=== PATIENT | female | born 1945 | race Caucasian/White ===

== ENCOUNTER → 2016-09-03 | Outpatient (CLI) | payer MEDICARE, BC ==
--- NOTE | 2016-09-03 09:21 | CT ---
EXAMINATION TYPE: CT abdomen pelvis wo con DATE OF EXAM: 09/03/2016 COMPARISON: Prior CT abdomen pelvis 01/11/2014 HISTORY: Hematuria CT DLP: 1372.6 mGycm Automated exposure control for dose reduction was used. TECHNIQUE: Helical acquisition of images from the lung bases through the pelvis. FINDINGS: Lack of intravenous contrast could compromise sensitivity. LUNG BASES: The right middle lobe scarring is again noted and stable, some minimal scarring also note d in the lingula as on prior. There is no pleural or pericardial effusion. Mitral annular calcificati on suspected. There is a small hiatal hernia. AORTA: No significant abnormality is appreciated. LIVER/GB: Liver shows low attenuation likely due to fatty infiltration. Focal fatty sparing suspected adjacent to the gallbladder. Gallbladder shows a stable appearance and is not dilated. PANCREAS: No significant abnormality is seen. Duodenal diverticulum again noted at the head of the pa ncreas. SPLEEN: Spleen is borderline enlarged. ADRENALS: No significant abnormality is seen. KIDNEYS: Punctate nonobstructive calculus is present within the right kidney, measuring only 1 to 2 m m. No hydronephrosis bilaterally. No evident hydroureter or ureteral calcification. REPRODUCTIVE ORGANS: Left ovarian cyst is present measuring approximately 2.3 mm. Uterus is absent. Right ovary unremarkable. URINARY BLADDER: Contracted BOWEL: Postop changes are noted to the colon. There is extensive diverticular change present in the sigmoid colon. The appendix is normal. No evident bowel obstruction. FREE AIR: No Free Air is visible. ASCITES: None visible. PELVIC ADENOPATHY: None visualized. RETROPERITONEAL ADENOPATHY: No Retroperitoneal Adenopathy visible. OSSEOUS STRUCTURES: Degenerative disc changes are present in the visualized spine, there is facet ar thropathy in the lower lumbar spine. IMPRESSION: NONOBSTRUCTIVE RIGHT NEPHROLITHIASIS. DIVERTICULOSIS. LEFT OVARIAN CYST APPEARS STABLE. POSTOP CHANGE S. SPLENOMEGALY IS BORDERLINE. FATTY INFILTRATION OF THE LIVER. DUODENAL DIVERTICULUM. Noncontrast ex am.
== END | disposition home or self-care (01) ==
LOC: RADCTMAIN 08:12
PROVIDERS: ATTEND Internal Medicine
DX: N13.2 Hydronephrosis with renal and ureteral calculous obstruction (principal); K57.90 Diverticulosis of intestine, part unspecified, without perforation or abscess without bleeding; N83.202 Unspecified ovarian cyst, left side; R16.1 Splenomegaly, not elsewhere classified
CPT/HCPCS: 74176

== ENCOUNTER → 2017-06-02 | Outpatient (CLI) | payer MEDICARE, BC ==
[2017-06-02 10:28] LABS: Appearance,Urine Clear (Clear); Bilirubin,Urine Negative (Negative); Blood,Urine Negative (Negative); Color,Urine Yellow; Glucose,Urine (UA) Negative (Negative); Hyaline Casts,Urine 10 /lpf (0-2); Ketones,Urine Negative (Negative); Leukocyte Esterase,Urine Negative (Negative); Mucus,Urine Moderate /hpf; Nitrite,Urine Negative (Negative); PH, Urine 5.5 (5.0-8.0); Protein,Urine 1+ (Negative); RBC,Urine 2 /hpf (0-5); Specific Gravity,Urine 1.028 (1.001-1.035); Squamous Epithelial Cell,Urine 2 /hpf (0-4); WBC,Urine 1 /hpf (0-5)
[2017-06-02 10:33] LABS: HCT 43.8 % (34.0-46.0); HGB 14.7 gm/dL (11.4-16.0); MCH 31.5 pg (25.0-35.0); MCHC 33.6 g/dL (31.0-37.0); MCV 93.5 fL (80.0-100.0); Mean Platelet Volume 6.8; Platelet Count 187 k/uL (150-450); RBC 4.69 m/uL (3.80-5.40)
[2017-06-02 10:49] LABS: ALT 36 U/L (9-52); AST 33 U/L (14-36); Albumin 3.9 g/dL (3.5-5.0); Alkaline Phosphatase 76 U/L (38-126); Anion Gap 7 mmol/L; Blood Urea Nitrogen 20 mg/dL (7-17); Calcium 9.4 mg/dL (8.4-10.2); Carbon Dioxide 30 mmol/L (22-30); Chloride 104 mmol/L (98-107); Glucose 110 mg/dL (74-99); Potassium 4.2 mmol/L (3.5-5.1); Sodium 141 mmol/L (137-145); Total Bilirubin 0.6 mg/dL (0.2-1.3); Total Protein 6.5 g/dL (6.3-8.2)
== END | disposition home or self-care (01) ==
LOC: LABPAT 09:41
PROVIDERS: ATTEND Orthopaedic Surgery
DX: Z79.01 Long term (current) use of anticoagulants (principal); M17.11 Unilateral primary osteoarthritis, right knee; Z01.812 Encounter for preprocedural laboratory examination
CPT/HCPCS: 36415; 80053; 81001; 85027; 85610; 85730; 87070

== ENCOUNTER 2017-06-09 10:28 | Inpatient (IN) | payer MEDICARE, BC ==
[2017-06-02 15:14] VITALS: BMI 42.0
[~2017-06-09 10:28] MED LIST: ACETAMINOPHEN TAB 500 MG TAB PO ONE; LACTATED RINGERS 1,000 ML IV SCH; MELOXICAM 7.5 MG TAB PO ONE; MORPHINE SULFATE 4 MG/ML SYRINGE IV PRN; ONDANSETRON 4 MG/2 ML VIAL IVP ONE; TRANEXAMIC ACID 1,000 MG in SODIUM CHLORIDE 0.9% 50 ML IVPB ONE; ceFAZolin IN SWFI 2 GM/20 ML SYRINGE IVP ONE
[2017-06-09] MEDS ORDERED: LIDOCAINE 1% 20 ML VIAL (10MG/ML) FOR IV START INTRADERMA ONE (11:19)
[2017-06-09] MEDS ORDERED: ROPIVACAINE 246.25 MG, EPINEPHrine 0.5 MG, KETOROLAC 30 MG, cloNIDine HCL/PF 80 MCG, WA... MISCELLANE ONE ×5 (12:50)
[2017-06-09] MEDS ORDERED: SODIUM CHLORIDE 0.9% 100 ML BAG ONE (12:54)
[2017-06-09] MEDS ORDERED: LIDOCAINE 1% INJ 10MG/ML (20 ML MDV) ONE (12:54)
[2017-06-09] MEDS ORDERED: PHENYLEPHRINE-0.9% NACL SYG 1 MG/10 ML SYRINGE ONE (12:54)
[2017-06-09] MEDS ORDERED: fentaNYL (PF) 50 MCG/ML 2 ML AMP ONE (12:54)
[2017-06-09] MEDS ORDERED: hydrALAZINE HCL 20 MG/ML 1 ML VIAL ONE (12:54)
[2017-06-09] MEDS ORDERED: SUCCINYLCHOLINE CHLORIDE 100 MG/5 ML SYR IV ONE (12:54)
[2017-06-09] MEDS ORDERED: NEOSTIGMINE 1 MG/ML 10 ML VIAL ONE (12:54)
[2017-06-09] MEDS ORDERED: ROCURONIUM BROMIDE 10 MG/ML 10 ML VIAL IV ONE (12:54)
[2017-06-09] MEDS ORDERED: PROPOFOL 10 MG/ML 20 ML VIAL IV ONE (12:54)
[2017-06-09] MEDS ORDERED: ePHEDrine SULFATE/0.9% NACL/PF 50 MG/5 ML SYRINGE IV ONE (12:54)
[2017-06-09] MEDS ORDERED: TRANEXAMIC ACID 1,000 MG/10 ML VIAL ONE (12:54)
[2017-06-09] MEDS ORDERED: MIDAZOLAM 2 MG/2 ML VIAL ONE (12:54)
[2017-06-09] MEDS ORDERED: GLYCOPYRROLATE 0.2 MG/ML 2 ML VIAL ONE (12:54)
[2017-06-09] MEDS ORDERED: ceFAZolin 3,000 MG in SODIUM CHLORIDE 0.9% IRRIGATIO 3,000 ML IRRIGATION ONE (14:01)
[2017-06-09] MEDS ORDERED: LACTATED RINGERS 1,000 ML IV ONE (14:42)
[2017-06-09] MEDS ORDERED: BISACODYL 10 MG SUPP RECTAL PRN (15:24)
[2017-06-09] MEDS ORDERED: MORPHINE SULFATE/PF 10MG/10ML VL IVP PRN ×3 (15:24)
[2017-06-09] MEDS ORDERED: hydrOXYzine PAMOATE 25 MG CAP PO PRN (15:24)
[2017-06-09] MEDS ORDERED: NA PHOS,M-B/NA PHOS,DI-BA 133 ML ENEMA RECTAL PRN (15:24)
[2017-06-09] MEDS ORDERED: NALOXONE 0.4 MG/ML 1 ML VIAL IV PRN (15:24)
[2017-06-09] MEDS ORDERED: MAGNESIUM HYDROXIDE 2,400 MG/10 ML CUP PO PRN (15:24)
--- NOTE | 2017-06-09 15:51 | XR ---
EXAMINATION TYPE: XR knee limited RT DATE OF EXAM: 06/09/2017 CLINICAL HISTORY: Right knee pain and arthritis status post total knee replacement. TECHNIQUE: Portable AP and crosstable lateral views of the right knee are obtained immediately posto peratively. COMPARISON: None FINDINGS: Metallic hardware from total right knee arthroplasty is seen and appears satisfactory in a lignment and position. There is evidence of recent surgery with diffuse subcutaneous gas and soft ti ssue swelling noted. IMPRESSION: METALLIC HARDWARE FROM TOTAL RIGHT KNEE ARTHROPLASTY IS SATISFACTORY IN ALIGNMENT.
[2017-06-09] MEDS ORDERED: MORPHINE SULFATE 10 MG/ML SYRINGE IVP ONE (16:14)
[2017-06-09] MEDS ORDERED: SODIUM CHLORIDE 0.9% 1,000 ML IV ONE (16:18)
[2017-06-09] MEDS: LACTATED RINGERS 1,000 ML IV SCH (16:56)
[2017-06-09] MEDS ORDERED: WARFARIN 5 MG TAB PO ONE (18:00)
[2017-06-09] MEDS: HYDROcodone/APAP 7.5-325MG 1 EACH TAB PO PRN (20:37)
[2017-06-09] MEDS: MONTELUKAST 10 MG TAB PO SCH (20:38)
[2017-06-09] MEDS: METOPROLOL TARTRATE 50 MG TAB PO SCH (20:38)
[2017-06-09] MEDS: BRIMONIDINE TARTRATE 0.2% DROPS 5 ML BTL BOTH EYES SCH (20:39)
[2017-06-09] MEDS: SENNOSIDES-DOCUSATE SODIUM 1 EACH TAB PO SCH (20:40)
[2017-06-09] MEDS: ceFAZolin IN SWFI 2 GM/20 ML SYRINGE IVP SCH (23:23)
[2017-06-10] MEDS: ceFAZolin IN SWFI 2 GM/20 ML SYRINGE IVP SCH (05:36)
[2017-06-10] MEDS: HYDROcodone/APAP 7.5-325MG 1 EACH TAB PO PRN ×3 (05:36→18:15)
[2017-06-10] MEDS: LACTATED RINGERS 1,000 ML IV SCH ×3 (05:38→21:48)
[2017-06-10 07:35] LABS: INR 1.6 (<1.2); Prothrombin Time 14.9 sec (9.0-12.0)
[2017-06-10 07:55] LABS: Basophils % (A) 0 %; Eosinophils # (A) 0.1 k/uL (0-0.7); Eosinophils % (A) 1 %; Lymphocytes # (A) 0.5 k/uL (1.0-4.8); Lymphocytes % (A) 6 %; MCH 30.8 pg (25.0-35.0); MCHC 33.4 g/dL (31.0-37.0); MCV 92.1 fL (80.0-100.0); Mean Platelet Volume 7.3; Monocytes # (A) 0.4 k/uL (0-1.0); Monocytes % (A) 4 %; Neutrophils # (A) 7.7 k/uL (1.3-7.7); Neutrophils % (A) 88 %; Platelet Count 165 k/uL (150-450); RBC 4.24 m/uL (3.80-5.40); RDW 12.9 % (11.5-15.5); WBC 8.8 k/uL (3.8-10.6)
[2017-06-10] MEDS: MULTIVITAMINS, THERA 1 EACH TAB PO SCH (08:09)
[2017-06-10] MEDS: PANTOPRAZOLE 40 MG TABLET PO SCH (08:09)
[2017-06-10] MEDS: CALCIUM CARB-VIT D 500MG-200UN 1 EACH TAB PO SCH (08:09)
[2017-06-10] MEDS: METOPROLOL TARTRATE 50 MG TAB PO SCH ×2 (08:10→20:37)
[2017-06-10] MEDS: POTASSIUM CHLORIDE ER 20 MEQ TAB.ER PO SCH (08:10)
[2017-06-10] MEDS: LOSARTAN 25 MG TAB PO SCH (08:10)
[2017-06-10] MEDS: FUROSEMIDE 40 MG TAB PO SCH (08:10)
[2017-06-10] MEDS: MELOXICAM 7.5 MG TAB PO SCH (08:10)
[2017-06-10] MEDS: BRIMONIDINE TARTRATE 0.2% DROPS 5 ML BTL BOTH EYES SCH ×2 (08:16→20:37)
--- NOTE | 2017-06-10 08:16 | P.OP ---
Date of Procedure: 06/09/17 Procedure(s) Performed: PREOPERATIVE DIAGNOSIS: Right knee severe osteoarthritis with genu valgum POSTOPERATIVE DIAGNOSIS: 1. Right knee severe osteoarthritis with genu valgum 2. Moderate osteoporosis right knee OPERATION: Right knee cemented total replacement arthroplasty. ANESTHESIA: Spinal ESTIMATED BLOOD LOSS: 150 ml. RISK ADJUSTMENT SPECIALIST: Liliana Fu PA-C (assistance with: patient positioning, retraction, exposure, hemostasis, leg positioning, implantation, irrigation, closure, dressing) COMPLICATIONS: None apparent. COMPONENTS IMPLANTED: Persona system from [employer] INDICATIONS: Mrs. De La Cruz is a 71 year old female with a history of right knee osteoarthritis and moderate genu valgum. The operation of knee replacement has been discussed at length in the office, as well as potential risks and complications. These are inclusive of, but not limited to: bleeding, infection , scarring, discomfort, blood vessel and nerve damage, need for further surgery , failure to relieve symptoms, persistence, recurrence, or worsening of problems , loosening, dislocation, wear, blood clot, pulmonary embolism, , gait dysfunction, stiffness, and other risks as discussed in the office. The patient elects to proceed and the consent form has been signed. PROCEDURE: The patient was taken to the operating room and positioned on the operating room table in the supine position. Anesthesia was initiated. Care was taken to make sure that all pressure points were adequately padded. The operative lower extremity was prepped and draped in the usual aseptic fashion using ChloraPrep. Ioban drape was used for the case and the patient received intravenous antibiotics within one hour of the incision. A pneumotourniquet and leg low were used for the case. The limb was exsanguinated with an Esmarch bandage and the tourniquet was inflated to 350 mmHg. Time-out was called confirming the patients identity, side, procedure and administration of antibiotics. The incision was then created midline directly over the knee, carried down through skin and into the subcutaneous tissues and down to fascia. Full thickness subcutaneous medial flap was developed. Medial parapatellar arthrotomy was performed and the interior of the knee was inspected. There was end-stage osteoarthritis of the knee with a mild to moderate genu valgum type deformity. Also noted was moderate osteoporosis , as evidenced by diminished cortical bone density as well as moderate softening of the cancellus bone, discovered during the course of the operation. The fat pad was excised and limited proximal medial release on the tibia was completed using meticulous dissection. The anterior cruciate ligament was taken down. The exposure was excellent. The knee was flexed 90 degrees and the patella was everted. A spot was chosen on the femur approximately 1 cm anterior to the posterior cruciate ligament insertion and an intramedullary hole was created within the femur. The intramedullary guide was then set to 5 degrees of valgus. The distal cutting block was attached and pinned into position. An appropriate amount of distal femoral resection was set. The oscillating saw was then used to make the distal femoral cut. This cut was confirmed to be flat with the flat end of an osteotome. The retractors were placed around the tibia and the tibial surface was addressed. The angle and depth of resection was adjusted using an extramedullary cutting guide. The guide had a built-in 3 degree posterior slope cut. Once the cutting guide was adjusted appropriately and in line with the axis of the tibia and confirmed to be in good position in relation to the second metatarsal and transmalleolar axis, the tibial cut was then created with protection of the posterior neurovascular structures and the collateral ligaments. The tibial cut surface was removed and sized. Femoral sizing was then accomplished using anterior referencing. Care was taken to analyze the posterior condyles for signs of deficiency or severe wear, and adjustments to the guide were made, as appropriate. Moderate to severe posterior spurring was noted, as well as a moderately to severely tight posterior cruciate ligament which therefore was released, see below. 3 degree external rotation pins were placed. The cutting jig for the femur was applied to these pins. The planned cuts were further analyzed prior to performing them with the oscillating saw. No femoral notching was produced. Bone fragments were removed and the cut surfaces were finished, as necessary, with a reciprocating saw. Spacer block technique was then used to confirm that the flexion and extension gaps were equal. Soft tissue releases and adjustment of the tibial and/or femoral cuts were made, as necessary, until the gaps were equal. This included release of the posterior cruciate ligament, which was tight in this patient and , if left unreleased, would have resulted in poor kinematics and possibly early loosening. The femur was then further finished for a posterior cruciate ligament substituting component. Patellar resurfacing was performed using a reamer. The size of the required patellar component was estimated and the patellar surface was then reamed down to a residual thickness which would recreate the [place] thickness with the component. The placement of the patellar component was influenced by the degree of patellar subluxation, if any, noted on the preoperative x-rays. Prior to placing trial components, anesthetic solution consisting of ropivicaine with epinephrine, ketorolac, and clonidine was injected carefully and methodically in a grid pattern using aspiration technique into the soft tissue around the knee circumferentially, starting with the deeper tissues first and progressing to fascia, and then finally the skin/subcutaneous tissue. Particular care was taken when injecting the posterior capsule. The trial components were inserted. The tibial tray was allowed to self center and the patella was noted to track very well. The position of the tibial component was marked and the tibia was then finished for a stemmed tibial component. Cement was mixed on the back table and applied to the final components. Trial components were removed and the cut surfaces of the bone were pulse lavaged thoroughly and dried. Cement was then applied to the tibial surface and pressurized into the surface using finger pressurization technique. The tibial component was then applied and excess cement was removed after it was impacted securely and noted to be flush with the cut surface. In similar fashion, the cement was applied to the cut femoral surface, pressurized in using finger pressurization and the component was impacted into place. Excess cement was removed. The polyethylene spacer was then implanted and locked into position. The patellar component was then applied in similar technique and a patellar clamp was used to hold the patella in place as the cement hardened. Once the cement had fully hardened, the knee was reinspected. Any other cement extrusion was removed and final kinematic testing showed range of motion from 0 to 130 degrees with excellent stability, both medially and laterally and appropriate alignment of the leg. Patellar tracking was excellent. The knee was then thoroughly pulse lavaged with normal saline. The tourniquet was deflated and hemostasis was obtained with electrocautery and IV tranexamic acid, 1 g given at the start of the operation and 1 g at the start of closure. Closure was with #2 Ethibond in the fascia and supplemented with #2 Quill, 2-0 Vicryl suture was used for the subcutaneous tissues and 3-0 Quill for the skin. Dermabond/Steri-Strips were then applied. A lightly compressive dressing was applied using Webril and an Aaron wrap. The patient was then transferred to [facility] and taken to the recovery room in stable condition. Sponge and needle counts were correct.
--- NOTE | 2017-06-10 09:29 | P.PN ---
Subjective Progress Note Date: 06/10/17 Principal diagnosis: Status post right total knee arthroplasty This is a 71 year-old female post right total knee arthroplasty. This is post- op day 1. The patient was evaluated at the bedside today. She states she has had some nausea this morning. The patient denies vomiting, abdominal pain, shortness of breath, and chest pain. She states her pain is controlled at this time. The patient has not been up with physical therapy yet this morning. Objective - Vital Signs Vital signs: Vital Signs Temp 98 F 06/10/17 07:00 Pulse 76 06/10/17 07:00 Resp 14 06/10/17 07:00 BP 140/78 06/10/17 07:00 Pulse Ox 97 06/10/17 07:00 Intake & Output 06/09/17 06/10/17 06/10/17 18:59 06:59 18:59 Intake Total 1975 3180 Output Total 500 1430 Balance 1476 1750 Weight 104.326 kg Intake: IV 1975 Intake, IV Titration 2100 Amount Lactated Ringers 1,000 ml 100 @ 100 mls/hr IV .Q10H [facility] Rx#:[id number] Sodium Chloride 0.9% 1, 2000 000 ml As IV .STK-MED ONE Rx#:[id number] Oral 1080 Output: Urine 400 1430 Uretheral ([place]) 650 Estimated Blood Loss 100 Other: Voiding Method Indwelling Catheter Indwelling Catheter # Voids 2 - Exam The patient does not appear in acute distress. Alert and orientated x3. Dressing is clean dry and intact. Incision appears fine with no erythema or active drainage. Calf is soft and nontender. Good foot and ankle motion without difficulty. Sensation and circulatory status is intact. - Labs CBC & Chem 7: 06/10/17 07:03 Labs: Abnormal Lab Results - Last 24 Hours (Table) 06/10/17 06/10/17 Range/Units 07:03 07:03 Lymphocytes # 0.5 L (1.0-4.8) k/uL PT 14.9 H (9.0-12.0) sec INR 1.6 H (<1.2) Assessment and Plan (1) Primary localized osteoarthritis of right knee Current Visit: Yes Status: Acute Code(s): M17.11 - UNILATERAL PRIMARY OSTEOARTHRITIS, RIGHT KNEE SNOMED Code(s): 854653696 (2) Status post right knee replacement Current Visit: Yes Status: Acute Code(s): Z96.651 - PRESENCE OF RIGHT ARTIFICIAL KNEE JOINT SNOMED Code(s): 783699557 Plan: 1. Continue pain control 2. Anticoagulation with Coumadin per protocol 3. Start physical therapy, CPM, and ambulation 4. Anticipate discharge home with homecare tomorrow
[2017-06-10] MEDS: ONDANSETRON 4 MG/2 ML VIAL IVP PRN (12:06)
--- NOTE | 2017-06-10 16:37 | P.CONS ---
History of Present Illness - Reason for Consult medical management - Chief Complaint Right knee osteoarthritis - History of Present Illness This is a 71-year-old female who has a history of right knee osteoarthritis and genu valgum. She presentes for total knee arthroplasty with Dr. Nash. She does have a past medical history of asthma, colon cancer, glaucoma, GERD, hypertension, osteoarthritis, and sleep apnea. She is postop day 1. She is doing well, reports pain is well controlled at this time, she has not been up with physical therapy yet. She denies any shortness of breath, abdominal pain, or chest pain. She does report some mild lower back pain from an unsuccessful epidural. Dressing is clean dry and intact, she denies any calf pain. She is on 2 L of O2 via nasal cannula, will attempt to wean down today Review of Systems Constitutional: Denies chills, Denies fatigue, Denies fever Cardiovascular: Denies chest pain, Denies shortness of breath, Denies syncope Respiratory: Denies cough, Denies dyspnea, Denies wheezing Gastrointestinal: Denies constipation, Denies nausea, Denies vomiting Genitourinary: Denies dysuria, Denies urgency Musculoskeletal: Reports low back pain, Denies muscle cramps Integumentary: Denies lesions, Denies pruritus, Denies rash Neurological: Denies confusion, Denies headaches, Denies visual changes Psychiatric: Denies anxiety, Denies confusion, Denies memory loss Endocrine: Denies fatigue, Denies nocturia Past Medical History Past Medical History: Asthma, Cancer, Eye Disorder, GERD/Reflux, Hypertension, Osteoarthritis (OA), Sleep Apnea/CPAP/BIPAP Additional Past Medical History / Comment(s): COLON CANCER (2011), VARICOSE VEINS, HEART MURMUR, SLEEP APNEA- NO MACHINE, BACK PAIN- HERNIATED DISCS., 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 History of Any Multi-Drug Resistant Organisms: None Reported Past Surgical History: Bowel Resection, Hysterectomy, Joint Replacement, Orthopedic Surgery Additional Past Surgical History / Comment(s): BILATERAL SHOULDER ROTATOR CUFF, LEFT KNEE SCOPE, GIDEON BUNIONECTOMY, CATARACTS. TRK 06/09/17 Past Anesthesia/Blood Transfusion Reactions: Motion Sickness, Postoperative Nausea & Vomiting (PONV) Past Psychological History: Anxiety Smoking Status: Former smoker Past Alcohol Use History: Rare Additional Past Alcohol Use History / Comment(s): QUIT SMOKING 25 YRS AGO (1992) . SMOKED 1 PPD., SMOKED FOR APPROX 25 YEARS. Past Drug Use History: None Reported - Past Family History Sister(s) Family Medical History: Pulmonary Embolus Mother Family Medical History: Cancer Additional Family Medical History / Comment(s): LYMPHOMA Medications and Allergies Home Medications Medication Instructions Recorded Confirmed Type Pantoprazole Sodium [Protonix] 40 mg PO DAILY 07/23/13 06/09/17 History Brimonidine Tartrate [Alphagan P 1 drop BOTH EYES BID 05/05/14 06/09/17 History 0.2% Ophth Soln] Flaxseed [Flaxseed Oil] 1,000 mg PO TID 05/05/14 06/09/17 History Multivitamin/Iron/Folic Acid 1 tab PO DAILY 05/05/14 06/09/17 History [Centrum Complete Multivit Tab] Aspirin 81 mg PO DAILY #0 07/19/14 06/09/17 Rx Albuterol Inhaler [Ventolin Hfa 1 - 2 puff INHALATION RT-Q6H PRN 06/02/17 History Inhaler] Calcium/Vitamin D 1 tab PO DAILY 06/02/17 06/09/17 History Furosemide [Lasix] 40 mg PO DAILY 06/02/17 06/09/17 History Ibuprofen 600 mg PO DAILY PRN 06/02/17 06/09/17 History Losartan [Cozaar] 25 mg PO DAILY 06/02/17 06/09/17 History Metoprolol Tartrate [Lopressor] 50 mg PO BID 06/02/17 06/09/17 History Montelukast [Singulair] 10 mg PO HS 06/02/17 06/09/17 History Potassium Chloride [K-Tab ER] 20 meq PO DAILY 06/02/17 06/09/17 History HYDROcodone/APAP 5-325MG [[place] 1 - 2 each PO Q4-6H PRN #90 tab 06/09/17 Rx 5-325] Sennosides-Docusate Sodium 1 tab PO BID #60 tablet 06/09/17 Rx [Senokot-S] Warfarin Sodium [Warfarin Sodium] See Taper PO DIRECTED 06/09/17 06/09/17 History Warfarin [Coumadin] 2.5 mg PO DAILY #1 tab 06/09/17 Rx Allergies Allergy/AdvReac Type Severity Reaction Status Date / Time amoxicillin trihydrate Allergy Rash/Hives Verified 06/09/17 17:09 [From Augmentin] hydromorphone HCl Allergy Rash/Hives Verified 06/09/17 17:09 [From Dilaudid] Iodinated Contrast- Oral and Allergy Red face Verified 06/09/17 17:09 IV Dye and felt [Iodinated Contrast Media - like it IV Dye] was on fire. Penicillins Allergy Rash/Hives Verified 06/09/17 17:09 potassium clavulanate Allergy Rash/Hives Verified 06/09/17 17:09 [From Augmentin] Zwpkjbg-Iuv-Xvd Reductase AdvReac LEG Verified 06/09/17 17:09 Inhibitor SWELLING AND PAIN tramadol AdvReac Unknown Verified 06/09/17 17:09 Physical Exam Vitals: Vital Signs Temp Pulse Pulse Resp BP Pulse Ox 06/10/17 15:00 98.3 F 82 18 110/72 93 L 06/10/17 07:00 98 F 76 14 140/78 97 06/10/17 00:32 97.0 F L 64 17 131/88 98 06/09/17 20:24 17 06/09/17 17:30 85 162/93 95 06/09/17 17:15 85 148/90 95 06/09/17 17:00 89 139/89 94 L 06/09/17 16:45 81 139/89 90 L 06/09/17 16:34 82 16 117/61 95 06/09/17 16:30 75 131/74 92 L 06/09/17 16:18 86 16 121/61 94 L 06/09/17 16:15 83 137/81 95 Intake and Output 06/10/17 06/10/17 06/10/17 06:59 14:59 22:59 Intake Total 1640 1273 Output Total 380 300 Balance 1260 973 Intake: Intake, IV Titration 1100 800 Amount Lactated Ringers 1,000 ml 100 800 @ 100 mls/hr IV .Q10H [facility] Rx#:[id number] Sodium Chloride 0.9% 1, 1000 000 ml As IV .STK-MED ONE Rx#:[id number] Oral 540 473 Output: Urine 380 300 Uretheral ([place]) 300 Other: # Voids 2 Weight 104.326 kg - Constitutional General appearance: cooperative, obese - EENT Eyes: PERRLA ENT: hearing grossly normal - Neck Neck: no lymphadenopathy, normal ROM, no thyromegaly Carotids: bilateral: upstroke normal Thyroid: bilateral: normal size, negative: enlarged, nodule - Respiratory Respiratory: bilateral: CTA - Cardiovascular Rhythm: regular Heart sounds: normal: S1, S2 - Gastrointestinal General gastrointestinal: normal bowel sounds, no organomegaly, soft - Integumentary Integumentary: normal - Neurologic Neurologic: CNII-XII intact - Musculoskeletal Musculoskeletal: strength equal bilaterally - Psychiatric Psychiatric: A&O x's 3 Results CBC & Chem 7: 06/10/17 07:03 Labs: Abnormal Lab Results - Last 24 Hours (Table) 06/10/17 06/10/17 Range/Units 07:03 07:03 Lymphocytes # 0.5 L (1.0-4.8) k/uL PT 14.9 H (9.0-12.0) sec INR 1.6 H (<1.2) Assessment and Plan Plan: 1. Osteoarthritis of the right knee status post total right knee arthroplasty postop day #1. Will continue with [place] and morphine for pain control, continue Mobic. Coumadin for anticoagulation, incentive spirometer at bedside, encouraged to use 10 times every hour while awake, PT. 2. Hypertension. Continue with Lopressor 50 mg twice a day and Cozaar 25 mg daily 3. History of colon cancer diagnosed 2011. Stable, last colonoscopy clear 4. Glaucoma. Continue Alphagan 1 drop both eyes twice a day 5. History of sleep apnea. Stable, patient does not use CPAP 6. Asthma continue singular if needed, we'll do albuterol 7. GERD continue Protonix 40 mg daily 8. GI prophylaxis. Continue Protonix 9. DVT prophylaxis continue Coumadin The above impression and plan of care have been discussed and directed by signing physician. Leticia Hernandez nurse practitioner acting as scribe for signing physician.
[2017-06-10] MEDS ORDERED: WARFARIN 5 MG TAB PO ONE (18:00)
[2017-06-10] MEDS: SENNOSIDES-DOCUSATE SODIUM 1 EACH TAB PO SCH (20:37)
[2017-06-10] MEDS: MONTELUKAST 10 MG TAB PO SCH (20:37)
[2017-06-11] MEDS: HYDROcodone/APAP 7.5-325MG 1 EACH TAB PO PRN ×3 (01:12→16:16)
[2017-06-11 07:38] LABS: INR 2.2 (<1.2); Prothrombin Time 19.9 sec (9.0-12.0)
--- NOTE | 2017-06-11 08:12 | P.DS ---
Providers Date of admission: 06/09/17 10:28 Expected date of discharge: 06/11/17 Attending physician: Jonas Nash Consults: 06/09/17 15:24 Consult Physician Routine Consulting Provider: Sheila Grace Consult Reason/Comments: Medical manangement Do you want consulting provider notified?: Yes Primary care physician: Sheila Grace - Discharge Diagnosis(es) (1) Osteoarthritis of right knee Current Visit: Yes Status: Acute (2) Status post right knee replacement Current Visit: Yes Status: Acute Hospital Course: This is a 71-year-old female who was last seen with complaint of continued right knee pain. The patient has a known history of degenerative arthritis of the right knee and presents to discuss surgical options. After discussion and consideration the patient elects to proceed with total right knee arthroplasty. The patient is seen preoperatively by her family physician and cleared for surgery. The patient is admitted to [facility] for total right knee arthroplasty. The procedures performed without complication or sequelae. Patient is doing well postoperatively. Vital signs are stable at discharge. Labs are stable at discharge. the patient is ambulating well with walker with minimal assistance. The patient is discharged to home on postop day #2 pending medical clearance. Please see orders and refer to the med rec for accurate list of medications. Plan - Discharge Summary Discharge Rx Participant: Yes New Discharge Prescriptions: New HYDROcodone/APAP 5-325MG [[place] 5-325] 1 - 2 each PO Q4-6H PRN #90 tab PRN Reason: Pain Sennosides-Docusate Sodium [Senokot-S] 1 tab PO BID #60 tablet Warfarin [Coumadin] 2.5 mg PO DAILY #1 tab No Action Pantoprazole Sodium [Protonix] 40 mg PO DAILY Multivitamin/Iron/Folic Acid [Centrum Complete Multivit Tab] 1 tab PO DAILY Flaxseed [Flaxseed Oil] 1,000 mg PO TID Brimonidine Tartrate [Alphagan P 0.2% Ophth Soln] 1 drop BOTH EYES BID Aspirin 81 mg PO DAILY #0 Metoprolol Tartrate [Lopressor] 50 mg PO BID Montelukast [Singulair] 10 mg PO HS Albuterol Inhaler [Ventolin Hfa Inhaler] 1 - 2 puff INHALATION RT-Q6H PRN PRN Reason: Shortness Of Breath Calcium/Vitamin D 1 tab PO DAILY Losartan [Cozaar] 25 mg PO DAILY Furosemide [Lasix] 40 mg PO DAILY Potassium Chloride [K-Tab ER] 20 meq PO DAILY Ibuprofen 600 mg PO DAILY PRN PRN Reason: Pain Warfarin Sodium [Warfarin Sodium] See Taper PO DIRECTED Discharge Medication List Pantoprazole Sodium [Protonix] 40 mg PO DAILY 07/23/13 [History] Brimonidine Tartrate [Alphagan P 0.2% Ophth Soln] 1 drop BOTH EYES BID 05/05/14 [History] Flaxseed [Flaxseed Oil] 1,000 mg PO TID 05/05/14 [History] Multivitamin/Iron/Folic Acid [Centrum Complete Multivit Tab] 1 tab PO DAILY [History] Aspirin 81 mg PO DAILY #0 07/19/14 [Rx] Albuterol Inhaler [Ventolin Hfa Inhaler] 1 - 2 puff INHALATION RT-Q6H PRN [History] Calcium/Vitamin D 1 tab PO DAILY 06/02/17 [History] Furosemide [Lasix] 40 mg PO DAILY 06/02/17 [History] Ibuprofen 600 mg PO DAILY PRN 06/02/17 [History] Losartan [Cozaar] 25 mg PO DAILY 06/02/17 [History] Metoprolol Tartrate [Lopressor] 50 mg PO BID 06/02/17 [History] Montelukast [Singulair] 10 mg PO HS 06/02/17 [History] Potassium Chloride [K-Tab ER] 20 meq PO DAILY 06/02/17 [History] HYDROcodone/APAP 5-325MG [[place]ay[place] 5-325] 1 - 2 each PO Q4-6H PRN #90 tab 06/09/17 [Rx] Sennosides-Docusate Sodium [Senokot-S] 1 tab PO BID #60 tablet 06/09/17 [Rx] Warfarin Sodium [Warfarin Sodium] See Taper PO DIRECTED 06/09/17 [History] Warfarin [Coumadin] 2.5 mg PO DAILY #1 tab 06/09/17 [Rx] Follow up Appointment(s)/Referral(s): Liliana Fu, TJ [PHYSICIAN GEOMAGNETICIAN] - 2 Weeks [facility], [NON-STAFF] - Ambulatory/Diagnostic Orders: Continuous Passive Motion (CPM) Machine [DME.AMB1] Time Frame: 3 Weeks, Facility : [facility], Location: Case Management Prothrombin Time INR [LAB.AMB] Location: Determined By Patient Activity/Diet/Wound Care/Special Instructions: May bear wt as tolerated w walker. May shower if no drainage from incision. CPM 5-6h daily. Walker- [facility] - [phone] - will deliver to bedside prior to discharge CPM - [facility] [phone] - please call once home to arrange delivery Discharge Disposition: HOME WITH HOME HEALTH SERVICES
[2017-06-11] MEDS: LACTATED RINGERS 1,000 ML IV SCH ×2 (08:49→17:50)
[2017-06-11] MEDS: MULTIVITAMINS, THERA 1 EACH TAB PO SCH (08:51)
[2017-06-11] MEDS: LOSARTAN 25 MG TAB PO SCH (08:51)
[2017-06-11] MEDS: CALCIUM CARB-VIT D 500MG-200UN 1 EACH TAB PO SCH (08:51)
[2017-06-11] MEDS: PANTOPRAZOLE 40 MG TABLET PO SCH (08:51)
[2017-06-11] MEDS: METOPROLOL TARTRATE 50 MG TAB PO SCH ×2 (08:52→20:14)
[2017-06-11] MEDS: BRIMONIDINE TARTRATE 0.2% DROPS 5 ML BTL BOTH EYES SCH ×2 (08:52→20:13)
[2017-06-11] MEDS: MELOXICAM 7.5 MG TAB PO SCH (08:52)
[2017-06-11] MEDS: FUROSEMIDE 40 MG TAB PO SCH (08:52)
[2017-06-11] MEDS: POTASSIUM CHLORIDE ER 20 MEQ TAB.ER PO SCH (08:52)
[2017-06-11] MEDS: ONDANSETRON 4 MG/2 ML VIAL IVP PRN (08:58)
[2017-06-11] MEDS ORDERED: FUROSEMIDE 10 MG/ML 4 ML VIAL IV STA (13:17)
[2017-06-11] MEDS ORDERED: MORPHINE ORAL SOLN 10 MG/5 ML CUP PO PRN ×3 (14:46→14:54)
--- NOTE | 2017-06-11 15:25 | XR ---
EXAMINATION TYPE: XR chest 2V DATE OF EXAM: 06/11/2017 COMPARISON: Prior chest dated 07/16/2014 HISTORY: Hypoxemia, shortness of breath TECHNIQUE: Frontal and lateral views of the chest are obtained. FINDINGS: Patient is rotated. There is no pleural effusion or pneumothorax seen. Patchy basilar dens ity is again noted on the right. The aorta is dense. The cardiac silhouette size is likely stable, he art size may be accentuated by technique. Postop change noted to the left shoulder. The osseous stru ctures are intact. IMPRESSION: Possible basilar atelectasis, correlate to exclude pneumonia, patient is rotated.
--- NOTE | 2017-06-11 15:37 | US ---
EXAMINATION TYPE: US venous doppler duplex LE RT DATE OF EXAM: 06/11/2017 2:13 PM COMPARISON: 11/28/2015 CLINICAL HISTORY: 71-year-old female edema, s/p TKA. Right knee replacement on 06/09/2017. Attila n and swelling right leg SIDE PERFORMED: Right TECHNIQUE: The lower extremity deep venous system is examined utilizing real time linear array sonog valeriy with graded compression, doppler sonography and color-flow sonography. FINDINGS: VESSELS IMAGED: External Iliac Vein (EIV) Common Femoral Vein Deep Femoral Vein Greater Saphenous Vein * Femoral Vein Popliteal Vein Small Saphenous Vein * Proximal Calf Veins (* superficial vessels) Right Leg: Negative for DVT IMPRESSION: No evidence for DVT within the right lower extremity from the groin to the upper calf.
[2017-06-11] MEDS ORDERED: AZITHROMYCIN 500 MG TAB PO STA (16:25)
--- NOTE | 2017-06-11 16:25 | P.PN ---
Subjective Progress Note Date: 06/11/17 This is a 71-year-old female who has a history of right knee osteoarthritis and genu valgum. She presentes for total knee arthroplasty with Dr. Nash. She does have a past medical history of asthma, colon cancer, glaucoma, GERD, hypertension, osteoarthritis, and sleep apnea. She is postop day 1. She is doing well, reports pain is well controlled at this time, she has not been up with physical therapy yet. She denies any shortness of breath, abdominal pain, or chest pain. She does report some mild lower back pain from an unsuccessful epidural. Dressing is clean dry and intact, she denies any calf pain. She is on 2 L of O2 via nasal cannula, will attempt to wean down today 06/11: Case management contacted us regarding her pulse ox being in the 80s and need for oxygen. Patient is noted to not have oxygen prior to this admission. Nursing states the patient got up to the bed side commode last evening her pulse ox dropped to the 80s and she has been on oxygen through the night. This morning she was complaining of headache and nausea and oxygen was increased to 3 L nasal cannula. She has been using her incentive spirometry and reaching 2914-0897 ML's. She denies having any cough. We have ordered one dose of Lasix 40 mg IV. Chest x-ray shows possible basilar atelectasis correlate to exclude pneumonia. Patient will be treated for pneumonia and started on ceftriaxone and azithromycin. Ultrasound of the right lower extremity was negative for DVT. Discharge today will be held. Nursing is monitoring her oxygen closely and we will try to wean her down prior to discharge social not require oxygen. Patient be reevaluated in the morning. Objective - Vital Signs Vital signs: Vital Signs Temp 98 F 06/11/17 15:00 Pulse 73 06/11/17 15:00 Resp 16 06/11/17 15:00 BP 124/74 06/11/17 15:00 Pulse Ox 98 06/11/17 15:00 Intake & Output 06/10/17 06/11/17 06/11/17 18:59 06:59 18:59 Intake Total 1273 Output Total 300 Balance 973 Weight 104.326 kg Intake: Intake, IV Titration 800 Amount Lactated Ringers 1,000 ml 800 @ 100 mls/hr IV .Q10H KALYAN Rx#:[id number] Oral 473 Output: Urine 300 Uretheral ([place]) 300 Other: Voiding Method Bedside Commode # Voids 2 - Exam General appearance: cooperative, obese - EENT Eyes: PERRLA ENT: hearing grossly normal - Neck Neck: no lymphadenopathy, normal ROM, no thyromegaly Carotids: bilateral: upstroke normal Thyroid: bilateral: normal size, negative: enlarged, nodule - Respiratory Respiratory: bilateral: CTA - Cardiovascular Rhythm: regular Heart sounds: normal: S1, S2 - Gastrointestinal General gastrointestinal: normal bowel sounds, no organomegaly, soft - Integumentary Integumentary: normal - Neurologic Neurologic: CNII-XII intact - Musculoskeletal Musculoskeletal: strength equal bilaterally - Psychiatric Psychiatric: A&O x's 3 - Labs CBC & Chem 7: 06/10/17 07:03 Labs: Abnormal Lab Results - Last 24 Hours (Table) 06/11/17 Range/Units 06:56 PT 19.9 H (9.0-12.0) sec INR 2.2 H (<1.2) Assessment and Plan Plan: 1. Osteoarthritis of the right knee status post total right knee arthroplasty postop day #1. Will continue with Vadito and morphine for pain control, continue Mobic. Coumadin for anticoagulation, incentive spirometer at bedside, encouraged to use 10 times every hour while awake, PT. 2. Hypoxia and Pneumonia without acute respiratory failure, patient will be started on ceftriaxone and azithromycin. 3. Hypertension. Continue with Lopressor 50 mg twice a day and Cozaar 25 mg daily 3. History of colon cancer diagnosed 2011. Stable, last colonoscopy clear 4. Glaucoma. Continue Alphagan 1 drop both eyes twice a day 5. History of sleep apnea. Stable, patient does not use CPAP 6. Asthma continue singular if needed, we'll do albuterol 7. GERD continue Protonix 40 mg daily 8. GI prophylaxis. Continue Protonix 9. DVT prophylaxis continue Coumadin Discharge plan: Home with [facility] Impression and plan of care have been directed as dictated by the signing physician. Yolanda Munoz nurse practitioner acting as scribe for signing physician.
[2017-06-11] MEDS: cefTRIAXone IN SWFI 1,000 MG/10 ML SYRINGE IVP SCH (17:47)
[2017-06-11] MEDS ORDERED: WARFARIN 2.5 MG TAB PO ONE (18:00)
[2017-06-11] MEDS: SENNOSIDES-DOCUSATE SODIUM 1 EACH TAB PO SCH (20:14)
[2017-06-11] MEDS: MONTELUKAST 10 MG TAB PO SCH (20:14)
[2017-06-11] MEDS: ACETAMINOPHEN TAB 325 MG TAB PO PRN (22:36)
[2017-06-12] MEDS: LACTATED RINGERS 1,000 ML IV SCH ×2 (00:40→13:44)
[2017-06-12] MEDS: ACETAMINOPHEN TAB 325 MG TAB PO PRN (07:02)
[2017-06-12] MEDS ORDERED: BUTALB/APAP/CAFF 50-325-40MG TAB PO PRN (08:15)
[2017-06-12 08:16] LABS: Basophils % (A) 0 %; Eosinophils # (A) 0.1 k/uL (0-0.7); Eosinophils % (A) 2 %; HCT 36.3 % (34.0-46.0); HGB 12.6 gm/dL (11.4-16.0); Lymphocytes % (A) 15 %; MCH 31.7 pg (25.0-35.0); MCHC 34.6 g/dL (31.0-37.0); MCV 91.5 fL (80.0-100.0); Mean Platelet Volume 7.1; Monocytes # (A) 0.4 k/uL (0-1.0); Monocytes % (A) 6 %; Neutrophils # (A) 4.9 k/uL (1.3-7.7); Neutrophils % (A) 75 %; Platelet Count 174 k/uL (150-450); RBC 3.97 m/uL (3.80-5.40); WBC 6.5 k/uL (3.8-10.6)
--- NOTE | 2017-06-12 08:18 | P.PN ---
Subjective Progress Note Date: 06/12/17 Principal diagnosis: Primary osteoarthritis right knee. Status post total right knee arthroplasty. This is a 71-year-old female who is status post total right knee arthroplasty on 06/09/2017. The patient was to be discharged to home yesterday. However, when she was ambulating with physical therapy she became dizzy and slightly short of breath. Vitals were taken at that time which revealed her pulse ox to be in the low 80s. She was put on oxygen. Chest x-ray was obtained and venous Doppler was obtained. Doppler was negative for DVT. Chest x-ray revealed some atelectasis and could not exclude early pneumonia. The patient is complaining of a headache this morning. She does not feel short of breath today and states that she has not had a cough. She currently is on 4 L of O2 per nasal cannula with a pulse ox ranging from 92-95. She reports no fever or chills. Objective - Vital Signs Vital signs: Vital Signs Temp 98.4 F 06/12/17 00:59 Pulse 80 06/12/17 00:59 Resp 17 06/12/17 00:59 BP 120/64 06/12/17 00:59 Pulse Ox 95 06/12/17 00:59 Intake & Output 06/11/17 06/12/17 06/12/17 18:59 06:59 18:59 Intake Total 500 780 Balance 500 780 Intake: Oral 500 Other 780 Other: Voiding Method Bedside Commode # Voids 3 3 - Exam This is a pleasant 71-year-old female in no acute distress. She is alert and oriented. She is holding her head and her hands when I walked in the room. Exam of the lower extremities reveals that her incision looks good. There is no erythema. There is mild ecchymosis about the incision. There is no active drainage. The Dermabond tape is intact. She has full foot and ankle motion without difficulty or pain. There is no calf pain with palpation. Neurovascular status to the lower extremity is intact. - Labs CBC & Chem 7: 06/10/17 07:03 Assessment and Plan (1) Osteoarthritis of right knee Current Visit: Yes Status: Acute Code(s): M17.11 - UNILATERAL PRIMARY OSTEOARTHRITIS, RIGHT KNEE SNOMED Code(s): 983972962134088 (2) Status post right knee replacement Current Visit: Yes Status: Acute Code(s): Z96.651 - PRESENCE OF RIGHT ARTIFICIAL KNEE JOINT SNOMED Code(s): 140228398 Plan: The clinical and diagnostic findings are discussed with the patient. I have reviewed the case with nursing staff. We will talk to internal medicine regarding her hypoxemia and her headache. We'll continue to follow. Most likely we'll hold discharge today.
[2017-06-12 08:19] LABS: INR 1.7 (<1.2); Prothrombin Time 15.8 sec (9.0-12.0)
[2017-06-12] MEDS ORDERED: RX INFO: IV CONTRAST WAS GIVEN 1 EACH MISC MISCELLANE PRN (08:49)
[2017-06-12] MEDS ORDERED: FAMOTIDINE 20 MG/2 ML VIAL IV STA (08:50)
[2017-06-12] MEDS ORDERED: methylPREDNISolone SOD SUCCI 125 MG/2 ML VIAL IV STA (08:50)
[2017-06-12] MEDS ORDERED: diphenhydrAMINE 50 MG/ML 1 ML VIAL IVP STA (08:50)
[2017-06-12] MEDS: BRIMONIDINE TARTRATE 0.2% DROPS 5 ML BTL BOTH EYES SCH ×2 (09:12→19:54)
[2017-06-12] MEDS: MELOXICAM 7.5 MG TAB PO SCH (09:13)
[2017-06-12] MEDS: LOSARTAN 25 MG TAB PO SCH (09:13)
[2017-06-12] MEDS: FUROSEMIDE 40 MG TAB PO SCH (09:13)
[2017-06-12] MEDS: METOPROLOL TARTRATE 50 MG TAB PO SCH ×2 (09:13→19:54)
[2017-06-12] MEDS: POTASSIUM CHLORIDE ER 20 MEQ TAB.ER PO SCH (09:13)
[2017-06-12] MEDS: PANTOPRAZOLE 40 MG TABLET PO SCH (09:13)
[2017-06-12] MEDS: MULTIVITAMINS, THERA 1 EACH TAB PO SCH (09:13)
[2017-06-12] MEDS: cefTRIAXone IN SWFI 1,000 MG/10 ML SYRINGE IVP SCH (09:14)
[2017-06-12] MEDS: CALCIUM CARB-VIT D 500MG-200UN 1 EACH TAB PO SCH (09:14)
[2017-06-12] MEDS: AZITHROMYCIN 250 MG TAB PO SCH (09:14)
[2017-06-12 09:26] LABS: Anion Gap 7 mmol/L; Blood Urea Nitrogen 16 mg/dL (7-17); Calcium 8.8 mg/dL (8.4-10.2); Carbon Dioxide 36 mmol/L (22-30); Chloride 93 mmol/L (98-107); Glucose 133 mg/dL (74-99); Sodium 136 mmol/L (137-145)
--- NOTE | 2017-06-12 10:51 | CT ---
EXAMINATION TYPE: CT angio chest DATE OF EXAM: 06/12/2017 COMPARISON: Radiograph 06/11/2017 HISTORY: 71 year-old female hypoxemia after TKA TECHNIQUE: Contiguous axial scanning of the chest performed with IV Contrast, patient injected with 6 0 mL of Isovue 300. Coronal/sagittal MIP reconstructions performed. CT DLP: 533.30 mGycm Automated exposure control for dose reduction was used. FINDINGS: The heart is normal size without pericardial effusion.; Annular calcifications are present. Mild aort ic valvular calcifications. Mild aneurysm ascending aorta at 4.0 cm. Mild atherosclerotic arch calcifications. There is a direct takeoff of the left vertebral artery directly from the aortic arch. Ectasia of the upper descending t horacic aorta at 3.2 cm. Satisfactory opacification of the pulmonary system. Exam is positive for mild burden of pulmonary emb jett to the left upper lobe segmental and subsegmental branch, refer to axial images 50 and 51. No thoracic lymphadenopathy. Prominent but nonenlarged 9 mm precarinal lymph node. Mild biapical pleural-parenchymal scarring. Mild paraseptal and mild centrilobular emphysema is noted . 4 mm peripheral right upper lobe pulmonary nodule axial image 47. 4 mm subpleural pulmonary nodule superior segment right lower lobe axial image 52. Calcified granuloma peripheral left lower lobe axial image 70. Strandy and patchy areas of atelectasis at the lung bases. No consolidation or pleural effusion. Visualized upper abdomen shows no gross abnormality. Bones: Endplate spondylosis mid to lower thoracic spine. Moderate to advanced degenerative disc disea se. IMPRESSION: 1. EXAM POSITIVE FOR PULMONARY EMBOLUS. THERE IS ONLY MILD BURDEN ON THE LEFT WITH SEGMENTAL AND SUBS EGMENTAL BRANCH EMBOLUS TO THE LEFT UPPER LOBE. 2. COPD WITH MILD EMPHYSEMA. A COUPLE PULMONARY NODULES MEASURE UP TO 4 MM AND CAN BE REASSESSED AT A ONE-YEAR FOLLOW-UP. 3. PROMINENT PATCHY ATELECTASIS AT THE LUNG BASES. 4. MILDLY ANEURYSMAL THORACIC AORTA (ASCENDING 4.0 CM AND UPPER DESCENDING 3.2 CM). CRITICAL FINDINGS CALLED TO NURSE COBURN ON 3SUR AT 10:48 AM.
[2017-06-12] MEDS ORDERED: HEPARIN SODIUM,PORCINE 5,000 UNIT/ML 1 ML VIAL IV PRN (12:08)
[2017-06-12 12:24] LABS: Basophils % (A) 0 %; Eosinophils % (A) 0 %; HCT 37.6 % (34.0-46.0); HGB 12.8 gm/dL (11.4-16.0); Lymphocytes # (A) 0.5 k/uL (1.0-4.8); Lymphocytes % (A) 6 %; MCH 31.4 pg (25.0-35.0); MCHC 34.1 g/dL (31.0-37.0); MCV 92.3 fL (80.0-100.0); Mean Platelet Volume 6.9; Monocytes # (A) 0.2 k/uL (0-1.0); Monocytes % (A) 3 %; Neutrophils # (A) 8.2 k/uL (1.3-7.7); Neutrophils % (A) 90 %; Platelet Count 185 k/uL (150-450); RBC 4.08 m/uL (3.80-5.40); RDW 13.1 % (11.5-15.5)
[2017-06-12] MEDS ORDERED: HEPARIN SODIUM,PORCINE 5,000 UNIT/ML 1 ML VIAL IV ONE (12:30)
[2017-06-12 12:32] LABS: INR 1.7 (<1.2); Partial Thromboplastin Time 26.7 sec (22.0-30.0); Prothrombin Time 15.4 sec (9.0-12.0)
[2017-06-12] MEDS: HYDROcodone/APAP 7.5-325MG 1 EACH TAB PO PRN ×2 (12:52→20:58)
[2017-06-12] MEDS: HEPARIN SOD,PORK IN 0.45% NACL 25,000 UNIT in 0.45% NACL 1 500ML.BAG IV SCH ×2 (14:09→20:45)
--- NOTE | 2017-06-12 15:26 | US ---
EXAMINATION TYPE: US venous doppler duplex LE LT DATE OF EXAM: 06/12/2017 3:15 PM COMPARISON: US bilateral lower extremity 11/28/2015 CLINICAL HISTORY: Positive pulmonary embolism. SIDE PERFORMED: Left TECHNIQUE: The lower extremity deep venous system is examined utilizing real time linear array sonog valeriy with graded compression, doppler sonography and color-flow sonography. VESSELS IMAGED: External Iliac Vein (EIV) Common Femoral Vein Deep Femoral Vein Greater Saphenous Vein * Femoral Vein Popliteal Vein Small Saphenous Vein * Proximal Calf Veins (* superficial vessels) Left Leg: Negative for DVT Grayscale, color doppler, spectral doppler imaging performed of the deep veins of the bilateral lower extremities. There is normal flow, compressibility, vascular waveforms. IMPRESSION: No ultrasound evidence for acute DVT in either lower extremity on current study.
--- NOTE | 2017-06-12 15:51 | P.PN ---
Subjective Progress Note Date: 06/12/17 This is a 71-year-old female who has a history of right knee osteoarthritis and genu valgum. She presentes for total knee arthroplasty with Dr. Nash. She does have a past medical history of asthma, colon cancer, glaucoma, GERD, hypertension, osteoarthritis, and sleep apnea. She is postop day 1. She is doing well, reports pain is well controlled at this time, she has not been up with physical therapy yet. She denies any shortness of breath, abdominal pain, or chest pain. She does report some mild lower back pain from an unsuccessful epidural. Dressing is clean dry and intact, she denies any calf pain. She is on 2 L of O2 via nasal cannula, will attempt to wean down today 06/11: Case management contacted us regarding her pulse ox being in the 80s and need for oxygen. Patient is noted to not have oxygen prior to this admission. Nursing states the patient got up to the bed side commode last evening her pulse ox dropped to the 80s and she has been on oxygen through the night. This morning she was complaining of headache and nausea and oxygen was increased to 3 L nasal cannula. She has been using her incentive spirometry and reaching [id number] ML's. She denies having any cough. We have ordered one dose of Lasix 40 mg IV. Chest x-ray shows possible basilar atelectasis correlate to exclude pneumonia. Patient will be treated for pneumonia and started on ceftriaxone and azithromycin. Ultrasound of the right lower extremity was negative for DVT. Discharge today will be held. Nursing is monitoring her oxygen closely and we will try to wean her down prior to discharge social not require oxygen. Patient be reevaluated in the morning. 06/12: Pulseox remains low this morning at 92% on 4L n/c. CTA of the chest was positive for pulmonary embolus. Only mild burden on the left with segmental and subsegmental branch embous to left upper lobe. COPD with mild emphysema. Couple pulmonary nodules measuring up to 4 mm and can be reassessed in 1 year follow- up. Prominent patchy atelectasis at the lung bases. Mildly aneurysmal thoracic aorta. Ascending 4.0 cm and upper descending 3.2 cm. Patient has been started on heparin drip. Doppler of the left lower extreme is negative for DVT. Patient is also complaining of headache which is so bad that it causes her nausea. Fioricet has been added. Headache is located in the forehead area. Patient didn't receive significant improvement with Fioricet. Objective - Vital Signs Vital signs: Vital Signs Temp 97.5 F L 06/12/17 07:00 Pulse 98 06/12/17 07:00 Resp 18 06/12/17 07:00 BP 114/76 06/12/17 07:00 Pulse Ox 92 L 06/12/17 07:00 Intake & Output 06/11/17 06/12/17 06/12/17 18:59 06:59 18:59 Intake Total 500 780 Balance 500 780 Intake: Oral 500 Other 780 Other: Voiding Method Bedside Commode Toilet Bedside Commode # Voids 3 3 - Exam General appearance: cooperative, obese - EENT Eyes: PERRLA ENT: hearing grossly normal - Neck Neck: no lymphadenopathy, normal ROM, no thyromegaly Carotids: bilateral: upstroke normal Thyroid: bilateral: normal size, negative: enlarged, nodule - Respiratory Respiratory: bilateral: CTA - Cardiovascular Rhythm: regular Heart sounds: normal: S1, S2 - Gastrointestinal General gastrointestinal: normal bowel sounds, no organomegaly, soft - Integumentary Integumentary: normal - Neurologic Neurologic: CNII-XII intact - Musculoskeletal Musculoskeletal: strength equal bilaterally - Psychiatric Psychiatric: A&O x's 3 - Labs CBC & Chem 7: 06/12/17 12:16 06/12/17 07:39 Labs: Abnormal Lab Results - Last 24 Hours (Table) 06/12/17 06/12/17 Range/Units 07:39 07:39 PT 15.8 H (9.0-12.0) sec INR 1.7 H (<1.2) Sodium 136 L (137-145) mmol/L Chloride 93 L (98-107) mmol/L Carbon Dioxide 36 H (22-30) mmol/L Glucose 133 H (74-99) mg/dL Assessment and Plan Plan: 1. Osteoarthritis of the right knee status post total right knee arthroplasty postop day #1. Will continue with Clark and morphine for pain control, continue Mobic. Coumadin for anticoagulation, incentive spirometer at bedside, encouraged to use 10 times every hour while awake, PT. 2. Hypoxia secondary to left pulmonary embolus and Pneumonia without acute respiratory failure, patient will be started on ceftriaxone and azithromycin. Heparin drip started. 3. Hypertension. Continue with Lopressor 50 mg twice a day and Cozaar 25 mg daily 3. History of colon cancer diagnosed 2011. Stable, last colonoscopy clear 4. Glaucoma. Continue Alphagan 1 drop both eyes twice a day 5. History of sleep apnea. Stable, patient does not use CPAP 6. Asthma continue singular if needed, we'll do albuterol 7. GERD continue Protonix 40 mg daily 8. GI prophylaxis. Continue Protonix 9. DVT prophylaxis continue Coumadin Discharge plan: Home with [facility] Impression and plan of care have been directed as dictated by the signing physician. Yolanda Munoz nurse practitioner acting as scribe for signing physician.
[2017-06-12] MEDS ORDERED: WARFARIN 7.5 MG TAB PO ONE (18:00)
[2017-06-12] MEDS: SENNOSIDES-DOCUSATE SODIUM 1 EACH TAB PO SCH (19:54)
[2017-06-12] MEDS: MONTELUKAST 10 MG TAB PO SCH (19:54)
--- NOTE | 2017-06-12 21:33 | ECHOF ---
Referral Reason:LVF MEASUREMENTS -------- HEIGHT: 157.5 cm WEIGHT: 104.3 kg BP: 114/76 RVIDd: 3.2 cm (< 3.3) IVSd: 1.2 cm (0.6 - 1.1) LVIDd: 3.3 cm (3.9 - 5.3) LVPWd: 1.2 cm (0.6 - 1.1) IVSs: 1.6 cm LVIDs: 2.2 cm LVPWs: 1.6 cm LA Diam: 3.5 cm (2.7 - 3.8) LAESV Index (A-L): 34.80 ml/m Ao Diam: 3.6 cm (2.0 - 3.7) AV Cusp: 2.1 cm (1.5 - 2.6) MV EXCURSION: 19.089 mm (> 18.000) MV EF SLOPE: 43 mm/s (70 - 150) EPSS: 0.2 cm MV E Eddie: 0.89 m/s MV DecT: 289 ms MV A Eddie: 1.27 m/s MV E/A Ratio: 0.70 AV maxP.53 mmHg AV meanP.16 mmHg RAP: 5.00 mmHg RVSP: 47.10 mmHg FINDINGS -------- Sinus rhythm. This was a technically adequate study. The left ventricular size is normal. There is borderline concentric left ventricular hypertrophy. Overall left ventricular systolic function is normal with, an EF between 60 - 65 %. The right ventricle is normal in size. LA is moderately dilated 34-39 ml/m2 The right atrium is normal in size. There is mild aortic valve sclerosis. There is mild aortic stenosis present. Peak/mean gradient a cross the Aortic Valve is 21.53mmHg / 11.16mmHg. The mitral valve leaflets are mildly thickened. Mild mitral annular calcification present. Mild m itral regurgitation is present. Mild tricuspid regurgitation present. There is moderate pulmonary hypertension. The right ventric ular systolic pressure, as measured by Doppler, is 47.10mmHg. Trace/mild (physiologic) pulmonic regurgitation. The aortic root size is normal. Normal inferior vena cava with normal inspiratory collapse consistent with estimated right atrial pre ssure of 5 mmHg. There is no pericardial effusion. CONCLUSIONS -------- 1. Sinus rhythm. 2. This was a technically adequate study. 3. The left ventricular size is normal. 4. There is borderline concentric left ventricular hypertrophy. 5. Overall left ventricular systolic function is normal with, an EF between 60 - 65 %. 6. The right ventricle is normal in size. 7. LA is moderately dilated 34-39 ml/m2 8. The right atrium is normal in size. 9. There is mild aortic valve sclerosis. 10. There is mild aortic stenosis present. 11. Peak/mean gradient across the Aortic Valve is 21.53mmHg / 11.16mmHg. 12. The mitral valve leaflets are mildly thickened. 13. Mild mitral annular calcification present. 14. Mild mitral regurgitation is present. 15. Mild tricuspid regurgitation present. 16. There is moderate pulmonary hypertension. 17. The right ventricular systolic pressure, as measured by Doppler, is 47.10mmHg. 18. Trace/mild (physiologic) pulmonic regurgitation. 19. The aortic root size is normal. 20. Normal inferior vena cava with normal inspiratory collapse consistent with estimated right atrial pressure of 5 mmHg. 21. There is no pericardial effusion. FRONT OFFICE SUPERVISOR: Allyson Gonzalez RDCS
[2017-06-13] MEDS: LACTATED RINGERS 1,000 ML IV SCH ×3 (02:15→20:03)
[2017-06-13] MEDS: HEPARIN SOD,PORK IN 0.45% NACL 25,000 UNIT in 0.45% NACL 1 500ML.BAG IV SCH ×2 (03:19→11:12)
[2017-06-13 07:43] LABS: Basophils % (A) 0 %; Eosinophils % (A) 0 %; HGB 11.1 gm/dL (11.4-16.0); Lymphocytes % (A) 12 %; MCH 30.4 pg (25.0-35.0); MCHC 32.6 g/dL (31.0-37.0); MCV 93.3 fL (80.0-100.0); Mean Platelet Volume 7.5; Monocytes # (A) 0.7 k/uL (0-1.0); Monocytes % (A) 9 %; Neutrophils # (A) 6.1 k/uL (1.3-7.7); Neutrophils % (A) 76 %; Platelet Count 175 k/uL (150-450); RBC 3.64 m/uL (3.80-5.40); RDW 13.2 % (11.5-15.5)
[2017-06-13 07:59] LABS: INR 1.3 (<1.2); Partial Thromboplastin Time 46.1 sec (22.0-30.0); Prothrombin Time 12.6 sec (9.0-12.0)
[2017-06-13] MEDS: HYDROcodone/APAP 7.5-325MG 1 EACH TAB PO PRN ×2 (08:36→16:53)
[2017-06-13] MEDS: POTASSIUM CHLORIDE ER 20 MEQ TAB.ER PO SCH (09:44)
[2017-06-13] MEDS: BRIMONIDINE TARTRATE 0.2% DROPS 5 ML BTL BOTH EYES SCH ×2 (09:44→20:09)
[2017-06-13] MEDS: PANTOPRAZOLE 40 MG TABLET PO SCH (09:44)
[2017-06-13] MEDS: AZITHROMYCIN 250 MG TAB PO SCH (09:44)
[2017-06-13] MEDS: LOSARTAN 25 MG TAB PO SCH (09:45)
[2017-06-13] MEDS: METOPROLOL TARTRATE 50 MG TAB PO SCH ×2 (09:45→20:09)
[2017-06-13] MEDS: FUROSEMIDE 40 MG TAB PO SCH (09:45)
[2017-06-13] MEDS: MELOXICAM 7.5 MG TAB PO SCH (09:45)
[2017-06-13] MEDS: CALCIUM CARB-VIT D 500MG-200UN 1 EACH TAB PO SCH (09:45)
[2017-06-13] MEDS: cefTRIAXone IN SWFI 1,000 MG/10 ML SYRINGE IVP SCH (09:45)
--- NOTE | 2017-06-13 11:33 | P.PN ---
Subjective Progress Note Date: 06/13/17 Principal diagnosis: Primary osteoarthritis right knee. Status post total right knee arthroplasty. Pulmonary embolism This is a 71-year-old female who is status post total right knee arthroplasty on 06/09/2017. The patient developed some postoperative hypoxia. CTA revealed a pulmonary embolism. The patient is currently on a heparin drip. She has no new complaints or concerns today. She states that she just feels tired. Objective - Vital Signs Vital signs: Vital Signs Temp 98.0 F 06/13/17 08:35 Pulse 94 06/13/17 08:35 Resp 16 06/13/17 08:35 BP 151/87 06/13/17 08:35 Pulse Ox 94 L 06/13/17 08:35 Intake & Output 06/12/17 06/13/17 06/13/17 18:59 06:59 18:59 Intake Total 1000 939.798 204.967 Balance 1000 939.798 204.967 Intake: Intake, IV Titration 289.798 204.967 Amount Heparin Sod,Pork in 0.45% 289.798 204.967 NaCl 25,000 unit In 0.45 % NaCl 1 500ml.bag @ 9.6 UNITS/KG/HR 20.03 mls/hr IV .Q24H [facility] Rx#: [id number] Oral 1000 650 Other: Voiding Method Toilet Toilet Bedside Commode Bedside Commode # Voids 3 2 - Exam This is a pleasant 71-year-old female in no acute distress. She is alert and oriented. She is on oxygen per nasal cannula. Exam of the right lower extremity reveals increased ecchymosis to the anterior aspect of the right knee and lower leg. There is no erythema. There is no active drainage from the incision. Dermabond tape is intact. She has full foot and ankle motion without difficulty or pain. There is mild to moderate edema to the lower leg. Pedal pulses +1/4. Sensation is intact. - Labs CBC & Chem 7: 06/13/17 06:41 06/12/17 07:39 Labs: Abnormal Lab Results - Last 24 Hours (Table) 06/12/17 06/12/17 06/12/17 Range/Units 12:16 12:16 20:11 RBC (3.80-5.40) m/uL Hgb (11.4-16.0) gm/dL Neutrophils # 8.2 H (1.3-7.7) k/uL Lymphocytes # 0.5 L (1.0-4.8) k/uL PT 15.4 H (9.0-12.0) sec INR 1.7 H (<1.2) APTT 38.0 H (22.0-30.0) sec 06/13/17 06/13/17 06/13/17 Range/Units 02:45 06:41 06:41 RBC 3.64 L (3.80-5.40) m/uL Hgb 11.1 L (11.4-16.0) gm/dL Neutrophils # (1.3-7.7) k/uL Lymphocytes # (1.0-4.8) k/uL PT 12.6 H (9.0-12.0) sec INR 1.3 H (<1.2) APTT 44.2 H 46.1 H (22.0-30.0) sec 06/13/17 Range/Units 09:48 RBC (3.80-5.40) m/uL Hgb (11.4-16.0) gm/dL Neutrophils # (1.3-7.7) k/uL Lymphocytes # (1.0-4.8) k/uL PT (9.0-12.0) sec INR (<1.2) APTT 39.9 H (22.0-30.0) sec Assessment and Plan (1) Osteoarthritis of right knee Current Visit: Yes Status: Acute Code(s): M17.11 - UNILATERAL PRIMARY OSTEOARTHRITIS, RIGHT KNEE SNOMED Code(s): 195891037140805 (2) Status post right knee replacement Current Visit: Yes Status: Acute Code(s): Z96.651 - PRESENCE OF RIGHT ARTIFICIAL KNEE JOINT SNOMED Code(s): 833890945 Plan: The clinical and diagnostic findings are discussed with the patient. She may progress with physical therapy as allowed by internal medicine. She'll be discharged to home versus rehab when cleared medically. Anticoagulation will be managed by internal medicine.
[2017-06-13] MEDS: RIVAROXABAN 15 MG TAB PO SCH ×2 (13:30→17:46)
--- NOTE | 2017-06-13 14:47 | P.PN ---
Subjective Progress Note Date: 06/13/17 This is a 71-year-old female who has a history of right knee osteoarthritis and genu valgum. She presentes for total knee arthroplasty with Dr. Nash. She does have a past medical history of asthma, colon cancer, glaucoma, GERD, hypertension, osteoarthritis, and sleep apnea. She is postop day 1. She is doing well, reports pain is well controlled at this time, she has not been up with physical therapy yet. She denies any shortness of breath, abdominal pain, or chest pain. She does report some mild lower back pain from an unsuccessful epidural. Dressing is clean dry and intact, she denies any calf pain. She is on 2 L of O2 via nasal cannula, will attempt to wean down today 06/11: Case management contacted us regarding her pulse ox being in the 80s and need for oxygen. Patient is noted to not have oxygen prior to this admission. Nursing states the patient got up to the bed side commode last evening her pulse ox dropped to the 80s and she has been on oxygen through the night. This morning she was complaining of headache and nausea and oxygen was increased to 3 L nasal cannula. She has been using her incentive spirometry and reaching 7486-7634 ML's. She denies having any cough. We have ordered one dose of Lasix 40 mg IV. Chest x-ray shows possible basilar atelectasis correlate to exclude pneumonia. Patient will be treated for pneumonia and started on ceftriaxone and azithromycin. Ultrasound of the right lower extremity was negative for DVT. Discharge today will be held. Nursing is monitoring her oxygen closely and we will try to wean her down prior to discharge social not require oxygen. Patient be reevaluated in the morning. 06/12: Pulseox remains low this morning at 92% on 4L n/c. CTA of the chest was positive for pulmonary embolus. Only mild burden on the left with segmental and subsegmental branch embous to left upper lobe. COPD with mild emphysema. Couple pulmonary nodules measuring up to 4 mm and can be reassessed in 1 year follow- up. Prominent patchy atelectasis at the lung bases. Mildly aneurysmal thoracic aorta. Ascending 4.0 cm and upper descending 3.2 cm. Patient has been started on heparin drip. Doppler of the left lower extreme is negative for DVT. Patient is also complaining of headache which is so bad that it causes her nausea. Fioricet has been added. Headache is located in the forehead area. Patient didn't receive significant improvement with Fioricet. 06/13: Pulse ox is 94% on 2 L. Nursing to check a room air pulse ox to evaluate for home O2 need. Echocardiogram reveals EF of 60-65%, LA moderately dilated 34 -39, mild aortic valve sclerosis, mild aortic stenosis, mild mitral regurgitation, mild tricuspid regurgitation, moderate pulmonary hypertension. Doppler of the left lower extremity was negative for DVT. Patient will be started on Xarelto and heparin drip will be discontinued. Patient states she feels weak and does not feel like going home today. Anticipate discharge home tomorrow. Objective - Vital Signs Vital signs: Vital Signs Temp 98.0 F 06/13/17 08:35 Pulse 94 06/13/17 08:35 Resp 16 06/13/17 08:35 BP 151/87 06/13/17 08:35 Pulse Ox 94 L 06/13/17 08:35 Intake & Output 06/12/17 06/13/17 06/13/17 18:59 06:59 18:59 Intake Total 1000 939.798 204.967 Balance 1000 939.798 204.967 Intake: Intake, IV Titration 289.798 204.967 Amount Heparin Sod,Pork in 0.45% 289.798 204.967 NaCl 25,000 unit In 0.45 % NaCl 1 500ml.bag @ 9.6 UNITS/KG/HR 20.03 mls/hr IV .Q24H [facility] Rx#: [id number] Oral 1000 650 Other: Voiding Method Toilet Toilet Bedside Commode Bedside Commode # Voids 3 2 - Exam General appearance: cooperative, obese - EENT Eyes: PERRLA ENT: hearing grossly normal - Neck Neck: no lymphadenopathy, normal ROM, no thyromegaly Carotids: bilateral: upstroke normal Thyroid: bilateral: normal size, negative: enlarged, nodule - Respiratory Respiratory: bilateral: CTA - Cardiovascular Rhythm: regular Heart sounds: normal: S1, S2 - Gastrointestinal General gastrointestinal: normal bowel sounds, no organomegaly, soft - Integumentary Integumentary: normal - Neurologic Neurologic: CNII-XII intact - Musculoskeletal Musculoskeletal: strength equal bilaterally - Psychiatric Psychiatric: A&O x's 3 - Labs CBC & Chem 7: 06/13/17 06:41 06/12/17 07:39 Labs: Abnormal Lab Results - Last 24 Hours (Table) 06/12/17 06/12/17 06/12/17 Range/Units 12:16 12:16 20:11 RBC (3.80-5.40) m/uL Hgb (11.4-16.0) gm/dL Neutrophils # 8.2 H (1.3-7.7) k/uL Lymphocytes # 0.5 L (1.0-4.8) k/uL PT 15.4 H (9.0-12.0) sec INR 1.7 H (<1.2) APTT 38.0 H (22.0-30.0) sec 06/13/17 06/13/17 06/13/17 Range/Units 02:45 06:41 06:41 RBC 3.64 L (3.80-5.40) m/uL Hgb 11.1 L (11.4-16.0) gm/dL Neutrophils # (1.3-7.7) k/uL Lymphocytes # (1.0-4.8) k/uL PT 12.6 H (9.0-12.0) sec INR 1.3 H (<1.2) APTT 44.2 H 46.1 H (22.0-30.0) sec 06/13/17 Range/Units 09:48 RBC (3.80-5.40) m/uL Hgb (11.4-16.0) gm/dL Neutrophils # (1.3-7.7) k/uL Lymphocytes # (1.0-4.8) k/uL PT (9.0-12.0) sec INR (<1.2) APTT 39.9 H (22.0-30.0) sec Assessment and Plan Plan: 1. Osteoarthritis of the right knee status post total right knee arthroplasty. Will continue with [place] and morphine for pain control, continue Mobic. Incentive spirometer at bedside, encouraged to use 10 times every hour while awake, PT. 2. Hypoxia secondary to left pulmonary embolus and Pneumonia without acute respiratory failure, patient will be started on ceftriaxone and azithromycin. Heparin drip started. Heparin drip will be discontinued and patient started on Xarelto. 3. Hypertension. Continue with Lopressor 50 mg twice a day and Cozaar 25 mg daily 3. History of colon cancer diagnosed 2011. Stable, last colonoscopy clear 4. Glaucoma. Continue Alphagan 1 drop both eyes twice a day 5. History of sleep apnea. Stable, patient does not use CPAP 6. Asthma continue singular if needed, we'll do albuterol 7. GERD continue Protonix 40 mg daily 8. GI prophylaxis. Continue Protonix 9. DVT prophylaxis continue Coumadin Discharge plan: Home with [facility] Impression and plan of care have been directed as dictated by the signing physician. Yolanda Munoz nurse practitioner acting as scribe for signing physician.
[2017-06-13] MEDS: MULTIVITAMINS, THERA 1 EACH TAB PO SCH (15:12)
[2017-06-13] MEDS ORDERED: SODIUM CHLORIDE 0.9% 1,000 ML IV ONE (15:37)
--- NOTE | 2017-06-13 15:50 | CDI ---
Last Revision, February 2017 Documentation Clarification Form Date: 06/13/17 From: Lali Ramsey RN, CCDS Admit Date: 06/09/2017 10:28:00 AM Patient Name: Kimberly De La rCuz Visit Number: [id number] Discharge Date: ATTENTION: The Clinical Documentation Specialists (CDI) and [facility] Coding Staff appreciate your assistance in clarifying documentation. Please respond to the clarification below the line at the bottom and electronically sign. The CDI & [facility] Coding staff will review the response and follow-up if needed. Please note: Queries are made part of the Legal Health Record. If you have any questions, please contact the author of this message via ITS. Dr. Jonas Nash Pulmonary embolism is documented in the progress notes beginning 06/12/17 . Patients Admitting Diagnosis: Primary osteoarthritis right knee Post-Operative Diagnosis: Same Procedure performed: Total right knee arthroplasty 06/09/17 History/Risk Factors: Asthma, Hypertension, Colon Cancer Clinical Indicators: 06/12/17 patient was ambulation and became dizzy and slightly short of breath. Her pulse was in the low 80's on room air. Vital signs 120/64 80 17 94 % 2/L Chest x-ray revealed some atelectasis and could not exclude early pneumonia. CTA of chest: Positive for embolus to left upper lobe, COPD with mild emphysema , Pulmonary nodules measuring up to 4mm. ECHO: left and right ventricular normal size, Moderate Pulmonary hypertension. EF 60-65 % Treatment: Monitor O2 sat's (titrate) Ceftriaxone IV, Azithromycin PO Heparin drip Monitor Labs In order to accurately reflect this patients severity of illness, please clarify if diagnosis of pulmonary embolism is: An expected post-procedural or post-surgical condition; Integral to the procedure; Inherent to the procedure; An unexpected post-procedural or post-surgical condition related to surgical care; Other, please specify Unable to determine Please continue to document in your progress notes and discharge summary in order to capture severity of illness and risk of mortality. Include clinical findings that support your diagnosis. Unexpected post surgical condition. Patient had an unknown family history of DVT. EUGENIA
[2017-06-13] MEDS: SENNOSIDES-DOCUSATE SODIUM 1 EACH TAB PO SCH (20:09)
[2017-06-13] MEDS: MONTELUKAST 10 MG TAB PO SCH (20:09)
[2017-06-13 20:52] VITALS: RESP 18
[2017-06-14] MEDS: HYDROcodone/APAP 7.5-325MG 1 EACH TAB PO PRN ×3 (00:19→12:07)
[2017-06-14] MEDS: LACTATED RINGERS 1,000 ML IV SCH (03:10)
[2017-06-14 07:16] LABS: Basophils % (A) 0 %; Eosinophils # (A) 0.2 k/uL (0-0.7); Eosinophils % (A) 3 %; HCT 32.7 % (34.0-46.0); HGB 10.6 gm/dL (11.4-16.0); Lymphocytes # (A) 1.3 k/uL (1.0-4.8); Lymphocytes % (A) 20 %; MCH 30.6 pg (25.0-35.0); MCHC 32.4 g/dL (31.0-37.0); MCV 94.3 fL (80.0-100.0); Mean Platelet Volume 7.3; Monocytes # (A) 0.5 k/uL (0-1.0); Monocytes % (A) 8 %; Neutrophils # (A) 4.3 k/uL (1.3-7.7); Neutrophils % (A) 66 %; Platelet Count 191 k/uL (150-450); RBC 3.47 m/uL (3.80-5.40); RDW 13.2 % (11.5-15.5); WBC 6.5 k/uL (3.8-10.6)
[2017-06-14 07:22] LABS: INR 1.5 (<1.2); Prothrombin Time 14.2 sec (9.0-12.0)
[2017-06-14] MEDS: MELOXICAM 7.5 MG TAB PO SCH (09:35)
[2017-06-14] MEDS: CALCIUM CARB-VIT D 500MG-200UN 1 EACH TAB PO SCH (09:35)
[2017-06-14] MEDS: METOPROLOL TARTRATE 50 MG TAB PO SCH (09:35)
[2017-06-14] MEDS: POTASSIUM CHLORIDE ER 20 MEQ TAB.ER PO SCH (09:36)
[2017-06-14] MEDS: BRIMONIDINE TARTRATE 0.2% DROPS 5 ML BTL BOTH EYES SCH (09:36)
[2017-06-14] MEDS: RIVAROXABAN 15 MG TAB PO SCH (09:36)
[2017-06-14] MEDS: PANTOPRAZOLE 40 MG TABLET PO SCH (09:36)
[2017-06-14] MEDS: FUROSEMIDE 40 MG TAB PO SCH (09:36)
[2017-06-14] MEDS: LOSARTAN 25 MG TAB PO SCH (09:36)
[2017-06-14 13:06] VITALS: BP 120/74; PULSE 90; TEMP 98.4
--- NOTE | 2017-06-14 14:23 | P.PN ---
Subjective Progress Note Date: 06/14/17 This is a 71-year-old female who has a history of right knee osteoarthritis and genu valgum. She presentes for total knee arthroplasty with Dr. Nash. She does have a past medical history of asthma, colon cancer, glaucoma, GERD, hypertension, osteoarthritis, and sleep apnea. She is postop day 1. She is doing well, reports pain is well controlled at this time, she has not been up with physical therapy yet. She denies any shortness of breath, abdominal pain, or chest pain. She does report some mild lower back pain from an unsuccessful epidural. Dressing is clean dry and intact, she denies any calf pain. She is on 2 L of O2 via nasal cannula, will attempt to wean down today 06/11: Case management contacted us regarding her pulse ox being in the 80s and need for oxygen. Patient is noted to not have oxygen prior to this admission. Nursing states the patient got up to the bed side commode last evening her pulse ox dropped to the 80s and she has been on oxygen through the night. This morning she was complaining of headache and nausea and oxygen was increased to 3 L nasal cannula. She has been using her incentive spirometry and reaching 6224-8044 ML's. She denies having any cough. We have ordered one dose of Lasix 40 mg IV. Chest x-ray shows possible basilar atelectasis correlate to exclude pneumonia. Patient will be treated for pneumonia and started on ceftriaxone and azithromycin. Ultrasound of the right lower extremity was negative for DVT. Discharge today will be held. Nursing is monitoring her oxygen closely and we will try to wean her down prior to discharge social not require oxygen. Patient be reevaluated in the morning. 06/12: Pulseox remains low this morning at 92% on 4L n/c. CTA of the chest was positive for pulmonary embolus. Only mild burden on the left with segmental and subsegmental branch embous to left upper lobe. COPD with mild emphysema. Couple pulmonary nodules measuring up to 4 mm and can be reassessed in 1 year follow- up. Prominent patchy atelectasis at the lung bases. Mildly aneurysmal thoracic aorta. Ascending 4.0 cm and upper descending 3.2 cm. Patient has been started on heparin drip. Doppler of the left lower extreme is negative for DVT. Patient is also complaining of headache which is so bad that it causes her nausea. Fioricet has been added. Headache is located in the forehead area. Patient didn't receive significant improvement with Fioricet. 06/13: Pulse ox is 94% on 2 L. Nursing to check a room air pulse ox to evaluate for home O2 need. Echocardiogram reveals EF of 60-65%, LA moderately dilated 34 -39, mild aortic valve sclerosis, mild aortic stenosis, mild mitral regurgitation, mild tricuspid regurgitation, moderate pulmonary hypertension. Doppler of the left lower extremity was negative for DVT. Patient will be started on Xarelto and heparin drip will be discontinued. Patient states she feels weak and does not feel like going home today. Anticipate discharge home tomorrow. 06/14: Patient is feeling better, she can use to have significant bruising of the right knee, her knee incision appears to be intact, she denies any chest pain, she continued to have some shortness of breath, she currently has a prescription for oxygen at home, she will be given Xarelto 15 mg orally twice every day for 21 days followed by 20 mg daily for next six-month, she is medically stable for discharge home and follow-up with me as an outpatient in 2 weeks. Objective - Vital Signs Vital signs: Vital Signs Temp 98.8 F 06/14/17 00:47 Pulse 73 06/14/17 00:47 Resp 18 06/14/17 00:47 BP 107/69 06/14/17 00:47 Pulse Ox 96 06/14/17 00:47 Intake & Output 06/13/17 06/14/17 06/14/17 18:59 06:59 18:59 Intake Total 204.967 600 220 Balance 204.967 600 220 Intake: Intake, IV Titration 204.967 Amount Heparin Sod,Pork in 0.45% 204.967 NaCl 25,000 unit In 0.45 % NaCl 1 500ml.bag @ 9.6 UNITS/KG/HR 20.03 mls/hr IV .Q24H [facility] Rx#: [id number] Oral 300 220 Other 300 Other: Voiding Method Toilet # Voids 2 3 - Exam - Exam General appearance: cooperative, obese - EENT Eyes: PERRLA ENT: hearing grossly normal - Neck Neck: no lymphadenopathy, normal ROM, no thyromegaly Carotids: bilateral: upstroke normal Thyroid: bilateral: normal size, negative: enlarged, nodule - Respiratory Respiratory: bilateral: CTA - Cardiovascular Rhythm: regular Heart sounds: normal: S1, S2 - Gastrointestinal General gastrointestinal: normal bowel sounds, no organomegaly, soft - Integumentary Integumentary: normal - Neurologic Neurologic: CNII-XII intact - Musculoskeletal Musculoskeletal: strength equal bilaterally - Psychiatric Psychiatric: A&O x's 3 - Labs CBC & Chem 7: 06/14/17 06:35 06/12/17 07:39 Labs: Abnormal Lab Results - Last 24 Hours (Table) 06/13/17 06/14/17 06/14/17 Range/Units 09:48 06:35 06:35 RBC 3.47 L (3.80-5.40) m/uL Hgb 10.6 L (11.4-16.0) gm/dL Hct 32.7 L (34.0-46.0) % PT 14.2 H (9.0-12.0) sec INR 1.5 H (<1.2) APTT 39.9 H (22.0-30.0) sec Assessment and Plan Assessment: Assessment and Plan Plan: 1. Osteoarthritis of the right knee status post total right knee arthroplasty. Will continue with [place] and morphine for pain control, continue Mobic. Incentive spirometer at bedside, encouraged to use 10 times every hour while awake, PT. 2. Hypoxia secondary to left pulmonary embolus and Pneumonia without acute respiratory failure, patient will be started on ceftriaxone and azithromycin. Heparin drip started. Heparin drip will be discontinued and patient started on Xarelto. 3. Hypertension. Continue with Lopressor 50 mg twice a day and Cozaar 25 mg daily 3. History of colon cancer diagnosed 2011. Stable, last colonoscopy clear 4. Glaucoma. Continue Alphagan 1 drop both eyes twice a day 5. History of sleep apnea. Stable, patient does not use CPAP 6. Asthma continue singular if needed, we'll do albuterol 7. GERD continue Protonix 40 mg daily 8. GI prophylaxis. Continue Protonix 9. DVT prophylaxis continue Coumadin Discharge plan: Home with [facility] patient is medically stable for discharge.
== END 2017-06-14 13:10 | disposition home health service (06) | DRG 469 ==
LOC: 2ORMAIN 10:28 → 3SUR 15:32
PROVIDERS: ADMIT Orthopaedic Surgery; ATTEND Orthopaedic Surgery
PROC: 0SRC0J9 Replacement of Right Knee Joint with Synthetic Substitute, Cemented, Open Approach (ICD-10-PCS; principal; 2017-06-09 12:30)
DX: M17.11 Unilateral primary osteoarthritis, right knee (principal); J18.9 Pneumonia, unspecified organism; I08.3 Combined rheumatic disorders of mitral, aortic and tricuspid valves; I27.20 Pulmonary hypertension, unspecified; Z68.41 Body mass index [BMI] 40.0-44.9, adult; T81.718A Complication of other artery following a procedure, not elsewhere classified, initial encounter; I26.99 Other pulmonary embolism without acute cor pulmonale; J43.9 Emphysema, unspecified; G47.30 Sleep apnea, unspecified; H40.9 Unspecified glaucoma; M21.061 Valgus deformity, not elsewhere classified, right knee; M81.0 Age-related osteoporosis without current pathological fracture; J45.909 Unspecified asthma, uncomplicated; K21.9 Gastro-esophageal reflux disease without esophagitis; I10 Essential (primary) hypertension; R11.0 Nausea; I83.90 Asymptomatic varicose veins of unspecified lower extremity; R51 Headache; R09.02 Hypoxemia; H91.90 Unspecified hearing loss, unspecified ear; M54.5 Low back pain; E66.9 Obesity, unspecified; R91.8 Other nonspecific abnormal finding of lung field; Z87.442 Personal history of urinary calculi; Z85.038 Personal history of other malignant neoplasm of large intestine; Z90.710 Acquired absence of both cervix and uterus; Z90.49 Acquired absence of other specified parts of digestive tract; Z86.79 Personal history of other diseases of the circulatory system; Z87.891 Personal history of nicotine dependence; Z83.2 Family history of diseases of the blood and blood-forming organs and certain disorders involving the immune mechanism; Z80.7 Family history of other malignant neoplasms of lymphoid, hematopoietic and related tissues; Z79.899 Other long term (current) drug therapy; Z79.82 Long term (current) use of aspirin; Z79.1 Long term (current) use of non-steroidal anti-inflammatories (NSAID); Z79.891 Long term (current) use of opiate analgesic; Z79.01 Long term (current) use of anticoagulants; Z88.0 Allergy status to penicillin; Z88.8 Allergy status to other drugs, medicaments and biological substances; Z88.1 Allergy status to other antibiotic agents; Z91.041 Radiographic dye allergy status; Z88.5 Allergy status to narcotic agent; Z98.41 Cataract extraction status, right eye; Z98.42 Cataract extraction status, left eye
CPT/HCPCS: 71046; 71275; 80048; 83605; 85025; 85610; 85730; 88305; 88311; 93306; 94760

== ENCOUNTER → 2017-09-16 | Outpatient (CLI) | payer MEDICARE, BC ==
[2017-09-16 14:21] LABS: Blood Urea Nitrogen 20 mg/dL (7-17)
== END | disposition home or self-care (01) ==
LOC: LABWHC1 13:06
PROVIDERS: ATTEND Orthopaedic Surgery
DX: Z01.812 Encounter for preprocedural laboratory examination (principal); N28.9 Disorder of kidney and ureter, unspecified; M25.561 Pain in right knee; M25.571 Pain in right ankle and joints of right foot; G57.91 Unspecified mononeuropathy of right lower limb; Z96.652 Presence of left artificial knee joint; Z47.1 Aftercare following joint replacement surgery
CPT/HCPCS: 36415; 82565; 84520

== ENCOUNTER → 2017-12-30 | Outpatient (CLI) | payer MEDICARE, BC ==
[2017-12-30 16:03] LABS: Blood Urea Nitrogen 23 mg/dL (7-17)
--- NOTE | 2017-12-30 23:29 | CT ---
EXAMINATION TYPE: CT angio chest DATE OF EXAM: 12/30/2017 COMPARISON: 06/12/2018 HISTORY: 72-year-old female Follow up for PE without cor pulmonale TECHNIQUE: Contiguous axial scanning of the chest performed with IV Contrast, patient injected with 6 0 mL of Isovue 370. Coronal/sagittal MIP reconstructions performed. CT DLP: 478.1 mGycm Automated exposure control for dose reduction was used. FINDINGS: Heart is upper limits of normal in size without pericardial effusion. Dense mitral annular calcificat ions redemonstrated as well as mild aortic valvular calcifications. Mild aneurysm ascending aorta at 4.1 cm relatively similar. Mild atherosclerotic arch calcifications. Redemonstrated direct takeoff of the left vertebral artery directly from the aortic arch. The upper descending thoracic aorta remains mildly aneurysmal at 3.3 cm, also not significantly changed. [place] smal mid and lower descending thoracic aorta at 3.2 cm. Interval clearance of the previously seen left upper lobe pulmonary emboli. No new pulmonary emboli a re seen. Scattered nonenlarged mediastinal lymph nodes. No thoracic lymphadenopathy by CT size criteria. Redemonstrated mild centrilobular emphysema with bands of atelectasis scarring in the lung bases. Mil d diffuse bronchial wall thickening likely relating to chronic bronchitis. Previously seen 4 mm pulmonary nodules in the right lung are no longer identified. Tiny calcified gra nuloma left lower lobe axial image 62 redemonstrated. Small hiatal hernia. Otherwise, visualized upper abdomen shows no gross abnormality. Bones: Moderate disc/endplate degenerative change throughout no osseous destructive process. IMPRESSION: 1. INTERVAL CLEARANCE OF THE PREVIOUSLY SEEN LEFT UPPER LOBE PULMONARY EMBOLI. NO NEW PULMONARY EMBOL US. 2. COPD WITH MILD EMPHYSEMA. THE PREVIOUSLY SEEN 4 MM PULMONARY NODULES HAVE ALSO RESOLVED. 3. STABLE MILDLY ANEURYSMAL THORACIC AORTA (ASCENDING 4.1 CM AND DESCENDING 3.3 CM). 4. SMALL HIATAL HERNIA, LIKELY A SLIDING HIATAL HERNIA.
== END | disposition home or self-care (01) ==
LOC: RADCTMAIN 15:27
PROVIDERS: ATTEND Internal Medicine
DX: J43.9 Emphysema, unspecified (principal); I71.2 Thoracic aortic aneurysm, without rupture
CPT/HCPCS: 82565; 84520; 71275; 36415; Q9967

== ENCOUNTER → 2018-04-01 | Outpatient (CLI) | payer MEDICARE, BC ==
--- NOTE | 2018-04-03 07:09 | MM ---
Reason for exam: screening (asymptomatic). Last mammogram was performed 1 year and 2 months ago. History: Patient is postmenopausal and has history of colon cancer at age 66. Benign right mammotome panel of the right breast, November 27, 2009. Took estrogen for 3 years. Took progesterone for 3 years. MG 3D Screening Mammo W/Cad Bilateral CC and MLO view(s) were taken. Prior study comparison: January 16, 2017, bilateral MG 3d screening mammo w/cad. December 26, 2015, bilateral MG 3d screening mammo w/cad. There are scattered fibroglandular densities. There is increased size of the low density middle depth right upper outer quadrant mass. A right biopsy marker is noted. No suspicious left breast abnormality. ASSESSMENT: Incomplete: need additional imaging evaluation, BI-RAD 0 RECOMMENDATION: Ultrasound of the right breast.
== END | disposition home or self-care (01) ==
LOC: RADMAMWWP 11:03
PROVIDERS: ATTEND Internal Medicine
DX: Z12.31 Encounter for screening mammogram for malignant neoplasm of breast (principal)
CPT/HCPCS: 77063; 77067

== ENCOUNTER → 2018-04-17 | Outpatient (CLI) | payer MEDICARE, BC ==
--- NOTE | 2018-04-17 11:08 | USB ---
Reason for exam: additional evaluation requested from abnormal screening. History: Patient is postmenopausal and has history of colon cancer at age 66. Benign right mammotome panel of the right breast, November 27, 2009. Took estrogen for 3 years. Took progesterone for 3 years. Physical Findings: Nurse did not find any significant physical abnormalities on exam. US Breast Workup Limited RT Right limited breast ultrasound including focal area of concern, retroareolar and axilla demonstrates a 0.4 x 0.3 x 0.4cm cystic lesion at 9 o'clock. These results were verbally communicated with the patient and result sheet given to the patient on 04/17/18. ASSESSMENT: Benign, BI-RAD 2 RECOMMENDATION: Return to routine screening mammogram schedule for both breasts.
== END | disposition home or self-care (01) ==
LOC: RADUSWWP 09:47
PROVIDERS: ATTEND Internal Medicine
DX: R92.8 Other abnormal and inconclusive findings on diagnostic imaging of breast (principal)

== ENCOUNTER → 2019-04-27 | Outpatient (CLI) | payer MEDICARE, BC ==
--- NOTE | 2019-04-28 09:20 | BD ---
EXAMINATION TYPE: Axial Bone Density DATE OF EXAM: 04/27/2019 COMPARISON: 02/26/2017 CLINICAL HISTORY: M 82.0 Height: 61.5 IN Weight: 223 LBS FRAX RISK QUESTIONS: Secondary Osteoporosis: 3. Menopause before 45: 34 PARTIAL HYST RISK FACTORS HISTORY OF: Active: YES Diet low in dairy products/other sources of calcium: YES Postmenopausal woman: AGE 34 PARTIAL HYST Lost more than 2 inches in height since high school: 3 03/18" LOSS MEDICATIONS: Additional Medications: VIT C, MULTI VIT, BLOOD PRESSURE MEDS, PROTONIX, ALPHAGAN DROPS, Additional History: COLON CANCER EXAM MEASUREMENTS: Bone mineral densitometry was performed using the [employer] System. Bone mineral density as measured about the Lumbar spine is: ----- L1-L4(G/cm2): 1.291 T Score Values are as follows: ----- L2: -0.4 ----- L3: 1.1 ----- L4: 2.5 ----- L1-L4: 0.9 Bone mineral density has: Increased 1.7% since study of: 02/26/2017 Bone mineral density about the R hip (g/cm2): 0.810 Bone mineral density about the L hip (g/cm2): 0.868 T Score values are as follows: -----R Neck: -1.6 -----L Neck: -1.2 -----R Total: -0.8 -----L Total: -0.2 Bone mineral density has: Decreased -4.0% since study of: 02/26/2017 IMPRESSION: Osteopenia (T Score between -2.5 and -1). There is slightly increased risk of fracture and the patient may be considered for treatment. Re-Screen 2-5 years. NOTE: T-SCORE=SD OF THE YOUNG ADULT MEAN.
--- NOTE | 2019-04-28 11:30 | MM ---
Reason for exam: screening (asymptomatic). Last mammogram was performed 1 year and 1 month ago. History: Patient is postmenopausal and has history of colon cancer at age 66. Benign right mammotome panel of the right breast, November 27, 2009. Took estrogen for 3 years. Took progesterone for 3 years. Physical Findings: A clinical breast exam by your physician is recommended on an annual basis and results should be correlated with mammographic findings. MG 3D Screening Mammo W/Cad Bilateral CC and MLO view(s) were taken. Prior study comparison: April 01, 2018, bilateral MG 3d screening mammo w/cad. January 16, 2017, bilateral MG 3d screening mammo w/cad. There are scattered fibroglandular densities. No significant changes when compared with prior studies. ASSESSMENT: Benign, BI-RAD 2 RECOMMENDATION: Routine screening mammogram of both breasts in 1 year.
== END | disposition home or self-care (01) ==
LOC: RADMAMWWP 15:15
PROVIDERS: ATTEND Internal Medicine
DX: Z12.31 Encounter for screening mammogram for malignant neoplasm of breast (principal); M85.80 Other specified disorders of bone density and structure, unspecified site
CPT/HCPCS: 77063; 77067; 77080

== ENCOUNTER → 2019-08-10 | Outpatient (CLI) | payer MEDICARE, BC ==
[2019-08-10 10:12] LABS: Basophils % (A) 0 %; Eosinophils # (A) 0.2 k/uL (0-0.7); Eosinophils % (A) 4 %; HCT 44.3 % (34.0-46.0); HGB 14.4 gm/dL (11.4-16.0); Lymphocytes # (A) 0.9 k/uL (1.0-4.8); Lymphocytes % (A) 17 %; MCH 32.2 pg (25.0-35.0); MCHC 32.5 g/dL (31.0-37.0); MCV 98.9 fL (80.0-100.0); Mean Platelet Volume 7.3; Monocytes # (A) 0.4 k/uL (0-1.0); Monocytes % (A) 8 %; Neutrophils # (A) 3.4 k/uL (1.3-7.7); Neutrophils % (A) 68 %; Platelet Count 162 k/uL (150-450); RBC 4.48 m/uL (3.80-5.40); RDW 12.7 % (11.5-15.5)
[2019-08-10 15:25] LABS: African American GFR (CKD) 85.4 (60.0-200.0); Albumin/Globulin Ratio 2.11 (1.60-3.17); Anion Gap 5.3 mmol/L (4.00-12.00); BUN/Creat Ratio 31.25 Ratio (12.00-20.00); Carbon Dioxide 29.7 mmol/L (21.6-31.8); Chol/HDL Ratio 4.1; Globulin 1.9 g/dL (1.6-3.3); LDL Cholesterol,Calculated 118.2 mg/dL (0.0-131.0); Non-African American GFR(CKD) 73.7 (60.0-200.0); Potassium 4.1 mmol/L (3.5-5.5); Total Bilirubin 0.8 mg/dL (0.2-1.2); Total Protein 5.9 g/dL (6.2-8.2); VLDL Calculation 33.8 mg/dL (5.00-40.00)
== END | disposition home or self-care (01) ==
LOC: LABWHC1 09:34
PROVIDERS: ATTEND Internal Medicine
DX: Z00.00 Encounter for general adult medical examination without abnormal findings (principal); E78.2 Mixed hyperlipidemia
CPT/HCPCS: 36415; 80053; 80061; 84443; 85025

== ENCOUNTER → 2019-08-11 | Outpatient (CLI) | payer MEDICARE, BC ==
--- NOTE | 2019-08-11 11:45 | US ---
EXAMINATION TYPE: US pelvic complete DATE OF EXAM: 08/11/2019 COMPARISON: CT 2017 CLINICAL HISTORY: N83.201 Cyst of right ovary. Ovarian cyst seen on CT, 3, para 3, post menop ausal, history of partial hysterectomy and tubal ligation. TECHNIQUE: . Transabdominal sonographic images of the pelvis were acquired. Transvaginal sonographi c images were medically necessary to better assess the following anatomy: ovaries Date of LMP: 40 years ago EXAM MEASUREMENTS: Uterus: surgically absent Endometrial Stripe: surgically absent Right Ovary: not seen Left Ovary: not seen 1. Uterus: surgically absent 2. Endometrium: surgically absent 3. Right Ovary: not seen 4. Left Ovary: not seen 5. Bilateral Adnexa: wnl 6. Posterior cul-de-sac: wnl Uterus known surgically absent. No free fluid in pelvis. Neither ovary successfully visualized but no suspicious adnexal mass identified on today's study. IMPRESSION: Unsuccessful visualization of ovaries or suspicious pelvic mass on current study . Need to further investigate by MRI should be based on clinical correlation.
== END | disposition home or self-care (01) ==
LOC: RADUSWWP 10:44
PROVIDERS: ATTEND Internal Medicine
DX: N83.201 Unspecified ovarian cyst, right side (principal)
CPT/HCPCS: 76830; 76856

== ENCOUNTER 2019-08-27 07:43 | Emergency (ER) | payer MEDICARE, BC ==
[2019-08-27 07:51] VITALS: RESP 18
[2019-08-27] MEDS ORDERED: SODIUM CHLORIDE 0.9% 1,000 ML IV STA (08:11)
[2019-08-27] MEDS ORDERED: ONDANSETRON 4 MG/2 ML VIAL IVP STA (08:11)
[2019-08-27] MEDS ORDERED: KETOROLAC 30 MG/ML 1 ML VIAL IVP STA (08:11)
--- NOTE | 2019-08-27 08:34 | ED ---
Nausea/Vomiting/Diarrhea HPI - General Chief complaint: Nausea/Vomiting/Diarrhea Stated complaint: abd pain/nausea Time Seen by Provider: 08/27/19 07:53 Source: patient, RN notes reviewed Mode of arrival: ambulatory Limitations: no limitations - History of Present Illness Initial comments: This a 73-year-old female presents emergency Department with chief complaint of abdominal pain, nausea vomiting. Patient states symptoms started last night she's been vomiting throughout the night. Patient states she has some mild diffuse abdominal pain, feels achy. Patient does complain of some epigastric discomfort has started after her several episodes of emesis. She denies any hematemesis or coffee-ground emesis. Denies any diarrhea, melena, hematochezia, constipation. She has had no complaints of dysuria hematuria. Patient denies any medication changes. Patient denies fever, chills no sick contacts. Patient has no complaints chest pain or shortness breath. - Related Data Home Medications Medication Instructions Recorded Confirmed Pantoprazole Sodium [Protonix] 40 mg PO DAILY 07/23/13 08/27/19 Brimonidine Tartrate [Alphagan P 1 drop BOTH EYES BID 05/05/14 08/27/19 0.2% Ophth Soln] Multivitamin/Iron/Folic Acid 1 tab PO DAILY 05/05/14 08/27/19 [Centrum Complete Multivit Tab] Metoprolol Tartrate [Lopressor] 50 mg PO BID 06/02/17 08/27/19 Albuterol Inhaler [Ventolin Hfa 1 - 2 puff INHALATION RT-Q4H PRN 08/27/19 08/27/19 Inhaler] Ascorbic Acid [Vitamin C] 500 mg PO DAILY 08/27/19 08/27/19 Aspirin EC [Ecotrin Low Dose] 81 mg PO DAILY 08/27/19 08/27/19 Cholecalciferol [Vitamin D3 (25 1,000 unit PO DAILY 08/27/19 08/27/19 Mcg = 1000 Iu)] Previous Rx's Medication Instructions Recorded Ondansetron Odt [Zofran Odt] 4 mg PO Q8HR PRN #10 tab 08/27/19 Allergies Allergy/AdvReac Type Severity Reaction Status Date / Time amoxicillin trihydrate Allergy Rash/Hives Verified 08/27/19 08:22 [From Augmentin] hydromorphone HCl Allergy Rash/Hives Verified 08/27/19 08:22 [From Dilaudid] Iodinated Contrast Media Allergy Red face Verified 08/27/19 08:22 [Iodinated Contrast Media - and felt IV Dye] like it was on fire. Penicillins Allergy Rash/Hives Verified 08/27/19 08:22 potassium clavulanate Allergy Rash/Hives Verified 08/27/19 08:22 [From Augmentin] Lxltxnj-Dpz-Hue Reductase AdvReac LEG Verified 08/27/19 08:22 Inhibitor SWELLING AND PAIN tramadol AdvReac Unknown Verified 08/27/19 08:22 Review of Systems ROS Statement: Those systems with pertinent positive or pertinent negative responses have been documented in the HPI. ROS Other: All systems not noted in ROS Statement are negative. 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 TRK 06/09/17 Past Anesthesia/Blood Transfusion Reactions: No Reported Reaction Past Psychological History: No Psychological Hx Reported Smoking Status: Former smoker Past Alcohol Use History: Rare Past Drug Use History: None Reported - Past Family History Sister(s) Family Medical History: Pulmonary Embolus Mother Family Medical History: Cancer Additional Family Medical History / Comment(s): LYMPHOMA General Exam Limitations: no limitations General appearance: alert, in no apparent distress Head exam: Present: atraumatic, normocephalic, normal inspection Eye exam: Present: normal appearance, PERRL, EOMI. Absent: scleral icterus, conjunctival injection, periorbital swelling ENT exam: Present: normal exam, mucous membranes moist Neck exam: Present: normal inspection, full ROM. Absent: tenderness, meningismus, lymphadenopathy Respiratory exam: Present: normal lung sounds bilaterally. Absent: respiratory distress, wheezes, rales, rhonchi, stridor Cardiovascular Exam: Present: regular rate, normal rhythm, normal heart sounds. Absent: systolic murmur, diastolic murmur, rubs, gallop, clicks GI/Abdominal exam: Present: soft, tenderness (Mild diffuse with mild to moderate epigastric), normal bowel sounds. Absent: distended, guarding, rebound, rigid Back exam: Absent: CVA tenderness (R), CVA tenderness (L) Neurological exam: Present: alert, oriented X3, CN II-XII intact Skin exam: Present: warm, dry, intact, normal color. Absent: rash Course Vital Signs 08/27/19 07:47 Temperature 98.5 F Pulse Rate 90 Respiratory 18 Rate Blood Pressure 146/83 O2 Sat by Pulse 94 L Oximetry Medical Decision Making - Medical Decision Making 73-year-old female presented for nausea vomiting. Patient did have some epigastric discomfort. CT is obtained which showed nonspecific findings. She will follow for repeat imaging as directed. Patient is improved after IV fluids, antiemetics. This may be related to viral illness. Return parameters were discussed. Vitals are stable. Patient agrees to plan of follow-up and recheck. - Lab Data Result diagrams: 08/27/19 08:42 08/27/19 08:42 Lab Results 08/27/19 08/27/19 08/27/19 Range/Units 08:42 08:42 08:42 WBC 5.9 (3.8-10.6) k/uL RBC 4.94 (3.80-5.40) m/uL Hgb 16.1 H (11.4-16.0) gm/dL Hct 48.0 H (34.0-46.0) % MCV 97.1 (80.0-100.0) fL MCH 32.6 (25.0-35.0) pg MCHC 33.5 (31.0-37.0) g/dL RDW 12.6 (11.5-15.5) % Plt Count 141 L (150-450) k/uL Neutrophils % 90 % Lymphocytes % 4 % Monocytes % 4 % Eosinophils % 1 % Basophils % 0 % Neutrophils # 5.3 (1.3-7.7) k/uL Lymphocytes # 0.2 L (1.0-4.8) k/uL Monocytes # 0.3 (0-1.0) k/uL Eosinophils # 0.0 (0-0.7) k/uL Basophils # 0.0 (0-0.2) k/uL Sodium 137 (137-145) mmol/L Potassium 4.3 (3.5-5.1) mmol/L Chloride 102 (98-107) mmol/L Carbon Dioxide 29 (22-30) mmol/L Anion Gap 6 mmol/L BUN 16 (7-17) mg/dL Creatinine 0.60 (0.52-1.04) mg/dL Est GFR (CKD-EPI)AfAm >90 (>60 ml/min/1.73 sqM) Est GFR (CKD-EPI)NonAf >90 (>60 ml/min/1.73 sqM) Glucose 127 H (74-99) mg/dL Plasma Lactic Acid Aris 1.4 (0.7-2.0) mmol/L Calcium 8.8 (8.4-10.2) mg/dL Total Bilirubin 1.0 (0.2-1.3) mg/dL AST 37 H (14-36) U/L ALT 33 (4-34) U/L Alkaline Phosphatase 67 (38-126) U/L Troponin I (0.000-0.034) ng/mL Total Protein 6.8 (6.3-8.2) g/dL Albumin 4.1 (3.5-5.0) g/dL Amylase 41 (30-110) U/L Lipase 38 (23-300) U/L Urine Color Urine Appearance (Clear) Urine pH (5.0-8.0) Ur Specific [place] (1.001-1.035) Urine Protein (Negative) Urine Glucose (UA) (Negative) Urine Ketones (Negative) Urine Blood (Negative) Urine Nitrite (Negative) Urine Bilirubin (Negative) Urine Urobilinogen (<2.0) mg/dL Ur Leukocyte Esterase (Negative) Urine RBC (0-5) /hpf Urine WBC (0-5) /hpf Ur Squamous Epith Cells (0-4) /hpf Urine Bacteria (None) /hpf Urine Mucus (None) /hpf 08/27/19 08/27/19 Range/Units 08:42 09:48 WBC (3.8-10.6) k/uL RBC (3.80-5.40) m/uL Hgb (11.4-16.0) gm/dL Hct (34.0-46.0) % MCV (80.0-100.0) fL MCH (25.0-35.0) pg MCHC (31.0-37.0) g/dL RDW (11.5-15.5) % Plt Count (150-450) k/uL Neutrophils % % Lymphocytes % % Monocytes % % Eosinophils % % Basophils % % Neutrophils # (1.3-7.7) k/uL Lymphocytes # (1.0-4.8) k/uL Monocytes # (0-1.0) k/uL Eosinophils # (0-0.7) k/uL Basophils # (0-0.2) k/uL Sodium (137-145) mmol/L Potassium (3.5-5.1) mmol/L Chloride (98-107) mmol/L Carbon Dioxide (22-30) mmol/L Anion Gap mmol/L BUN (7-17) mg/dL Creatinine (0.52-1.04) mg/dL Est GFR (CKD-EPI)AfAm (>60 ml/min/1.73 sqM) Est GFR (CKD-EPI)NonAf (>60 ml/min/1.73 sqM) Glucose (74-99) mg/dL Plasma Lactic Acid Aris (0.7-2.0) mmol/L Calcium (8.4-10.2) mg/dL Total Bilirubin (0.2-1.3) mg/dL AST (14-36) U/L ALT (4-34) U/L Alkaline Phosphatase (38-126) U/L Troponin I <0.012 (0.000-0.034) ng/mL Total Protein (6.3-8.2) g/dL Albumin (3.5-5.0) g/dL Amylase (30-110) U/L Lipase (23-300) U/L Urine Color Yellow Urine Appearance Clear (Clear) Urine pH 6.5 (5.0-8.0) Ur Specific [place] 1.017 (1.001-1.035) Urine Protein Trace H (Negative) Urine Glucose (UA) Negative (Negative) Urine Ketones Trace H (Negative) Urine Blood Trace H (Negative) Urine Nitrite Negative (Negative) Urine Bilirubin Negative (Negative) Urine Urobilinogen <2.0 (<2.0) mg/dL Ur Leukocyte Esterase Negative (Negative) Urine RBC 4 (0-5) /hpf Urine WBC 1 (0-5) /hpf Ur Squamous Epith Cells 1 (0-4) /hpf Urine Bacteria Rare H (None) /hpf Urine Mucus Few H (None) /hpf - EKG Data -: EKG Interpreted by Me EKG Comments: EKG performed at 8:11 normal sinus rhythm with PACs deviation rate of 92 [place] 168 QRS 92 QT/QTC 376/[address] elevation or depression. Disposition Clinical Impression: Nausea & vomiting Disposition: HOME SELF-CARE Condition: Stable Instructions (If sedation given, give patient instructions): Acute Nausea and Vomiting (ED) Additional Instructions: Please return to the Emergency Department if symptoms worsen or any other concerns. Prescriptions: Ondansetron Odt [Zofran Odt] 4 mg PO Q8HR PRN #10 tab PRN Reason: Nausea Is patient prescribed a controlled substance at d/c from ED?: No Referrals: Sheila Grace MD [Primary Care Provider] - 1-2 days Time of Disposition: 10:36
[2019-08-27 09:08] LABS: Basophils % (A) 0 %; Eosinophils % (A) 1 %; HGB 16.1 gm/dL (11.4-16.0); Lymphocytes # (A) 0.2 k/uL (1.0-4.8); Lymphocytes % (A) 4 %; MCH 32.6 pg (25.0-35.0); MCHC 33.5 g/dL (31.0-37.0); MCV 97.1 fL (80.0-100.0); Mean Platelet Volume 7.7; Monocytes # (A) 0.3 k/uL (0-1.0); Monocytes % (A) 4 %; Neutrophils # (A) 5.3 k/uL (1.3-7.7); Neutrophils % (A) 90 %; Platelet Count 141 k/uL (150-450); RBC 4.94 m/uL (3.80-5.40); RDW 12.6 % (11.5-15.5); WBC 5.9 k/uL (3.8-10.6)
[2019-08-27 09:10] LABS: Sodium 137 mmol/L (137-145)
--- NOTE | 2019-08-27 09:10 | CT ---
EXAMINATION TYPE: CT abdomen pelvis wo con DATE OF EXAM: 08/27/2019 COMPARISON: 09/03/2016 HISTORY: epigastric pain and vomiting CT DLP: 1118.4 mGycm Automated exposure control for dose reduction was used. TECHNIQUE: Helical acquisition of images was performed from the lung bases through the pelvis. Exam severely limited due to lack of contrast. FINDINGS: LUNG BASES: No significant abnormality is appreciated. Heart size prominent. Coronary artery calcific ation noted. LIVER/GB: No significant abnormality is appreciated. PANCREAS: Ill-definition the pancreas noted which is nonspecific. There is some motion artifact. Jolie elate with serum pancreatic enzymes to exclude a mild pancreatitis. Also is fullness to the uncinate process of the pancreas measuring 1.8 cm. SPLEEN: No significant abnormality is seen. ADRENALS: No significant abnormality is seen. KIDNEYS: Punctate there are two 1 mm nonobstructing calculi in the right kidney. ADENOPATHY: None visualized. OSSEOUS STRUCTURES: Hypertrophic and degenerative changes of the spine. Slight anterolisthesis of L3 on L4 with multilevel facet arthropathy. BOWEL: There is a hiatal hernia. Changes of diverticulosis noted. Bowel gas pattern nonspecific. Pre vious surgery noted. There are couple dilated small bowel loops in the midabdomen OTHER: There is a 2 cm lesion in the left adnexa which could be ovarian or paraovarian. Uterus is not seen correlate for surgical history removable ovary. This is somewhat atypical in the patient's demo graphics could be correlated with CA-125 and ultrasound. There is some atrophy of the musculature. Ti ny fat-containing periumbilical hernia. IMPRESSION: 1. Ill definition of the pancreatic margins. There is artifact and motion the region correlate with s yohannes enzymes to exclude pancreatitis. Mild fullness to the uncinate process measuring 1.8 cm. Follow- up to resolution as underlying mass not excluded. 2. Nonobstructing right renal calculi. 3. Nonspecific gas pattern with evidence of previous bowel surgery. There are few prominent small bow el loops in the upper abdomen which could be associated with an ileus. A partial obstructive pattern not entirely excluded but felt less likely. 4. There is a adnexal mass measuring 2 cm.. The uterus has been surgically removed. Correlate with nelson rgical history to determine if the ovary has been removed. Differential diagnosis would include ovari an mass, cystic dilation of a fallopian tube remnant. Correlate with pelvic ultrasound. 5. Hiatal hernia.
[2019-08-27 09:13] LABS: ALT 33 U/L (4-34); AST 37 U/L (14-36); African American GFR (CKD) >90 (>60 ml/min/1.73 sqM); Albumin 4.1 g/dL (3.5-5.0); Alkaline Phosphatase 67 U/L (38-126); Amylase 41 U/L (30-110); Anion Gap 6 mmol/L; Blood Urea Nitrogen 16 mg/dL (7-17); Calcium 8.8 mg/dL (8.4-10.2); Carbon Dioxide 29 mmol/L (22-30); Chloride 102 mmol/L (98-107); Glucose 127 mg/dL (74-99); Non-African American GFR(CKD) >90 (>60 ml/min/1.73 sqM); Potassium 4.3 mmol/L (3.5-5.1); Total Protein 6.8 g/dL (6.3-8.2)
[2019-08-27 10:12] LABS: Appearance,Urine Clear (Clear); Bacteria,Urine Rare /hpf; Bilirubin,Urine Negative (Negative); Blood,Urine Trace (Negative); Color,Urine Yellow; Glucose,Urine (UA) Negative (Negative); Ketones,Urine Trace (Negative); Leukocyte Esterase,Urine Negative (Negative); Mucus,Urine Few /hpf; Nitrite,Urine Negative (Negative); PH, Urine 6.5 (5.0-8.0); Protein,Urine Trace (Negative); RBC,Urine 4 /hpf (0-5); Specific Gravity,Urine 1.017 (1.001-1.035); Squamous Epithelial Cell,Urine 1 /hpf (0-4); Urobilinogen,Urine <2.0 mg/dL (<2.0); WBC,Urine 1 /hpf (0-5)
[2019-08-27 10:49] VITALS: BP 148/93; PULSE 94; TEMP 99
== END 2019-08-27 10:49 | disposition home or self-care (01) ==
LOC: EC 07:43
DX: R11.2 Nausea with vomiting, unspecified (principal); R10.84 Generalized abdominal pain; K21.9 Gastro-esophageal reflux disease without esophagitis; I10 Essential (primary) hypertension; J45.909 Unspecified asthma, uncomplicated; Z79.899 Other long term (current) drug therapy; Z79.82 Long term (current) use of aspirin; Z88.0 Allergy status to penicillin; Z88.5 Allergy status to narcotic agent; Z91.041 Radiographic dye allergy status; Z88.1 Allergy status to other antibiotic agents; Z88.8 Allergy status to other drugs, medicaments and biological substances; Z87.891 Personal history of nicotine dependence; Z85.038 Personal history of other malignant neoplasm of large intestine
CPT/HCPCS: 99284; 96374; 96375; 96361; 36415; 93005; 80053; 82150; 83605; 83690; 84484; 85025; 81001; 74176; J2405; J1885

== ENCOUNTER 2020-01-11 07:10 | Inpatient (IN) | payer MEDICARE, BC ==
--- NOTE | 2020-01-11 07:21 | ED ---
Arrhythmia/Palpitations HPI - General Chief Complaint: Arrhythmia/Palpitations Stated Complaint: palpitations Time Seen by Provider: 01/11/20 07:10 Source: patient, EMS, RN notes reviewed, old records reviewed Mode of arrival: EMS Limitations: no limitations - History of Present Illness Initial Comments: this is a 74-year-old female history of palpitations colon cancer no history of heart disease except for a leaky heart valve who had the onset this morning of chest pain moderate in severity left-sided with some left arm numbness just states her heart was racing this last about an hour until EMS was summoned. She was found to be in SVT she was given 6 mg of adenosine which did convert patient to a sinus rhythm. She also has been suffering from rhinorrhea over last 2 days with a cough of clear phlegm she complains no fever was found to be febrile on arrival. No other complaints or modifying factors no chest pains this time MD Complaint: rapid heart beat, "heart racing" - Related Data Home Medications Medication Instructions Recorded Confirmed Pantoprazole Sodium [Protonix] 40 mg PO DAILY 07/23/13 01/11/20 Brimonidine Tartrate [Alphagan P 1 drop BOTH EYES BID 05/05/14 01/11/20 0.2% Ophth Soln] Multivitamin/Iron/Folic Acid 1 tab PO DAILY 05/05/14 01/11/20 [Centrum Complete Multivit Tab] Metoprolol Tartrate [Lopressor] 50 mg PO BID 06/02/17 01/11/20 Albuterol Inhaler [Ventolin Hfa 1 - 2 puff INHALATION RT-Q4H PRN 08/27/19 01/11/20 Inhaler] Aspirin EC [Ecotrin Low Dose] 81 mg PO DAILY 08/27/19 01/11/20 ALPRAZolam [Xanax] 0.25 mg PO HS PRN 01/11/20 01/11/20 Cetirizine HCl [Zyrtec] 10 mg PO DAILY PRN 01/11/20 01/11/20 Ipratropium-Albuterol Nebulize 3 ml INHALATION RT-QID PRN 01/11/20 01/11/20 [Duoneb 0.5 mg-3 mg/3 ml Soln] Allergies Allergy/AdvReac Type Severity Reaction Status Date / Time amoxicillin trihydrate Allergy Rash/Hives Verified 01/11/20 08:30 [From Augmentin] hydromorphone HCl Allergy Rash/Hives Verified 01/11/20 08:30 [From Dilaudid] Iodinated Contrast Media Allergy Red face Verified 01/11/20 08:30 [Iodinated Contrast Media - and felt IV Dye] like it was on fire. Penicillins Allergy Rash/Hives Verified 01/11/20 08:30 potassium clavulanate Allergy Rash/Hives Verified 01/11/20 08:30 [From Augmentin] Zthdspd-Dkg-Ldm Reductase AdvReac LEG Verified 01/11/20 08:30 Inhibitor SWELLING AND PAIN tramadol AdvReac Unknown Verified 01/11/20 08:30 Review of Systems ROS Statement: Those systems with pertinent positive or pertinent negative responses have been documented in the HPI. ROS Other: All systems not noted in ROS Statement are negative. 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 TRK 06/09/17 Past Anesthesia/Blood Transfusion Reactions: No Reported Reaction Past Psychological History: No Psychological Hx Reported Smoking Status: Former smoker Past Alcohol Use History: None Reported, Rare Past Drug Use History: None Reported - Past Family History Sister(s) Family Medical History: Pulmonary Embolus Mother Family Medical History: Cancer Additional Family Medical History / Comment(s): LYMPHOMA General Exam - General Exam Comments Initial Comments: his is a well-developed well-nourished awake alert oriented 3 female Limitations: no limitations General appearance: alert, in no apparent distress Head exam: Present: atraumatic, normocephalic, normal inspection Eye exam: Present: normal appearance, PERRL, EOMI. Absent: scleral icterus, conjunctival injection, periorbital swelling ENT exam: Present: mucous membranes moist, other (boggy nasal mucosa. mild posterior pharyngeal hyperemia no exudates) Neck exam: Present: normal inspection, full ROM. Absent: tenderness, meningismus, lymphadenopathy Respiratory exam: Present: normal lung sounds bilaterally. Absent: respiratory distress, wheezes, rales, rhonchi, stridor Cardiovascular Exam: Present: regular rate, normal rhythm, normal heart sounds. Absent: systolic murmur, diastolic murmur, rubs, gallop, clicks GI/Abdominal exam: Present: soft, normal bowel sounds. Absent: distended, tenderness, guarding, rebound, rigid Extremities exam: Present: normal inspection, full ROM, normal capillary refill. Absent: tenderness, pedal edema, joint swelling, calf tenderness Back exam: Present: normal inspection Neurological exam: Present: alert, oriented X3, CN II-XII intact Psychiatric exam: Present: normal affect, normal mood Skin exam: Present: warm, dry, intact, normal color. Absent: rash Course Vital Signs 01/11/20 01/11/20 01/11/20 07:11 07:33 08:00 Temperature 100.4 F H Pulse Rate 87 82 86 Respiratory 19 21 19 Rate Blood Pressure 138/92 138/92 138/92 O2 Sat by Pulse 98 97 90 L Oximetry 01/11/20 01/11/20 01/11/20 08:30 09:00 09:30 Temperature Pulse Rate 84 80 Respiratory 18 17 Rate Blood Pressure 138/92 128/81 O2 Sat by Pulse 92 L 93 L Oximetry - Reevaluation(s) Reevaluation #1: 01/11/20 07:53 patient did complain of a headache and some lumbar area pain moderate in severity she's had this for several days. Reevaluation #2: 01/11/20 08:31 Patient states that she has had problems with contrast in the past but only with respective upset stomach never any history of rash difficulty breathing etc. EKG Findings - EKG Results: EKG: interpreted by ERMD, sinus rhythm (sinus rhythm of 85. Interval 180 QRS duration 84 QT since QTC 360/428 left exodeviation no acute ST-T wave changes seen at this time) Medical Decision Making - Medical Decision Making I did discuss findings with the patient and her son was present also with Dr. Grace. Patient be admitted with consultation by cardiologyas well as pulmonary medicine - Lab Data Result diagrams: 01/11/20 07:22 01/11/20 07:22 Lab Results 01/11/20 01/11/20 01/11/20 Range/Units 07:22 07:22 07:22 WBC (3.8-10.6) k/uL RBC (3.80-5.40) m/uL Hgb (11.4-16.0) gm/dL Hct (34.0-46.0) % MCV (80.0-100.0) fL MCH (25.0-35.0) pg MCHC (31.0-37.0) g/dL RDW (11.5-15.5) % Plt Count (150-450) k/uL Neutrophils % % Lymphocytes % % Monocytes % % Eosinophils % % Basophils % % Neutrophils # (1.3-7.7) k/uL Lymphocytes # (1.0-4.8) k/uL Monocytes # (0-1.0) k/uL Eosinophils # (0-0.7) k/uL Basophils # (0-0.2) k/uL PT 9.7 (9.0-12.0) sec INR 0.9 (<1.2) APTT 23.8 (22.0-30.0) sec D-Dimer 1.73 H (<0.60) mg/L FEU Sodium 137 (137-145) mmol/L Potassium 3.9 (3.5-5.1) mmol/L Chloride 103 (98-107) mmol/L Carbon Dioxide 29 (22-30) mmol/L Anion Gap 5 mmol/L BUN 17 (7-17) mg/dL Creatinine 0.64 (0.52-1.04) mg/dL Est GFR (CKD-EPI)AfAm >90 (>60 ml/min/1.73 sqM) Est GFR (CKD-EPI)NonAf 89 (>60 ml/min/1.73 sqM) Glucose 141 H (74-99) mg/dL Plasma Lactic Acid Aris (0.7-2.0) mmol/L Calcium 8.3 L (8.4-10.2) mg/dL Magnesium 1.5 L (1.6-2.3) mg/dL Total Bilirubin 0.6 (0.2-1.3) mg/dL AST 37 H (14-36) U/L ALT 24 (4-34) U/L Alkaline Phosphatase 63 (38-126) U/L Lactate Dehydrogenase 585 (313-618) U/L Creatine Kinase 95 (30-135) U/L Troponin I <0.012 (0.000-0.034) ng/mL C-Reactive Protein 18.9 H (<10.0) mg/L Total Protein 6.1 L (6.3-8.2) g/dL Albumin 3.6 (3.5-5.0) g/dL TSH 1.850 (0.465-4.680) mIU/L Influenza Type A RNA (Not Detectd) Influenza Type B (PCR) (Not Detectd) 01/11/20 01/11/20 01/11/20 Range/Units 07:22 07:22 07:31 WBC 4.1 (3.8-10.6) k/uL RBC 4.71 (3.80-5.40) m/uL Hgb 14.8 (11.4-16.0) gm/dL Hct 46.5 H (34.0-46.0) % MCV 98.7 (80.0-100.0) fL MCH 31.5 (25.0-35.0) pg MCHC 31.9 (31.0-37.0) g/dL RDW 12.5 (11.5-15.5) % Plt Count 114 L (150-450) k/uL Neutrophils % 80 % Lymphocytes % 12 % Monocytes % 4 % Eosinophils % 1 % Basophils % 1 % Neutrophils # 3.3 (1.3-7.7) k/uL Lymphocytes # 0.5 L (1.0-4.8) k/uL Monocytes # 0.2 (0-1.0) k/uL Eosinophils # 0.1 (0-0.7) k/uL Basophils # 0.0 (0-0.2) k/uL PT (9.0-12.0) sec INR (<1.2) APTT (22.0-30.0) sec D-Dimer (<0.60) mg/L FEU Sodium (137-145) mmol/L Potassium (3.5-5.1) mmol/L Chloride (98-107) mmol/L Carbon Dioxide (22-30) mmol/L Anion Gap mmol/L BUN (7-17) mg/dL Creatinine (0.52-1.04) mg/dL Est GFR (CKD-EPI)AfAm (>60 ml/min/1.73 sqM) Est GFR (CKD-EPI)NonAf (>60 ml/min/1.73 sqM) Glucose (74-99) mg/dL Plasma Lactic Acid Aris 1.4 (0.7-2.0) mmol/L Calcium (8.4-10.2) mg/dL Magnesium (1.6-2.3) mg/dL Total Bilirubin (0.2-1.3) mg/dL AST (14-36) U/L ALT (4-34) U/L Alkaline Phosphatase (38-126) U/L Lactate Dehydrogenase (313-618) U/L Creatine Kinase (30-135) U/L Troponin I (0.000-0.034) ng/mL C-Reactive Protein (<10.0) mg/L Total Protein (6.3-8.2) g/dL Albumin (3.5-5.0) g/dL TSH (0.465-4.680) mIU/L Influenza Type A RNA Not Detected (Not Detectd) Influenza Type B (PCR) Not Detected (Not Detectd) - Radiology Data Radiology results: report reviewed (I did review the imaging and report there is evidence of a descending aortic aneurysm which is chronic. No evidence of PE no evidence of infiltrate.), image reviewed Disposition Clinical Impression: Supraventricular tachycardia, Chest pain, Febrile illness, acute Disposition: ADMITTED IP TO THIS [facility] Condition: Fair Referrals: Sheila Grace MD [Primary Care Provider] - 1-2 days
[2020-01-11 07:31] LABS: Basophils % (A) 1 %; Eosinophils # (A) 0.1 k/uL (0-0.7); Eosinophils % (A) 1 %; HCT 46.5 % (34.0-46.0); HGB 14.8 gm/dL (11.4-16.0); Lymphocytes # (A) 0.5 k/uL (1.0-4.8); Lymphocytes % (A) 12 %; MCH 31.5 pg (25.0-35.0); MCHC 31.9 g/dL (31.0-37.0); MCV 98.7 fL (80.0-100.0); Mean Platelet Volume 7.5; Monocytes # (A) 0.2 k/uL (0-1.0); Monocytes % (A) 4 %; Neutrophils # (A) 3.3 k/uL (1.3-7.7); Neutrophils % (A) 80 %; Platelet Count 114 k/uL (150-450); RBC 4.71 m/uL (3.80-5.40); RDW 12.5 % (11.5-15.5); WBC 4.1 k/uL (3.8-10.6)
[2020-01-11 07:40] LABS: ALT 24 U/L (4-34); AST 37 U/L (14-36); African American GFR (CKD) >90 (>60 ml/min/1.73 sqM); Albumin 3.6 g/dL (3.5-5.0); Alkaline Phosphatase 63 U/L (38-126); Anion Gap 5 mmol/L; Blood Urea Nitrogen 17 mg/dL (7-17); Calcium 8.3 mg/dL (8.4-10.2); Carbon Dioxide 29 mmol/L (22-30); Chloride 103 mmol/L (98-107); Creatine Kinase 95 U/L (30-135); Glucose 141 mg/dL (74-99); LDH 585 U/L (313-618); Magnesium 1.5 mg/dL (1.6-2.3); Non-African American GFR(CKD) 89 (>60 ml/min/1.73 sqM); Potassium 3.9 mmol/L (3.5-5.1); Sodium 137 mmol/L (137-145); Total Bilirubin 0.6 mg/dL (0.2-1.3); Total Protein 6.1 g/dL (6.3-8.2)
[2020-01-11 07:47] LABS: INR 0.9 (<1.2); Partial Thromboplastin Time 23.8 sec (22.0-30.0); Prothrombin Time 9.7 sec (9.0-12.0)
[2020-01-11] MEDS ORDERED: KETOROLAC 15 MG/ML 1 ML VIAL IVP STA (07:51)
[2020-01-11 08:02] LABS: D-Dimer 1.73 mg/L FEU (<0.60)
[2020-01-11] MEDS ORDERED: MAGNESIUM SULFATE-D5W PMX 1 GM in DEXTROSE/WATER 1 100ML.BAG IVPB ONE (08:07)
--- NOTE | 2020-01-11 08:17 | XR ---
EXAMINATION TYPE: XR chest 2V DATE OF EXAM: 01/11/2020 COMPARISON: Chest x-ray June 11, 2017. CTA chest December 30, 2017 HISTORY: Dysrhythmia. TECHNIQUE: Frontal and lateral views of the chest are obtained. FINDINGS: There is patchy left basilar linear scarring and/or atelectasis. Right lung is clear. No p leural effusion or pneumothorax seen bilaterally. The cardiac silhouette size is upper limits of norm al with atherosclerotic and ectatic aorta. Surgical changes left humeral head level. High riding shyam ral head suggests chronic rotator cuff tears bilaterally. IMPRESSION: Chronic changes without acute pulmonary process.
[2020-01-11] MEDS ORDERED: METOCLOPRAMIDE 5 MG/ML 2 ML VIAL IVP STA (08:30)
[2020-01-11] MEDS ORDERED: methylPREDNISolone SOD SUCCI 125 MG/2 ML VIAL IV STA (09:07)
[2020-01-11] MEDS ORDERED: FAMOTIDINE 20 MG/2 ML VIAL IV STA (09:07)
[2020-01-11] MEDS ORDERED: diphenhydrAMINE 50 MG/ML 1 ML VIAL IVP STA (09:07)
[2020-01-11 09:32] LABS: C Reactive Protein 18.9 mg/L (<10.0)
--- NOTE | 2020-01-11 10:07 | CT ---
EXAMINATION TYPE: CT angio chest DATE OF EXAM: 01/11/2020 COMPARISON: Prior CT 12/30/2017 HISTORY: Palpitations CT DLP: 481.7 mGycm Automated exposure control for dose reduction was used. CONTRAST: CTA scan of the thorax is performed with IV Contrast, patient injected with 83 mL of Isovue 370, pulm onary embolism protocol. MIP images are created and reviewed. 3D reconstructed images are created o n an independent workstation and reviewed. FINDINGS: LUNGS: The lungs are stable, there is no concerning parenchymal mass or nodule identified. Areas of s carring are present bilaterally. There is no pleural effusion or pneumothorax seen. The tracheobron chial tree is patent. AORTA: Ascending aorta measures approximately 4.3 cm. Four super aortic branch vessels are present. MEDIASTINUM: There is satisfactory enhancement of the pulmonary artery and its branches, there is no CT evidence for pulmonary embolism. There are no greater than 1 cm hilar or mediastinal lymph nodes. No pericardial effusion is seen. There are coronary artery calcifications. Prominent epicardial fa t pads are present. Reflux of contrast into the inferior vena cava is noted. Comments of the pulmonar y artery is present. Some emphysematous changes are present. OTHER: No additional significant abnormality is seen. IMPRESSION: NO EVIDENT PULMONARY EMBOLISM. ASCENDING AORTIC ANEURYSM. CORONARY ARTERY DISEASE. CORRELATE FOR POSS IBLE PULMONARY ARTERY HYPERTENSION. FINDINGS IN THE LUNGS DESCRIBED.
[2020-01-11] MEDS ORDERED: NITROGLYCERIN SL TABS 0.4 MG TAB SUBLINGUAL PRN (10:41)
[2020-01-11] MEDS ORDERED: LORATADINE 10 MG TAB PO PRN (10:44)
--- NOTE | 2020-01-11 10:48 | ED ---
Medical Decision Making - Medical Decision Making imaging negative for acute findings at this time Due to symptoms however Covid- 19 s to be ruled out - Lab Data Result diagrams: 01/11/20 07:22 01/11/20 07:22 Lab Results 01/11/20 01/11/20 01/11/20 Range/Units 07:22 07:22 07:22 WBC (3.8-10.6) k/uL RBC (3.80-5.40) m/uL Hgb (11.4-16.0) gm/dL Hct (34.0-46.0) % MCV (80.0-100.0) fL MCH (25.0-35.0) pg MCHC (31.0-37.0) g/dL RDW (11.5-15.5) % Plt Count (150-450) k/uL Neutrophils % % Lymphocytes % % Monocytes % % Eosinophils % % Basophils % % Neutrophils # (1.3-7.7) k/uL Lymphocytes # (1.0-4.8) k/uL Monocytes # (0-1.0) k/uL Eosinophils # (0-0.7) k/uL Basophils # (0-0.2) k/uL PT 9.7 (9.0-12.0) sec INR 0.9 (<1.2) APTT 23.8 (22.0-30.0) sec D-Dimer 1.73 H (<0.60) mg/L FEU Sodium 137 (137-145) mmol/L Potassium 3.9 (3.5-5.1) mmol/L Chloride 103 (98-107) mmol/L Carbon Dioxide 29 (22-30) mmol/L Anion Gap 5 mmol/L BUN 17 (7-17) mg/dL Creatinine 0.64 (0.52-1.04) mg/dL Est GFR (CKD-EPI)AfAm >90 (>60 ml/min/1.73 sqM) Est GFR (CKD-EPI)NonAf 89 (>60 ml/min/1.73 sqM) Glucose 141 H (74-99) mg/dL Plasma Lactic Acid Aris (0.7-2.0) mmol/L Calcium 8.3 L (8.4-10.2) mg/dL Magnesium 1.5 L (1.6-2.3) mg/dL Total Bilirubin 0.6 (0.2-1.3) mg/dL AST 37 H (14-36) U/L ALT 24 (4-34) U/L Alkaline Phosphatase 63 (38-126) U/L Lactate Dehydrogenase 585 (313-618) U/L Creatine Kinase 95 (30-135) U/L Troponin I <0.012 (0.000-0.034) ng/mL C-Reactive Protein 18.9 H (<10.0) mg/L Total Protein 6.1 L (6.3-8.2) g/dL Albumin 3.6 (3.5-5.0) g/dL TSH 1.850 (0.465-4.680) mIU/L Influenza Type A RNA (Not Detectd) Influenza Type B (PCR) (Not Detectd) 01/11/20 01/11/20 01/11/20 Range/Units 07:22 07:22 07:31 WBC 4.1 (3.8-10.6) k/uL RBC 4.71 (3.80-5.40) m/uL Hgb 14.8 (11.4-16.0) gm/dL Hct 46.5 H (34.0-46.0) % MCV 98.7 (80.0-100.0) fL MCH 31.5 (25.0-35.0) pg MCHC 31.9 (31.0-37.0) g/dL RDW 12.5 (11.5-15.5) % Plt Count 114 L (150-450) k/uL Neutrophils % 80 % Lymphocytes % 12 % Monocytes % 4 % Eosinophils % 1 % Basophils % 1 % Neutrophils # 3.3 (1.3-7.7) k/uL Lymphocytes # 0.5 L (1.0-4.8) k/uL Monocytes # 0.2 (0-1.0) k/uL Eosinophils # 0.1 (0-0.7) k/uL Basophils # 0.0 (0-0.2) k/uL PT (9.0-12.0) sec INR (<1.2) APTT (22.0-30.0) sec D-Dimer (<0.60) mg/L FEU Sodium (137-145) mmol/L Potassium (3.5-5.1) mmol/L Chloride (98-107) mmol/L Carbon Dioxide (22-30) mmol/L Anion Gap mmol/L BUN (7-17) mg/dL Creatinine (0.52-1.04) mg/dL Est GFR (CKD-EPI)AfAm (>60 ml/min/1.73 sqM) Est GFR (CKD-EPI)NonAf (>60 ml/min/1.73 sqM) Glucose (74-99) mg/dL Plasma Lactic Acid Aris 1.4 (0.7-2.0) mmol/L Calcium (8.4-10.2) mg/dL Magnesium (1.6-2.3) mg/dL Total Bilirubin (0.2-1.3) mg/dL AST (14-36) U/L ALT (4-34) U/L Alkaline Phosphatase (38-126) U/L Lactate Dehydrogenase (313-618) U/L Creatine Kinase (30-135) U/L Troponin I (0.000-0.034) ng/mL C-Reactive Protein (<10.0) mg/L Total Protein (6.3-8.2) g/dL Albumin (3.5-5.0) g/dL TSH (0.465-4.680) mIU/L Influenza Type A RNA Not Detected (Not Detectd) Influenza Type B (PCR) Not Detected (Not Detectd) Disposition Clinical Impression: Supraventricular tachycardia, Chest pain, Febrile illness, acute, Hypomagnesemia Disposition: ADMITTED IP TO THIS HOSP Condition: Fair Referrals: Sheila Grace MD [Primary Care Provider] - 1-2 days
--- NOTE | 2020-01-11 12:38 | US ---
EXAMINATION TYPE: US venous doppler duplex LE DATE OF EXAM: 01/11/2020 11:53 AM COMPARISON: NONE CLINICAL HISTORY: elevated d-dimer. Patient fell and bruised her legs and they are sore SIDE PERFORMED: Bilateral TECHNIQUE: The lower extremity deep venous system is examined utilizing real time linear array sonog valeriy with graded compression, doppler sonography and color-flow sonography. VESSELS IMAGED: External Iliac Vein (EIV) Common Femoral Vein Deep Femoral Vein Greater Saphenous Vein * Femoral Vein Popliteal Vein Small Saphenous Vein * Proximal Calf Veins (* superficial vessels) Right Leg: Negative for DVT Left Leg: Negative for DVT Grayscale, color doppler, spectral doppler imaging performed of the deep veins of the bilateral lower extremities. There is normal flow, compressibility, vascular waveforms. IMPRESSION: No ultrasound evidence for acute DVT in either lower extremity.
[2020-01-11] MEDS: guaiFENesin-DM 600/30MG 1 EACH TAB.ER.12H PO SCH ×2 (12:53→20:11)
[2020-01-11] MEDS ORDERED: METOPROLOL TARTRATE 5 MG/5 ML VIAL IVP ONE (13:36)
--- NOTE | 2020-01-11 15:07 | P.HPIM ---
History of Present Illness H&P Date: 01/11/20 This is a 74-year-old female patient of Dr. Merino and Dr. Saul Bernardo with past medical history of hypertension, glaucoma, DVT, colon cancer status post partial colectomy, gastroesophageal reflux disease, mild intermittent asthma. The patient gives history of having a runny nose low-grade fever cough with clear sputum production for a couple of days. This morning developed palpitations and chest pain as well as left arm numbness with pain radiating to her neck and jaw and EMS was called. She was found to be in SVT at a more than 160 bpm. She was given adenosine 6 mg and EMS and converted to a sinus rhythm. She was found to have a temperature 100.4, heart rate 87, blood pressure 130/92, pulse ox 90% on room air. CBC revealed WBC 4.1, hemoglobin 14.8, platelet count 114. Electrolytes and renal function normal. Liver function tests were normal. Troponin negative. TSH 1.850. Lactic acid 1.4. Influenza testing negative. D-dimer 1.73. C-reactive protein 18.9. LDH 585 EKG sinus rhythm with no acute ST changes. Chest x-ray reveals no acute pulmonary process. CT angios showed no evidence of pulmonary embolism. Ascending aortic aneurysm measuring 4.3 cm, coronary artery disease. Correlate for possible pulmonary artery hypertension. Ultrasound of the bilateral lower extremities negative for DVT. Repeat troponin negative. COVID-19 testing in progress. Patient admitted to the cardiac stepdown unit and consult requested with cardiology regarding SVT and chest pain and pulmonary medicine regarding elevated d-dimer, rule out COVID-19. Patient subsequently had episode of SVT on the cardiac stepdown unit and converted with Lopressor 5 mg IV push. Review of Systems Constitutional: Reports chills, Reports fatigue, Reports fever, Reports lethargy, Reports malaise, Reports poor appetite, Reports weakness Eyes: denies blurred vision, denies pain Ears, nose, mouth and throat: Reports nasal congestion, Reports nasal discharge, Reports sore throat, Denies headache, Denies vertigo Cardiovascular: Reports palpitations, Denies chest pain, Denies leg edema, Denies lightheadedness, Denies shortness of breath, Denies syncope Respiratory: Reports cough, Reports cough with sputum, Reports respiratory infections, Denies excessive sputum, Denies hemoptysis, Denies home oxygen Gastrointestinal: Reports loss of appetite, Denies abdominal pain, Denies diarrhea, Denies nausea, Denies vomiting Genitourinary: Denies dysuria, Denies hematuria, Denies urgency, Denies urinary frequency Menstruation: Reports postmenopausal Musculoskeletal: Denies frequent falls, Denies gait dysfunction, Denies myalgias Integumentary: Denies pruritus, Denies rash Neurological: Denies change in mentation, Denies change in speech, Denies numbness, Denies seizures, Denies weakness Psychiatric: Denies anxiety, Denies depression Endocrine: Denies fatigue, Denies weight change Past Medical History Past Medical History: Asthma, Cancer, Deep Vein Thrombosis (DVT), Eye Disorder, GERD/Reflux, Hypertension, Osteoarthritis (OA), Sleep Apnea/CPAP/BIPAP, Vascular Disorder Additional Past Medical History / Comment(s): Current rhinorrhea/cough past 2 days, 2011 colon cancer with surgery, diverticular disease, colon polyps, PUD, MVP, murmur, chronic low back pain, herniated discs, scoliosis, STEVE-told no longer needed device, 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 History of Any Multi-Drug Resistant Organisms: None Reported Past Surgical History: Adenoidectomy, Bladder Surgery, Bowel Resection, Hysterectomy, Joint Replacement, Orthopedic Surgery, Tonsillectomy Additional Past Surgical History / Comment(s): Colonoscopies/polypectomies, bladder prolapse repair, bilateral shoulder rotator cuff repairs twice each side, total L knee arthroplasty, L knee arthroscopy, bilateral feet bunionectomies, bilateral cataract removals. Past Anesthesia/Blood Transfusion Reactions: Malignant Hyperthermia, Postoperative Nausea & Vomiting (PONV) Additional Past Anesthesia/Blood Transfusion Reaction / Comment(s): Pt has clausterphobia. Smoking Status: Former smoker Additional Past Alcohol Use History / Comment(s): Patient was a smoker of one pack per day for 25 years and quit in 1992. She denies any marijuana use, alcohol use or illicit drug use. She resides in a senior apartment. - Past Family History Sister(s) Family Medical History: Pulmonary Embolus Father Family Medical History: Myocardial Infarction ([place]) Additional Family Medical History / Comment(s): Father had his first TX at the age of 61 yrs. Mother Family Medical History: Cancer Additional Family Medical History / Comment(s): LYMPHOMA Medications and Allergies Home Medications Medication Instructions Recorded Confirmed Type Pantoprazole Sodium [Protonix] 40 mg PO DAILY 07/23/13 01/11/20 History Brimonidine Tartrate [Alphagan P 1 drop BOTH EYES BID 05/05/14 01/11/20 History 0.2% Ophth Soln] Multivitamin/Iron/Folic Acid 1 tab PO DAILY 05/05/14 01/11/20 History [Centrum Complete Multivit Tab] Metoprolol Tartrate [Lopressor] 50 mg PO BID 06/02/17 01/11/20 History Albuterol Inhaler [Ventolin Hfa 1 - 2 puff INHALATION RT-Q4H PRN 08/27/19 01/11/20 History Inhaler] Aspirin EC [Ecotrin Low Dose] 81 mg PO DAILY 08/27/19 01/11/20 History ALPRAZolam [Xanax] 0.25 mg PO HS PRN 01/11/20 01/11/20 History Cetirizine HCl [Zyrtec] 10 mg PO DAILY PRN 01/11/20 01/11/20 History Ipratropium-Albuterol Nebulize 3 ml INHALATION RT-QID PRN 01/11/20 01/11/20 History [Duoneb 0.5 mg-3 mg/3 ml Soln] Allergies Allergy/AdvReac Type Severity Reaction Status Date / Time amoxicillin trihydrate Allergy Rash/Hives Verified 01/11/20 08:30 [From Augmentin] hydromorphone HCl Allergy Rash/Hives Verified 01/11/20 08:30 [From Dilaudid] Iodinated Contrast Media Allergy Red face Verified 01/11/20 08:30 [Iodinated Contrast Media - and felt IV Dye] like it was on fire. Penicillins Allergy Rash/Hives Verified 01/11/20 08:30 potassium clavulanate Allergy Rash/Hives Verified 01/11/20 08:30 [From Augmentin] Bwwsemk-Gyi-Sfd Reductase AdvReac LEG Verified 01/11/20 08:30 Inhibitor SWELLING AND PAIN tramadol AdvReac Unknown Verified 01/11/20 08:30 Physical Exam Vitals: Vital Signs Temp Pulse Resp BP Pulse Ox 01/11/20 10:30 99.9 F H 70 18 140/79 96 01/11/20 10:00 70 16 96 01/11/20 09:30 128/81 01/11/20 09:00 80 17 93 L 01/11/20 08:30 84 18 138/92 92 L 01/11/20 08:00 86 19 138/92 90 L 01/11/20 07:33 82 21 138/92 97 01/11/20 07:11 100.4 F H 87 19 138/92 98 Intake and Output 01/10/20 01/11/20 01/11/20 22:59 06:59 14:59 Other: # Voids 1 Weight 98.883 kg Physical Examination Gen: This is a 74-year-old female. No acute distress is noted. HEENT: Head is atraumatic, normocephalic. Pupils equal, round. Sclerae is anicteric. NECK: Supple. No JVD. No lymphadenopathy. No thyromegaly. LUNGS: Clear to auscultation. No wheezes or rhonchi. No intercostal retractions. HEART: Regular rate and rhythm. No murmur. ABDOMEN: Soft. Bowel sounds are present. No masses. No tenderness. EXTREMITIES: No pedal edema. No calf tenderness. Dorsalis pedis +2 bilaterally. NEUROLOGICAL: Patient is awake, alert and oriented x3. Cranial nerves 2 through 12 are grossly intact. Results CBC & Chem 7: 01/11/20 07:22 01/11/20 07:22 Labs: Abnormal Lab Results - Last 24 Hours (Table) 01/11/20 01/11/20 01/11/20 Range/Units 07:22 07:22 07:22 Hct 46.5 H (34.0-46.0) % Plt Count 114 L (150-450) k/uL Lymphocytes # 0.5 L (1.0-4.8) k/uL D-Dimer 1.73 H (<0.60) mg/L FEU Glucose 141 H (74-99) mg/dL Calcium 8.3 L (8.4-10.2) mg/dL Magnesium 1.5 L (1.6-2.3) mg/dL AST 37 H (14-36) U/L C-Reactive Protein 18.9 H (<10.0) mg/L Total Protein 6.1 L (6.3-8.2) g/dL Thrombosis Risk Factor Assmnt - DVT/VTE Prophylaxis DVT/VTE Prophylaxis: Pharmacologic Prophylaxis ordered - Choose All That Apply Any of the Below Risk Factors Present?: Yes Each Factor Represents 1 point: Obesity (BMI >25), Varicose veins Other Risk Factors: Yes Each Risk Factor Represents 2 Points: Age 61-74 years, Malignancy Each Risk Factor Represents 3 Points: Family history of DVT/PE Other congenital or acquired thrombophilia - If yes, enter type in comment: No Thrombosis Risk Factor Assessment Total Risk Factor Score: 9 Thrombosis Risk Factor Assessment Level: High Risk Assessment and Plan Plan: 1. Febrile illness, rule out Covid 19. Consult pulmonary medicine. Patient has fever with elevated markers but no findings on chest x-ray, CAT scan. Covid 19 testing in progress. Continue isolation. 2. SVT, converted to normal sinus rhythm. Cardiology consult. Continue Lopres sor 50 mg twice daily. 3. Hypertension. Continue Lopressor. 4. Chest pain with 2 sets of negative troponins. Repeat troponin and cardiology consult. Echocardiogram. 5. Gastroesophageal reflux disease. Continue Protonix. 6. History of colon cancer status post partial colectomy. 7. Glaucoma. Continue eyedrops. 8. Mild intermittent asthma. Continue DuoNeb treatments as needed. 9. Obstructive sleep apnea, no longer requiring CPAP. 10. DVT prophylaxis. Heparin subcu Patient will be admitted to the hospital for a minimum of 2 night stay. Discharge plan: Most likely return home. Impression and plan of care have been directed as dictated by the signing physician. Yolanda Munoz nurse practitioner acting as scribe for signing physician.
--- NOTE | 2020-01-11 16:17 | P.CNPUL ---
History of Present Illness Reason for consult: chest pain History of present illness: This is a 74-year-old female patient with a previous history of colon cancer, previous history of right lower extremity DVT and pulmonary embolism back in 2018 that occurred following a orthopedic surgery, right knee arthroplasty. The patient has mild intermittent bronchial asthma, sleep apnea not utilizing any form of CPAP therapy. No previous history of coronary artery disease. The patient is been followed up [facility] on outpatient basis. The patient came into the hospital today after she felt an acute pain and palpitation at home. The pain was across her chest radiating to her left arm. Note that she was having symptoms of URI including Raynaud's a low-grade fever and a cough and congestion a week prior to this presentation. She also had a fall sustaining some bruising to the right lower extremity prior to this admission. In the ED, the patient was found to be in SVT. The patient was given 6 mg of adenosine and subsequently she converted to normal sinus rhythm. She had a low-grade fever 100.4. Her pulse ox on room air was around 91-92%. White cell count was at 4.1 with a hemoglobin of 14.8. The CT angiogram showed no evidence of any pulmonary embolism. Chest x-ray showed no acute process. The CAT scan of the chest showed an ascending aortic aneurysm measuring 4.3 cm size without evidence of any dissection. I noted that lower extremities are quite swollen and there was a subcutaneous bruise because of a fall and I ordered an ultrasound Doppler of the lower extremity which do not to be negative. The lorenzo virus: 19 testing is still in progress for now. Meanwhile, the patient is admitted to cardiac stepdown for further monitoring. Note that subsequent to her first episode of SVT, the patient another episode and she converted to normal sinus rhythm. Review of Systems Constitutional: Reports fatigue, Reports fever, Reports weakness Eyes: denies as per HPI, denies blurred vision, denies bulging eye, denies decreased vision, denies diplopia, denies discharge, denies dry eye, denies irritation, denies itching, denies pain, denies photophobia, denies loss of peripheral vision, denies loss of vision, denies tunnel vision/blind spots Ears: deny: decreased hearing, ear discharge, earache, tinnitus Ears, nose, mouth and throat: Reports as per HPI Breasts: absent: as per HPI, change in shape, gynecomastia, masses, nipple discharge, pain, skin changes, swelling Cardiovascular: Reports as per HPI Respiratory: Reports cough Gastrointestinal: Reports as per HPI Genitourinary: Reports as per HPI Menstruation: Reports as per HPI Musculoskeletal: Reports as per HPI (fall and trauma to the RLE) Musculoskeletal: bilateral: ankle swelling, absent: ankle pain, ankle stiffness Integumentary: Reports as per HPI Neurological: Reports as per HPI Psychiatric: Reports as per HPI Endocrine: Reports as per HPI Hematologic/Lymphatic: Reports as per HPI Allergic/Immunologic: Reports as per HPI Past Medical History Past Medical History: Asthma, Cancer, Deep Vein Thrombosis (DVT), Eye Disorder, GERD/Reflux, Hypertension, Pulmonary Embolus (PE), Sleep Apnea/CPAP/BIPAP Additional Past Medical History / Comment(s): Hx of colon cancer, hypertension, glaucoma, Asthma, DVT in the right lower extremity and PE in 2018 following a right knee arthoplasty treated with Xarelto fora total of 6 months followed by ASA, Obesity, STEVE and she is not using a CPAP machine History of Any Multi-Drug Resistant Organisms: None Reported Past Surgical History: Bowel Resection, Hysterectomy, Joint Replacement, Ort hopedic Surgery Additional Past Surgical History / Comment(s): BILATERAL SHOULDER ROTATOR CUFF, LEFT KNEE SCOPE, GIDEON BUNIONECTOMY, CATARACTS. TRK 06/09/17 Past Anesthesia/Blood Transfusion Reactions: No Reported Reaction Past Psychological History: No Psychological Hx Reported Smoking Status: Former smoker Past Alcohol Use History: None Reported, Rare Past Drug Use History: None Reported - Past Family History Sister(s) Family Medical History: Pulmonary Embolus Mother Family Medical History: Cancer Additional Family Medical History / Comment(s): LYMPHOMA Father Family Medical History: Myocardial Infarction ([place]) Additional Family Medical History / Comment(s): Father had his first AK at the age of 61 yrs. Medications and Allergies Home Medications Medication Instructions Recorded Confirmed Type Pantoprazole Sodium [Protonix] 40 mg PO DAILY 07/23/13 01/11/20 History Brimonidine Tartrate [Alphagan P 1 drop BOTH EYES BID 05/05/14 01/11/20 History 0.2% Ophth Soln] Multivitamin/Iron/Folic Acid 1 tab PO DAILY 05/05/14 01/11/20 History [Centrum Complete Multivit Tab] Metoprolol Tartrate [Lopressor] 50 mg PO BID 06/02/17 01/11/20 History Albuterol Inhaler [Ventolin Hfa 1 - 2 puff INHALATION RT-Q4H PRN 08/27/19 01/11/20 History Inhaler] Aspirin EC [Ecotrin Low Dose] 81 mg PO DAILY 08/27/19 01/11/20 History ALPRAZolam [Xanax] 0.25 mg PO HS PRN 01/11/20 01/11/20 History Cetirizine HCl [Zyrtec] 10 mg PO DAILY PRN 01/11/20 01/11/20 History Ipratropium-Albuterol Nebulize 3 ml INHALATION RT-QID PRN 01/11/20 01/11/20 History [Duoneb 0.5 mg-3 mg/3 ml Soln] Allergies Allergy/AdvReac Type Severity Reaction Status Date / Time amoxicillin trihydrate Allergy Rash/Hives Verified 01/11/20 08:30 [From Augmentin] hydromorphone HCl Allergy Rash/Hives Verified 01/11/20 08:30 [From Dilaudid] Iodinated Contrast Media Allergy Red face Verified 01/11/20 08:30 [Iodinated Contrast Media - and felt IV Dye] like it was on fire. Penicillins Allergy Rash/Hives Verified 01/11/20 08:30 potassium clavulanate Allergy Rash/Hives Verified 01/11/20 08:30 [From Augmentin] [id number]-[id number]-[id number] Reductase AdvReac LEG Verified 01/11/20 08:30 Inhibitor SWELLING AND PAIN tramadol AdvReac Unknown Verified 01/11/20 08:30 Physical Exam Vitals: Vital Signs Temp Pulse Resp BP Pulse Ox 01/11/20 10:30 99.9 F H 70 18 140/79 96 01/11/20 10:00 70 16 96 01/11/20 09:30 128/81 01/11/20 09:00 80 17 93 L 01/11/20 08:30 84 18 138/92 92 L 01/11/20 08:00 86 19 138/92 90 L 01/11/20 07:33 82 21 138/92 97 01/11/20 07:11 100.4 F H 87 19 138/92 98 Intake and Output 01/10/20 01/11/20 01/11/20 22:59 06:59 14:59 Other: # Voids 1 Weight 98.883 kg Gen. appearance the patient is calm and comfortable and she is not having any significant respiratory distress at this point in time. Head exam was generally normal. There was no scleral icterus or corneal arcus. Mucous membranes were moist. Neck was supple and without jugular venous distension, thyromegaly, or carotid bruits. Carotids were easily palpable bilaterally. There was no adenopathy. Lungs were clear to auscultation and percussion, and with normal diaphragmatic excursion. No wheezes or rales were noted. Cardiac exam revealed the PMI to be normally situated and sized. The rhythm was regular and no extrasystoles were noted during several minutes of auscultation. The first and second heart sounds were normal and physiologic splitting of the second heart sound was noted. There were no murmurs, rubs, clicks, or gallops. Abdominal exam revealed normal bowel sounds. The abdomen was soft, non-tender, and without masses, organomegaly, or appreciable enlargement of the abdominal aorta. Examination of the extremities revealed easily palpable radial, femoral and pedal pulses. There was no cyanosis, clubbing and there is trace pitting edema lower extremities bilaterally Neurologically, the patient is awake and alert and the patient does not have any focal neurological deficit. Cranial nerves are essentially intact. Results - Laboratory Findings CBC and BMP: 01/11/20 07:22 01/11/20 07:22 PT/INR, D-dimer PT 9.7 sec (9.0-12.0) 01/11/20 07:22 INR 0.9 (<1.2) 01/11/20 07:22 D-Dimer 1.73 mg/L FEU (<0.60) H 01/11/20 07:22 Abnormal lab findings: Abnormal Labs 01/11/20 01/11/20 01/11/20 07:22 07:22 07:22 Hct 46.5 H Plt Count 114 L Lymphocytes # 0.5 L D-Dimer 1.73 H Glucose 141 H Calcium 8.3 L Magnesium 1.5 L AST 37 H C-Reactive Protein 18.9 H Total Protein 6.1 L - Diagnostic Findings Chest x-ray: image reviewed Assessment and Plan Plan: 1 acute febrile illness on that investigation, the patient is being ruled out for coronavirus Covid 19 infection and [place] opinion is quite doubtful based on the clinical presentation 2 acute bronchitis without indication for pneumonia 3 SVT, converted into normal sinus rhythm 4 previous history of DVT of the right lower extremity and pulmonary embolism c urrently on anticoagulation and the CTA did not show any recurrent PA and the repeat Doppler of the lower extremities still pending 5 obstructive sleep apnea, not receiving any treatment 6 obesity with a BMI of 39.9 7 previous history of colon cancer with a partial colectomy 8 mild intermittent bronchial asthma 9 glucoma 10 hypertension Plan Awaiting coronavirus Covid 19 nasal swab by PCR results Monitor fever pattern Doppler of the lower extremities Echocardiogram Continue with beta blockers and monitor the patient's cardiac rhythm Thyroid function tests are within normal, troponins are negative Cardiology consultation Mucinex DM for cough and congestion addition to DuoNeb nebulized treatments treatments around the clock
[2020-01-11] MEDS: IPRATROPIUM-ALBUTEROL 3 ML NEB INHALATION PRN ×2 (16:50→20:35)
[2020-01-11 17:03] LABS: Ferritin 221.7 ng/mL (10.0-291.0)
[2020-01-11] MEDS: BRIMONIDINE TARTRATE 0.2% DROPS 5 ML BTL BOTH EYES SCH (20:12)
[2020-01-11] MEDS: METOPROLOL TARTRATE 50 MG TAB PO SCH (20:12)
[2020-01-11] MEDS ORDERED: HEPARIN SODIUM,PORCINE 5,000 UNIT/ML 1 ML VIAL SQ SCH (21:00)
[2020-01-11] MEDS: ALPRAZolam 0.25 MG TAB PO PRN (22:38)
[2020-01-12] MEDS: PANTOPRAZOLE 40 MG TABLET PO SCH (06:12)
[2020-01-12 07:20] LABS: Basophils % (A) 0 %; Eosinophils % (A) 0 %; HCT 42.5 % (34.0-46.0); HGB 13.2 gm/dL (11.4-16.0); Lymphocytes # (A) 0.6 k/uL (1.0-4.8); Lymphocytes % (A) 16 %; MCH 30.7 pg (25.0-35.0); MCV 98.9 fL (80.0-100.0); Mean Platelet Volume 7.3; Monocytes # (A) 0.3 k/uL (0-1.0); Monocytes % (A) 8 %; Neutrophils # (A) 2.6 k/uL (1.3-7.7); Neutrophils % (A) 74 %; Platelet Count 123 k/uL (150-450); RDW 12.7 % (11.5-15.5); WBC 3.5 k/uL (3.8-10.6)
[2020-01-12 07:32] LABS: African American GFR (CKD) >90 (>60 ml/min/1.73 sqM); Anion Gap 2 mmol/L; Blood Urea Nitrogen 18 mg/dL (7-17); Calcium 8.2 mg/dL (8.4-10.2); Carbon Dioxide 31 mmol/L (22-30); Chloride 103 mmol/L (98-107); Cholesterol 164 mg/dL (<200); Glucose 115 mg/dL (74-99); HDL Cholesterol 34 mg/dL (40-60); LDL Cholesterol,Calculated 81 mg/dL (0-99); Magnesium 1.9 mg/dL (1.6-2.3); Non-African American GFR(CKD) >90 (>60 ml/min/1.73 sqM); Sodium 136 mmol/L (137-145); Triglycerides 243 mg/dL (<150)
[2020-01-12] MEDS ORDERED: ASPIRIN 325 MG TAB PO SCH (09:00)
[2020-01-12] MEDS: guaiFENesin-DM 600/30MG 1 EACH TAB.ER.12H PO SCH ×2 (09:05→20:24)
[2020-01-12] MEDS: CHOLECALCIFEROL 1,000 UNIT TAB PO SCH (09:05)
[2020-01-12] MEDS: ENOXAPARIN 40 MG/0.4 ML SYRINGE SQ SCH ×2 (09:05→20:25)
[2020-01-12] MEDS: ZINC SULFATE 220 MG CAP PO SCH (09:06)
[2020-01-12] MEDS: METOPROLOL TARTRATE 50 MG TAB PO SCH ×2 (09:06→20:25)
[2020-01-12] MEDS: ASPIRIN 81 MG PO SCH (09:06)
[2020-01-12] MEDS: ASCORBIC ACID 500 MG TAB PO SCH (09:06)
[2020-01-12] MEDS: MULTIVITAMINS, THERA 1 EACH TAB PO SCH (09:06)
[2020-01-12] MEDS: dexAMETHasone 2 MG TAB PO SCH (09:06)
[2020-01-12] MEDS: BRIMONIDINE TARTRATE 0.2% DROPS 5 ML BTL BOTH EYES SCH ×2 (09:07→20:25)
--- NOTE | 2020-01-12 10:53 | ECHOF ---
Referral Reason:SVT MEASUREMENTS -------- HEIGHT: 175.3 cm WEIGHT: 113.4 kg BP: RVIDd: 3.0 cm (< 3.3) IVSd: 1.1 cm (0.6 - 1.1) LVIDd: 4.3 cm (3.9 - 5.3) LVPWd: 1.4 cm (0.6 - 1.1) IVSs: 1.2 cm LVIDs: 3.2 cm LVPWs: 1.5 cm MV EXCURSION: 15.271 mm (> 18.000) MV EF SLOPE: 104 mm/s (70 - 150) EPSS: 0.7 cm MV E Eddie: 0.37 m/s MV DecT: 253 ms MV A Eddie: 0.67 m/s MV E/A Ratio: 0.56 AV maxP.42 mmHg AV meanP.33 mmHg FINDINGS -------- Undetermined rhythm. This was a techncally difficult study with suboptimal views, , Lumason utilized for enhancement of im ages. LV size, wall thickness and systolic function are normal, with an EF greater than 55%. The left srini tricular size is normal. The right ventricle is normal in size. The left atrial size is normal. The right atrial size is normal. 5.0mg OF Lumason UTLIZED: 2 OR MORE WALL SEGMENTS NOT VISUALIZED. There is mild aortic stenosis present. Peak/mean gradient across the Aortic Valve is 17.42mmHg / 9. 33mmHg. Mild mitral regurgitation is present. Mild tricuspid regurgitation present. Right ventricular systolic pressure is normal at < 35 mmHg. The pulmonic valve was not well visualized. The aortic root size is normal. There is no pericardial effusion. CONCLUSIONS -------- 1. This was a techncally difficult study with suboptimal views, , Lumason utilized for enhancement of images. 2. LV size, wall thickness and systolic function are normal, with an EF greater than 55%. 3. The left ventricular size is normal. 4. The right ventricle is normal in size. 5. The left atrial size is normal. 6. The right atrial size is normal. 7. 5.0mg OF Lumason UTLIZED: 2 OR MORE WALL SEGMENTS NOT VISUALIZED. 8. There is mild aortic stenosis present. 9. Peak/mean gradient across the Aortic Valve is 17.42mmHg / 9.33mmHg. 10. Mild mitral regurgitation is present. 11. Mild tricuspid regurgitation present. 12. The pulmonic valve was not well visualized. 13. The aortic root size is normal. 14. There is no pericardial effusion. DATA CONVERSION OPERATOR: Shilpa Patel RDCS
--- NOTE | 2020-01-12 11:01 | P.EPCON ---
Electrophysiology Consult - EP Consult Electrophysiology Consult: Chart reviewed. Patient evaluated. 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 Gonzáles and in the future EP study and ablation should be considered For now medical treatment should be continued with beta blockers
--- NOTE | 2020-01-12 11:45 | P.CRDCN ---
History of Present Illness History of present illness: HISTORY OF PRESENTING ILLNESS This is a pleasant 74-year-old female past medical history significant for supraventricular tachycardia, hypertension and history of PE and obstructive sleep apnea. She follows in the office with Dr. Bernardo. We have been asked to see in consultation for SVT. She called EMS yesterday secondary to palpitations and dizziness. On arrival she was noted to be in SVT with a heart rate of 165 she was given 6 mg of adenosine and converted to sinus mechanism. EMS EKGs as well as EKGs obtained here in the hospital were reviewed. She has AV chris reentry tachycardia. She is currently Covid positive and maintained on isolation precautions. We did an evaluation from 6 feet away. Diagnosis was explained to the patient in great detail. She has no further symptoms of palpitations. She denies chest pain or dizziness. She does feel mildly short of breath at times. Laboratory data reviewed, WBC 3.5, hemoglobin 13.2, platelets 123, d-dimer 1.73, sodium 136, potassium 4.0, creatinine 0.53, magnesium 1.9, troponins negative 3, C-reactive protein 18.9, TSH 1.85, LDL 81 and HDL 34. Current daily cardiac medications include aspirin 81 mg daily and Lopressor 50 mg twice a day. Echocardiogram obtained on admission reveals preserved LV systolic function with ejection fraction greater than 55%, mean gradient 9 mmHg. REVIEW OF SYSTEMS At the time of my exam: CONSTITUTIONAL: Denies fever or chills. CARDIOVASCULAR: Denies chest pain, shortness of breath, orthopnea, PND or palpitations. RESPIRATORY: Denies cough. GASTROINTESTINAL: Denies abdominal pain, diarrhea, constipation, nausea or vomiting. MUSCULOSKELETAL: Denies myalgias. NEUROLOGIC: Denies numbness, tingling or weakness. ENDOCRINE: Denies fatigue, weight change, polydipsia or polyurina. GENITOURINARY: Denies burning, hematuria or urgency with micturation. HEMATOLOGIC: Denies history of anemia or bleeding. PHYSICAL EXAMINATION Blood pressure 177/92 heart rate 72 afebrile and maintaining oxygen saturation on nasal cannula. CONSTITUTIONAL: No apparent distress. No physical exam performed due to COVID-19 positive. ASSESSMENT COVID positive Supraventricluar tachycardia adenosine sensitive AV chris re-entry tachycardia Hypomagnesemia Valuvular heart disease Hypertension PLAN Continue beta blockers. Once her Covid resolves and she is discharged home we will see her in the office and consider ablation for AVNRT. No further cardiac work-up at this time. Thank you kimi for this consultation. Nurse Practitioner note has been reviewed, I agree with a documented findings and plan of care. Patient was seen and examined. Past Medical History Past Medical History: Asthma, Cancer, Deep Vein Thrombosis (DVT), Eye Disorder, GERD/Reflux, Hypertension, Pulmonary Embolus (PE), Sleep Apnea/CPAP/BIPAP Additional Past Medical History / Comment(s): Hx of colon cancer, hypertension, glaucoma, Asthma, DVT in the right lower extremity and PE in 2018 following a right knee arthoplasty treated with Xarelto fora total of 6 months followed by ASA, Obesity, STEVE and she is not using a CPAP machine History of Any Multi-Drug Resistant Organisms: None Reported Past Surgical History: Bowel Resection, Hysterectomy, Joint Replacement, Orthopedic Surgery Additional Past Surgical History / Comment(s): BILATERAL SHOULDER ROTATOR CUFF, LEFT KNEE SCOPE, GIDEON BUNIONECTOMY, CATARACTS. TRK 06/09/17 Past Anesthesia/Blood Transfusion Reactions: No Reported Reaction Additional Past Anesthesia/Blood Transfusion Reaction / Comment(s): Pt has clausterphobia. Past Psychological History: No Psychological Hx Reported Smoking Status: Former smoker Past Alcohol Use History: None Reported, Rare Past Drug Use History: None Reported - Past Family History Sister(s) Family Medical History: Pulmonary Embolus Father Family Medical History: Myocardial Infarction ([place]) Additional Family Medical History / Comment(s): Father had his first IN at the age of 61 yrs. Mother Family Medical History: Cancer Additional Family Medical History / Comment(s): LYMPHOMA Medications and Allergies Home Medications Medication Instructions Recorded Confirmed Type Pantoprazole Sodium [Protonix] 40 mg PO DAILY 07/23/13 01/11/20 History Brimonidine Tartrate [Alphagan P 1 drop BOTH EYES BID 05/05/14 01/11/20 History 0.2% Ophth Soln] Multivitamin/Iron/Folic Acid 1 tab PO DAILY 05/05/14 01/11/20 History [Centrum Complete Multivit Tab] Metoprolol Tartrate [Lopressor] 50 mg PO BID 06/02/17 01/11/20 History Albuterol Inhaler [Ventolin Hfa 1 - 2 puff INHALATION RT-Q4H PRN 08/27/19 1 History Inhaler] Aspirin EC [Ecotrin Low Dose] 81 mg PO DAILY 08/27/19 01/11/20 History ALPRAZolam [Xanax] 0.25 mg PO HS PRN 01/11/20 01/11/20 History Cetirizine HCl [Zyrtec] 10 mg PO DAILY PRN 01/11/20 01/11/20 History Ipratropium-Albuterol Nebulize 3 ml INHALATION RT-QID PRN 01/11/20 01/11/20 History [Duoneb 0.5 mg-3 mg/3 ml Soln] Allergies Allergy/AdvReac Type Severity Reaction Status Date / Time amoxicillin trihydrate Allergy Rash/Hives Verified 01/11/20 08:30 [From Augmentin] hydromorphone HCl Allergy Rash/Hives Verified 01/11/20 08:30 [From Dilaudid] Iodinated Contrast Media Allergy Red face Verified 01/11/20 08:30 [Iodinated Contrast Media - and felt IV Dye] like it was on fire. Penicillins Allergy Rash/Hives Verified 01/11/20 08:30 potassium clavulanate Allergy Rash/Hives Verified 01/11/20 08:30 [From Augmentin] [id number] Reductase AdvReac LEG Verified 01/11/20 08:30 Inhibitor SWELLING AND PAIN tramadol AdvReac Unknown Verified 01/11/20 08:30 Physical Exam Vitals: Vital Signs Temp Pulse Pulse Resp BP Pulse Ox 01/12/20 08:00 96.4 F L 72 18 177/92 92 L 01/12/20 03:39 97.8 F 69 18 136/80 100 01/11/20 23:39 98.6 F 75 16 129/68 95 01/11/20 20:48 72 01/11/20 20:35 72 01/11/20 20:00 98.2 F 75 18 126/63 93 L 01/11/20 18:01 86 01/11/20 17:51 138 H 125/81 01/11/20 17:01 88 01/11/20 16:50 88 01/11/20 16:00 98.4 F 78 20 114/69 97 01/11/20 13:45 85 123/77 95 01/11/20 13:40 135 H 108/73 95 01/11/20 13:35 138 H 118/75 95 01/11/20 13:20 147 H 20 125/83 95 Intake and Output 01/11/20 01/12/20 01/12/20 22:59 06:59 14:59 Intake Total 480 236 Output Total 220 Balance 480 -220 236 Intake: Oral 480 236 Output: Urine 220 Other: # Voids 1 1 Weight 72.5 kg Results 01/12/20 06:58 01/12/20 06:58 Cardiac Enzymes 01/11/20 01/11/20 Range/Units 11:58 14:46 Troponin I 0.016 <0.012 (0.000-0.034) ng/mL Lipids 01/12/20 Range/Units 06:58 Triglycerides 243 H (<150) mg/dL Cholesterol 164 (<200) mg/dL HDL Cholesterol 34 L (40-60) mg/dL CBC 01/12/20 Range/Units 06:58 WBC 3.5 L (3.8-10.6) k/uL RBC 4.30 (3.80-5.40) m/uL Hgb 13.2 (11.4-16.0) gm/dL Hct 42.5 (34.0-46.0) % Plt Count 123 L (150-450) k/uL Comprehensive Metabolic Panel 01/12/20 Range/Units 06:58 Sodium 136 L (137-145) mmol/L Potassium 4.0 (3.5-5.1) mmol/L Chloride 103 (98-107) mmol/L Carbon Dioxide 31 H (22-30) mmol/L BUN 18 H (7-17) mg/dL Creatinine 0.53 (0.52-1.04) mg/dL Glucose 115 H (74-99) mg/dL Calcium 8.2 L (8.4-10.2) mg/dL Current Medications Generic Name Dose Route Start Last Admin Trade Name Freq PRN Reason Stop Dose Admin Albuterol Sulfate 2 puff 01/12/20 09:02 Albuterol Hfa Inhaler INHALATION RT-QID PRN Shortness Of Breath Alprazolam 0.25 mg 01/11/20 10:44 01/11/20 22:38 Alprazolam 0.25 Mg Tab PO 0.25 mg HS PRN Administration Insomnia Ascorbic Acid 1,000 mg 01/12/20 09:00 01/12/20 09:06 Ascorbic Acid 500 Mg Tab PO 1,000 mg DAILY KALYAN Administration Aspirin 81 mg 01/12/20 09:00 01/12/20 09:06 Aspirin 81 Mg PO 81 mg DAILY KALYAN Administration Brimonidine Tartrate 1 drops 01/11/20 21:00 01/12/20 09:07 Brimonidine Tartrate 0.2% Drops 5 Ml Btl BOTH EYES 1 drops BID KALYAN Administration Cholecalciferol 5,000 unit 01/12/20 09:00 01/12/20 09:05 Cholecalciferol 1,000 Unit Tab PO 5,000 unit DAILY KALYAN Administration Dexamethasone 6 mg 01/12/20 09:00 01/12/20 09:06 Dexamethasone 2 Mg Tab PO 6 mg DAILY KALYAN Administration Enoxaparin Sodium 40 mg 01/12/20 08:00 01/12/20 09:05 Enoxaparin 40 Mg/0.4 Ml Syringe SQ 40 mg Q12H KALYAN Administration Guaifenesin/Dextromethorphan 2 each 01/11/20 12:00 01/12/20 09:05 Guaifenesin-Dm 600/30mg 1 Each Tab.Er.12h PO 2 each Q12HR KALYAN Administration Remdesivir 200 mg/ Sodium 250 mls @ 250 mls/hr 01/12/20 12:00 Chloride IVPB 01/12/20 12:59 ONCE ONE Remdesivir 100 mg/ Sodium 250 mls @ 250 mls/hr 01/13/20 12:00 Chloride IVPB 01/16/20 12:59 Q24H KALYAN Loratadine 10 mg 01/11/20 10:44 Loratadine 10 Mg Tab PO DAILY PRN Allergy Symptoms Metoprolol Tartrate 50 mg 01/11/20 21:00 01/12/20 09:06 Metoprolol Tartrate 50 Mg Tab PO 50 mg BID KALYAN Administration Multivitamins 1 each 01/12/20 09:00 01/12/20 09:06 Multivitamins, Thera 1 Each Tab PO 1 each DAILY KALYAN Administration Nitroglycerin 0.4 mg 01/11/20 10:41 Nitroglycerin Sl Tabs 0.4 Mg Tab SUBLINGUAL Q5M PRN Chest Pain Pantoprazole Sodium 40 mg 01/12/20 07:30 01/12/20 06:12 Pantoprazole 40 Mg Tablet PO 40 mg [id number] KALYAN Administration Zinc Sulfate 220 mg 01/12/20 09:00 01/12/20 09:06 Zinc Sulfate 220 Mg Cap PO 220 mg DAILY KALYAN Administration Intake and Output 01/11/20 01/12/20 01/12/20 22:59 06:59 14:59 Intake Total 480 236 Output Total 220 Balance 480 -220 236 Intake: Oral 480 236 Output: Urine 220 Other: # Voids 1 1 Weight 72.5 kg 01/12/20 06:58 01/12/20 06:58
[2020-01-12] MEDS ORDERED: REMDESIVIR 200 MG in SODIUM CHLORIDE 0.9% 250 ML IVPB ONE (12:00)
--- NOTE | 2020-01-12 13:03 | P.PN ---
Subjective Progress Note Date: 01/12/20 This is a 74-year-old female patient of Dr. Merino and Dr. Saul Bernardo with past medical history of hypertension, glaucoma, DVT, colon cancer status post partial colectomy, gastroesophageal reflux disease, mild intermittent asthma. The patient gives history of having a runny nose low-grade fever cough with clear sputum production for a couple of days. This morning developed palpitations and chest pain as well as left arm numbness with pain radiating to her neck and jaw and EMS was called. She was found to be in SVT at a more than 160 bpm. She was given adenosine 6 mg and EMS and converted to a sinus rhythm. She was found to have a temperature 100.4, heart rate 87, blood pressure 130/92, pulse ox 90% on room air. CBC revealed WBC 4.1, hemoglobin 14.8, platelet count 114. Electrolytes and renal function normal. Liver function tests were normal. Troponin negative. TSH 1.850. Lactic acid 1.4. Influenza testing negative. D-dimer 1.73. C-reactive protein 18.9. LDH 585 EKG sinus rhythm with no acute ST changes. Chest x-ray reveals no acute pulmonary process. CT angios showed no evidence of pulmonary embolism. Ascending aortic aneurysm measuring 4.3 cm, coronary artery disease. Correlate for possible pulmonary artery hypertension. Ultrasound of the bilateral lower extremities negative for DVT. Repeat troponin negative. COVID-19 testing in progress. Patient admitted to the cardiac stepdown unit and consult requested with cardiology regarding SVT and chest pain and pulmonary medicine regarding elevated d-dimer, rule out COVID-19. Patient subsequently had episode of SVT on the cardiac stepdown unit and converted with Lopressor 5 mg IV push. 01/11: Echocardiogram reveals EF of greater than 55%, mild mitral regurgitation, mild tricuspid regurgitation. 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 Patient has also been seen by pulmonary medicine. Covid 19 testing came back positive and patient started on Remdesivir. We have discontinued heparin and started Lovenox to 40 mg every 12 hours, dexamethasone 6 mg oral daily, zinc, vitamin D, vitamin C added. Repeat blood work reveals WBC 3.5, hemoglobin 13.2, platelet count 123. Sodium 136, potassium 4.0, chloride 103, CO2 31, BUN 18 and creatinine 0.53. Blood sugar 115. Troponins were negative on 3 draws. Triglycerides 243, cholesterol 164, LDL 81, HDL 34. Objective - Vital Signs Vital signs: Vital Signs Temp 97.8 F 01/12/20 03:39 Pulse 69 01/12/20 03:39 Resp 18 01/12/20 03:39 BP 136/80 01/12/20 03:39 Pulse Ox 100 01/12/20 03:39 Intake & Output 01/11/20 01/12/20 01/12/20 18:59 06:59 18:59 Intake Total 480 240 Output Total 220 Balance 480 20 Weight 98.883 kg 72.5 kg Intake: Oral 480 240 Output: Urine 220 Other: # Voids 3 1 - Exam Review of Systems Constitutional: Reports chills, Reports fatigue, Reports fever, Reports lethargy, Reports malaise, Reports poor appetite, Reports weakness Eyes: denies blurred vision, denies pain Ears, nose, mouth and throat: Reports nasal congestion, Reports nasal discharge, Reports sore throat, Denies headache, Denies vertigo Cardiovascular: Denies palpitations, Denies chest pain, Denies leg edema, Denies lightheadedness, Denies shortness of breath, Denies syncope Respiratory: Reports cough, Reports cough with sputum, Reports respiratory infections, Denies excessive sputum, Denies hemoptysis, Denies home oxygen Gastrointestinal: Reports loss of appetite, Denies abdominal pain, Denies diarrhea, Denies nausea, Denies vomiting Genitourinary: Denies dysuria, Denies hematuria, Denies urgency, Denies urinary frequency Menstruation: Reports postmenopausal Musculoskeletal: Denies frequent falls, Denies gait dysfunction, Denies myalgias Integumentary: Denies pruritus, Denies rash Neurological: Denies change in mentation, Denies change in speech, Denies numbness, Denies seizures, Denies weakness Psychiatric: Denies anxiety, Denies depression Endocrine: Denies fatigue, Denies weight change Physical Examination Gen: This is a 74-year-old female. No acute distress is noted. HEENT: Head is atraumatic, normocephalic. Pupils equal, round. Sclerae is anicteric. NECK: Supple. No JVD. No lymphadenopathy. No thyromegaly. LUNGS: Clear to auscultation. No wheezes or rhonchi. No intercostal retractions. No accessory muscle usage. HEART: Regular rate and rhythm. No murmur. ABDOMEN: Soft. Bowel sounds are present. No masses. No tenderness. EXTREMITIES: No pedal edema. No calf tenderness. Dorsalis pedis +2 bilaterally. NEUROLOGICAL: Patient is awake, alert and oriented x3. Cranial nerves 2 through 12 are grossly intact. - Labs CBC & Chem 7: 01/12/20 06:58 01/12/20 06:58 Labs: Abnormal Lab Results - Last 24 Hours (Table) 01/11/20 01/11/20 01/11/20 Range/Units 07:22 07:22 07:31 WBC (3.8-10.6) k/uL Plt Count (150-450) k/uL Lymphocytes # (1.0-4.8) k/uL D-Dimer 1.73 H (<0.60) mg/L FEU Sodium (137-145) mmol/L Carbon Dioxide (22-30) mmol/L BUN (7-17) mg/dL Glucose (74-99) mg/dL Calcium (8.4-10.2) mg/dL C-Reactive Protein 18.9 H (<10.0) mg/L Triglycerides (<150) mg/dL HDL Cholesterol (40-60) mg/dL Coronavirus (PCR) Detected H (Not Detected) 01/12/20 01/12/20 Range/Units 06:58 06:58 WBC 3.5 L (3.8-10.6) k/uL Plt Count 123 L (150-450) k/uL Lymphocytes # 0.6 L (1.0-4.8) k/uL D-Dimer (<0.60) mg/L FEU Sodium 136 L (137-145) mmol/L Carbon Dioxide 31 H (22-30) mmol/L BUN 18 H (7-17) mg/dL Glucose 115 H (74-99) mg/dL Calcium 8.2 L (8.4-10.2) mg/dL C-Reactive Protein (<10.0) mg/L Triglycerides 243 H (<150) mg/dL HDL Cholesterol 34 L (40-60) mg/dL Coronavirus (PCR) (Not Detected) Assessment and Plan Plan: 1. Febrile illness, secondary to COVID-19 infection. Consult pulmonary medicine appreciated. Patient started on Remdesivir, Decadron 6 mg oral daily, Lovenox 40 mg subcu every 12 hours, zinc, vitamin C, vitamin D. Continue isolation. 2. SVT, converted to normal sinus rhythm. Cardiology consult. Continue Lopressor 50 mg twice daily. 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 3. Hypertension. Continue Lopressor. 4. Chest pain with 2 sets of negative troponins. Acute coronary syndrome ruled out. Echocardiogram as above. 5. Gastroesophageal reflux disease. Continue Protonix. 6. History of colon cancer status post partial colectomy. 7. Glaucoma. Continue eyedrops. 8. Mild intermittent asthma. Continue DuoNeb treatments as needed. 9. Obstructive sleep apnea, no longer requiring CPAP. 10. DVT prophylaxis. Heparin subcu Discharge plan: home. Impression and plan of care have been directed as dictated by the signing physician. Yolanda Munoz nurse practitioner acting as scribe for signing physician.
--- NOTE | 2020-01-12 14:09 | P.PN ---
Subjective Progress Note Date: 01/12/20 Principal diagnosis: Fever, COVID 19 infection This is a 74-year-old female patient with a previous history of colon cancer, previous history of right lower extremity DVT and pulmonary embolism back in 2018 that occurred following a orthopedic surgery, right knee arthroplasty. The patient has mild intermittent bronchial asthma, sleep apnea not utilizing any form of CPAP therapy. No previous history of coronary artery disease. The patient is been followed up by [facility] on outpatient basis. The patient came into the hospital today after she felt an acute pain and palpitation at home. The pain was across her chest radiating to her left arm. Note that she was having symptoms of URI including Raynaud's a low-grade fever and a cough and congestion a week prior to this presentation. She also had a fall sustaining some bruising to the right lower extremity prior to this admission. In the ED, the patient was found to be in SVT. The patient was given 6 mg of adenosine and subsequently she converted to normal sinus rhythm. She had a low-grade fever 100.4. Her pulse ox on room air was around 91-92%. White cell count was at 4.1 with a hemoglobin of 14.8. The CT angiogram showed no evidence of any pulmonary embolism. Chest x-ray showed no acute process. The CAT scan of the chest showed an ascending aortic aneurysm measuring 4.3 cm size without evidence of any dissection. I noted that lower extremities are quite swollen and there was a subcutaneous bruise because of a fall and I ordered an ultrasound Doppler of the lower extremity which do not to be negative. The lorenzo virus: 19 testing is still in progress for now. Meanwhile, the patient is admitted to cardiac stepdown for further monitoring. Note that subsequent to her first episode of SVT, the patient another episode and she converted to normal sinus rhythm. On 01/12/2020 patient seen in follow-up, patient was found to be COVID 19 positive. Heart rate is better controlled, she is on 2 L of oxygen her pulse ox between 92-100%, she's been afebrile. Today's labs shows leukopenia with a white blood cell, 3.5, lymphopenia with a lymphocytic on 0.6, sodium is 136, CO2 is 31, BUN is 18, creatinine 0.53, Procalcitonin came back negative at 0.08. She is mildly short of breath at times, creation be comfortable at rest. Denies any chest pain. Echocardiogram was reviewed showing preserved LV function with EF of 55%. She is requiring supplemental oxygen at 2 L, this morning at 8:00 pulse ox is 92%. Objective - Vital Signs Vital signs: Vital Signs Temp 96.4 F L 01/12/20 08:00 Pulse 72 01/12/20 08:00 Resp 18 01/12/20 11:49 BP 177/92 01/12/20 08:00 Pulse Ox 92 L 01/12/20 08:00 Intake & Output 01/11/20 01/12/20 01/12/20 18:59 06:59 18:59 Intake Total 480 240 236 Output Total 220 Balance 480 20 236 Weight 98.883 kg 72.5 kg Intake: Oral 480 240 236 Output: Urine 220 Other: # Voids 3 1 - Exam GENERAL EXAM: Alert, very pleasant, 74-year-old white female on 2 L of oxygen and a pulse ox of 92% in isolation precautions for COVID19 infection comfortable in no apparent distress. HEAD: Normocephalic/atraumatic. EYES: Normal reaction of pupils, equal size. Conjunctiva pink, sclera white. NOSE: Clear with pink turbinates. THROAT: No erythema or exudates. NECK: No masses, no JVD, no thyroid enlargement, no adenopathy. CHEST: No chest wall deformity. Symmetrical expansion. LUNGS: Equal air entry with no crackles, wheeze, rhonchi or dullness. CVS: Regular rate and rhythm, normal S1 and S2, no gallops, no murmurs, no rubs ABDOMEN: Soft, nontender. No hepatosplenomegaly, normal bowel sounds, no guarding or rigidity. EXTREMITIES: No clubbing, no edema, no cyanosis, 2+ pulses and upper and lower extremities. MUSCULOSKELETAL: Muscle strength and tone normal. SPINE: No scoliosis or deformity SKIN: No rashes CENTRAL NERVOUS SYSTEM: Alert and oriented -3. No focal deficits, tone is normal in all 4 extremities. PSYCHIATRIC: Alert and oriented -3. Appropriate affect. Intact judgment and insight. - Labs CBC & Chem 7: 01/12/20 06:58 01/12/20 06:58 Labs: Abnormal Lab Results - Last 24 Hours (Table) 01/11/20 01/12/20 01/12/20 Range/Units 07:31 06:58 06:58 WBC 3.5 L (3.8-10.6) k/uL Plt Count 123 L (150-450) k/uL Lymphocytes # 0.6 L (1.0-4.8) k/uL Sodium 136 L (137-145) mmol/L Carbon Dioxide 31 H (22-30) mmol/L BUN 18 H (7-17) mg/dL Glucose 115 H (74-99) mg/dL Calcium 8.2 L (8.4-10.2) mg/dL Triglycerides 243 H (<150) mg/dL HDL Cholesterol 34 L (40-60) mg/dL Coronavirus (PCR) Detected H (Not Detected) Microbiology - Last 24 Hours (Table) 01/11/20 07:31 Blood Culture - Preliminary Blood No Growth after 24 hours Assessment and Plan Plan: Assessment: 1 acute febrile illness related to COVID 19 infection 2 acute bronchitis without indication for pneumonia 3 SVT, converted into normal sinus rhythm 4 previous history of DVT of the right lower extremity and pulmonary embolism currently on anticoagulation and the CTA did not show any recurrent PA and the repeat Doppler of the lower extremities still pending 5 obstructive sleep apnea, not receiving any treatment 6 obesity with a BMI of 39.9 7 previous history of colon cancer with a partial colectomy 8 mild intermittent bronchial asthma 9 glaucoma 10 hypertension Plan: Continue current medical treatment, continue Decadron, continue Lovenox, will add Remdesivir. Continue zinc, melatonin. We'll obtain inflammatory markers in the morning, febrile creatinine is improved, patient is requiring supplemental oxygen, mildly short of breath, no acute distress, we'll continue to follow I performed a history & physical examination of the patient and discussed their management with my nurse practitioner, Lisette Dallas. I reviewed the nurse practitioner's note and agree with the documented findings and plan of care. Lung sounds are positive for diminished breath sounds. The findings and the impression was discussed with the patient. I attest to the documentation by the nurse practitioner. Time with Patient: Less than 30
[2020-01-12] MEDS: ALBUTEROL HFA INHALER INHALATION PRN ×2 (16:31→20:08)
[2020-01-13] MEDS: PANTOPRAZOLE 40 MG TABLET PO SCH (06:42)
[2020-01-13] MEDS: ALBUTEROL HFA INHALER INHALATION PRN (08:42)
[2020-01-13] MEDS: CHOLECALCIFEROL 1,000 UNIT TAB PO SCH (09:17)
[2020-01-13] MEDS: ASCORBIC ACID 500 MG TAB PO SCH (09:17)
[2020-01-13] MEDS: guaiFENesin-DM 600/30MG 1 EACH TAB.ER.12H PO SCH ×2 (09:18→21:00)
[2020-01-13] MEDS: METOPROLOL TARTRATE 50 MG TAB PO SCH ×2 (09:18→20:58)
[2020-01-13] MEDS: ASPIRIN 81 MG PO SCH (09:18)
[2020-01-13] MEDS: ENOXAPARIN 40 MG/0.4 ML SYRINGE SQ SCH ×2 (09:18→20:59)
[2020-01-13] MEDS: MULTIVITAMINS, THERA 1 EACH TAB PO SCH (09:18)
[2020-01-13] MEDS: ZINC SULFATE 220 MG CAP PO SCH (09:19)
[2020-01-13] MEDS: dexAMETHasone 2 MG TAB PO SCH (09:19)
[2020-01-13] MEDS: BRIMONIDINE TARTRATE 0.2% DROPS 5 ML BTL BOTH EYES SCH ×2 (09:19→20:59)
[2020-01-13] MEDS ORDERED: ALBUTEROL HFA INHALER INHALATION PRN (10:29)
[2020-01-13] MEDS: ALBUTEROL HFA INHALER INHALATION SCH ×3 (12:11→20:14)
[2020-01-13] MEDS: methylPREDNISolone SOD SUCCI 40 MG/ML 1 ML VIAL IV SCH ×2 (12:56→17:38)
--- NOTE | 2020-01-13 13:39 | P.PN ---
Subjective Progress Note Date: 01/13/20 This is a 74-year-old female patient of Dr. Merino and Dr. Saul Bernardo with past medical history of hypertension, glaucoma, DVT, colon cancer status post partial colectomy, gastroesophageal reflux disease, mild intermittent asthma. The patient gives history of having a runny nose low-grade fever cough with clear sputum production for a couple of days. This morning developed palpitations and chest pain as well as left arm numbness with pain radiating to her neck and jaw and EMS was called. She was found to be in SVT at a more than 160 bpm. She was given adenosine 6 mg and EMS and converted to a sinus rhythm. She was found to have a temperature 100.4, heart rate 87, blood pressure 130/92, pulse ox 90% on room air. CBC revealed WBC 4.1, hemoglobin 14.8, platelet count 114. Electrolytes and renal function normal. Liver function tests were normal. Troponin negative. TSH 1.850. Lactic acid 1.4. Influenza testing negative. D-dimer 1.73. C-reactive protein 18.9. LDH 585 EKG sinus rhythm with no acute ST changes. Chest x-ray reveals no acute pulmonary process. CT angios showed no evidence of pulmonary embolism. Ascending aortic aneurysm measuring 4.3 cm, coronary artery disease. Correlate for possible pulmonary artery hypertension. Ultrasound of the bilateral lower extremities negative for DVT. Repeat troponin negative. COVID-19 testing in progress. Patient admitted to the cardiac stepdown unit and consult requested with cardiology regarding SVT and chest pain and pulmonary medicine regarding elevated d-dimer, rule out COVID-19. Patient subsequently had episode of SVT on the cardiac stepdown unit and converted with Lopressor 5 mg IV push. 01/11: Echocardiogram reveals EF of greater than 55%, mild mitral regurgitation, mild tricuspid regurgitation. 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 Patient has also been seen by pulmonary medicine. Covid 19 testing came back positive and patient started on Remdesivir. We have discontinued heparin and started Lovenox to 40 mg every 12 hours, dexamethasone 6 mg oral daily, zinc, vitamin D, vitamin C added. Repeat blood work reveals WBC 3.5, hemoglobin 13.2, platelet count 123. Sodium 136, potassium 4.0, chloride 103, CO2 31, BUN 18 and creatinine 0.53. Blood sugar 115. Troponins were negative on 3 draws. Triglycerides 243, cholesterol 164, LDL 81, HDL 34. 01/12: Patient is currently on day 2 of 5 of Remdesivir. She continues to have wheezing. She has been afebrile, heart rate 68, blood pressure 135/69, pulse ox 97% on 2 L nasal cannula. ekg monitor has been a sinus rhythm. Objective - Vital Signs Vital signs: Vital Signs Temp 96.3 F L 01/13/20 08:00 Pulse 68 01/13/20 08:00 Resp 16 01/13/20 11:50 BP 135/69 01/13/20 08:00 Pulse Ox 97 01/13/20 08:00 Intake & Output 01/12/20 01/13/20 01/13/20 18:59 06:59 18:59 Intake Total 694 240 Output Total 220 Balance 694 20 Weight 97.1 kg Intake: Oral 694 240 Output: Urine 220 Other: Voiding Method Toilet Toilet # Voids 2 2 1 - Exam Review of Systems Constitutional: Reports chills, Reports fatigue, Reports fever, Reports lethargy, Reports malaise, Reports poor appetite, Reports generalized weakness Eyes: denies blurred vision, denies pain Ears, nose, mouth and throat: Reports nasal congestion, Reports nasal discharge, Reports sore throat, Denies headache, Denies vertigo Cardiovascular: Denies palpitations, Denies chest pain, Denies leg edema, Denies lightheadedness, Denies shortness of breath, Denies syncope Respiratory: Reports cough, Reports cough with sputum, Reports respiratory infections, Denies excessive sputum, Denies hemoptysis, Denies home oxygen Gastrointestinal: Reports loss of appetite, Denies abdominal pain, Denies diarrhea, Denies nausea, Denies vomiting Genitourinary: Denies dysuria, Denies hematuria, Denies urgency, Denies urinary frequency Menstruation: Reports postmenopausal Musculoskeletal: Denies frequent falls, Denies gait dysfunction, Denies myalgias Integumentary: Denies pruritus, Denies rash Neurological: Denies change in mentation, Denies change in speech, Denies numbness, Denies seizures, Denies weakness Psychiatric: Denies anxiety, Denies depression Endocrine: Denies fatigue, Denies weight change Physical Examination Gen: This is a 74-year-old female. No acute distress is noted. HEENT: Head is atraumatic, normocephalic. Pupils equal, round. Sclerae is anicteric. NECK: Supple. No JVD. No lymphadenopathy. No thyromegaly. LUNGS: Expiratory wheeze. No intercostal retractions. No accessory muscle usage. HEART: Regular rate and rhythm. No murmur. ABDOMEN: Soft. Bowel sounds are present. No masses. No tenderness. EXTREMITIES: No pedal edema. No calf tenderness. Dorsalis pedis +2 bilaterally. NEUROLOGICAL: Patient is awake, alert and oriented x3. Cranial nerves 2 through 12 are grossly intact. Generalized weakness - Labs CBC & Chem 7: 01/12/20 06:58 01/12/20 06:58 Labs: Microbiology - Last 24 Hours (Table) 01/11/20 07:31 Blood Culture - Preliminary Blood No Growth after 48 hours Assessment and Plan Plan: 1. Febrile illness, secondary to COVID-19 infection. Consult pulmonary medicine appreciated. Patient started on Remdesivir 2/5, Decadron 6 mg oral daily, Lovenox 40 mg subcu every 12 hours, zinc, vitamin C, vitamin D. Continue isolation. 2. SVT, converted to normal sinus rhythm. Cardiology consult. Continue Lopressor 50 mg twice daily. 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 3. Hypertension. Continue Lopressor. 4. Chest pain with 2 sets of negative troponins. Acute coronary syndrome ruled out. Echocardiogram as above. 5. Gastroesophageal reflux disease. Continue Protonix. 6. History of colon cancer status post partial colectomy. 7. Glaucoma. Continue eyedrops. 8. Mild intermittent asthma. Continue DuoNeb treatments as needed. 9. Obstructive sleep apnea, no longer requiring CPAP. 10. DVT prophylaxis. Heparin subcu Discharge plan: home. Anticipate discharge on Friday. Impression and plan of care have been directed as dictated by the signing physician. Yolanda Munoz nurse practitioner acting as scribe for signing physician.
--- NOTE | 2020-01-13 13:43 | P.PN ---
Subjective Progress Note Date: 01/13/20 Principal diagnosis: Fever, COVID 19 infection This is a 74-year-old female patient with a previous history of colon cancer, previous history of right lower extremity DVT and pulmonary embolism back in 2018 that occurred following a orthopedic surgery, right knee arthroplasty. The patient has mild intermittent bronchial asthma, sleep apnea not utilizing any form of CPAP therapy. No previous history of coronary artery disease. The patient is been followed [facility] on outpatient basis. The patient came into the hospital today after she felt an acute pain and palpitation at home. The pain was across her chest radiating to her left arm. Note that she was having symptoms of URI including Raynaud's a low-grade fever and a cough and congestion a week prior to this presentation. She also had a fall sustaining some bruising to the right lower extremity prior to this admission. In the ED, the patient was found to be in SVT. The patient was given 6 mg of adenosine and subsequently she converted to normal sinus rhythm. She had a low-grade fever 100.4. Her pulse ox on room air was around 91-92%. White cell count was at 4.1 with a hemoglobin of 14.8. The CT angiogram showed no evidence of any pulmonary embolism. Chest x-ray showed no acute process. The CAT scan of the chest showed an ascending aortic aneurysm measuring 4.3 cm size without evidence of any dissection. I noted that lower extremities are quite swollen and there was a subcutaneous bruise because of a fall and I ordered an ultrasound Doppler of the lower extremity which do not to be negative. The lorenzo virus: 19 testing is still in progress for now. Meanwhile, the patient is admitted to cardiac stepdown for further monitoring. Note that subsequent to her first episode of SVT, the patient another episode and she converted to normal sinus rhythm. On 01/12/2020 patient seen in follow-up, patient was found to be COVID 19 positive. Heart rate is better controlled, she is on 2 L of oxygen her pulse ox between 92-100%, she's been afebrile. Today's labs shows leukopenia with a white blood cell, 3.5, lymphopenia with a lymphocytic on 0.6, sodium is 136, CO2 is 31, BUN is 18, creatinine 0.53, Procalcitonin came back negative at 0.08. She is mildly short of breath at times, creation be comfortable at rest. Denies any chest pain. Echocardiogram was reviewed showing preserved LV function with EF of 55%. She is requiring supplemental oxygen at 2 L, this morning at 8:00 pulse ox is 92%. On 01/13/2020 patient seen in follow-up on selective care unit. Today is day two of Remdesivir. She's been afebrile, she is on 2 L of oxygen pulse ox of 97%, hemodynamically stable. Patient complains of persistent coughing, lipid the patient on Mucinex [id number], and patient continues on oral Decadron. His labs have been reviewed, showing white blood cell, 3.5, platelet count is 123, lymphocyte count is 0.6, sodium is 136, potassium 4.0, chloride is 103, CO2 31, BUN is 18 creatinine 0.53. Troponins were less than 0.012, 0.016, 0.012. Cardiology is following in regards to the tachycardia and SVT. Vital signs have been stable, patient denies any chest pain. Echocardiogram reviewed showing EF greater than 55%, mild mitral regurgitation, mild tricuspid regurgitation and PA pressures less than 35mm Objective - Vital Signs Vital signs: Vital Signs Temp 96.3 F L 01/13/20 08:00 Pulse 60 01/13/20 12:00 Resp 16 01/13/20 12:00 BP 131/63 01/13/20 12:00 Pulse Ox 97 01/13/20 08:00 Intake & Output 01/12/20 01/13/20 01/13/20 18:59 06:59 18:59 Intake Total 694 240 Output Total 220 Balance 694 20 Weight 97.1 kg Intake: Oral 694 240 Output: Urine 220 Other: Voiding Method Toilet Toilet # Voids 2 2 1 - Exam GENERAL EXAM: Alert, very pleasant, 74-year-old white female on 2 L of oxygen and a pulse ox of 97% in isolation precautions for COVID19 infection comfortable in no apparent distress. HEAD: Normocephalic/atraumatic. EYES: Normal reaction of pupils, equal size. Conjunctiva pink, sclera white. NOSE: Clear with pink turbinates. THROAT: No erythema or exudates. NECK: No masses, no JVD, no thyroid enlargement, no adenopathy. CHEST: No chest wall deformity. Symmetrical expansion. LUNGS: Equal air entry with no crackles, wheeze, rhonchi or dullness. CVS: Regular rate and rhythm, normal S1 and S2, no gallops, no murmurs, no rubs ABDOMEN: Soft, nontender. No hepatosplenomegaly, normal bowel sounds, no guarding or rigidity. EXTREMITIES: No clubbing, no edema, no cyanosis, 2+ pulses and upper and lower extremities. MUSCULOSKELETAL: Muscle strength and tone normal. SPINE: No scoliosis or deformity SKIN: No rashes CENTRAL NERVOUS SYSTEM: Alert and oriented -3. No focal deficits, tone is normal in all 4 extremities. PSYCHIATRIC: Alert and oriented -3. Appropriate affect. Intact judgment and insight. - Labs CBC & Chem 7: 01/12/20 06:58 01/12/20 06:58 Labs: Microbiology - Last 24 Hours (Table) 01/11/20 07:31 Blood Culture - Preliminary Blood No Growth after 48 hours Assessment and Plan Plan: Assessment: 1 acute febrile illness related to COVID 19 infection 2 acute bronchitis without indication for pneumonia 3 SVT, converted into normal sinus rhythm 4 previous history of DVT of the right lower extremity and pulmonary embolism currently on anticoagulation and the CTA did not show any recurrent PA and the repeat Doppler of the lower extremities still pending 5 obstructive sleep apnea, not receiving any treatment 6 obesity with a BMI of 39.9 7 previous history of colon cancer with a partial colectomy 8 mild intermittent bronchial asthma 9 glaucoma 10 hypertension Plan: Patient continues on Remdesivir, we'll switch to oral Decadron to IV Solu- Medrol, continue with Mucinex, continue Lovenox, continue follow inflammatory markers, we'll follow I performed a history & physical examination of the patient and discussed their management with my nurse practitioner, Lisette Dallas. I reviewed the nurse pra ctitioner's note and agree with the documented findings and plan of care. Lung sounds are positive for diminished breath sounds. The findings and the impression was discussed with the patient. I attest to the documentation by the nurse practitioner. Time with Patient: Less than 30
[2020-01-13] MEDS: REMDESIVIR 100 MG in SODIUM CHLORIDE 0.9% 250 ML IVPB SCH (14:49)
[2020-01-13] MEDS: SYMBICORT 160-4.5 MCG INHALER INHALATION SCH (20:14)
[2020-01-13 20:58] LABS: Glucose,Whole Blood 199 mg/dL (75-99)
[2020-01-13] MEDS: INSULIN ASPART (NovoLOG) 100 UNIT/ML VIAL SQ SCH (20:59)
[2020-01-14] MEDS: ALPRAZolam 0.25 MG TAB PO PRN ×2 (00:32→20:39)
[2020-01-14] MEDS: methylPREDNISolone SOD SUCCI 40 MG/ML 1 ML VIAL IV SCH ×3 (00:32→16:10)
[2020-01-14] MEDS ORDERED: HEPARIN SODIUM,PORCINE 5,000 UNIT/ML 1 ML VIAL IV PRN (03:34)
[2020-01-14] MEDS ORDERED: HEPARIN SODIUM,PORCINE 5,000 UNIT/ML 1 ML VIAL IV ONE (03:34)
[2020-01-14] MEDS ORDERED: HEPARIN SOD,PORK IN 0.45% NACL 25,000 UNIT in 0.45% NACL 1 250ML.BAG IV SCH (03:45)
[2020-01-14 06:36] LABS: Glucose,Whole Blood 144 mg/dL (75-99)
[2020-01-14] MEDS: INSULIN ASPART (NovoLOG) 100 UNIT/ML VIAL SQ SCH ×4 (06:53→20:39)
[2020-01-14] MEDS: SYMBICORT 160-4.5 MCG INHALER INHALATION SCH ×2 (08:46→21:40)
[2020-01-14] MEDS: ALBUTEROL HFA INHALER INHALATION SCH ×4 (08:46→21:40)
[2020-01-14] MEDS ORDERED: METOPROLOL TARTRATE 25 MG TAB PO SCH (09:00)
[2020-01-14] MEDS: ASCORBIC ACID 500 MG TAB PO SCH (09:47)
[2020-01-14] MEDS: MULTIVITAMINS, THERA 1 EACH TAB PO SCH (09:48)
[2020-01-14] MEDS: CHOLECALCIFEROL 1,000 UNIT TAB PO SCH (09:48)
[2020-01-14] MEDS: ASPIRIN 81 MG PO SCH (09:48)
[2020-01-14] MEDS: guaiFENesin-DM 600/30MG 1 EACH TAB.ER.12H PO SCH ×2 (09:49→21:16)
[2020-01-14] MEDS: ZINC SULFATE 220 MG CAP PO SCH (09:49)
[2020-01-14] MEDS: METOPROLOL TARTRATE 50 MG TAB PO SCH ×2 (11:18→20:39)
[2020-01-14] MEDS: PANTOPRAZOLE 40 MG TABLET PO SCH (11:18)
[2020-01-14] MEDS: BRIMONIDINE TARTRATE 0.2% DROPS 5 ML BTL BOTH EYES SCH ×2 (11:19→21:16)
[2020-01-14 12:15] LABS: Glucose,Whole Blood 120 mg/dL (75-99)
--- NOTE | 2020-01-14 14:31 | P.PN ---
Subjective Progress Note Date: 01/14/20 This is a 74-year-old female patient with a previous history of colon cancer, previous history of right lower extremity DVT and pulmonary embolism back in 2018 that occurred following a orthopedic surgery, right knee arthroplasty. The patient has mild intermittent bronchial asthma, sleep apnea not utilizing any form of CPAP therapy. No previous history of coronary artery disease. The patient is been [facility] on outpatient basis. The patient came into the hospital today after she felt an acute pain and palpitation at home. The pain was across her chest radiating to her left arm. Note that she was having symptoms of URI including Raynaud's a low-grade fever and a cough and congestion a week prior to this presentation. She also had a fall sustaining some bruising to the right lower extremity prior to this admission. In the ED, the patient was found to be in SVT. The patient was given 6 mg of adenosine and subsequently she converted to normal sinus rhythm. She had a low-grade fever 100.4. Her pulse ox on room air was around 91-92%. White cell count was at 4.1 with a hemoglobin of 14.8. The CT angiogram showed no evidence of any pulmonary embolism. Chest x-ray showed no acute process. The CAT scan of the chest showed an ascending aortic aneurysm measuring 4.3 cm size without evidence of any dissection. I noted that lower extremities are quite swollen and there was a subcutaneous bruise because of a fall and I ordered an ultrasound Doppler of the lower extremity which do not to be negative. The lorenzo virus: 19 testing is still in progress for now. Meanwhile, the patient is admitted to cardiac stepdown for further monitoring. Note that subsequent to her first episode of SVT, the patient another episode and she converted to normal sinus rhythm. On 01/12/2020 patient seen in follow-up, patient was found to be COVID 19 positive. Heart rate is better controlled, she is on 2 L of oxygen her pulse ox between 92-100%, she's been afebrile. Today's labs shows leukopenia with a white blood cell, 3.5, lymphopenia with a lymphocytic on 0.6, sodium is 136, CO2 is 31, BUN is 18, creatinine 0.53, Procalcitonin came back negative at 0.08. She is mildly short of breath at times, creation be comfortable at rest. Denies any chest pain. Echocardiogram was reviewed showing preserved LV function with EF of 55%. She is requiring supplemental oxygen at 2 L, this morning at 8:00 pulse ox is 92%. On 01/13/2020 patient seen in follow-up on selective care unit. Today is day two of Remdesivir. She's been afebrile, she is on 2 L of oxygen pulse ox of 97%, hemodynamically stable. Patient complains of persistent coughing, lipid the patient on Mucinex [id number], and patient continues on oral Decadron. His labs have been reviewed, showing white blood cell, 3.5, platelet count is 123, lymphocyte count is 0.6, sodium is 136, potassium 4.0, chloride is 103, CO2 31, BUN is 18 creatinine 0.53. Troponins were less than 0.012, 0.016, 0.012. Cardiology is following in regards to the tachycardia and SVT. Vital signs have been stable, patient denies any chest pain. Echocardiogram reviewed showing EF greater than 55%, mild mitral regurgitation, mild tricuspid regurgitation and PA pressures less than 35mm 01/14/2020, the patient is being seen on the floor for a follow-up. The patient is being treated for Covid 19 pneumonia. Clinically, the patient is feeling better. She is not having any significant respiratory distress. The patient is on 2 L about 2 by nasal cannula with a pulse oximetry 97%. Her coughing has subsided and the patient is feeling much better. She is completing a course of Decadron and Remdesivir . Note that the patient was having significant cough and congestion and based on that I stopped a oral Decadron as well as this patient to IV Solu Medrol 4 mg every 8 hours. With this which, the patient's overall pulmonary status is improved considerably and her cough has subsided. The patient is afebrile and the patient has a CRP of 18.9 with a ferritin level of 221. She has developed atrial fibrillation and she was started on IV heparin. She'll be transitioned ultimately to Xarelto for long-term articulation as the patient will require long-term medical condition regards to her atrial fibrillation. No chest pain. Echocardiogram showed a preserved LV function. The blood cultures negative. Objective - Vital Signs Vital signs: Vital Signs Temp 96.8 F L 01/14/20 08:00 Pulse 97 01/14/20 12:00 Resp 16 01/14/20 12:00 BP 109/60 01/14/20 12:00 Pulse Ox 97 01/14/20 12:00 Intake & Output 01/13/20 01/14/20 01/14/20 18:59 06:59 18:59 Intake Total 712 Output Total 220 220 Balance 492 -220 Intake: Oral 712 Output: Urine 220 220 Other: Voiding Method Toilet Toilet # Voids 3 1 # Bowel Movements 1 1 - Exam GENERAL EXAM: Alert, very pleasant, 74-year-old white female on 2 L of oxygen and a pulse ox of 97% in isolation precautions for COVID19 infection comfortable in no apparent distress. HEAD: Normocephalic/atraumatic. EYES: Normal reaction of pupils, equal size. Conjunctiva pink, sclera white. NOSE: Clear with pink turbinates. THROAT: No erythema or exudates. NECK: No masses, no JVD, no thyroid enlargement, no adenopathy. CHEST: No chest wall deformity. Symmetrical expansion. LUNGS: Equal air entry with no crackles, wheeze, rhonchi or dullness. CVS: Regular rate and rhythm, normal S1 and S2, no gallops, no murmurs, no rubs ABDOMEN: Soft, nontender. No hepatosplenomegaly, normal bowel sounds, no guarding or rigidity. EXTREMITIES: No clubbing, no edema, no cyanosis, 2+ pulses and upper and lower extremities. MUSCULOSKELETAL: Muscle strength and tone normal. SPINE: No scoliosis or deformity SKIN: No rashes CENTRAL NERVOUS SYSTEM: Alert and oriented -3. No focal deficits, tone is normal in all 4 extremities. PSYCHIATRIC: Alert and oriented -3. Appropriate affect. Intact judgment and insight. - Labs CBC & Chem 7: 01/12/20 06:58 01/12/20 06:58 Labs: Abnormal Lab Results - Last 24 Hours (Table) 01/13/20 01/14/20 01/14/20 Range/Units 20:47 06:34 09:36 APTT 40.7 H (22.0-30.0) sec POC Glucose (mg/dL) 199 H 144 H (75-99) mg/dL 01/14/20 Range/Units 12:12 APTT (22.0-30.0) sec POC Glucose (mg/dL) 120 H (75-99) mg/dL Microbiology - Last 24 Hours (Table) 01/11/20 07:31 Blood Culture - Preliminary Blood No Growth after 72 hours Assessment and Plan Plan: 1 acute coronavirus Covid 19 infection with possible pneumonia with secondary cough and shortness of breath and hypoxemia currently on 2 L of oxygen by nasal cannula and the patient is completing a course of steroids and Remdesivir 2 acute bronchitis with possible pneumonia 3 SVT, converted into normal sinus rhythm, and subsequently the patient goes into atrial fibrillation. Rate is controlled for now. The patient on IV heparin. 4 previous history of DVT of the right lower extremity and pulmonary embolism currently on anticoagulation and the CTA did not show any recurrent PA and the repeat Doppler of the lower extremities was negative for DVT. 5 obstructive sleep apnea, not receiving any treatment 6 obesity with a BMI of 39.9 7 previous history of colon cancer with a partial colectomy 8 mild intermittent bronchial asthma 9 glucoma 10 hypertension Plan Complete a total of 5 day course of Remdesivir Monitor fever pattern Doppler of the lower extremities was negative for any DVT Echocardiogram showed a preserved LV function Continue with beta blockers and monitor the patient's cardiac rhythm Stopped IV heparin put the patient is Xarelto 20 mg by mouth daily and the patient will require long-term anticoagulation Continue Mucinex DM for cough and congestion addition to DuoNeb nebulized treatments treatments around the clock The pulmonary status is improved Wean down the FiO2 estimated to maintain saturation above 90%
--- NOTE | 2020-01-14 15:36 | P.PN ---
Subjective Progress Note Date: 01/14/20 This is a 74-year-old female patient of Dr. Merino and Dr. Saul Bernardo with past medical history of hypertension, glaucoma, DVT, colon cancer status post partial colectomy, gastroesophageal reflux disease, mild intermittent asthma. The patient gives history of having a runny nose low-grade fever cough with clear sputum production for a couple of days. This morning developed palpitations and chest pain as well as left arm numbness with pain radiating to her neck and jaw and EMS was called. She was found to be in SVT at a more than 160 bpm. She was given adenosine 6 mg and EMS and converted to a sinus rhythm. She was found to have a temperature 100.4, heart rate 87, blood pressure 130/92, pulse ox 90% on room air. CBC revealed WBC 4.1, hemoglobin 14.8, platelet count 114. Electrolytes and renal function normal. Liver function tests were normal. Troponin negative. TSH 1.850. Lactic acid 1.4. Influenza testing negative. D-dimer 1.73. C-reactive protein 18.9. LDH 585 EKG sinus rhythm with no acute ST changes. Chest x-ray reveals no acute pulmonary process. CT angios showed no evidence of pulmonary embolism. Ascending aortic aneurysm measuring 4.3 cm, coronary artery disease. Correlate for possible pulmonary artery hypertension. Ultrasound of the bilateral lower extremities negative for DVT. Repeat troponin negative. COVID-19 testing in progress. Patient admitted to the cardiac stepdown unit and consult requested with cardiology regarding SVT and chest pain and pulmonary medicine regarding elevated d-dimer, rule out COVID-19. Patient subsequently had episode of SVT on the cardiac stepdown unit and converted with Lopressor 5 mg IV push. 01/11: Echocardiogram reveals EF of greater than 55%, mild mitral regurgitation, mild tricuspid regurgitation. 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 Patient has also been seen by pulmonary medicine. Covid 19 testing came back positive and patient started on Remdesivir. We have discontinued heparin and started Lovenox to 40 mg every 12 hours, dexamethasone 6 mg oral daily, zinc, vitamin D, vitamin C added. Repeat blood work reveals WBC 3.5, hemoglobin 13.2, platelet count 123. Sodium 136, potassium 4.0, chloride 103, CO2 31, BUN 18 and creatinine 0.53. Blood sugar 115. Troponins were negative on 3 draws. Triglycerides 243, cholesterol 164, LDL 81, HDL 34. 01/12: Patient is currently on day 2 of of Remdesivir. She continues to have wheezing. She has been afebrile, heart rate 68, blood pressure 135/69, pulse ox 97% on 2 L nasal cannula. automatic nailing machine feeder has been a sinus rhythm. 01/13: Patient went into A. fib with RVR last evening. Lopressor increased to 100 mg twice daily, cardiology consult and patient started on heparin drip. automatic nailing machine feeder is currently atrial fibrillation with controlled rate. She has been afebrile, heart rate 97, blood pressure 109/60, pulse ox 97% on 2 L nasal cannula. Patient is now day 05/19 of Remdesivir. She has had cough and congestion and Decadron was switched to Solu-Medrol. Anticipate discharge home over the weekend. Objective - Vital Signs Vital signs: Vital Signs Temp 97.7 F 01/14/20 04:00 Pulse 91 01/14/20 04:00 Resp 19 01/14/20 04:00 BP 127/84 01/14/20 04:00 Pulse Ox 97 01/13/20 08:00 Intake & Output 01/13/20 01/14/20 01/14/20 18:59 06:59 18:59 Intake Total 712 Output Total 220 220 Balance 492 -220 Intake: Oral 712 Output: Urine 220 220 Other: Voiding Method Toilet # Voids 3 1 # Bowel Movements 1 1 - Exam Review of Systems Constitutional: Reports chills, Reports fatigue, Reports fever, Reports lethargy, Reports malaise, Reports poor appetite, Reports generalized weakness Ears, nose, mouth and throat: Reports nasal congestion, Reports nasal discharge, Reports sore throat, Denies headache, Denies vertigo Cardiovascular: Reports palpitations, Denies chest pain, Denies leg edema, Denies lightheadedness, Denies shortness of breath, Denies syncope Respiratory: Reports cough, Reports cough with sputum, Reports respiratory infections, Denies excessive sputum, Denies hemoptysis, Denies home oxygen Gastrointestinal: Reports loss of appetite, Denies abdominal pain, Denies diarrhea, Denies nausea, Denies vomiting Genitourinary: Denies dysuria, Denies hematuria, Denies urgency, Denies urinary frequency Menstruation: Reports postmenopausal Musculoskeletal: Denies frequent falls, Denies gait dysfunction, Denies myalgias Integumentary: Denies pruritus, Denies rash Neurological: Denies change in mentation, Denies change in speech, Denies numbness, Denies seizures, Denies weakness Psychiatric: Denies anxiety, Denies depression Endocrine: Denies fatigue, Denies weight change Physical Examination Gen: This is a 74-year-old female. No acute distress is noted. HEENT: Head is atraumatic, normocephalic. Pupils equal, round. Sclerae is anicteric. NECK: Supple. No JVD. No lymphadenopathy. No thyromegaly. LUNGS: Expiratory wheeze. No intercostal retractions. No accessory muscle usage. HEART: Irregularly irregular rate and rhythm. No murmur. automatic nailing machine feeder atrial fibrillation, rate controlled. ABDOMEN: Soft. Bowel sounds are present. No masses. No tenderness. EXTREMITIES: No pedal edema. No calf tenderness. Dorsalis pedis +2 bilaterally. NEUROLOGICAL: Patient is awake, alert and oriented x3. Cranial nerves 2 through 12 are grossly intact. Generalized weakness - Labs CBC & Chem 7: 01/12/20 06:58 01/12/20 06:58 Labs: Abnormal Lab Results - Last 24 Hours (Table) 01/13/20 01/14/20 Range/Units 20:47 06:34 POC Glucose (mg/dL) 199 H 144 H (75-99) mg/dL Microbiology - Last 24 Hours (Table) 01/11/20 07:31 Blood Culture - Preliminary Blood No Growth after 48 hours Assessment and Plan Plan: 1. Febrile illness, secondary to COVID-19 infection. Consult pulmonary medicine appreciated. Patient started on Remdesivir 05/19, Decadron was changed to Solu-Medrol, Lovenox 40 mg subcu every 12 hours, zinc, vitamin C, vitamin D. Continue isolation. 2. SVT, converted to normal sinus rhythm. Cardiology consult. Continue Lopre ssor 100 mg twice daily. 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 3. Hypertension. Continue Lopressor. 4. Chest pain with 2 sets of negative troponins. Acute coronary syndrome ruled out. Echocardiogram as above. 5. Gastroesophageal reflux disease. Continue Protonix. 6. History of colon cancer status post partial colectomy. 7. Glaucoma. Continue eyedrops. 8. Mild intermittent asthma. Continue DuoNeb treatments as needed. 9. Obstructive sleep apnea, no longer requiring CPAP. 10. A. fib with RVR, paroxysmal atrial fibrillation. Patient started on heparin drip, metoprolol increased to 100 mg twice daily. Patient is currently in A. fib with rate control. 11. DVT prophylaxis. Heparin drip. Discharge plan: home. Anticipate discharge on Friday. Impression and plan of care have been directed as dictated by the signing physician. Yolanda Munoz nurse practitioner acting as scribe for signing physician.
[2020-01-14] MEDS: REMDESIVIR 100 MG in SODIUM CHLORIDE 0.9% 250 ML IVPB SCH (16:11)
[2020-01-14] MEDS: RIVAROXABAN 20 MG TAB PO SCH (16:11)
[2020-01-14 17:16] LABS: Glucose,Whole Blood 117 mg/dL (75-99)
[2020-01-14 20:33] LABS: Glucose,Whole Blood 128 mg/dL (75-99)
[2020-01-14] MEDS: ACETAMINOPHEN TAB 325 MG TAB PO PRN (21:17)
[2020-01-15] MEDS: methylPREDNISolone SOD SUCCI 40 MG/ML 1 ML VIAL IV SCH ×2 (00:36→08:43)
[2020-01-15 06:09] LABS: Glucose,Whole Blood 149 mg/dL (75-99)
[2020-01-15] MEDS: ACETAMINOPHEN TAB 325 MG TAB PO PRN (06:58)
[2020-01-15] MEDS: PANTOPRAZOLE 40 MG TABLET PO SCH (06:58)
[2020-01-15] MEDS: INSULIN ASPART (NovoLOG) 100 UNIT/ML VIAL SQ SCH ×4 (06:59→20:43)
[2020-01-15 08:18] LABS: Basophils % (A) 0 %; Eosinophils % (A) 0 %; HGB 15.6 gm/dL (11.4-16.0); Lymphocytes # (A) 0.5 k/uL (1.0-4.8); Lymphocytes % (A) 10 %; MCH 31.1 pg (25.0-35.0); MCHC 31.7 g/dL (31.0-37.0); MCV 97.9 fL (80.0-100.0); Mean Platelet Volume 7.6; Monocytes # (A) 0.2 k/uL (0-1.0); Monocytes % (A) 5 %; Neutrophils # (A) 4.4 k/uL (1.3-7.7); Neutrophils % (A) 84 %; Platelet Count 170 k/uL (150-450); RBC 5.01 m/uL (3.80-5.40); RDW 12.5 % (11.5-15.5); WBC 5.2 k/uL (3.8-10.6)
[2020-01-15 08:36] LABS: ALT 41 U/L (4-34); AST 45 U/L (14-36); African American GFR (CKD) >90 (>60 ml/min/1.73 sqM); Albumin 3.4 g/dL (3.5-5.0); Alkaline Phosphatase 58 U/L (38-126); Anion Gap 4 mmol/L; Blood Urea Nitrogen 22 mg/dL (7-17); Calcium 8.6 mg/dL (8.4-10.2); Carbon Dioxide 33 mmol/L (22-30); Chloride 98 mmol/L (98-107); Glucose 151 mg/dL (74-99); Non-African American GFR(CKD) 89 (>60 ml/min/1.73 sqM); Potassium 4.5 mmol/L (3.5-5.1); Sodium 135 mmol/L (137-145); Total Bilirubin 0.6 mg/dL (0.2-1.3)
[2020-01-15] MEDS: MULTIVITAMINS, THERA 1 EACH TAB PO SCH (08:44)
[2020-01-15] MEDS: ZINC SULFATE 220 MG CAP PO SCH (08:44)
[2020-01-15] MEDS: guaiFENesin-DM 600/30MG 1 EACH TAB.ER.12H PO SCH ×2 (08:44→20:43)
[2020-01-15] MEDS: ASCORBIC ACID 500 MG TAB PO SCH (08:44)
[2020-01-15] MEDS: ASPIRIN 81 MG PO SCH (08:44)
[2020-01-15] MEDS: METOPROLOL TARTRATE 50 MG TAB PO SCH ×2 (08:44→20:43)
[2020-01-15] MEDS: BRIMONIDINE TARTRATE 0.2% DROPS 5 ML BTL BOTH EYES SCH ×2 (08:44→20:44)
[2020-01-15] MEDS: SYMBICORT 160-4.5 MCG INHALER INHALATION SCH ×2 (09:09→19:59)
[2020-01-15] MEDS: ALBUTEROL HFA INHALER INHALATION SCH ×4 (09:09→19:59)
--- NOTE | 2020-01-15 10:11 | P.PN ---
Subjective Progress Note Date: 01/15/20 This is a 74-year-old female patient of Dr. Merino and Dr. Saul Bernardo with past medical history of hypertension, glaucoma, DVT, colon cancer status post partial colectomy, gastroesophageal reflux disease, mild intermittent asthma. The patient gives history of having a runny nose low-grade fever cough with clear sputum production for a couple of days. This morning developed palpitations and chest pain as well as left arm numbness with pain radiating to her neck and jaw and EMS was called. She was found to be in SVT at a more than 160 bpm. She was given adenosine 6 mg and EMS and converted to a sinus rhythm. She was found to have a temperature 100.4, heart rate 87, blood pressure 130/92, pulse ox 90% on room air. CBC revealed WBC 4.1, hemoglobin 14.8, platelet count 114. Electrolytes and renal function normal. Liver function tests were normal. Troponin negative. TSH 1.850. Lactic acid 1.4. Influenza testing negative. D-dimer 1.73. C-reactive protein 18.9. LDH 585 EKG sinus rhythm with no acute ST changes. Chest x-ray reveals no acute pulmonary process. CT angios showed n o evidence of pulmonary embolism. Ascending aortic aneurysm measuring 4.3 cm, coronary artery disease. Correlate for possible pulmonary artery hypertension. Ultrasound of the bilateral lower extremities negative for DVT. Repeat troponin negative. COVID-19 testing in progress. Patient admitted to the cardiac stepdown unit and consult requested with cardiology regarding SVT and chest pain and pulmonary medicine regarding elevated d-dimer, rule out COVID-19. Patient subsequently had episode of SVT on the cardiac stepdown unit and converted with Lopressor 5 mg IV push. 01/11: Echocardiogram reveals EF of greater than 55%, mild mitral regurgitation, mild tricuspid regurgitation. 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 Patient has also been seen by pulmonary medicine. Covid 19 testing came back positive and patient started on Remdesivir. We have discontinued heparin and started Lovenox to 40 mg every 12 hours, dexamethasone 6 mg oral daily, zinc, vitamin D, vitamin C added. Repeat blood work reveals WBC 3.5, hemoglobin 13.2, platelet count 123. Sodium 136, potassium 4.0, chloride 103, CO2 31, BUN 18 and creatinine 0.53. Blood sugar 115. Troponins were negative on 3 draws. Triglycerides 243, cholesterol 164, LDL 81, HDL 34. 01/12: Patient is currently on day 2 of 5 of Remdesivir. She continues to have wheezing. She has been afebrile, heart rate 68, blood pressure 135/69, pulse ox 97% on 2 L nasal cannula. hvac mechanic has been a sinus rhythm. 01/13: Patient went into A. fib with RVR last evening. Lopressor increased to 100 mg twice daily, cardiology consult and patient started on heparin drip. hvac mechanic is currently atrial fibrillation with controlled rate. She has been afebrile, heart rate 97, blood pressure 109/60, pulse ox 97% on 2 L nasal cannula. Patient is now day 05/19 of Remdesivir. She has had cough and congestion and Decadron was switched to Solu-Medrol. Anticipate discharge home over the weekend. 01/14: Patient is sitting up in bed she is doing a lot better, she is less short of breath, she continues to require 3 L nasal cannula, she has no chest pain at this time she is less short of breath she has no coughing or hemoptysis, she has no expiratory wheezes, she tolerated her treatment very well, her appetite is very good, she will receive her last dose of from the severe tomorrow morning, and the patient can be discharged home after that. Objective - Vital Signs Vital signs: Vital Signs Temp 96.5 F L 01/15/20 08:42 Pulse 82 01/15/20 08:42 Resp 18 01/15/20 08:42 BP 135/89 01/15/20 08:42 Pulse Ox 97 01/15/20 08:42 Intake & Output 01/14/20 01/15/20 01/15/20 18:59 06:59 18:59 Intake Total 160 Balance 160 Weight 75 kg Intake: Intake, IV Titration 160 Amount Heparin Sod,Pork in 0.45% 60 NaCl 25,000 unit In 0.45 % NaCl 1 250ml.bag @ 10.3 UNITS/KG/HR 10.001 mls/ hr IV .Q24H [facility] Rx#: [id number] Remdesivir (Eua) 100 mg 100 In Sodium Chloride 0.9% 250 ml @ 250 mls/hr IVPB Q24H [facility] Rx#:[id number] Other: Voiding Method Toilet # Voids 2 1 - Exam - Exam Review of Systems Constitutional: Reports chills, Reports fatigue, Reports fever, Reports lethargy, Reports malaise, Reports poor appetite, Reports generalized weakness Ears, nose, mouth and throat: Reports nasal congestion, Reports nasal discharge, Reports sore throat, Denies headache, Denies vertigo Cardiovascular: Reports palpitations, Denies chest pain, Denies leg edema, Denies lightheadedness, Denies shortness of breath, Denies syncope Respiratory: Reports cough, Reports cough with sputum, Reports respiratory infections, Denies excessive sputum, Denies hemoptysis, Denies home oxygen Gastrointestinal: Reports loss of appetite, Denies abdominal pain, Denies diarrhea, Denies nausea, Denies vomiting Genitourinary: Denies dysuria, Denies hematuria, Denies urgency, Denies urinary frequency Menstruation: Reports postmenopausal Musculoskeletal: Denies frequent falls, Denies gait dysfunction, Denies myalgias Integumentary: Denies pruritus, Denies rash Neurological: Denies change in mentation, Denies change in speech, Denies numbness, Denies seizures, Denies weakness Psychiatric: Denies anxiety, Denies depression Endocrine: Denies fatigue, Denies weight change Physical Examination Gen: This is a 74-year-old female. No acute distress is noted. HEENT: Head is atraumatic, normocephalic. Pupils equal, round. Sclerae is anicteric. NECK: Supple. No JVD. No lymphadenopathy. No thyromegaly. LUNGS: Expiratory wheeze. No intercostal retractions. No accessory muscle usage. HEART: Irregularly irregular rate and rhythm. No murmur. hvac mechanic atrial fibrillation, rate controlled. ABDOMEN: Soft. Bowel sounds are present. No masses. No tenderness. EXTREMITIES: No pedal edema. No calf tenderness. Dorsalis pedis +2 bilater ally. NEUROLOGICAL: Patient is awake, alert and oriented x3. Cranial nerves 2 through 12 are grossly intact. Generalized weakness - Labs CBC & Chem 7: 01/15/20 07:15 01/15/20 07:15 Labs: Abnormal Lab Results - Last 24 Hours (Table) 01/14/20 01/14/20 01/14/20 Range/Units 09:36 12:12 17:13 Hct (34.0-46.0) % Lymphocytes # (1.0-4.8) k/uL APTT 40.7 H (22.0-30.0) sec Sodium (137-145) mmol/L Carbon Dioxide (22-30) mmol/L BUN (7-17) mg/dL Glucose (74-99) mg/dL POC Glucose (mg/dL) 120 H 117 H (75-99) mg/dL AST (14-36) U/L ALT (4-34) U/L Total Protein (6.3-8.2) g/dL Albumin (3.5-5.0) g/dL 01/14/20 01/15/20 01/15/20 Range/Units 20:31 06:08 07:15 Hct 49.0 H (34.0-46.0) % Lymphocytes # 0.5 L (1.0-4.8) k/uL APTT (22.0-30.0) sec Sodium (137-145) mmol/L Carbon Dioxide (22-30) mmol/L BUN (7-17) mg/dL Glucose (74-99) mg/dL POC Glucose (mg/dL) 128 H 149 H (75-99) mg/dL AST (14-36) U/L ALT (4-34) U/L Total Protein (6.3-8.2) g/dL Albumin (3.5-5.0) g/dL 01/15/20 Range/Units 07:15 Hct (34.0-46.0) % Lymphocytes # (1.0-4.8) k/uL APTT (22.0-30.0) sec Sodium 135 L (137-145) mmol/L Carbon Dioxide 33 H (22-30) mmol/L BUN 22 H (7-17) mg/dL Glucose 151 H (74-99) mg/dL POC Glucose (mg/dL) (75-99) mg/dL AST 45 H (14-36) U/L ALT 41 H (4-34) U/L Total Protein 6.0 L (6.3-8.2) g/dL Albumin 3.4 L (3.5-5.0) g/dL Microbiology - Last 24 Hours (Table) 01/11/20 07:31 Blood Culture - Preliminary Blood No Growth after 72 hours Assessment and Plan Assessment: Assessment and Plan Plan: 1. Covid-19 pneumonia. Continue patient on Remdesivir #4 out of 5, continue patient on Symbicort 140/4.5 g 2 puffs inhalation twice every day as well as albuterol HFA 2 puffs inhalation every 4 hours as needed, continue oxygen support, discontinue Solu-Medrol start the patient on prednisone 40 mg orally once every day. 2. AV chris reentrant tachycardia was seen in consultation by cardiology she was converted to normal sinus rhythm and subsequently underwent to atrial fibrillation with rapid ventricular response she was placed on metoprolol 100 mg orally twice every day initially on heparin and nausea switched to Xarelto 20 mg orally once every day. Follow-up with cardiology as an outpatient for AV chris reentrant tachycardia ablation 3. Hypertension and hypertensive cardio vascular disease. Continue patient on metoprolol 100 mg orally twice every day. 4. Left-sided chest pain. Patient was ruled out for acute coronary syndrome. Continue patient on metoprolol 100 mg orally twice every day, continue aspirin 81 mg once every day, echocardiogram was done that showed normal ejection fraction, with mild aortic stenosis. 5. Gastroesophageal reflux disease. We'll continue patient on PPI. 6. History of colon cancer status post partial colectomy. In remission. 7. Glaucoma. Continue eyedrops. 8. Mild intermittent asthma. Continue Symbicort 140/4.5 g 2 puffs inhalation twice every day as well as albuterol HFA 2 puffs inhalation every 4 hours as ne eded, try to wean oxygen down, switch the patient from Solu-Medrol to prednisone 40 mg orally once every day hopefully she will be able to be discharged home tomorrow after her last dose of from the severe. 9. Obstructive sleep apnea, no longer requiring CPAP. 11. DVT prophylaxis. Continue Xarelto 20 mg orally once every day per 12. GI prophylaxis. Continue patient on PPI. 13. Home tomorrow after her last dose of REMDESIVIR.
[2020-01-15] MEDS: CHOLECALCIFEROL 1,000 UNIT TAB PO SCH (10:15)
[2020-01-15 12:14] LABS: Glucose,Whole Blood 199 mg/dL (75-99)
--- NOTE | 2020-01-15 12:41 | P.PN ---
Subjective Progress Note Date: 01/15/20 Chart review performed: Patient initially presented with AVNRT, for which she converted with the administration of adenosine. She subsequently developed atrial fibrillation, for which she has been rate controlled. She has been tolerating Xarelto without issue. She is currently being treated for Covid pneumonia, for which she is recovering well. She is completing a course of steroids and Remdesivir. Laboratory data: WBC 5.2, hemoglobin 15.6, hematocrit 49.0, platelet 170, sodium 135, potassium 4.5, BUN 22, creatinine 0.65, AST 45, ALT 41. Vital signs: Blood pressure 129/68, respiratory rate 18, pulse 76, pO2 99% on 3 L nasal cannula, temperature 97.2F Assessment: #1 AVNRT, converted with adenosine #2 paroxysmal atrial fibrillation, rate controlled #3 pneumonia, Covid positive #4 valvular heart disease #5 hypertension Plan: Continue current medication regimen. No additional recommendations at this time. We'll continue to monitor closely Objective - Vital Signs Vital signs: Vital Signs Temp 97.2 F L 01/15/20 12:16 Pulse 76 01/15/20 12:16 Resp 18 01/15/20 12:16 BP 129/68 01/15/20 12:16 Pulse Ox 99 01/15/20 12:16 Intake & Output 01/14/20 01/15/20 01/15/20 18:59 06:59 18:59 Intake Total 160 118 Balance 160 118 Weight 75 kg Intake: Intake, IV Titration 160 Amount Heparin Sod,Pork in 0.45% 60 NaCl 25,000 unit In 0.45 % NaCl 1 250ml.bag @ 10.3 UNITS/KG/HR 10.001 mls/ hr IV .Q24H [facility] Rx#: [id number] Remdesivir (Eua) 100 mg 100 In Sodium Chloride 0.9% 250 ml @ 250 mls/hr IVPB Q24H [facility] Rx#:[id number] Oral 118 Other: Voiding Method Toilet Toilet # Voids 2 1 - Labs CBC & Chem 7: 01/15/20 07:15 01/15/20 07:15 Labs: Abnormal Lab Results - Last 24 Hours (Table) 01/14/20 01/14/20 01/15/20 Range/Units 17:13 20:31 06:08 Hct (34.0-46.0) % Lymphocytes # (1.0-4.8) k/uL Sodium (137-145) mmol/L Carbon Dioxide (22-30) mmol/L BUN (7-17) mg/dL Glucose (74-99) mg/dL POC Glucose (mg/dL) 117 H 128 H 149 H (75-99) mg/dL AST (14-36) U/L ALT (4-34) U/L Total Protein (6.3-8.2) g/dL Albumin (3.5-5.0) g/dL 01/15/20 01/15/20 01/15/20 Range/Units 07:15 07:15 11:56 Hct 49.0 H (34.0-46.0) % Lymphocytes # 0.5 L (1.0-4.8) k/uL Sodium 135 L (137-145) mmol/L Carbon Dioxide 33 H (22-30) mmol/L BUN 22 H (7-17) mg/dL Glucose 151 H (74-99) mg/dL POC Glucose (mg/dL) 199 H (75-99) mg/dL AST 45 H (14-36) U/L ALT 41 H (4-34) U/L Total Protein 6.0 L (6.3-8.2) g/dL Albumin 3.4 L (3.5-5.0) g/dL Microbiology - Last 24 Hours (Table) 01/11/20 07:31 Blood Culture - Preliminary Blood No Growth after 96 hours
--- NOTE | 2020-01-15 13:17 | P.PN ---
Subjective Progress Note Date: 01/15/20 Principal diagnosis: Covid 19 pneumonia This is a 74-year-old female patient with a previous history of colon cancer, previous history of right lower extremity DVT and pulmonary embolism back in 2018 that occurred following a orthopedic surgery, right knee arthroplasty. The patient has mild intermittent bronchial asthma, sleep apnea not utilizing any form of CPAP therapy. No previous history of coronary artery disease. The patient is been followed up by [facility] on outpatient basis. The patient came into the hospital today after she felt an acute pain and palpitation at home. The pain was across her chest radiating to her left arm. Note that she was having symptoms of URI including Raynaud's a low-grade fever and a cough and congestion a week prior to this presentation. She also had a fall sustaining some bruising to the right lower extremity prior to this admission. In the ED, the patient was found to be in SVT. The patient was given 6 mg of adenosine and subsequently she converted to normal sinus rhythm. She had a low-grade fever 100.4. Her pulse ox on room air was around 91-92%. White cell count was at 4.1 with a hemoglobin of 14.8. The CT angiogram showed no evidence of any pulmonary embolism. Chest x-ray showed no acute process. The CAT scan of the chest showed an ascending aortic aneurysm measuring 4.3 cm size without evidence of any dissection. I noted that lower extremities are quite swollen and there was a subcutaneous bruise because of a fall and I ordered an ultrasound Doppler of the lower extremity which do not to be negative. The lorenzo virus: 19 testing is still in progress for now. Meanwhile, the patient is admitted to cardiac stepdown for further monitoring. Note that subsequent to her first episode of SVT, the patient another episode and she converted to normal sinus rhythm. On 01/12/2020 patient seen in follow-up, patient was found to be COVID 19 positive. Heart rate is better controlled, she is on 2 L of oxygen her pulse ox between 92-100%, she's been afebrile. Today's labs shows leukopenia with a white blood cell, 3.5, lymphopenia with a lymphocytic on 0.6, sodium is 136, CO2 is 31, BUN is 18, creatinine 0.53, Procalcitonin came back negative at 0.08. She is mildly short of breath at times, creation be comfortable at rest. Denies any chest pain. Echocardiogram was reviewed showing preserved LV function with EF of 55%. She is requiring supplemental oxygen at 2 L, this morning at 8:00 pulse ox is 92%. On 01/13/2020 patient seen in follow-up on selective care unit. Today is day two of Remdesivir. She's been afebrile, she is on 2 L of oxygen pulse ox of 97%, hemodynamically stable. Patient complains of persistent coughing, lipid the patient on Mucinex [id number], and patient continues on oral Decadron. His labs have been reviewed, showing white blood cell, 3.5, platelet count is 123, lymphocyte count is 0.6, sodium is 136, potassium 4.0, chloride is 103, CO2 31, BUN is 18 creatinine 0.53. Troponins were less than 0.012, 0.016, 0.012. Cardiology is following in regards to the tachycardia and SVT. Vital signs have been stable, patient denies any chest pain. Echocardiogram reviewed showing EF greater than 55%, mild mitral regurgitation, mild tricuspid regurgitation and PA pressures less than 35mm 01/14/2020, the patient is being seen on the floor for a follow-up. The patient is being treated for Covid 19 pneumonia. Clinically, the patient is feeling better. She is not having any significant respiratory distress. The patient is on 2 L about 2 by nasal cannula with a pulse oximetry 97%. Her coughing has subsided and the patient is feeling much better. She is completing a course of Decadron and Remdesivir . Note that the patient was having significant cough and congestion and based on that I stopped a oral Decadron as well as this patient to IV Solu Medrol 4 mg every 8 hours. With this which, the patient's overall pulmonary status is improved considerably and her cough has subsided. The patient is afebrile and the patient has a CRP of 18.9 with a ferritin level of 221. She has developed atrial fibrillation and she was started on IV heparin. She'll be transitioned ultimately to Xarelto for long-term articulation as the patient will require long-term medical condition regards to her atrial fibrillation. No chest pain. Echocardiogram showed a preserved LV function. The blood cultures negative. The patient is seen today 01/15/2020 in follow-up on the selective care unit. She is awake and alert in no acute distress. Breathing a bit easier today compared to yesterday. Currently maintaining O2 saturations up to 99% on 3 L/m per nasal cannula. She's been afebrile. Hemodynamically stable. Blood cultures reveal no growth. White count 5.2. Hemoglobin 15.6. Lymphocyte 0.5. Sodium 135. Potassium 4.5. Creatinine 0.65. AST 45. ALT 41. She is on day 4 of Remdesivir. Anticoagulated with Xarelto. Remains on bronchodilators. IV Solu-Medrol. Objective - Vital Signs Vital signs: Vital Signs Temp 97.2 F L 01/15/20 12:16 Pulse 76 01/15/20 12:16 Resp 18 01/15/20 12:16 BP 129/68 01/15/20 12:16 Pulse Ox 99 01/15/20 12:16 Intake & Output 01/14/20 01/15/20 01/15/20 18:59 06:59 18:59 Intake Total 160 118 Balance 160 118 Weight 75 kg Intake: Intake, IV Titration 160 Amount Heparin Sod,Pork in 0.45% 60 NaCl 25,000 unit In 0.45 % NaCl 1 250ml.bag @ 10.3 UNITS/KG/HR 10.001 mls/ hr IV .Q24H [facility] Rx#: [id number] Remdesivir (Eua) 100 mg 100 In Sodium Chloride 0.9% 250 ml @ 250 mls/hr IVPB Q24H [facility] Rx#:[id number] Oral 118 Other: Voiding Method Toilet Toilet # Voids 2 1 - Exam 9GENERAL EXAM: Alert, very pleasant, 74-year-old male on 3 L of oxygen and a pul se ox of 97% in isolation precautions for COVID19 infection comfortable in no apparent distress. HEAD: Normocephalic/atraumatic. EYES: Normal reaction of pupils, equal size. Conjunctiva pink, sclera white. NOSE: Clear with pink turbinates. THROAT: No erythema or exudates. NECK: No masses, no JVD, no thyroid enlargement, no adenopathy. CHEST: No chest wall deformity. Symmetrical expansion. LUNGS: Equal air entry with no crackles, wheeze, rhonchi or dullness. CVS: Regular rate and rhythm, normal S1 and S2, no gallops, no murmurs, no rubs ABDOMEN: Soft, nontender. No hepatosplenomegaly, normal bowel sounds, no guarding or rigidity. EXTREMITIES: No clubbing, no edema, no cyanosis, 2+ pulses and upper and lower extremities. MUSCULOSKELETAL: Muscle strength and tone normal. SPINE: No scoliosis or deformity SKIN: No rashes CENTRAL NERVOUS SYSTEM: No focal deficits, tone is normal in all 4 extremities. PSYCHIATRIC: Alert and oriented -3. Appropriate affect. Intact judgment and insight. - Labs CBC & Chem 7: 01/15/20 07:15 01/15/20 07:15 Labs: Abnormal Lab Results - Last 24 Hours (Table) 01/14/20 01/14/20 01/15/20 Range/Units 17:13 20:31 06:08 Hct (34.0-46.0) % Lymphocytes # (1.0-4.8) k/uL Sodium (137-145) mmol/L Carbon Dioxide (22-30) mmol/L BUN (7-17) mg/dL Glucose (74-99) mg/dL POC Glucose (mg/dL) 117 H 128 H 149 H (75-99) mg/dL AST (14-36) U/L ALT (4-34) U/L Total Protein (6.3-8.2) g/dL Albumin (3.5-5.0) g/dL 01/15/20 01/15/20 01/15/20 Range/Units 07:15 07:15 11:56 Hct 49.0 H (34.0-46.0) % Lymphocytes # 0.5 L (1.0-4.8) k/uL Sodium 135 L (137-145) mmol/L Carbon Dioxide 33 H (22-30) mmol/L BUN 22 H (7-17) mg/dL Glucose 151 H (74-99) mg/dL POC Glucose (mg/dL) 199 H (75-99) mg/dL AST 45 H (14-36) U/L ALT 41 H (4-34) U/L Total Protein 6.0 L (6.3-8.2) g/dL Albumin 3.4 L (3.5-5.0) g/dL Microbiology - Last 24 Hours (Table) 01/11/20 07:31 Blood Culture - Preliminary Blood No Growth after 96 hours Assessment and Plan Assessment: 1 acute coronavirus Covid 19 infection with possible pneumonia with secondary cough and shortness of breath and hypoxemia currently on 3 L of oxygen by nasal cannula and the patient is completing a course of steroids and Remdesivir 2 acute bronchitis with possible pneumonia 3 SVT, converted into normal sinus rhythm, and subsequently the patient goes into atrial fibrillation. Rate is controlled for now. The patient on Xarelto 4 previous history of DVT of the right lower extremity and pulmonary embolism currently on anticoagulation and the CTA did not show any recurrent PA and the repeat Doppler of the lower extremities was negative for DVT. 5 obstructive sleep apnea, not receiving any treatment 6 obesity with a BMI of 39.9 7 previous history of colon cancer with a partial colectomy 8 mild intermittent bronchial asthma 9 glucoma 10 hypertension Plan The patient was seen and evaluated by Dr. Miguel Continued on Remdesivir Continue bronchodilators, Mucinex and steroids Anticoagulated with Xarelto Titrate down the FiO2 as tolerated Increase her activity as tolerated We'll continue to follow I, the cosigning physician, performed a history & physical examination of the patient. Lungs sounds are clear. Maintaining good O2 saturations in the 90s on 3 L/m per nasal cannula. I discussed the assessment and plan of care with my nurse practitioner, Vicky Castro. I attest to the above note as dictated by her.
[2020-01-15] MEDS: REMDESIVIR 100 MG in SODIUM CHLORIDE 0.9% 250 ML IVPB SCH (13:50)
[2020-01-15 17:16] LABS: Glucose,Whole Blood 140 mg/dL (75-99)
[2020-01-15] MEDS: RIVAROXABAN 20 MG TAB PO SCH (18:02)
[2020-01-15 20:31] LABS: Glucose,Whole Blood 161 mg/dL (75-99)
[2020-01-15] MEDS: ALPRAZolam 0.25 MG TAB PO PRN (22:21)
[2020-01-16 06:12] LABS: Glucose,Whole Blood 108 mg/dL (75-99)
[2020-01-16] MEDS: PANTOPRAZOLE 40 MG TABLET PO SCH (06:21)
[2020-01-16] MEDS: INSULIN ASPART (NovoLOG) 100 UNIT/ML VIAL SQ SCH ×3 (06:23→17:57)
[2020-01-16] MEDS: SYMBICORT 160-4.5 MCG INHALER INHALATION SCH ×2 (09:00→16:53)
[2020-01-16] MEDS ORDERED: predniSONE 20 MG TAB PO SCH (09:00)
[2020-01-16] MEDS: ALBUTEROL HFA INHALER INHALATION SCH ×3 (09:00→16:53)
--- NOTE | 2020-01-16 09:44 | P.DS ---
Providers Date of admission: 01/11/20 10:41 Expected date of discharge: 01/16/20 Attending physician: Sheila Grace Consults: 01/11/20 10:41 Consult Physician Routine Consulting Provider: Bill Miguel Consult Reason/Comments: elevated d-dimer, negative CT or PE Do you want consulting provider notified?: Yes Consult Physician Urgent Consulting Provider: Cheryl Desai Consult Reason/Comments: SVT, chest pain Do you want consulting provider notified?: Yes 01/14/20 03:35 Consult Physician Routine Consulting Provider: Gavin Young Consult Reason/Comments: New A-fib Do you want consulting provider notified?: Yes, Notify in am Primary care physician: Sheila Grace [place] Hospital Course: This is a 74-year-old female patient of Dr. Merino and Dr. Saul Bernardo with past medical history of hypertension, glaucoma, DVT, colon cancer status post partial colectomy, gastroesophageal reflux disease, mild intermittent asthma. The patient gives history of having a runny nose low-grade fever cough with clear sputum production for a couple of days. This morning developed palpitations and chest pain as well as left arm numbness with pain radiating to her neck and jaw and EMS was called. She was found to be in SVT at a more than 160 bpm. She was given adenosine 6 mg and EMS and converted to a sinus rhythm. She was found to have a temperature 100.4, heart rate 87, blood pressure 130/92, pulse ox 90% on room air. CBC revealed WBC 4.1, hemoglobin 14.8, platelet count 114. Electrolytes and renal function normal. Liver function tests were normal. Troponin negative. TSH 1.850. Lactic acid 1.4. Influenza testing negative. D-dimer 1.73. C-reactive protein 18.9. LDH 585 EKG sinus rhythm with no acute ST changes. Chest x-ray reveals no acute pulmonary process. CT angios showed no evidence of pulmonary embolism. Ascending aortic aneurysm measuring 4.3 cm, coronary artery disease. Correlate for possible pulmonary artery hypertension. Ultrasound of the bilateral lower extremities negative for DVT. Repeat troponin negative. COVID-19 testing in progress. Patient admitted to the cardiac stepdown unit and consult requested with cardiology regarding SVT and chest pain and pulmonary medicine regarding elevated d-dimer, rule out COVID-19. Patient subsequently had episode of SVT on the cardiac stepdown unit and converted with Lopressor 5 mg IV push. 01/11: Echocardiogram reveals EF of greater than 55%, mild mitral regurgitation, mild tricuspid regurgitation. 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 Patient has also been seen by pulmonary medicine. Covid 19 testing came back positive and patient started on Remdesivir. We have discontinued heparin and started Lovenox to 40 mg every 12 hours, dexamethasone 6 mg oral daily, zinc, vitamin D, vitamin C added. Repeat blood work reveals WBC 3.5, hemoglobin 13.2, platelet count 123. Sodium 136, potassium 4.0, chloride 103, CO2 31, BUN 18 and creatinine 0.53. Blood sugar 115. Troponins were negative on 3 draws. Triglycerides 243, cholesterol 164, LDL 81, HDL 34. 01/12: Patient is currently on day 2 of 5 of Remdesivir. She continues to have wheezing. She has been afebrile, heart rate 68, blood pressure 135/69, pulse ox 97% on 2 L nasal cannula. pvc monitor has been a sinus rhythm. 01/13: Patient went into A. fib with RVR last evening. Lopressor increased to 100 mg twice daily, cardiology consult and patient started on heparin drip. pvc monitor is currently atrial fibrillation with controlled rate. She has been afebrile, heart rate 97, blood pressure 109/60, pulse ox 97% on 2 L nasal cannula. Patient is now day 3/5 of Remdesivir. She has had cough and congestion and Decadron was switched to Solu-Medrol. Anticipate discharge home over the weekend. 01/14: Patient is sitting up in bed she is doing a lot better, she is less short of breath, she continues to require 3 L nasal cannula, she has no chest pain at this time she is less short of breath she has no coughing or hemoptysis, she has no expiratory wheezes, she tolerated her treatment very well, her appetite is very good, she will receive her last dose of from the severe tomorrow morning, and the patient can be discharged home after that. Discharge diagnoses: 1. Covid-19 pneumonia. 2. AV chris reentrant tachycardia was seen in consultation by cardiology she was converted to normal sinus rhythm and subsequently underwent to atrial fibrillation with rapid ventricular response . 3. Hypertension and hypertensive cardiovascular disease. 4. Left-sided chest pain. 5. Gastroesophageal reflux disease. 6. History of colon cancer status post partial colectomy. 7. Glaucoma. 8. Mild intermittent asthma. 9. Obstructive sleep apnea. Patient Condition at Discharge: Fair Plan - Discharge Summary Discharge Rx Participant: No New Discharge Prescriptions: New predniSONE [Deltasone] 40 mg PO DAILY #12 tab Metoprolol Tartrate [Lopressor] 100 mg PO BID #60 tab guaiFENesin-DM 600/30MG [Mucinex Dm] 2 each PO Q12HR #20 tab.er.12h Zinc Sulfate [Orazinc] 220 mg PO DAILY #30 cap Budesonide-Formot 160-4.5 Mcg [Symbicort 160-4.5 Mcg Inhaler] 2 puff INHALATION RT-BID #1 puff Ascorbic Acid [Vitamin C] 1,000 mg PO DAILY tab Cholecalciferol [Vitamin D3 (25 Mcg = 1000 Iu)] 5,000 unit PO DAILY tab Rivaroxaban [Xarelto] 20 mg PO W/SUPPER #30 tab Continue Pantoprazole Sodium [Protonix] 40 mg PO DAILY Multivitamin/Iron/Folic Acid [Centrum Complete Multivit Tab] 1 tab PO DAILY Brimonidine Tartrate [Alphagan P 0.2% Ophth Soln] 1 drop BOTH EYES BID Aspirin EC [Ecotrin Low Dose] 81 mg PO DAILY Albuterol Inhaler [Ventolin Hfa Inhaler] 1 - 2 puff INHALATION RT-Q4H PRN PRN Reason: Shortness Of Breath ALPRAZolam [Xanax] 0.25 mg PO HS PRN PRN Reason: Insomnia Ipratropium-Albuterol Nebulize [Duoneb 0.5 mg-3 mg/3 ml Soln] 3 ml INHALATION RT-QID PRN PRN Reason: Shortness Of Breath Cetirizine HCl [Zyrtec] 10 mg PO DAILY PRN PRN Reason: Allergy Symptoms Discontinued Metoprolol Tartrate [Lopressor] 50 mg PO BID Discharge Medication List Pantoprazole Sodium [Protonix] 40 mg PO DAILY 07/23/13 [History] Brimonidine Tartrate [Alphagan P 0.2% Ophth Soln] 1 drop BOTH EYES BID 05/05/14 [History] Multivitamin/Iron/Folic Acid [Centrum Complete Multivit Tab] 1 tab PO DAILY 05/05/14 [History] Albuterol Inhaler [Ventolin Hfa Inhaler] 1 - 2 puff INHALATION RT-Q4H PRN 08/27/19 [History] Aspirin EC [Ecotrin Low Dose] 81 mg PO DAILY 08/27/19 [History] ALPRAZolam [Xanax] 0.25 mg PO HS PRN 01/11/20 [History] Cetirizine HCl [Zyrtec] 10 mg PO DAILY PRN 01/11/20 [History] Ipratropium-Albuterol Nebulize [Duoneb 0.5 mg-3 mg/3 ml Soln] 3 ml INHALATION RT-QID PRN 01/11/20 [History] Ascorbic Acid [Vitamin C] 1,000 mg PO DAILY tab 01/16/20 [Rx] Budesonide-Formot 160-4.5 Mcg [Symbicort 160-4.5 Mcg Inhaler] 2 puff INHALATION RT-BID #1 puff 01/16/20 [Rx] Cholecalciferol [Vitamin D3 (25 Mcg = 1000 Iu)] 5,000 unit PO DAILY tab 01/16/20 [Rx] Metoprolol Tartrate [Lopressor] 100 mg PO BID #60 tab 01/16/20 [Rx] Rivaroxaban [Xarelto] 20 mg PO W/SUPPER #30 tab 01/16/20 [Rx] Zinc Sulfate [Orazinc] 220 mg PO DAILY #30 cap 01/16/20 [Rx] guaiFENesin-DM 600/30MG [Mucinex Dm] 2 each PO Q12HR #20 tab.er.12h 01/16/20 [Rx] predniSONE [Deltasone] 40 mg PO DAILY #12 tab 01/16/20 [Rx] Follow up Appointment(s)/Referral(s): Sheila Grace MD [Primary Care Provider] - 1 Week Paulino Bernardo MD [Family Provider] - 2 Weeks Discharge Disposition: HOME WITH HOME HEALTH SERVICES
[2020-01-16] MEDS: ASPIRIN 81 MG PO SCH (09:58)
[2020-01-16] MEDS: CHOLECALCIFEROL 1,000 UNIT TAB PO SCH (09:58)
[2020-01-16] MEDS: METOPROLOL TARTRATE 50 MG TAB PO SCH ×2 (09:58→18:12)
[2020-01-16] MEDS: MULTIVITAMINS, THERA 1 EACH TAB PO SCH (09:58)
[2020-01-16] MEDS: ZINC SULFATE 220 MG CAP PO SCH (09:58)
[2020-01-16] MEDS: guaiFENesin-DM 600/30MG 1 EACH TAB.ER.12H PO SCH ×2 (09:58→18:12)
[2020-01-16] MEDS: ASCORBIC ACID 500 MG TAB PO SCH (09:58)
[2020-01-16] MEDS: BRIMONIDINE TARTRATE 0.2% DROPS 5 ML BTL BOTH EYES SCH (09:59)
[2020-01-16] MEDS: ACETAMINOPHEN TAB 325 MG TAB PO PRN (10:04)
[2020-01-16 11:07] VITALS: TEMP 98.5
[2020-01-16 11:51] LABS: Glucose,Whole Blood 145 mg/dL (75-99)
--- NOTE | 2020-01-16 12:54 | P.PN ---
Subjective Progress Note Date: 01/16/20 Patient interviewed and examined from the doorway. She states she's doing relatively well. She does not have any chest pain. She does have some shortness of breath and occasionally it will feel "tight." She denies any palpitations, dizziness, or lightheadedness. She does have a cough and sore throat. VITALS: Blood pressure 104/70, respiratory rate 18, pulse rate 86, temperature 98.5F TELEMETRY: Rate controlled atrial fibrillation LABS: WBC 5.2, Hemoglobin 15.6, hematocrit 49.0, sodium 135, potassium 4.5, BUN 22, creatinine 0.65, AST 45, ALT 41 IMPRESSION: #1 AVNRT, converted with adenosine #2 paroxysmal atrial fibrillation, currently rate controlled #3 pneumonia,: Positive #4 valvular heart disease #5 hypertension PLAN: Continue current medication regimen. Patient is cleared for discharge from the cardiac standpoint. She'll follow-up in office with Dr. Gonzáles once her acute illness has resolved. Objective - Vital Signs Vital signs: Vital Signs Temp 98.5 F 01/16/20 08:00 Pulse 86 01/16/20 08:00 Resp 19 01/16/20 08:00 BP 104/70 01/16/20 08:00 Pulse Ox 91 L 01/16/20 09:06 Intake & Output 01/15/20 01/16/20 01/16/20 19:59 06:59 18:59 Intake Total 240 Balance 240 Weight Intake: Intake, IV Titration Amount Remdesivir (Eua) 100 mg In Sodium Chloride 0.9% 250 ml @ 250 mls/hr IVPB Q24H [facility] Rx#:[id number] Oral 240 Other: Voiding Method Toilet # Voids - Labs CBC & Chem 7: 01/15/20 07:15 01/15/20 07:15 Labs: Abnormal Lab Results - Last 24 Hours (Table) 01/15/20 01/15/20 01/16/20 Range/Units 16:48 20:29 06:11 POC Glucose (mg/dL) 140 H 161 H 108 H (75-99) mg/dL 01/16/20 Range/Units 11:47 POC Glucose (mg/dL) 145 H (75-99) mg/dL Microbiology - Last 24 Hours (Table) 01/11/20 07:31 Blood Culture - Preliminary Blood No Growth after 120 hours
--- NOTE | 2020-01-16 13:05 | P.PN ---
Subjective Progress Note Date: 01/16/20 Principal diagnosis: Covid 19 pneumonia This is a 74-year-old female patient with a previous history of colon cancer, previous history of right lower extremity DVT and pulmonary embolism back in 2018 that occurred following a orthopedic surgery, right knee arthroplasty. The patient has mild intermittent bronchial asthma, sleep apnea not utilizing any form of CPAP therapy. No previous history of coronary artery disease. The patient is been followed up by [facility] on outpatient basis. The patient came into the hospital today after she felt an acute pain and palpitation at home. The pain was across her chest radiating to her left arm. Note that she was having symptoms of URI including Raynaud's a low-grade fever and a cough and congestion a week prior to this presentation. She also had a fall sustaining some bruising to the right lower extremity prior to this admission. In the ED, the patient was found to be in SVT. The patient was given 6 mg of adenosine and subsequently she converted to normal sinus rhythm. She had a low-grade fever 100.4. Her pulse ox on room air was around 91-92%. White cell count was at 4.1 with a hemoglobin of 14.8. The CT angiogram showed no evidence of any pulmonary embolism. Chest x-ray showed no acute process. The CAT scan of the chest showed an ascending aortic aneurysm measuring 4.3 cm size without evidence of any dissection. I noted that lower extremities are quite swollen and there was a subcutaneous bruise because of a fall and I ordered an ultrasound Doppler of the lower extremity which do not to be negative. The lorenzo virus: 19 testing is still in progress for now. Meanwhile, the patient is admitted to cardiac stepdown for further monitoring. Note that subsequent to her first episode of SVT, the patient another episode and she converted to normal sinus rhythm. On 01/12/2020 patient seen in follow-up, patient was found to be COVID 19 positive. Heart rate is better controlled, she is on 2 L of oxygen her pulse ox between 92-100%, she's been afebrile. Today's labs shows leukopenia with a white blood cell, 3.5, lymphopenia with a lymphocytic on 0.6, sodium is 136, CO2 is 31, BUN is 18, creatinine 0.53, Procalcitonin came back negative at 0.08. She is mildly short of breath at times, creation be comfortable at rest. Denies any chest pain. Echocardiogram was reviewed showing preserved LV function with EF of 55%. She is requiring supplemental oxygen at 2 L, this morning at 8:00 pulse ox is 92%. On 01/13/2020 patient seen in follow-up on selective care unit. Today is day two of Remdesivir. She's been afebrile, she is on 2 L of oxygen pulse ox of 97%, hemodynamically stable. Patient complains of persistent coughing, lipid the patient on Mucinex [id number], and patient continues on oral Decadron. His labs have been reviewed, showing white blood cell, 3.5, platelet count is 123, lymphocyte count is 0.6, sodium is 136, potassium 4.0, chloride is 103, CO2 31, BUN is 18 creatinine 0.53. Troponins were less than 0.012, 0.016, 0.012. Cardiology is following in regards to the tachycardia and SVT. Vital signs have been stable, patient denies any chest pain. Echocardiogram reviewed showing EF greater than 55%, mild mitral regurgitation, mild tricuspid regurgitation and PA pressures less than 35mm 01/14/2020, the patient is being seen on the floor for a follow-up. The patient is being treated for Covid 19 pneumonia. Clinically, the patient is feeling better. She is not having any significant respiratory distress. The patient is on 2 L about 2 by nasal cannula with a pulse oximetry 97%. Her coughing has subsided and the patient is feeling much better. She is completing a course of Decadron and Remdesivir . Note that the patient was having significant cough and congestion and based on that I stopped a oral Decadron as well as this patient to IV Solu Medrol 4 mg every 8 hours. With this which, the patient's overall pulmonary status is improved considerably and her cough has subsided. The patient is afebrile and the patient has a CRP of 18.9 with a ferritin level of 221. She has developed atrial fibrillation and she was started on IV heparin. She'll be transitioned ultimately to Xarelto for long-term articulation as the patient will require long-term medical condition regards to her atrial fibrillation. No chest pain. Echocardiogram showed a preserved LV function. The blood cultures negative. The patient is seen today 01/15/2020 in follow-up on the selective care unit. She is awake and alert in no acute distress. Breathing a bit easier today compared to yesterday. Currently maintaining O2 saturations up to 99% on 3 L/m per nasal cannula. She's been afebrile. Hemodynamically stable. Blood cultures reveal no growth. White count 5.2. Hemoglobin 15.6. Lymphocyte 0.5. Sodium 135. Potassium 4.5. Creatinine 0.65. AST 45. ALT 41. She is on day 4 of Remdesivir. Anticoagulated with Xarelto. Remains on bronchodilators. IV Solu-Medrol. The patient is seen today 01/16/2020 in follow-up on the selective care unit. She remains awake and alert in no acute distress. Currently up in a chair at the bedside. She denies any worsening shortness of breath, cough or congestion. She is maintaining O2 saturations in the 90s on room air. Her only complaint is that of a mild headache. She completed her course of REM does appear. Anticoagulated with Xarelto. Objective - Vital Signs Vital signs: Vital Signs Temp 98.5 F 01/16/20 08:00 Pulse 86 01/16/20 08:00 Resp 19 01/16/20 08:00 BP 104/70 01/16/20 08:00 Pulse Ox 91 L 01/16/20 09:06 Intake & Output 01/15/20 01/16/20 01/16/20 19:59 06:59 18:59 Intake Total 240 Balance 240 Weight Intake: Intake, IV Titration Amount Remdesivir (Eua) 100 mg In Sodium Chloride 0.9% 250 ml @ 250 mls/hr IVPB Q24H [facility] Rx#:[id number] Oral 240 Other: Voiding Method Toilet # Voids - Exam GENERAL EXAM: Alert, very pleasant, 74-year-old female patient on room air and a pulse ox of 94% in isolation precautions for COVID19 infection, comfortable in no apparent distress. HEAD: Normocephalic/atraumatic. EYES: Normal reaction of pupils, equal size. Conjunctiva pink, sclera white. NOSE: Clear with pink turbinates. THROAT: No erythema or exudates. NECK: No masses, no JVD, no thyroid enlargement, no adenopathy. CHEST: No chest wall deformity. Symmetrical expansion. LUNGS: Equal air entry with no crackles, wheeze, rhonchi or dullness. CVS: Regular rate and rhythm, normal S1 and S2, no gallops, no murmurs, no rubs ABDOMEN: Soft, nontender. No hepatosplenomegaly, normal bowel sounds, no guarding or rigidity. EXTREMITIES: No clubbing, no edema, no cyanosis, 2+ pulses and upper and lower extremities. MUSCULOSKELETAL: Muscle strength and tone normal. SPINE: No scoliosis or deformity SKIN: No rashes CENTRAL NERVOUS SYSTEM: No focal deficits, tone is normal in all 4 extremities. PSYCHIATRIC: Alert and oriented -3. Appropriate affect. Intact judgment and insight. - Labs CBC & Chem 7: 01/15/20 07:15 01/15/20 07:15 Labs: Abnormal Lab Results - Last 24 Hours (Table) 01/15/20 01/15/20 01/16/20 Range/Units 16:48 20:29 06:11 POC Glucose (mg/dL) 140 H 161 H 108 H (75-99) mg/dL 01/16/20 Range/Units 11:47 POC Glucose (mg/dL) 145 H (75-99) mg/dL Microbiology - Last 24 Hours (Table) 01/11/20 07:31 Blood Culture - Preliminary Blood No Growth after 120 hours Assessment and Plan Assessment: 1 acute coronavirus Covid 19 infection with possible pneumonia with secondary cough and shortness of breath and hypoxemia, recovered, currently on room air completing a course of steroids and Remdesivir 2 acute bronchitis with possible pneumonia 3 SVT, converted into normal sinus rhythm, and subsequently the patient goes into atrial fibrillation. Rate is controlled for now. The patient on Xarelto 4 previous history of DVT of the right lower extremity and pulmonary embolism currently on anticoagulation and the CTA did not show any recurrent PA and the repeat Doppler of the lower extremities was negative for DVT. 5 obstructive sleep apnea, not receiving any treatment 6 obesity with a BMI of 39.9 7 previous history of colon cancer with a partial colectomy 8 mild intermittent bronchial asthma 9 glucoma 10 hypertension Plan The patient was seen and evaluated by Dr. Miguel She has completed her course of Remdesivir Improved and on room air Could be discharged home from the pulmonary standpoint I, the cosigning physician, performed a history & physical examination of the patient. Lungs sounds are clear. Maintaining good O2 saturations in the 90s on room air. I discussed the assessment and plan of care with my nurse practitione r, Vicky Matthew. I attest to the above note as dictated by her.
[2020-01-16] MEDS: REMDESIVIR 100 MG in SODIUM CHLORIDE 0.9% 250 ML IVPB SCH (13:39)
[2020-01-16 14:52] VITALS: PULSE 88; RESP 18
[2020-01-16 14:53] VITALS: BP 118/76
[2020-01-16 17:19] LABS: Glucose,Whole Blood 166 mg/dL (75-99)
[2020-01-16] MEDS: RIVAROXABAN 20 MG TAB PO SCH (18:12)
== END 2020-01-16 19:04 | disposition home or self-care (01) | DRG 177 ==
LOC: EC 07:10 → 3SCARD 10:41
PROVIDERS: ADMIT Internal Medicine; ATTEND Internal Medicine
PROC: XW033E5 Introduction of Remdesivir Anti-infective into Peripheral Vein, Percutaneous Approach, New Technology Group 5 (ICD-10-PCS; principal; 2020-01-12)
DX: U07.1 COVID-19 (principal); J12.89 Other viral pneumonia; I47.1 Supraventricular tachycardia; I71.2 Thoracic aortic aneurysm, without rupture; I11.9 Hypertensive heart disease without heart failure; I48.0 Paroxysmal atrial fibrillation; R09.02 Hypoxemia; J45.20 Mild intermittent asthma, uncomplicated; E83.42 Hypomagnesemia; G47.33 Obstructive sleep apnea (adult) (pediatric); I08.3 Combined rheumatic disorders of mitral, aortic and tricuspid valves; S80.11XA Contusion of right lower leg, initial encounter; I25.10 Atherosclerotic heart disease of native coronary artery without angina pectoris; H40.9 Unspecified glaucoma; K57.90 Diverticulosis of intestine, part unspecified, without perforation or abscess without bleeding; K21.9 Gastro-esophageal reflux disease without esophagitis; G89.29 Other chronic pain; M54.40 Lumbago with sciatica, unspecified side; M19.90 Unspecified osteoarthritis, unspecified site; I83.90 Asymptomatic varicose veins of unspecified lower extremity; E66.9 Obesity, unspecified; Z68.37 Body mass index [BMI] 37.0-37.9, adult; Z79.82 Long term (current) use of aspirin; Z79.899 Other long term (current) drug therapy; Z87.891 Personal history of nicotine dependence; Z85.038 Personal history of other malignant neoplasm of large intestine; Z86.69 Personal history of other diseases of the nervous system and sense organs; Z90.49 Acquired absence of other specified parts of digestive tract; Z90.710 Acquired absence of both cervix and uterus; Z87.42 Personal history of other diseases of the female genital tract; Z96.652 Presence of left artificial knee joint; Z98.42 Cataract extraction status, left eye; Z98.41 Cataract extraction status, right eye; Z87.39 Personal history of other diseases of the musculoskeletal system and connective tissue; Z86.711 Personal history of pulmonary embolism; Z86.718 Personal history of other venous thrombosis and embolism; Z87.19 Personal history of other diseases of the digestive system; Z87.11 Personal history of peptic ulcer disease; Z86.010 Personal history of colon polyps; Z87.448 Personal history of other diseases of urinary system; Z98.890 Other specified postprocedural states; Z88.5 Allergy status to narcotic agent; Z88.4 Allergy status to anesthetic agent; Z88.0 Allergy status to penicillin; Z88.8 Allergy status to other drugs, medicaments and biological substances; Z91.041 Radiographic dye allergy status; W19.XXXA Unspecified fall, initial encounter; Z83.2 Family history of diseases of the blood and blood-forming organs and certain disorders involving the immune mechanism; Z80.7 Family history of other malignant neoplasms of lymphoid, hematopoietic and related tissues; Z82.49 Family history of ischemic heart disease and other diseases of the circulatory system
CPT/HCPCS: 36415; 71046; 71275; 80048; 80053; 80061; 82550; 82728; 83605; 83615; 83735; 84145; 84443; 84484; 85025; 85379; 85610; 85730; 86140; 87040; 87502; 93005; 93306; 93970; 94640; 94760; 96365; 96375; 99285

== ENCOUNTER → 2020-01-25 | Outpatient (CLI) | payer MEDICARE, BC | END | disposition home or self-care (01) | LOC: LABWHC1 15:02 | PROVIDERS: ATTEND Internal Medicine | DX: Z20.828 Contact with and (suspected) exposure to other viral communicable diseases (principal) | CPT/HCPCS: U0003; C9803 ==

== ENCOUNTER → 2020-02-22 | Outpatient (CLI) | payer MEDICARE, BC ==
--- NOTE | 2020-02-22 12:33 | XR ---
EXAMINATION TYPE: XR chest 2V DATE OF EXAM: 02/22/2020 COMPARISON: 01/11/2020 INDICATION: Irregular heart TECHNIQUE: Frontal and lateral views of the chest are obtained. FINDINGS: The heart size is normal. The pulmonary vasculature is normal. All right lower lobe infiltrate is present. Lungs are otherwise clear. IMPRESSION: 1. Clinical correlation recommended for right lower lobe atelectasis or pneumonia. Atypical pneumonia is not excluded.
== END | disposition home or self-care (01) ==
LOC: LABWHC1 09:57
PROVIDERS: ATTEND Internal Medicine Cardiovascular Disease
DX: R06.02 Shortness of breath (principal)
CPT/HCPCS: 36415; 71046; 83880

== ENCOUNTER → 2020-03-08 | Day surgery (SDC) | payer MEDICARE, BC ==
[2020-03-07 09:12] VITALS: BMI 36.6
[~2020-03-08] MED LIST changes: -ACETAMINOPHEN TAB 500 MG TAB PO ONE; -MELOXICAM 7.5 MG TAB PO ONE; -MORPHINE SULFATE 4 MG/ML SYRINGE IV PRN; -ONDANSETRON 4 MG/2 ML VIAL IVP ONE; +SODIUM CHLORIDE 0.9% 1,000 ML IV SCH; -TRANEXAMIC ACID 1,000 MG in SODIUM CHLORIDE 0.9% 50 ML IVPB ONE; -ceFAZolin IN SWFI 2 GM/20 ML SYRINGE IVP ONE
[2020-03-08 08:23] VITALS: BP 134/82; PULSE 93; RESP 16; TEMP 98.6
== END ==
LOC: CATHCVL 07:48
PROVIDERS: ATTEND Internal Medicine Cardiovascular Disease
DX: U07.1 COVID-19 (principal); Z53.8 Procedure and treatment not carried out for other reasons
CPT/HCPCS: 87635

== ENCOUNTER → 2020-05-15 | Outpatient (CLI) | payer MEDICARE, BC ==
--- NOTE | 2020-05-16 11:12 | MM ---
Reason for exam: screening (asymptomatic). Last mammogram was performed 1 year and 1 month ago. History: Patient is postmenopausal, has history of colon cancer at age 66, and history of other cancer. Benign right mammotome panel of the right breast, November 27, 2009. Took estrogen for 3 years. Took progesterone for 3 years. Physical Findings: A clinical breast exam by your physician is recommended on an annual basis and results should be correlated with mammographic findings. MG 3D Screening Mammo W/Cad Bilateral CC and MLO view(s) were taken. Prior study comparison: April 27, 2019, bilateral MG 3d screening mammo w/cad. January 16, 2017, bilateral MG 3d screening mammo w/cad. There are scattered fibroglandular densities. Previous mammotome biopsy in the right breast. There is chronic nodularity in the right breast. A solitary right upper outer quadrant calcification is new. Otherwise, no significant new findings when compared with previous films. ASSESSMENT: Benign, BI-RAD 2 RECOMMENDATION: Routine screening mammogram of both breasts in 1 year.
== END ==
LOC: RADMAMWWP 10:38
PROVIDERS: ATTEND Internal Medicine
DX: Z12.31 Encounter for screening mammogram for malignant neoplasm of breast (principal); Z78.0 Asymptomatic menopausal state; Z85.038 Personal history of other malignant neoplasm of large intestine
CPT/HCPCS: 77063; 77067

== ENCOUNTER 2020-06-05 12:49 | Observation (INO) | payer MEDICARE, BC ==
--- NOTE | 2020-06-05 13:18 | ED ---
General Adult HPI - General Chief complaint: Chest Pain Stated complaint: chest pain, SOB Time Seen by Provider: 06/05/20 12:50 Source: patient, RN notes reviewed, old records reviewed Mode of arrival: ambulatory Limitations: no limitations - History of Present Illness Initial comments: This is a 74-year-old female with past medical history significant for COPD and atrial fibrillation. Patient comes in today because she is short of breath and having some chest pain anteriorly especially deep breathing. Patient denies any palpitation. Patient denies any recent fever chills or cough. Patient denies any increased swelling to her legs. Patient states she can take Lasix today because she didn't want to be going to the bathroom when she went to the doctor's office. Patient denies any calf pain. Patient denies abdominal pain patient denies nausea vomiting diarrhea per patient denies lightheadedness or dizziness. - Related Data Home Medications Medication Instructions Recorded Confirmed Pantoprazole Sodium [Protonix] 40 mg PO DAILY 07/23/13 06/05/20 Brimonidine Tartrate [Alphagan P 1 drop BOTH EYES BID 05/05/14 06/05/20 0.2% Ophth Soln] Multivitamin/Iron/Folic Acid 1 tab PO DAILY 05/05/14 06/05/20 [Centrum Complete Multivit Tab] Albuterol Inhaler [Ventolin Hfa 2 puff INHALATION RT-Q4H PRN 08/27/19 06/05/20 Inhaler] Furosemide [Lasix] 40 mg PO DAILY 03/07/20 06/05/20 Potassium Chloride [Klor-Con 20] 20 meq PO DAILY 03/07/20 06/05/20 Ascorbic Acid [Vitamin C] 500 mg PO DAILY 06/05/20 06/05/20 Atorvastatin Calcium [Lipitor] 40 mg PO DAILY 06/05/20 06/05/20 Cholecalciferol [Vitamin D3 (25 25 mcg PO DAILY 06/05/20 06/05/20 Mcg = 1000 Iu)] Metoprolol Tartrate [Lopressor] 100 mg PO BID 06/05/20 06/05/20 Sertraline [Zoloft] 100 mg PO DAILY 06/05/20 06/05/20 Previous Rx's Medication Instructions Recorded Budesonide-Formot 160-4.5 Mcg 2 puff INHALATION RT-BID #1 puff 01/16/20 [Symbicort 160-4.5 Mcg Inhaler] Rivaroxaban [Xarelto] 20 mg PO W/SUPPER #30 tab 01/16/20 Allergies Allergy/AdvReac Type Severity Reaction Status Date / Time amoxicillin trihydrate Allergy Rash/Hives Verified 06/05/20 13:50 [From Augmentin] hydromorphone HCl Allergy Rash/Hives Verified 06/05/20 13:50 [From Dilaudid] Penicillins Allergy Rash/Hives Verified 06/05/20 13:50 potassium clavulanate Allergy Rash/Hives Verified 06/05/20 13:50 [From Augmentin] tramadol Allergy Unknown Verified 06/05/20 13:50 Iodinated Contrast Media AdvReac Red face Verified 06/05/20 13:50 [Iodinated Contrast Media - and felt IV Dye] like it was on fire. [id number]-[id number]-Vhk Reductase AdvReac LEG Verified 06/05/20 13:50 Inhibitor SWELLING AND PAIN Review of Systems ROS Statement: Those systems with pertinent positive or pertinent negative responses have been documented in the HPI. ROS Other: All systems not noted in ROS Statement are negative. 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 Past Anesthesia/Blood Transfusion Reactions: Motion Sickness, Postoperative Nausea & Vomiting (PONV) Additional Past Anesthesia/Blood Transfusion Reaction / Comment(s): Pt has claustrophobia, pt has never heard term malignant hyperthermia & no family hx. of that she knows of Past Psychological History: No Psychological Hx Reported Smoking Status: Former smoker Past Alcohol Use History: None Reported Past Drug Use History: None Reported - Past Family History Sister(s) Family Medical History: Pulmonary Embolus Father Family Medical History: Myocardial Infarction (NV) Additional Family Medical History / Comment(s): Father had his first NV at the age of 61 yrs. Mother Family Medical History: Cancer Additional Family Medical History / Comment(s): LYMPHOMA General Exam - General Exam Comments Initial Comments: GENERAL: Patient is well-developed and well-nourished. Patient is nontoxic and well- hydrated and is in mild distress. ENT: Neck is soft and supple. No significant lymphadenopathy is noted. Oropharynx is clear. Moist mucous membranes. Neck has full range of motion without eliciting any pain. EYES: The sclera were anicteric and conjunctiva were pink and moist. Extraocular movements were intact and pupils were equal round and reactive to light. Eyelids were unremarkable. PULMONARY: Unlabored respirations. Good breath sounds bilaterally. No audible rales rhonchi or wheezing was noted. CARDIOVASCULAR: There is a regular rate and rhythm without any murmurs gallops or rubs. ABDOMEN: Soft and nontender with normal bowel sounds. SKIN: Skin is clear with no lesions or rashes and otherwise unremarkable. NEUROLOGIC: Patient is alert and oriented x3. Cranial nerves II through XII are grossly intact. Motor and sensory are also intact. Normal speech, volume and content. Symmetrical smile. MUSCULOSKELETAL: Normal extremities with adequate strength and full range of motion. LYMPHATICS: No significant lymphadenopathy is noted PSYCHIATRIC: Normal psychiatric evaluation. Limitations: no limitations Course Vital Signs 06/05/20 06/05/20 06/05/20 12:52 13:08 14:49 Temperature 98.2 F Pulse Rate 93 80 63 Respiratory 20 18 18 Rate Blood Pressure 138/87 129/95 126/82 O2 Sat by Pulse 94 L 93 L 97 Oximetry Medical Decision Making - Medical Decision Making EKG shows atrial fibrillation at 86 bpm QRS is 90 QT interval 396 QTC is 473. Patient's EKG shows no ST segment elevation or depression Chest x-ray showed questionable atelectasis versus infiltrate however the patient had no cough no fever no white count I believe it was atelectasis. I spoke with Dr. Grace and he agreed to admit the patient admitted the patient wrote admitting orders I consult cardiology. - Lab Data Result diagrams: 06/05/20 13:17 06/05/20 13:17 Lab Results 06/05/20 06/05/20 06/05/20 Range/Units 13:17 13:17 13:17 WBC 6.3 (3.8-10.6) k/uL RBC 4.35 (3.80-5.40) m/uL Hgb 13.3 (11.4-16.0) gm/dL Hct 40.2 (34.0-46.0) % MCV 92.4 (80.0-100.0) fL MCH 30.6 (25.0-35.0) pg MCHC 33.1 (31.0-37.0) g/dL RDW 13.8 (11.5-15.5) % Plt Count 145 L (150-450) k/uL MPV 7.6 Neutrophils % 76 % Lymphocytes % 14 % Monocytes % 7 % Eosinophils % 1 % Basophils % 0 % Neutrophils # 4.8 (1.3-7.7) k/uL Lymphocytes # 0.9 L (1.0-4.8) k/uL Monocytes # 0.5 (0-1.0) k/uL Eosinophils # 0.1 (0-0.7) k/uL Basophils # 0.0 (0-0.2) k/uL PT 11.7 (9.0-12.0) sec INR 1.1 (<1.2) APTT 27.0 (22.0-30.0) sec D-Dimer 0.40 (<0.60) mg/L FEU Sodium 139 (137-145) mmol/L Potassium 3.5 (3.5-5.1) mmol/L Chloride 103 (98-107) mmol/L Carbon Dioxide 31 H (22-30) mmol/L Anion Gap 5 mmol/L BUN 16 (7-17) mg/dL Creatinine 0.60 (0.52-1.04) mg/dL Est GFR (CKD-EPI)AfAm >90 (>60 ml/min/1.73 sqM) Est GFR (CKD-EPI)NonAf >90 (>60 ml/min/1.73 sqM) Glucose 109 H (74-99) mg/dL Calcium 9.3 (8.4-10.2) mg/dL Magnesium 1.7 (1.6-2.3) mg/dL Total Bilirubin 0.9 (0.2-1.3) mg/dL AST 34 (14-36) U/L ALT 27 (4-34) U/L Alkaline Phosphatase 63 (38-126) U/L Troponin I (0.000-0.034) ng/mL NT-Pro-B Natriuret Pep pg/mL Total Protein 6.4 (6.3-8.2) g/dL Albumin 3.8 (3.5-5.0) g/dL 06/05/20 06/05/20 Range/Units 13:17 13:17 WBC (3.8-10.6) k/uL RBC (3.80-5.40) m/uL Hgb (11.4-16.0) gm/dL Hct (34.0-46.0) % MCV (80.0-100.0) fL MCH (25.0-35.0) pg MCHC (31.0-37.0) g/dL RDW (11.5-15.5) % Plt Count (150-450) k/uL MPV Neutrophils % % Lymphocytes % % Monocytes % % Eosinophils % % Basophils % % Neutrophils # (1.3-7.7) k/uL Lymphocytes # (1.0-4.8) k/uL Monocytes # (0-1.0) k/uL Eosinophils # (0-0.7) k/uL Basophils # (0-0.2) k/uL PT (9.0-12.0) sec INR (<1.2) APTT (22.0-30.0) sec D-Dimer (<0.60) mg/L FEU Sodium (137-145) mmol/L Potassium (3.5-5.1) mmol/L Chloride (98-107) mmol/L Carbon Dioxide (22-30) mmol/L Anion Gap mmol/L BUN (7-17) mg/dL Creatinine (0.52-1.04) mg/dL Est GFR (CKD-EPI)AfAm (>60 ml/min/1.73 sqM) Est GFR (CKD-EPI)NonAf (>60 ml/min/1.73 sqM) Glucose (74-99) mg/dL Calcium (8.4-10.2) mg/dL Magnesium (1.6-2.3) mg/dL Total Bilirubin (0.2-1.3) mg/dL AST (14-36) U/L ALT (4-34) U/L Alkaline Phosphatase (38-126) U/L Troponin I <0.012 (0.000-0.034) ng/mL NT-Pro-B Natriuret Pep 2830 pg/mL Total Protein (6.3-8.2) g/dL Albumin (3.5-5.0) g/dL Disposition Clinical Impression: Unstable angina pectoris Disposition: ADMITTED IP TO THIS HOSP Referrals: Sheila Grace MD [Primary Care Provider] - 1-2 days Time of Disposition: 14:59
--- NOTE | 2020-06-05 13:38 | XR ---
EXAMINATION TYPE: XR chest 2V DATE OF EXAM: 06/05/2020 COMPARISON: 02/22/2020 HISTORY: Shortness of breath TECHNIQUE: Frontal and lateral views of the chest are obtained. FINDINGS: Scattered senescent parenchymal changes noted. Hyperinflation compatible with COPD. Patchy basilar density noted right lower lobe. Strandy density left lower lobe. Developing pneumonia difficult to exclude. Correlate clinically and consider progress studies. Heart size is stable. Mediastinal structures are stable and grossly unremarkable. No evidence for hilar prominence. Degenerative changes dorsal spine. IMPRESSION: 1. Patchy basilar density noted right lower lobe. Strandy density left lower lobe. Developing pneumon ia difficult to exclude. Correlate clinically and consider progress studies.
[2020-06-05 14:10] LABS: ALT 27 U/L (4-34); AST 34 U/L (14-36); African American GFR (CKD) >90 (>60 ml/min/1.73 sqM); Albumin 3.8 g/dL (3.5-5.0); Alkaline Phosphatase 63 U/L (38-126); Anion Gap 5 mmol/L; Blood Urea Nitrogen 16 mg/dL (7-17); Calcium 9.3 mg/dL (8.4-10.2); Carbon Dioxide 31 mmol/L (22-30); Chloride 103 mmol/L (98-107); Glucose 109 mg/dL (74-99); Magnesium 1.7 mg/dL (1.6-2.3); Non-African American GFR(CKD) >90 (>60 ml/min/1.73 sqM); Potassium 3.5 mmol/L (3.5-5.1); Sodium 139 mmol/L (137-145); Total Bilirubin 0.9 mg/dL (0.2-1.3); Total Protein 6.4 g/dL (6.3-8.2)
[2020-06-05 14:11] LABS: Basophils % (A) 0 %; Eosinophils # (A) 0.1 k/uL (0-0.7); Eosinophils % (A) 1 %; HCT 40.2 % (34.0-46.0); HGB 13.3 gm/dL (11.4-16.0); Lymphocytes # (A) 0.9 k/uL (1.0-4.8); Lymphocytes % (A) 14 %; MCH 30.6 pg (25.0-35.0); MCHC 33.1 g/dL (31.0-37.0); MCV 92.4 fL (80.0-100.0); Mean Platelet Volume 7.6; Monocytes # (A) 0.5 k/uL (0-1.0); Monocytes % (A) 7 %; Neutrophils # (A) 4.8 k/uL (1.3-7.7); Neutrophils % (A) 76 %; Platelet Count 145 k/uL (150-450); RBC 4.35 m/uL (3.80-5.40); RDW 13.8 % (11.5-15.5); WBC 6.3 k/uL (3.8-10.6)
[2020-06-05 14:32] LABS: D-Dimer 0.4 mg/L FEU (<0.60); INR 1.1 (<1.2); Prothrombin Time 11.7 sec (9.0-12.0)
[2020-06-05] MEDS ORDERED: HEPARIN SODIUM,PORCINE 5,000 UNIT/ML 1 ML VIAL IV ONE (14:51)
[2020-06-05] MEDS ORDERED: HEPARIN SOD,PORK IN 0.45% NACL 25,000 UNIT in 0.45% NACL 1 250ML.BAG IV SCH (15:00)
[2020-06-05] MEDS ORDERED: NITROGLYCERIN SL TABS 0.4 MG TAB SUBLINGUAL PRN (15:07)
[2020-06-05] MEDS ORDERED: ALBUTEROL NEBULIZED 2.5 MG/3 ML INHALATION PRN (18:56)
[2020-06-05] MEDS: NITROGLYCERIN OINT 1 INCH/GM PACKET TOPICAL SCH (19:57)
[2020-06-05] MEDS: SYMBICORT 160-4.5 MCG INHALER INHALATION SCH (20:16)
[2020-06-05] MEDS: METOPROLOL TARTRATE 50 MG TAB PO SCH (20:27)
[2020-06-05] MEDS: RIVAROXABAN 20 MG TAB PO SCH (20:27)
[2020-06-05] MEDS: BRIMONIDINE TARTRATE 0.2% DROPS 5 ML BTL BOTH EYES SCH (20:28)
[2020-06-06] MEDS: NITROGLYCERIN OINT 1 INCH/GM PACKET TOPICAL SCH ×4 (00:20→18:02)
[2020-06-06] MEDS: SYMBICORT 160-4.5 MCG INHALER INHALATION SCH ×2 (08:03→19:50)
--- NOTE | 2020-06-06 08:04 | P.HPIM ---
History of Present Illness H&P Date: 06/05/20 Chief Complaint: chest pain HISTORY OF PRESENT ILLNESS This is a 74-year-old female patient of [facility] and Dr. Saul Bernardo with past medical history of hypertension, glaucoma, DVT, colon cancer status post partial colectomy, gastroesophageal reflux disease, mild intermittent asthma. This was last hospitalized in January 2024: 19 pneumonia and at that time was seen by cardiology for AV chris reentry tachycardia converted to sinus rhythm subsequently went into atrial fibrillation with RVR and was started on Xarelto time for anticoagulation. Patient presented to [facility] center due to shortness of breath and chest pain especially with deep breathing. No palpitations. No fever or chills. No cough. No lower extremity edema. No abdominal pain, nausea, vomiting, diarrhea. Patient was found to be afebrile, heart rate in the 80s and 90s, blood pressure 138/87 and pulse ox 94% on room air. EKG was atrial fibrillation at rate of 86 beats per minutes. Chest x-ray reveals patchy basilar density right lower lobe. Standing density left lower lobe. Developing pneumonia difficult to exclude. WBC 6.3, hemoglobin 13.3, platelet count 145. Sodium 139, potassium 3.5, chloride 103, CO2 31, BUN 16, creatinine 0.6, blood sugar 109. Liver function tests were normal. Troponin negative. ProBNP 2830. REVIEW OF SYSTEMS Constitutional: No documented fever, no chills, no night sweats. No weight change. No weakness, fatigue or lethargy. No daytime sleepiness. EENT: No headache. No blurred vision or double vision, no loss of vision. No loss of Hearing, no ringing in the ears, no dizziness. No nasal drainage or congestion. No epistaxis. No sore throat. Lungs: Reports shortness of breath, no cough, no sputum production. No wheezing. Reports dyspnea with activity. Cardiovascular: Reports chest pain, no lower extremity edema. No palpitations. No paroxysmal nocturnal dyspnea. No orthopnea. No lightheadedness or dizzin ess. No syncopal episodes. Abdominal: Reports abdominal pain. No nausea, vomiting. No diarrhea. No constipation. No bloody or tarry stools reports loss of appetite. Genitourinary: No dysuria, increased frequency, urgency. No urinary retention. Musculoskeletal: No myalgias. No muscle weakness, no gait dysfunction, no frequent falls. No back pain. No neck pain. Integumentary: No wounds, no lesions. No rash or pruritus. No unusual bruising. No change in hair or nails. Neurologic: No aphasia. No facial droop. No change in mentation. No head injury. No headache. No paralysis. No paresthesia. Psychiatric: No depression. No anxiety. No mood swings. Endocrine: No abnormal blood sugars. No weight change. SOCIAL HISTORY Patient was a smoker of one pack per day for 25 years and quit in 1992. She denies any marijuana use, alcohol use or illicit drug use. She resides in a senior apartment. FAMILY HISTORY Family history his first myocardial infarction at age 61. Mother from lymphoma. PHYSICAL EXAMINATION General: This is a 74-year-old female. She is was seen on the ER stretcher and appears to be comfortable. HEENT: Head is atraumatic, normocephalic, pupils were equal round reactive to light and recommendation, extraocular muscle movement were intact, sclera nonicteric, conjunctivae were pale, mucous membranes of the mouth are somewhat dry. Neck: Supple, no JVP, normal carotid upstroke bilaterally, no lymphadenopathy. Chest: Decreased breath sounds at the bases, few rhonchi, no extremity wheezes, no chest wall tenderness, no intercostal retractions. Heart: First heart sound is normal, second heart sounds normal, irregularly irregular, systolic murmur Abdomen: Soft, nontender, nondistended, positive bowel sounds. Extremities: There is no edema no calf tenderness DP +2 bilaterally. Neurologic examination: Patient is awake alert and oriented 3, cranial nerves II-12 appear grossly intact, muscle power were 5 out of 5 in upper extremities and 5 out of 5 in bilateral lower extremities, deep tendon reflexes normal bilaterally. ASSESSMENT AND PLAN 1. Chest pain, atypical. Troponins are negative and 3 draws. Cardiology consult. Continue aspirin, Lipitor 40 mg daily, Lopressor 100 mg twice daily. 2. Paroxysmal atrial fibrillation. Continue Lopressor 100 mg twice daily and Xarelto 20 mg with supper. 3. Hypertension. Continue Lasix 40 mg daily, Lopressor. 4. Mild intermittent asthma. Continue albuterol nebulizer every 4 hours as needed, Symbicort 1604 0.5 g 2 puffs twice daily. 5. Glaucoma. Continue eyedrops. 6. Recurrent depression. Continue Zoloft 100 mg daily. CODE STATUS: Full code Patient has an observation status. 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 Past Anesthesia/Blood Transfusion Reactions: Motion Sickness, Postoperative Nausea & Vomiting (PONV) Additional Past Anesthesia/Blood Transfusion Reaction / Comment(s): Pt has claustrophobia, pt has never heard term malignant hyperthermia & no family hx. of that she knows of Past Psychological History: No Psychological Hx Reported Smoking Status: Former smoker Past Alcohol Use History: None Reported Past Drug Use History: None Reported - Past Family History Sister(s) Family Medical History: Pulmonary Embolus Father Family Medical History: Myocardial Infarction (DC) Additional Family Medical History / Comment(s): Father had his first DC at the age of 61 yrs. Mother Family Medical History: Cancer Additional Family Medical History / Comment(s): LYMPHOMA Medications and Allergies Home Medications Medication Instructions Recorded Confirmed Type Pantoprazole Sodium [Protonix] 40 mg PO DAILY 07/23/13 06/05/20 History Brimonidine Tartrate [Alphagan P 1 drop BOTH EYES BID 05/05/14 06/05/20 History 0.2% Ophth Soln] Multivitamin/Iron/Folic Acid 1 tab PO DAILY 05/05/14 06/05/20 History [Centrum Complete Multivit Tab] Albuterol Inhaler [Ventolin Hfa 2 puff INHALATION RT-Q4H PRN 08/27/19 06/05/20 History Inhaler] Budesonide-Formot 160-4.5 Mcg 2 puff INHALATION RT-BID #1 puff 01/16/20 06/05/20 Rx [Symbicort 160-4.5 Mcg Inhaler] Rivaroxaban [Xarelto] 20 mg PO W/SUPPER #30 tab 01/16/20 06/05/20 Rx Furosemide [Lasix] 40 mg PO DAILY 03/07/20 06/05/20 History Potassium Chloride [Klor-Con 20] 20 meq PO DAILY 03/07/20 06/05/20 History Ascorbic Acid [Vitamin C] 500 mg PO DAILY 06/05/20 06/05/20 History Atorvastatin Calcium [Lipitor] 40 mg PO DAILY 06/05/20 06/05/20 History Cholecalciferol [Vitamin D3 (25 25 mcg PO DAILY 06/05/20 06/05/20 History Mcg = 1000 Iu)] Metoprolol Tartrate [Lopressor] 100 mg PO BID 06/05/20 06/05/20 History Sertraline [Zoloft] 100 mg PO DAILY 06/05/20 06/05/20 History Allergies Allergy/AdvReac Type Severity Reaction Status Date / Time amoxicillin trihydrate Allergy Rash/Hives Verified 06/05/20 13:50 [From Augmentin] hydromorphone HCl Allergy Rash/Hives Verified 06/05/20 13:50 [From Dilaudid] Penicillins Allergy Rash/Hives Verified 06/05/20 13:50 potassium clavulanate Allergy Rash/Hives Verified 06/05/20 13:50 [From Augmentin] tramadol Allergy Unknown Verified 06/05/20 13:50 Iodinated Contrast Media AdvReac Red face Verified 06/05/20 13:50 [Iodinated Contrast Media - and felt IV Dye] like it was on fire. [id number]-Hzi Reductase AdvReac LEG Verified 06/05/20 13:50 Inhibitor SWELLING AND PAIN Physical Exam Vitals: Vital Signs Temp Pulse Resp BP Pulse Ox 06/05/20 18:30 65 18 144/97 98 06/05/20 17:00 62 18 136/93 06/05/20 16:20 65 18 147/91 06/05/20 15:49 18 06/05/20 14:49 63 18 126/82 97 06/05/20 13:08 80 18 129/95 93 L 06/05/20 12:52 98.2 F 93 20 138/87 94 L Intake and Output 06/05/20 06/05/20 06/05/20 06:59 14:59 22:59 Other: Weight 94.801 kg Results CBC & Chem 7: 06/05/20 13:17 06/05/20 13:17 Labs: Abnormal Lab Results - Last 24 Hours (Table) 06/05/20 06/05/20 Range/Units 13:17 13:17 Plt Count 145 L (150-450) k/uL Lymphocytes # 0.9 L (1.0-4.8) k/uL Carbon Dioxide 31 H (22-30) mmol/L Glucose 109 H (74-99) mg/dL
[2020-06-06 08:35] LABS: Basophils # (A) 0.01 X 10*3/uL (0.00-0.10); Basophils % (A) 0.2 %; Eosinophils % (A) 1.9 %; HCT 39.5 % (37.2-46.3); Lymphocytes # (A) 0.91 X 10*3/uL (0.90-5.00); Lymphocytes % (A) 17.6 %; MCH 29.2 pg (27.0-32.0); MCHC 30.4 g/dL (32.0-37.0); MCV 96.1 fL (80.0-97.0); Mean Platelet Volume 10.4 fL (9.5-12.2); Monocytes # (A) 0.56 X 10*3/uL (0.20-1.00); Monocytes % (A) 10.9 %; Neutrophils # (A) 3.57 X 10*3/uL (1.80-7.70); Neutrophils % (A) 69.2 %; Platelet Count 142 X 10*3/uL (140-440); RBC 4.11 X 10*6/uL (4.10-5.20); RDW 13.8 % (11.5-14.5); WBC 5.16 X 10*3/uL (4.50-10.00)
[2020-06-06 09:21] LABS: African American GFR (CKD) 99.6 (60.0-200.0); Albumin/Globulin Ratio 2.5 (1.60-3.17); BUN/Creat Ratio 22.86 Ratio (12.00-20.00); Calcium 8.8 mg/dL (8.7-10.3); Chol/HDL Ratio 3.38; Globulin 1.6 g/dL (1.6-3.3); Potassium 4.1 mmol/L (3.5-5.5); Total Protein 5.6 g/dL (6.2-8.2)
[2020-06-06] MEDS: ASPIRIN 325 MG TAB PO SCH (09:40)
[2020-06-06] MEDS: ASCORBIC ACID 500 MG TAB PO SCH (09:40)
[2020-06-06] MEDS: POTASSIUM CHLORIDE ER 20 MEQ TAB.ER PO SCH (09:40)
[2020-06-06] MEDS: ATORVASTATIN 40 MG TAB PO SCH (09:40)
[2020-06-06] MEDS: MULTIVITAMINS, THERA 1 EACH TAB PO SCH (09:41)
[2020-06-06] MEDS: CHOLECALCIFEROL 25 MCG (1000 IU) TABLET PO SCH (09:41)
[2020-06-06] MEDS: PANTOPRAZOLE 40 MG TABLET PO SCH (09:41)
[2020-06-06] MEDS: METOPROLOL TARTRATE 50 MG TAB PO SCH ×2 (09:41→19:46)
[2020-06-06] MEDS: FUROSEMIDE 40 MG TAB PO SCH (09:41)
[2020-06-06] MEDS: SERTRALINE 100 MG TAB PO SCH (09:41)
[2020-06-06] MEDS: BRIMONIDINE TARTRATE 0.2% DROPS 5 ML BTL BOTH EYES SCH ×2 (09:41→19:48)
--- NOTE | 2020-06-06 11:13 | P.CRDCN ---
History of Present Illness History of present illness: HISTORY OF PRESENTING ILLNESS This is a pleasant 74-year-old female past medical history significant for persistent atrial fibrillation (on xarelto), supraventricular tachycardia, h ypertension, history of PE, COPD, and obstructive sleep apnea. She follows in the office with Dr. Bernardo. We have been asked to see in consultation for chest pain. Patient states that Friday morning she started to have worsening chest pain in the center of her chest that radiated up to her neck and her abdomen. She said it lasts about 13 hours and she took 4, 81 mg aspirins at home which helped with her pain. She also notices a cough for some blood-tinged sputum. She was slightly nauseous. On Friday morning she had similar chest pain as on Friday morning and decided to present to the emergency department. She also has some shortness of breath, but this is unchanged. She was covid-19 positive 3 months ago. . She denies palpitations, lightheadedness, dizziness syncope, LE edema, symptoms of orthopnea or PND. EKGs reveal atrial fibrillation, rate is controlled, HR 70-80s. Chest xray re vealed patchy basilar density in the right lower lobe and strandy density in the left lower lobe- developing pneumonia difficult to exclude. Most recent stress test (Lexiscan) was in 02/2020 normal myocardial perfusion and function with a fixed inferior wall defect secondary to soft tissue attenuat ion. Most recent echocardiogram 02/2020 showed an EF greater than 55%, mild aortic stenosis with mean gradient 9.33mmHg , mild MR, mild TR. Patient is seen and examined at bedside, in no acute distress. Patient is currently asymptomatic. Denies any chest pain or shortness of breath. Laboratory data reviewed, troponins negative 3, BNP 2830, potassium 4.1, magnesium 1.7, sodium 141, Covid 19 negative Current daily cardiac medications include Xarelto 20 mg nightly, potassium chloride 20meq daily, metoprolol titrate 100 mg twice a day, Lasix 40 mg daily, atorvastatin 40 mg daily, aspirin 81 mg daily. REVIEW OF SYSTEMS At the time of my exam: CONSTITUTIONAL: Denies fever or chills. CARDIOVASCULAR: + chest pain and +shortness of breath, Denies orthopnea, PND or palpitations. RESPIRATORY: +cough. +blood tinged sputum GASTROINTESTINAL: Denies abdominal pain, diarrhea, constipation, nausea or vomiting. MUSCULOSKELETAL: Denies myalgias. NEUROLOGIC: Denies numbness, tingling or weakness. ENDOCRINE: Denies fatigue, weight change, polydipsia or polyurina. GENITOURINARY: Denies burning, hematuria or urgency with micturation. HEMATOLOGIC: Denies history of anemia or bleeding. PHYSICAL EXAMINATION Blood pressure 168/92 heart rate 95 afebrile and maintaining oxygen saturation on 2 L nasal cannula. CONSTITUTIONAL: Calm, No apparent distress. HEENT: Head is normocephalic. Pupils are equal, round. Sclerae anicteric. Mucous membranes of the mouth are moist. No JVD. No carotid bruit. CHEST EXAMINATION: Lungs wheezing to Left and Right lower bases. Chest wall tenderness with palpation and deep breathing HEART EXAMINATION: Irregular rate and rhythm. S1, S2 heard. No murmurs, gallops or rub. ABDOMEN: Soft, nontender. Positive bowel sounds. EXTREMITIES: 2+ peripheral pulses, no lower extremity edema and no calf tenderness. SKIN: intact NEUROLOGIC EXAMINATION: Patient is awake, alert and oriented x3. ASSESSMENT Chest pain- atypical, acute coronary event ruled out. Chest pain is reproducible on exam. troponin negative x 3. COPD Persistent atrial fibrillation- on xarelto History of Supraventricluar tachycardia, AV chris re-entry tachycardia Valuvular heart disease Hypertension PLAN -Will obtain 2D echo -If no acute findings, ok to be discharged from a cardiology perspective. -With patient's shortness of breath, chest tenderness with palpation, chest xray findings, cough and blood tinged sputum would recommend pulmonary consult for evaluation Nurse Practitioner note has been reviewed, I agree with a documented findings and plan of care. Patient was seen and examined. 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 Past Anesthesia/Blood Transfusion Reactions: Motion Sickness, Postoperative Nausea & Vomiting (PONV) Additional Past Anesthesia/Blood Transfusion Reaction / Comment(s): Pt has claustrophobia, pt has never heard term malignant hyperthermia & no family hx. of that she knows of Past Psychological History: No Psychological Hx Reported Additional Psychological History / Comment(s): Pt resides alone. She drives. Smoking Status: Former smoker Past Alcohol Use History: None Reported Additional Past Alcohol Use History / Comment(s): Patient was a smoker of one pack per day for 25 years and quit in 1992. She denies any marijuana use, alcohol use or illicit drug use. She resides in a senior apartment. Past Drug Use History: None Reported - Past Family History Sister(s) Family Medical History: Pulmonary Embolus Father Family Medical History: Myocardial Infarction (MT) Additional Family Medical History / Comment(s): Father had his first MT at the age of 61 yrs. Mother Family Medical History: Cancer Additional Family Medical History / Comment(s): LYMPHOMA Medications and Allergies Home Medications Medication Instructions Recorded Confirmed Type Pantoprazole Sodium [Protonix] 40 mg PO DAILY 07/23/13 06/05/20 History Brimonidine Tartrate [Alphagan P 1 drop BOTH EYES BID 05/05/14 06/05/20 History 0.2% Ophth Soln] Multivitamin/Iron/Folic Acid 1 tab PO DAILY 05/05/14 06/05/20 History [Centrum Complete Multivit Tab] Albuterol Inhaler [Ventolin Hfa 2 puff INHALATION RT-Q4H PRN 08/27/19 06/05/20 History Inhaler] Budesonide-Formot 160-4.5 Mcg 2 puff INHALATION RT-BID #1 puff 01/16/20 06/05/20 Rx [Symbicort 160-4.5 Mcg Inhaler] Rivaroxaban [Xarelto] 20 mg PO W/SUPPER #30 tab 01/16/20 06/05/20 Rx Furosemide [Lasix] 40 mg PO DAILY 03/07/20 06/05/20 History Potassium Chloride [Klor-Con 20] 20 meq PO DAILY 03/07/20 06/05/20 History Ascorbic Acid [Vitamin C] 500 mg PO DAILY 06/05/20 06/05/20 History Atorvastatin Calcium [Lipitor] 40 mg PO DAILY 06/05/20 06/05/20 History Cholecalciferol [Vitamin D3 (25 25 mcg PO DAILY 06/05/20 06/05/20 History Mcg = 1000 Iu)] Metoprolol Tartrate [Lopressor] 100 mg PO BID 06/05/20 06/05/20 History Sertraline [Zoloft] 100 mg PO DAILY 06/05/20 06/05/20 History Allergies Allergy/AdvReac Type Severity Reaction Status Date / Time amoxicillin trihydrate Allergy Rash/Hives Verified 06/05/20 13:50 [From Augmentin] hydromorphone HCl Allergy Rash/Hives Verified 06/05/20 13:50 [From Dilaudid] Penicillins Allergy Rash/Hives Verified 06/05/20 13:50 potassium clavulanate Allergy Rash/Hives Verified 06/05/20 13:50 [From Augmentin] tramadol Allergy Unknown Verified 06/05/20 13:50 Iodinated Contrast Media AdvReac Red face Verified 06/05/20 13:50 [Iodinated Contrast Media - and felt IV Dye] like it was on fire. [id number] Reductase AdvReac LEG Verified 06/05/20 13:50 Inhibitor SWELLING AND PAIN Physical Exam Vitals: Vital Signs Temp Pulse Pulse Pulse Resp BP BP 06/06/20 02:03 98.0 F 68 18 134/88 06/05/20 20:16 06/05/20 20:00 20 06/05/20 19:44 98.4 F 72 20 155/84 06/05/20 19:31 98.2 F 65 18 144/97 06/05/20 19:25 98.4 F 72 20 155/84 06/05/20 18:30 65 18 144/97 06/05/20 17:00 62 18 136/93 06/05/20 16:20 65 18 147/91 06/05/20 15:49 18 06/05/20 14:49 63 18 126/82 06/05/20 13:08 80 18 129/95 06/05/20 12:52 98.2 F 93 20 138/87 Pulse Ox 06/06/20 02:03 95 06/05/20 20:16 95 06/05/20 20:00 06/05/20 19:44 98 06/05/20 19:31 98 06/05/20 19:25 98 06/05/20 18:30 98 06/05/20 17:00 06/05/20 16:20 06/05/20 15:49 06/05/20 14:49 97 06/05/20 13:08 93 L 06/05/20 12:52 94 L Intake and Output 06/05/20 06/06/20 06/06/20 22:59 06:59 14:59 Other: Voiding Method Toilet Toilet # Voids 1 1 Weight 94.801 kg Results 06/06/20 04:42 06/06/20 04:42 Cardiac Enzymes 06/05/20 06/05/20 06/05/20 Range/Units 13:17 13:17 17:59 AST 34 (14-36) U/L Troponin I <0.012 <0.012 (0.000-0.034) ng/mL 06/05/20 Range/Units 20:43 AST (14-36) U/L Troponin I <0.012 (0.000-0.034) ng/mL Coagulation 06/05/20 Range/Units 13:17 PT 11.7 (9.0-12.0) sec APTT 27.0 (22.0-30.0) sec CBC 06/05/20 Range/Units 13:17 WBC 6.3 (3.8-10.6) k/uL RBC 4.35 (3.80-5.40) m/uL Hgb 13.3 (11.4-16.0) gm/dL Hct 40.2 (34.0-46.0) % Plt Count 145 L (150-450) k/uL Comprehensive Metabolic Panel 06/05/20 Range/Units 13:17 Sodium 139 (137-145) mmol/L Potassium 3.5 (3.5-5.1) mmol/L Chloride 103 (98-107) mmol/L Carbon Dioxide 31 H (22-30) mmol/L BUN 16 (7-17) mg/dL Creatinine 0.60 (0.52-1.04) mg/dL Glucose 109 H (74-99) mg/dL Calcium 9.3 (8.4-10.2) mg/dL AST 34 (14-36) U/L ALT 27 (4-34) U/L Alkaline Phosphatase 63 (38-126) U/L Total Protein 6.4 (6.3-8.2) g/dL Albumin 3.8 (3.5-5.0) g/dL Current Medications Generic Name Dose Route Start Last Admin Trade Name Freq PRN Reason Stop Dose Admin Albuterol Sulfate 2.5 mg 06/05/20 18:56 Albuterol Nebulized 2.5 Mg/3 Ml INHALATION RT-Q4H PRN Shortness Of Breath Ascorbic Acid 500 mg 06/06/20 09:00 Ascorbic Acid 500 Mg Tab PO DAILY [facility] Aspirin 325 mg 06/06/20 09:00 Aspirin 325 Mg Tab PO DAILY [facility] Atorvastatin Calcium 40 mg 06/06/20 09:00 Atorvastatin 40 Mg Tab PO DAILY [facility] Brimonidine Tartrate 1 drops 06/05/20 21:00 06/05/20 20:28 Brimonidine Tartrate 0.2% Drops 5 Ml Btl BOTH EYES 1 drops BID [facility] Administration Budesonide/Formoterol Fumarate 2 puff 06/05/20 20:00 06/05/20 20:16 Symbicort 160-4.5 Mcg Inhaler INHALATION 2 puff RT-BID [facility]YAN Administration Cholecalciferol 25 mcg 06/06/20 09:00 Cholecalciferol 25 Mcg (1000 Iu) Tablet PO DAILY [facility] Furosemide 40 mg 06/06/20 09:00 Furosemide 40 Mg Tab PO DAILY [facility] Metoprolol Tartrate 100 mg 06/05/20 21:00 06/05/20 20:27 Metoprolol Tartrate 50 Mg Tab PO 100 mg BID [facility] Administration Multivitamins 1 each 06/06/20 09:00 Multivitamins, Thera 1 Each Tab PO DAILY [facility] Nitroglycerin 0.4 mg 06/05/20 15:07 Nitroglycerin Sl Tabs 0.4 Mg Tab SUBLINGUAL Q5M PRN Chest Pain Nitroglycerin 1 inch 06/05/20 18:00 06/06/20 05:46 Nitroglycerin Oint 1 Inch/Gm Packet TOPICAL Not Given Q6HR [facility] Pantoprazole Sodium 40 mg 06/06/20 09:00 Pantoprazole 40 Mg Tablet PO DAILY [facility] Potassium Chloride 20 meq 06/06/20 09:00 Potassium Chloride Er 20 Meq Tab.Er PO DAILY [facility] Rivaroxaban 20 mg 06/05/20 19:15 06/05/20 20:27 Rivaroxaban 20 Mg Tab PO 20 mg W/SUPPER [facility] Administration Sertraline HCl 100 mg 06/06/20 09:00 Sertraline 100 Mg Tab PO DAILY [facility] Intake and Output 06/05/20 06/06/20 06/06/20 22:59 06:59 14:59 Other: Voiding Method Toilet Toilet # Voids 1 1 Weight 94.801 kg 06/05/20 13:17 06/05/20 13:17
--- NOTE | 2020-06-06 12:27 | ECHOF ---
Referral Reason:chest pain, shortness of breath MEASUREMENTS -------- HEIGHT: 157.5 cm WEIGHT: 94.8 kg BP: IVSd: 1.0 cm (0.6 - 1.1) LVIDd: 4.9 cm (3.9 - 5.3) LVPWd: 1.2 cm (0.6 - 1.1) IVSs: 1.5 cm LVIDs: 2.3 cm LVPWs: 1.9 cm LA Diam: 4.4 cm (2.7 - 3.8) LAESV Index (A-L): 40.51 ml/m Ao Diam: 3.0 cm (2.0 - 3.7) AV Cusp: 1.6 cm (1.5 - 2.6) LA Diam: 4.5 cm (2.7 - 3.8) MV EXCURSION: 20.477 mm (> 18.000) MV EF SLOPE: 148 mm/s (70 - 150) EPSS: 0.2 cm AV maxP.66 mmHg AV meanP.49 mmHg RAP: 5.00 mmHg RVSP: 43.27 mmHg FINDINGS -------- Atrial fibrillation. This was a technically good study. LV size, wall thickness and systolic function are normal, with an EF greater than 55%. The left srini tricular size is normal. The right ventricle is normal in size. LA is severely dilated >40 ml/m2 The right atrial size is normal. There is mild aortic regurgitation. There is mild aortic stenosis present. Peak/mean gradient acr oss the Aortic Valve is 19.66mmHg / 8.49mmHg. Mild mitral regurgitation is present. Mild tricuspid regurgitation present. There is mild pulmonary hypertension. There is no pulmonic regurgitation present. The aortic root size is normal. There is no pericardial effusion. CONCLUSIONS -------- 1. LV size, wall thickness and systolic function are normal, with an EF greater than 55%. 2. The left ventricular size is normal. 3. The right ventricle is normal in size. 4. LA is severely dilated >40 ml/m2 5. The right atrial size is normal. 6. There is mild aortic regurgitation. 7. There is mild aortic stenosis present. 8. Peak/mean gradient across the Aortic Valve is 19.66mmHg / 8.49mmHg. 9. Mild mitral regurgitation is present. 10. Mild tricuspid regurgitation present. 11. There is mild pulmonary hypertension. 12. There is no pulmonic regurgitation present. 13. The aortic root size is normal. 14. There is no pericardial effusion. APPLICATION INTEGRATION ARCHITECT: Shilpa Patel RDCS
--- NOTE | 2020-06-06 13:59 | P.PN ---
Subjective Progress Note Date: 06/06/20 HISTORY OF PRESENT ILLNESS This is a 74-year-old female patient of [facility] and Dr. Saul Bernardo with past medical history of hypertension, glaucoma, DVT, colon cancer status post partial colectomy, gastroesophageal reflux disease, mild intermittent asthma. This was last hospitalized in January 2024: 19 pneumonia and at that time was seen by cardiology for AV chris reentry tachycardia converted to sinus rhythm subsequently went into atrial fibrillation with RVR and was started on Xarelto time for anticoagulation. Patient presented to [facility] emergency center due to shortness of breath and chest pain especially with deep breathing. No palpitations. No fever or chills. No cough. No lower extremity edema. No abdominal pain, nausea, vomiting, diarrhea. Patient was found to be afebrile, heart rate in the 80s and 90s, blood pressure 138/87 and pulse ox 94% on room air. EKG was atrial fibrillation at rate of 86 beats per minutes. Chest x-ray reveals patchy basilar density right lower lobe. Standing density left lower lobe. Developing pneumonia difficult to exclude. WBC 6.3, hemoglobin 13.3, platelet count 145. Sodium 139, potassium 3.5, chloride 103, CO2 31, BUN 16, creatinine 0.6, blood sugar 109. Liver function tests were normal. Troponin negative. ProBNP 2830. 06/06: Patient has been seen by cardiology. Echocardiogram reveals EF greater than 55%, mild aortic stenosis, mild mitral regurgitation, mild pulmonary hypertension. Troponins are negative on 3 draws. Cardiology is recommended consult with pulmonary medicine. Patient has been seen by Dr. Miguel in the past. Her CTA on December 2019 revealed no pulmonary embolism. Ascending aortic aneurysm. Coronary artery disease. Correlate for possible pulmonary artery hy pertension. The patient states that she is still sore in her chest. She denies any hemoptysis. Chest pain with deep breath is not as severe. She states she has been urinating frequently. No bowel movement. Patient has been afebrile, heart rate 95, blood pressure 168/92, pulse ox 96% on 2 L nasal cannula. CBC is unremarkable. Electrolytes and renal function normal. Triglycerides 130, leah sterol 152, LDL 81, HDL 45.plan will be to monitor patient overnight and plan for discharge home tomorrow. REVIEW OF SYSTEMS Constitutional: No documented fever, no chills, no night sweats. No weight change. No weakness, fatigue or lethargy. No daytime sleepiness. EENT: No headache. No blurred vision or double vision, no loss of vision. No loss of Hearing, no ringing in the ears, no dizziness. No nasal drainage or congestion. No epistaxis. No sore throat. Lungs: Reports shortness of breath, no cough, no sputum production. No wheezing. Reports dyspnea with activity.denies hemoptysis. Cardiovascular: Reports chest pain, no lower extremity edema. No palpitations. No paroxysmal nocturnal dyspnea. No orthopnea. No lightheadedness or dizziness. No syncopal episodes. Abdominal: Reports abdominal pain. No nausea, vomiting. No diarrhea. No constipation. No bloody or tarry stools reports loss of appetite. Genitourinary: No dysuria, increased frequency, urgency. No urinary retention. Musculoskeletal: No myalgias. No muscle weakness, no gait dysfunction, no frequent falls. No back pain. No neck pain. Integumentary: No wounds, no lesions. No rash or pruritus. No unusual bruising. No change in hair or nails. Neurologic: No aphasia. No facial droop. No change in mentation. No head injury. No headache. No paralysis. No paresthesia. Psychiatric: No depression. No anxiety. No mood swings. Endocrine: No abnormal blood sugars. No weight change. PHYSICAL EXAMINATION General: This is a 74-year-old female. She is was seen on the ER stretcher and appears to be comfortable. HEENT: Head is atraumatic, normocephalic, pupils were equal round reactive to light and recommendation, extraocular muscle movement were intact, sclera nonicteric, conjunctivae were pale, mucous membranes of the mouth are somewhat dry. Neck: Supple, no JVP, normal carotid upstroke bilaterally, no lymphadenopathy. Chest: Decreased breath sounds at the bases, few rhonchi, no extremity wheezes, no chest wall tenderness, no intercostal retractions. Heart: First heart sound is normal, second heart sounds normal, irregularly irre gular, systolic murmur Abdomen: Soft, nontender, nondistended, positive bowel sounds. Extremities: There is no edema no calf tenderness DP +2 bilaterally. Neurologic examination: Patient is awake alert and oriented 3, cranial nerves II-12 appear grossly intact, muscle power were 5 out of 5 in upper extremities and 5 out of 5 in bilateral lower extremities, deep tendon reflexes normal bilaterally. ASSESSMENT AND PLAN 1. Chest pain, atypical. Troponins are negative and 3 draws. Cardiology consult. Continue aspirin, Lipitor 40 mg daily, Lopressor 100 mg twice daily. 2. Paroxysmal atrial fibrillation. Continue Lopressor 100 mg twice daily and Xarelto 20 mg with supper. 3. Hypertension. Continue Lasix 40 mg daily, Lopressor. 4. Mild intermittent asthma. Continue albuterol nebulizer every 4 hours as needed, Symbicort 1604 0.5 g 2 puffs twice daily. 5. Glaucoma. Continue eyedrops. 6. Recurrent depression. Continue Zoloft 100 mg daily. 7. Hemoptysis. Consult with pulmonary medicine. CODE STATUS: Full code DISCHARGE PLAN Home on Friday. Impression and plan of care have been directed as dictated by the signing physician. Yolanda Munoz nurse practitioner acting as scribe for signing physician. Objective - Vital Signs Vital signs: Vital Signs Temp 97.9 F 06/06/20 07:25 Pulse 95 06/06/20 07:25 Resp 14 06/06/20 07:25 BP 168/92 06/06/20 07:25 Pulse Ox 96 06/06/20 07:25 Intake & Output 06/05/20 06/06/20 06/06/20 18:59 06:59 18:59 Weight 94.801 kg 94.801 kg Other: Voiding Method Toilet # Voids 1 - Labs CBC & Chem 7: 06/06/20 04:42 06/06/20 04:42 Labs: Abnormal Lab Results - Last 24 Hours (Table) 06/05/20 06/05/20 06/06/20 Range/Units 13:17 13:17 04:42 MCHC (32.0-37.0) g/dL Plt Count 145 L (150-450) k/uL Lymphocytes # 0.9 L (1.0-4.8) k/uL Carbon Dioxide 31 H (22-30) mmol/L BUN/Creatinine Ratio 22.86 H (12.00-20.00) Ratio Glucose 109 H 113 H (74-99) mg/dL Total Protein 5.6 L (6.2-8.2) g/dL 06/06/20 Range/Units 04:42 MCHC 30.4 L (32.0-37.0) g/dL Plt Count (150-450) k/uL Lymphocytes # (1.0-4.8) k/uL Carbon Dioxide (22-30) mmol/L BUN/Creatinine Ratio (12.00-20.00) Ratio Glucose (74-99) mg/dL Total Protein (6.2-8.2) g/dL
[2020-06-06 15:03] VITALS: BMI 38.2
--- NOTE | 2020-06-06 15:44 | P.CNPUL ---
History of Present Illness Consult date: 06/06/20 Reason for consult: chest pain History of present illness: Is a 74-year-old female patient who is known to have previous history of colon cancer, previous history of a right lower extremity DVT and pulmonary embolism back in 2017, previous history of chronic atrial fibrillation was been maintained on Xarelto for long period of time and was also intermittent bronchial asthma and sleep apnea was not is utilizing his CPAP machine. The patient has no history of any coronary artery disease. I had the chance to evaluate this patient in the past back in December 2019. At that time she was seen for symptoms of chest pain and some bronchitis. Note that the CAT scan of the chest that was done at that time showed a 4.3 cm ascending aortic aneurysm without evidence of any dissection. The patient comes in again complaining of pain across the right side of the chest and in the central part of her chest. It woke her up from sleep. She was unable to take a deep breath. It was getting worse with movement and breathing. In the emergency department,: 19 testing was done and was negative. The patient had normal blood work including normal electrolytes, normal renal function, and normal CBC. The troponins were negative 3. ProBNP level was 2830. Echo of the heart was done showed an ejection fraction of 55%, mild aortic stenosis, no other valvular abnormalities have been noted. The chest x-ray was showing a patchy basilar density in the right lower lobe, could be related to an underlying pneumonia and the patient did cough out some bloody mucus today. No fever. No chills. Review of Systems Constitutional: Reports fatigue, Reports fever, Reports weakness Eyes: denies as per HPI, denies blurred vision, denies bulging eye, denies de creased vision, denies diplopia, denies discharge, denies dry eye, denies irritation, denies itching, denies pain, denies photophobia, denies loss of peripheral vision, denies loss of vision, denies tunnel vision/blind spots Ears: deny: decreased hearing, ear discharge, earache, tinnitus Ears, nose, mouth and throat: Reports as per HPI Breasts: absent: as per HPI, change in shape, gynecomastia, masses, nipple discharge, pain, skin changes, swelling Cardiovascular: Reports as per HPI, positive for chest pain Respiratory: Reports cough, limited shortness of breath and questionable hemoptysis and the patient is having chest pain. Gastrointestinal: Reports as per HPI Genitourinary: Reports as per HPI Menstruation: Reports as per HPI Musculoskeletal: Reports as per HPI (fall and trauma to the RLE) Musculoskeletal: bilateral: ankle swelling, absent: ankle pain, ankle stiffness Integumentary: Reports as per HPI Neurological: Reports as per HPI Psychiatric: Reports as per HPI Endocrine: Reports as per HPI Hematologic/Lymphatic: Reports as per HPI Allergic/Immunologic: Reports as per HPI Past Medical History Past Medical History: Atrial Fibrillation, Asthma, Cancer, Deep Vein Thrombosis (DVT), Eye Disorder, GERD/Reflux, Hypertension, Osteoarthritis (OA), Pulmonary Embolus (PE), Sleep Apnea/CPAP/BIPAP, Vascular Disorder Additional Past Medical History / Comment(s): 2011 colon cancer with surgery, diverticular disease, colon polyps, PUD, MVP, murmur, chronic low back pain, herniated discs, scoliosis, STEVE-told no longer needed device, 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 Past Anesthesia/Blood Transfusion Reactions: Motion Sickness, Postoperative Francesco sea & Vomiting (PONV) Additional Past Anesthesia/Blood Transfusion Reaction / Comment(s): Pt has claustrophobia, pt has never heard term malignant hyperthermia & no family hx. of that she knows of Past Psychological History: No Psychological Hx Reported Additional Psychological History / Comment(s): Pt resides alone. She drives. Smoking Status: Former smoker Past Alcohol Use History: None Reported Additional Past Alcohol Use History / Comment(s): Patient was a smoker of one pack per day for 25 years and quit in 1992. She denies any marijuana use, alcohol use or illicit drug use. She resides in a senior apartment. Past Drug Use History: None Reported - Past Family History Sister(s) Family Medical History: Pulmonary Embolus Father Family Medical History: Myocardial Infarction (OK) Additional Family Medical History / Comment(s): Father had his first OK at the age of 61 yrs. Mother Family Medical History: Cancer Additional Family Medical History / Comment(s): LYMPHOMA Medications and Allergies Home Medications Medication Instructions Recorded Confirmed Type Pantoprazole Sodium [Protonix] 40 mg PO DAILY 07/23/13 06/05/20 History Brimonidine Tartrate [Alphagan P 1 drop BOTH EYES BID 05/05/14 06/05/20 History 0.2% Ophth Soln] Multivitamin/Iron/Folic Acid 1 tab PO DAILY 05/05/14 06/05/20 History [Centrum Complete Multivit Tab] Albuterol Inhaler [Ventolin Hfa 2 puff INHALATION RT-Q4H PRN 08/27/19 06/05/20 History Inhaler] Budesonide-Formot 160-4.5 Mcg 2 puff INHALATION RT-BID #1 puff 01/16/20 06/05/20 Rx [Symbicort 160-4.5 Mcg Inhaler] Rivaroxaban [Xarelto] 20 mg PO W/SUPPER #30 tab 01/16/20 06/05/20 Rx Furosemide [Lasix] 40 mg PO DAILY 03/07/20 06/05/20 History Potassium Chloride [Klor-Con 20] 20 meq PO DAILY 03/07/20 06/05/20 History Ascorbic Acid [Vitamin C] 500 mg PO DAILY 06/05/20 06/05/20 History Atorvastatin Calcium [Lipitor] 40 mg PO DAILY 06/05/20 06/05/20 History Cholecalciferol [Vitamin D3 (25 25 mcg PO DAILY 06/05/20 06/05/20 History Mcg = 1000 Iu)] Metoprolol Tartrate [Lopressor] 100 mg PO BID 06/05/20 06/05/20 History Sertraline [Zoloft] 100 mg PO DAILY 06/05/20 06/05/20 History Allergies Allergy/AdvReac Type Severity Reaction Status Date / Time amoxicillin trihydrate Allergy Rash/Hives Verified 06/05/20 13:50 [From Augmentin] hydromorphone HCl Allergy Rash/Hives Verified 06/05/20 13:50 [From Dilaudid] Penicillins Allergy Rash/Hives Verified 06/05/20 13:50 potassium clavulanate Allergy Rash/Hives Verified 06/05/20 13:50 [From Augmentin] tramadol Allergy Unknown Verified 06/05/20 13:50 Iodinated Contrast Media AdvReac Red face Verified 06/05/20 13:50 [Iodinated Contrast Media - and felt IV Dye] like it was on fire. [id number] Reductase AdvReac LEG Verified 06/05/20 13:50 Inhibitor SWELLING AND PAIN Physical Exam Vitals: Vital Signs Temp Pulse Pulse Pulse Resp BP BP 06/06/20 14:05 98.2 F 46 L 16 92/54 06/06/20 07:25 97.9 F 95 14 168/92 06/06/20 02:03 98.0 F 68 18 134/88 06/05/20 20:16 06/05/20 20:00 20 06/05/20 19:44 98.4 F 72 20 155/84 06/05/20 19:31 98.2 F 65 18 144/97 06/05/20 19:25 98.4 F 72 20 155/84 06/05/20 18:30 65 18 144/97 06/05/20 17:00 62 18 136/93 06/05/20 16:20 65 18 147/91 06/05/20 15:49 18 Pulse Ox 06/06/20 14:05 95 06/06/20 07:25 96 06/06/20 02:03 95 06/05/20 20:16 95 06/05/20 20:00 06/05/20 19:44 98 06/05/20 19:31 98 06/05/20 19:25 98 06/05/20 18:30 98 06/05/20 17:00 06/05/20 16:20 06/05/20 15:49 Intake and Output 06/06/20 06/06/20 06/06/20 06:59 14:59 22:59 Other: Voiding Method Toilet # Voids 1 3 # Bowel Movements 0 Weight 94.801 kg Gen. appearance the patient is calm and comfortable and she is not having any significant respiratory distress at this point in time. Head exam was generally normal. There was no scleral icterus or corneal arcus. Mucous membranes were moist. Neck was supple and without jugular venous distension, thyromegaly, or carotid bruits. Carotids were easily palpable bilaterally. There was no adenopathy. Lungs were clear to auscultation and percussion, and with normal diaphragmatic excursion. No wheezes or rales were noted. Limited crackles in the right lung base Cardiac exam revealed the PMI to be normally situated and sized. The rhythm was regular and no extrasystoles were noted during several minutes of auscultation. The first and second heart sounds were normal and physiologic splitting of the second heart sound was noted. There were no murmurs, rubs, clicks, or gallops. Abdominal exam revealed normal bowel sounds. The abdomen was soft, non-tender, and without masses, organomegaly, or appreciable enlargement of the abdominal aorta. Examination of the extremities revealed easily palpable radial, femoral and pedal pulses. There was no cyanosis, clubbing and there is trace pitting edema lower extremities bilaterally Neurologically, the patient is awake and alert and the patient does not have any focal neurological deficit. Cranial nerves are essentially intact. Results - Laboratory Findings CBC and BMP: 06/06/20 04:42 06/06/20 04:42 ABG WBC 5.16 X 10*3/uL (4.50-10.00) 06/06/20 04:42 RBC 4.11 X 10*6/uL (4.10-5.20) 06/06/20 04:42 Hgb 12.0 g/dL (12.0-15.0) 06/06/20 04:42 Hct 39.5 % (37.2-46.3) 06/06/20 04:42 MCV 96.1 fL (80.0-97.0) 06/06/20 04:42 MCH 29.2 pg (27.0-32.0) 06/06/20 04:42 MCHC 30.4 g/dL (32.0-37.0) L 06/06/20 04:42 RDW 13.8 % (11.5-14.5) 06/06/20 04:42 Plt Count 142 X 10*3/uL (140-440) 06/06/20 04:42 MPV 10.4 fL (9.5-12.2) 06/06/20 04:42 Immature Gran % (Auto) 0.2 % 06/06/20 04:42 Absolute Nucleated RBC 0 X 10*3/uL (0.00-0.00) 06/06/20 04:42 Neutrophils % 69.2 % 06/06/20 04:42 Lymphocytes % 17.6 % 06/06/20 04:42 Monocytes % 10.9 % 06/06/20 04:42 Eosinophils % 1.9 % 06/06/20 04:42 Basophils % 0.2 % 06/06/20 04:42 Immature Gran # 0.01 X 10*3/uL (0.00-0.04) 06/06/20 04:42 Neutrophils # 3.57 X 10*3/uL (1.80-7.70) 06/06/20 04:42 Lymphocytes # 0.91 X 10*3/uL (0.90-5.00) 06/06/20 04:42 Monocytes # 0.56 X 10*3/uL (0.20-1.00) 06/06/20 04:42 Eosinophils # 0.10 X 10*3/uL (0.04-0.35) 06/06/20 04:42 Basophils # 0.01 X 10*3/uL (0.00-0.10) 06/06/20 04:42 NRBC/100 WBC Diff 0 /100 WBCS (0.0-0.0) 06/06/20 04:42 PT 11.7 sec (9.0-12.0) 06/05/20 13:17 INR 1.1 (<1.2) 06/05/20 13:17 APTT 27.0 sec (22.0-30.0) 06/05/20 13:17 D-Dimer 0.40 mg/L FEU (<0.60) 06/05/20 13:17 Sodium 141 mmol/L (135-145) 06/06/20 04:42 Potassium 4.1 mmol/L (3.5-5.5) 06/06/20 04:42 Chloride 104 mmol/L (96-109) 06/06/20 04:42 Carbon Dioxide 31.0 mmol/L (21.6-31.8) 06/06/20 04:42 Anion Gap 6.00 mmol/L (4.00-12.00) 06/06/20 04:42 BUN 16.0 mg/dL (9.0-27.0) 06/06/20 04:42 Creatinine 0.7 mg/dL (0.6-1.5) 06/06/20 04:42 Est GFR (CKD-EPI)AfAm 99.6 (60.0-200.0) 06/06/20 04:42 Est GFR (CKD-EPI)NonAf 86.0 (60.0-200.0) 06/06/20 04:42 BUN/Creatinine Ratio 22.86 Ratio (12.00-20.00) H 06/06/20 04:42 Glucose 113 mg/dL (70-110) H 06/06/20 04:42 Calcium 8.8 mg/dL (8.7-10.3) 06/06/20 04:42 Magnesium 1.7 mg/dL (1.6-2.3) 06/05/20 13:17 Total Bilirubin 1.0 mg/dL (0.3-1.2) 06/06/20 04:42 AST 28 U/L (13-35) 06/06/20 04:42 ALT 30 U/L (8-44) 06/06/20 04:42 Alkaline Phosphatase 58 U/L (41-126) 06/06/20 04:42 Troponin I <0.012 ng/mL (0.000-0.034) 06/05/20 20:43 NT-Pro-B Natriuret Pep 2830 pg/mL 06/05/20 13:17 Total Protein 5.6 g/dL (6.2-8.2) L 06/06/20 04:42 Albumin 4.00 g/dL (3.80-4.90) 06/06/20 04:42 Globulin 1.6 g/dL (1.6-3.3) 06/06/20 04:42 Albumin/Globulin Ratio 2.50 g/dL (1.60-3.17) 06/06/20 04:42 Triglycerides 130.0 mg/dL (0.0-149.0) 06/06/20 04:42 Cholesterol 152 mg/dL (0-200) 06/06/20 04:42 LDL Cholesterol, Calc 81.0 mg/dL (0.0-131.0) 06/06/20 04:42 VLDL Cholesterol, Calc 26.00 mg/dL (5.00-40.00) 06/06/20 04:42 HDL Cholesterol 45.0 mg/dL (40.0-60.0) 06/06/20 04:42 Cholesterol/HDL Ratio 3.38 06/06/20 04:42 Coronavirus (PCR) Not Detected (Not Detectd) 06/05/20 14:49 PT/INR, D-dimer PT 11.7 sec (9.0-12.0) 06/05/20 13:17 INR 1.1 (<1.2) 06/05/20 13:17 D-Dimer 0.40 mg/L FEU (<0.60) 06/05/20 13:17 Abnormal lab findings: Abnormal Labs 06/05/20 06/05/20 06/06/20 13:17 13:17 04:42 MCHC Plt Count 145 L Lymphocytes # 0.9 L Carbon Dioxide 31 H BUN/Creatinine Ratio 22.86 H Glucose 109 H 113 H Total Protein 5.6 L 06/06/20 04:42 MCHC 30.4 L Plt Count Lymphocytes # Carbon Dioxide BUN/Creatinine Ratio Glucose Total Protein Assessment and Plan Plan: 1 acute chest pain, without any EKG changes or elevation in troponin. Echocardiogram is within normal limits. The pain is somewhat atypical for cardiac pain. In terms of her pulmonary causes, there is a infiltration of the right lung base on the chest x-ray. We are aware that the patient had a 4.3 cm ascending thoracic aneurysm on a previous CAT scan of the chest. No history of any lung masses or tumors. Pulmonary embolism is doubtful specially the patient is adequately regulated with Xarelto on a chronic basis. 2 mild hemoptysis 3 chronic atrial fibrillation the patient has been maintained on long-term articulation with Xarelto 4 previous history of DVT of the right lower extremity and pulmonary embolism currently on anticoagulation 5 obstructive sleep apnea, not receiving any treatment 6 obesity 7 previous history of colon cancer with a partial colectomy 8 mild intermittent bronchial asthma 9 glucoma 10 hypertension 11 thoracic aortic aneurysm ascending measuring around 4.3 cm in size based on the previous CT of the chest Plan Proceed with CT of the chest to investigate her chest pain further. I'll consider would be a pneumonia versus any complications related to ascending aortic aneurysm. Pulmonary embolism is doubtful. Check a pro-calcitonin level Continue anticoagulation with Xarelto We'll continue to follow.
[2020-06-06] MEDS ORDERED: methylPREDNISolone SOD SUCCI 125 MG/2 ML VIAL IV STA (16:42)
[2020-06-06] MEDS ORDERED: diphenhydrAMINE 50 MG/ML 1 ML VIAL IVP STA (16:42)
[2020-06-06] MEDS ORDERED: FAMOTIDINE 20 MG/2 ML VIAL IV STA (16:42)
[2020-06-06] MEDS: RIVAROXABAN 20 MG TAB PO SCH (18:03)
--- NOTE | 2020-06-06 19:30 | CT ---
EXAMINATION TYPE: CT angio chest DATE OF EXAM: 06/06/2020 6:06 PM COMPARISON: 01/11/2020. HISTORY: chest pain CT DLP: 467.5 mGycm Automated exposure control for dose reduction was used. CONTRAST: CTA scan of the thorax is performed with IV Contrast, patient injected with 100 mL of Isovue 370, pul monary embolism protocol. MIP images are created and reviewed. FINDINGS: LUNGS: There are chronic mild opacities in the bilateral lower lobes and right middle lobe. No signif icant new airspace opacity. There is no concerning parenchymal mass or nodule identified. There is no pleural effusion or pneumothorax seen. The tracheobronchial tree is patent. MEDIASTINUM: There is satisfactory enhancement of the pulmonary artery and its branches, there is no CT evidence for pulmonary embolism. There are no greater than 1 cm hilar or mediastinal lymph nodes. Mild cardiomegaly without pericardial effusion is seen. OTHER: No additional significant abnormality is seen. IMPRESSION: NO ACUTE PE OR OTHER CARDIOPULMONARY ABNORMALITY. MILD BIBASILAR ATELECTASIS AND/OR SCARRING.
[2020-06-07] MEDS: NITROGLYCERIN OINT 1 INCH/GM PACKET TOPICAL SCH ×3 (00:32→11:26)
[2020-06-07] MEDS: METOPROLOL TARTRATE 50 MG TAB PO SCH (07:52)
[2020-06-07] MEDS: ATORVASTATIN 40 MG TAB PO SCH (07:52)
[2020-06-07] MEDS: ASPIRIN 325 MG TAB PO SCH (07:52)
[2020-06-07] MEDS: ASCORBIC ACID 500 MG TAB PO SCH (07:52)
[2020-06-07] MEDS: FUROSEMIDE 40 MG TAB PO SCH (07:53)
[2020-06-07] MEDS: CHOLECALCIFEROL 25 MCG (1000 IU) TABLET PO SCH (07:53)
[2020-06-07] MEDS: PANTOPRAZOLE 40 MG TABLET PO SCH (07:53)
[2020-06-07] MEDS: SERTRALINE 100 MG TAB PO SCH (07:53)
[2020-06-07] MEDS: POTASSIUM CHLORIDE ER 20 MEQ TAB.ER PO SCH (07:53)
[2020-06-07] MEDS: BRIMONIDINE TARTRATE 0.2% DROPS 5 ML BTL BOTH EYES SCH (07:53)
[2020-06-07] MEDS: MULTIVITAMINS, THERA 1 EACH TAB PO SCH (07:53)
[2020-06-07 07:55] VITALS: BP 144/81; PULSE 81; RESP 16; TEMP 97.8
[2020-06-07] MEDS: SYMBICORT 160-4.5 MCG INHALER INHALATION SCH (08:27)
[2020-06-07] MEDS ORDERED: LOSARTAN 50 MG TAB PO SCH (09:00)
--- NOTE | 2020-06-07 10:55 | P.PN ---
Subjective This is a pleasant 74-year-old female past medical history significant for persistent atrial fibrillation (on xarelto), supraventricular tachycardia, hypertension, history of PE, COPD, and obstructive sleep apnea. She follows in the office with Dr. Bernardo. We have been asked to see in consultation for chest pain. Patient states that Friday morning she started to have worsening chest pain in the center of her chest that radiated up to her neck and her abdomen. She said it lasts about 13 hours and she took 4, 81 mg aspirins at home which helped with her pain. She also notices a cough for some blood-tinged sputum. She was slightly nauseous. On Friday morning she had similar chest pain as on Friday morning and decided to present to the emergency department. She also has some shortness of breath, but this is unchanged. She was covid-19 positive 3 months ago. . She denies palpitations, lightheadedness, dizziness syncope, LE edema, symptoms of orthopnea or PND. EKGs reveal atrial fibrillation, rate is controlled, HR 70-80s. Chest xray revealed patchy basilar density in the right lower lobe and strandy density in the left lower lobe- developing pneumonia difficult to exclude. troponins negative 3, BNP 2830, potassium 4.1, magnesium 1.7, sodium 141, Covid 19 negative. Most recent stress test (Lexiscan) was in 02/2020 normal myocardial perfusion and function with a fixed inferior wall defect secondary to soft tissue attenuation. Most recent echocardiogram 02/2020 showed an EF greater than 55%, mild aortic stenosis with mean gradient 9.33mmHg , mild MR, mild TR. 06/07/20: Patient is seen and examined at bedside, in no acute distress. Patient is currently asymptomatic. Denies any chest pain or shortness of breath. She states she is feeling a lot better this morning. Echocardiogram systolic function normal with an EF greater than 55%, LA severely dilated, mild AR, mild aortic stenosis with a mean gradient of 8.4 mmHg, mild MR, mild TR there is mild pulmonary hypertension. CT of the chest show no acute PE or other cardiopulmonary abnormality. Current daily cardiac medications include Xarelto 20 mg nightly, potassium chloride 20meq daily, metoprolol titrate 100 mg twice a day, Lasix 40 mg daily, atorvastatin 40 mg daily, aspirin 81 mg daily. PHYSICAL EXAMINATION Blood pressure 144/81 heart rate 81 afebrile and maintaining oxygen saturation on 2 L nasal cannula. CONSTITUTIONAL: Calm, No apparent distress. HEENT: Head is normocephalic. Pupils are equal, round. Sclerae anicteric. Mucous membranes of the mouth are moist. No JVD. No carotid bruit. CHEST EXAMINATION: Lungs wheezing to Left and Right lower bases. Chest wall tenderness with palpation and deep breathing HEART EXAMINATION: Irregular rate and rhythm. S1, S2 heard. No murmurs, gallops or rub. ABDOMEN: Soft, nontender. Positive bowel sounds. EXTREMITIES: 2+ peripheral pulses, no lower extremity edema and no calf tenderness. SKIN: intact NEUROLOGIC EXAMINATION: Patient is awake, alert and oriented x3. ASSESSMENT Chest pain- atypical, acute coronary event ruled out. Chest pain is reproducible on exam. troponin negative x 3. COPD Persistent atrial fibrillation- on xarelto History of Supraventricluar tachycardia, AV chris re-entry tachycardia Valuvular heart disease Hypertension PLAN -From cardiology perspective, no further cardiac workup. We will sign off and this time. Please reach out and questions or concerns. -Patient will follow up in the office with Dr. Bernardo at her next schedule [facility] on 06/27/20. Thank you kindly for this consultation. Nurse Practitioner note has been reviewed, I agree with a documented findings and plan of care. Patient was seen and examined. Objective - Vital Signs Vital signs: Vital Signs Temp 97.8 F 06/07/20 07:00 Pulse 81 06/07/20 07:00 Resp 16 06/07/20 07:00 BP 144/81 06/07/20 07:00 Pulse Ox 96 06/07/20 07:00 Intake & Output 06/06/20 06/07/20 06/07/20 18:59 06:59 18:59 Weight 94.801 kg Other: Voiding Method Toilet Toilet # Voids 3 1 # Bowel Movements 0 - Labs CBC & Chem 7: 06/06/20 04:42 06/06/20 04:42
--- NOTE | 2020-06-07 11:37 | P.PN ---
Subjective Progress Note Date: 06/07/20 Principal diagnosis: Acute chest pain, atypical Is a 74-year-old female patient who is known to have previous history of colon cancer, previous history of a right lower extremity DVT and pulmonary embolism back in 2017, previous history of chronic atrial fibrillation was been ma intained on Xarelto for long period of time and was also intermittent bronchial asthma and sleep apnea was not is utilizing his CPAP machine. The patient has no history of any coronary artery disease. I had the chance to evaluate this patient in the past back in December 2019. At that time she was seen for symptoms of chest pain and some bronchitis. Note that the CAT scan of the chest that was done at that time showed a 4.3 cm ascending aortic aneurysm without evidence of any dissection. The patient comes in again complaining of pain across the right side of the chest and in the central part of her chest. It woke her up from sleep. She was unable to take a deep breath. It was getting worse with movement and breathing. In the emergency department,: 19 testing was done and was negative. The patient had normal blood work including normal electrolytes, normal renal function, and normal CBC. The troponins were negative 3. ProBNP level was 2830. Echo of the heart was done showed an ejection fraction of 55%, mild aortic stenosis, no other valvular abnormalities have been noted. The chest x-ray was showing a patchy basilar density in the right lower lobe, could be related to an underlying pneumonia and the patient did cough out some bloody mucus today. No fever. No chills. The patient is seen today 06/07/2020 in follow-up on the regular medical floor. She is currently sitting up at the bedside. Awake and alert in no acute distress. She denies any recurrent chest pain. No shortness of breath, cough or congestion. CT angiogram of the chest revealed no acute PE or other cardiopulmonary abnormalities. Some mild bibasilar atelectasis/scarring. She is maintaining O2 saturations in the 90s on room air. She's afebrile. Hemodynamically stable. Troponins were negative 3. Echocardiogram revealed preserved left ventricular systolic function. Duran virus not detected. Objective - Vital Signs Vital signs: Vital Signs Temp 97.8 F 06/07/20 07:00 Pulse 81 06/07/20 07:00 Resp 16 06/07/20 07:00 BP 144/81 06/07/20 07:00 Pulse Ox 96 06/07/20 07:00 Intake & Output 06/06/20 06/07/20 06/07/20 18:59 06:59 18:59 Weight 94.801 kg Other: Voiding Method Toilet Toilet # Voids 3 1 # Bowel Movements 0 - Exam GENERAL EXAM: Alert, active, comfortable in no apparent distress. HEAD: Normocephalic. EYES: Normal reaction of pupils, equal size. NOSE: Clear with pink turbinates. THROAT: No erythema or exudates. NECK: No masses, no JVD. CHEST: No chest wall deformity. LUNGS: Equal air entry with no crackles, wheeze, rhonchi or dullness. CVS: S1 and S2 normal with no audible murmur, regular rhythm. ABDOMEN: No hepatosplenomegaly, normal bowel sounds, no guarding or rigidity. SPINE: No scoliosis or deformity SKIN: No rashes CENTRAL NERVOUS SYSTEM: No focal deficits, tone is normal in all 4 extremities. EXTREMITIES: There is no peripheral edema. No clubbing, no cyanosis. Peripheral pulses are intact. - Labs CBC & Chem 7: 06/06/20 04:42 06/06/20 04:42 Assessment and Plan Assessment: 1 acute chest pain, without any EKG changes or elevation in troponin. Echocardiogram is within normal limits. The pain is somewhat atypical for cardiac pain. In terms of her pulmonary causes, there is a infiltration of the right lung base on the chest x-ray. We are aware that the patient had a 4.3 cm ascending thoracic aneurysm on a previous CAT scan of the chest. No history of any lung masses or tumors. Pulmonary embolism is doubtful specially the patient is adequately regulated with Xarelto on a chronic basis. 2 mild hemoptysis 3 chronic atrial fibrillation the patient has been maintained on long-term articulation with Xarelto 4 previous history of DVT of the right lower extremity and pulmonary embolism currently on anticoagulation 5 obstructive sleep apnea, not receiving any treatment 6 obesity 7 previous history of colon cancer with a partial colectomy 8 mild intermittent bronchial asthma 9 glucoma 10 hypertension 11 thoracic aortic aneurysm ascending measuring around 4.3 cm in size based on the previous CT of the chest Plan The patient was seen and evaluated by Dr. Miguel She is stable for discharge from the pulmonary standpoint We'll follow as needed I, the cosigning physician, performed a history & physical examination of the patient. Lungs sounds are clear. Maintaining good O2 saturations in the 90s on room air. I discussed the assessment and plan of care with my nurse practitioner, Vicky Castro. I attest to the above note as dictated by her.
--- NOTE | 2020-06-07 11:57 | P.DS ---
Providers Date of admission: 06/05/20 15:25 Expected date of discharge: 06/07/20 Attending physician: Sheila Grace Consults: 06/05/20 15:07 Consult Physician Urgent Consulting Provider: [facility] Consult Reason/Comments: Unstable angina Do you want consulting provider notified?: Yes 06/06/20 12:35 Consult Physician Routine Consulting Provider: Bill Miguel Consult Reason/Comments: hemoptysis Do you want consulting provider notified?: Yes [facility] Course: HISTORY OF PRESENT ILLNESS This is a 74-year-old female patient of [facility] and Dr. Saul Bernardo with past medical history of hypertension, glaucoma, DVT, colon cancer status post partial colectomy, gastroesophageal reflux disease, mild intermittent asthma. This was last hospitalized in January 2024: 19 pneumonia and at that time was seen by cardiology for AV chris reentry tachycardia converted to sinus rhythm subsequently went into atrial fibrillation with RVR and was started on Xarelto time for anticoagulation. Patient presented to [facility] emergency center due to shortness of breath and chest pain especially with deep breathing. No palpitations. No fever or chills. No cough. No lower extremity edema. No abdominal pain, nausea, vomiting, diarrhea. Patient was found to be afebrile, heart rate in the 80s and 90s, blood pressure 138/87 and pulse ox 94% on room air. EKG was atrial fibrillation at rate of 86 beats per minutes. Chest x-ray reveals patchy basilar density right lower lobe. Standing density left lower lobe. Developing pneumonia difficult to exclude. WBC 6.3, hemoglobin 13.3, platelet count 145. Sodium 139, potassium 3.5, chloride 103, CO2 31, BUN 16, creatinine 0.6, blood sugar 109. Liver function tests were normal. Troponin negative. ProBNP 2830. 06/06: Patient has been seen by cardiology. Echocardiogram reveals EF greater than 55%, mild aortic stenosis, mild mitral regurgitation, mild pulmonary hypertension. Troponins are negative on 3 draws. Cardiology is recommended consult with pulmonary medicine. Patient has been seen by Dr. Miguel in the past. Her CTA on December 2019 revealed no pulmonary embolism. Ascending aortic aneurysm. Coronary artery disease. Correlate for possible pulmonary artery hypertension. The patient states that she is still sore in her chest. She denies any hemoptysis. Chest pain with deep breath is not as severe. She states she has been urinating frequently. No bowel movement. Patient has been afebrile, heart rate 95, blood pressure 168/92, pulse ox 96% on 2 L nasal cannula. CBC is unremarkable. Electrolytes and renal function normal. Triglycerides 130, cholesterol 152, LDL 81, HDL 45.plan will be to monitor patient overnight and plan for discharge home tomorrow. 06/07: Patient has been seen by Dr. Miguel a CAT scan of the chest was ordered and pro-calcitonin level ordered. CTA of the chest revealed no acute PE or other cardiac pulmonary abnormality. Mild bibasilar atelectasis and/or scarring. Pro-calcitonin 0.02. Patient has been afebrile, heart rate 70, blood pressure 148/91 pulse ox 96% on 2 L nasal cannula. Losartan has been added for blood pressure control. Patient denies any new complaints. She states she still has some midsternal chest pressure. She does have a cough but no sputum production. Patient slept well last night. Patient instructed to follow a low- salt diet. She denies having any blood or blackness in her stools or last bowel movement was yesterday. Patient will be discharged home today in stable condition. ASSESSMENT AND PLAN 1. Chest pain, atypical. Acute coronary syndrome ruled out. 2. Paroxysmal atrial fibrillation. 3. Hypertension. 4. Mild intermittent asthma. 5. Glaucoma. 6. Recurrent depression. 7. Hemoptysis. Discharge plan: Home Impression and plan of care have been directed as dictated by the signing physician. Yolanda Munoz nurse practitioner acting as scribe for signing physician. Patient Condition at Discharge: Good Plan - Discharge Summary Discharge Rx Participant: Yes New Discharge Prescriptions: New Sodium Chloride [Saline Nasal [place]] 1 spray EA NOSTRIL BID #1 bottle Losartan [Cozaar] 50 mg PO DAILY #30 tab Continue Pantoprazole Sodium [Protonix] 40 mg PO DAILY Multivitamin/Iron/Folic Acid [Centrum Complete Multivit Tab] 1 tab PO DAILY Brimonidine Tartrate [Alphagan P 0.2% Ophth Soln] 1 drop BOTH EYES BID Albuterol Inhaler [Ventolin Hfa Inhaler] 2 puff INHALATION RT-Q4H PRN PRN Reason: Shortness Of Breath Budesonide-Formot 160-4.5 Mcg [Symbicort 160-4.5 Mcg Inhaler] 2 puff INHALATION RT-BID #1 puff Rivaroxaban [Xarelto] 20 mg PO W/SUPPER #30 tab Potassium Chloride [Klor-Con 20] 20 meq PO DAILY Furosemide [Lasix] 40 mg PO DAILY Ascorbic Acid [Vitamin C] 500 mg PO DAILY Sertraline [Zoloft] 100 mg PO DAILY Atorvastatin Calcium [Lipitor] 40 mg PO DAILY Cholecalciferol [Vitamin D3 (25 Mcg = 1000 Iu)] 25 mcg PO DAILY Metoprolol Tartrate [Lopressor] 100 mg PO BID Discharge Medication List Pantoprazole Sodium [Protonix] 40 mg PO DAILY 07/23/13 [History] Brimonidine Tartrate [Alphagan P 0.2% [facility] Soln] 1 drop BOTH EYES BID 05/05/14 [History] Multivitamin/Iron/Folic Acid [Centrum Complete Multivit Tab] 1 tab PO DAILY 05/05/14 [History] Albuterol Inhaler [Ventolin Hfa Inhaler] 2 puff INHALATION RT-Q4H PRN 08/27/19 [History] Budesonide-Formot 160-4.5 Mcg [Symbicort 160-4.5 Mcg Inhaler] 2 puff INHALATION RT-BID #1 puff 01/16/20 [Rx] Rivaroxaban [Xarelto] 20 mg PO W/SUPPER #30 tab 01/16/20 [Rx] Furosemide [Lasix] 40 mg PO DAILY 03/07/20 [History] Potassium Chloride [Klor-Con 20] 20 meq PO DAILY 03/07/20 [History] Ascorbic Acid [Vitamin C] 500 mg PO DAILY 06/05/20 [History] Atorvastatin Calcium [Lipitor] 40 mg PO DAILY 06/05/20 [History] Cholecalciferol [Vitamin D3 (25 Mcg = 1000 Iu)] 25 mcg PO DAILY 06/05/20 [History] Metoprolol Tartrate [Lopressor] 100 mg PO BID 06/05/20 [History] Sertraline [Zoloft] 100 mg PO DAILY 06/05/20 [History] Losartan [Cozaar] 50 mg PO DAILY #30 tab 06/07/20 [Rx] Sodium Chloride [Saline Nasal [place]] 1 spray EA NOSTRIL BID #1 bottle 06/07/20 [Rx] Follow up Appointment(s)/Referral(s): Sheila Grace MD [Primary Care Provider] - 1 Week Paulino Bernardo MD [STAFF PHYSICIAN] - 06/27/20 3:00 pm (patient already had appointment scheduled ) Patient Instructions/Handouts: Chest Pain (DC) Discharge Disposition: HOME SELF-CARE
== END 2020-06-07 12:37 | disposition home or self-care (01) ==
LOC: EC 12:49 → 6NMEDSUR 15:25
PROVIDERS: ADMIT Internal Medicine; ATTEND Internal Medicine
DX: R07.89 Other chest pain (principal); I48.19 Other persistent atrial fibrillation; I10 Essential (primary) hypertension; J44.9 Chronic obstructive pulmonary disease, unspecified; J45.20 Mild intermittent asthma, uncomplicated; G47.33 Obstructive sleep apnea (adult) (pediatric); R04.2 Hemoptysis; R11.0 Nausea; I27.20 Pulmonary hypertension, unspecified; I71.2 Thoracic aortic aneurysm, without rupture; J98.11 Atelectasis; M41.9 Scoliosis, unspecified; K21.9 Gastro-esophageal reflux disease without esophagitis; E66.9 Obesity, unspecified; Z68.38 Body mass index [BMI] 38.0-38.9, adult; F33.9 Major depressive disorder, recurrent, unspecified; F40.240 Claustrophobia; H40.9 Unspecified glaucoma; Z79.01 Long term (current) use of anticoagulants; Z79.82 Long term (current) use of aspirin; Z79.899 Other long term (current) drug therapy; Z79.51 Long term (current) use of inhaled steroids; Z88.0 Allergy status to penicillin; Z88.5 Allergy status to narcotic agent; Z20.822 Contact with and (suspected) exposure to COVID-19; Z91.041 Radiographic dye allergy status; Z88.8 Allergy status to other drugs, medicaments and biological substances; Z96.651 Presence of right artificial knee joint; Z90.49 Acquired absence of other specified parts of digestive tract; Z90.710 Acquired absence of both cervix and uterus; Z87.11 Personal history of peptic ulcer disease; Z86.16 Personal history of COVID-19; Z87.19 Personal history of other diseases of the digestive system; Z87.891 Personal history of nicotine dependence; Z86.711 Personal history of pulmonary embolism; Z86.718 Personal history of other venous thrombosis and embolism; Z85.038 Personal history of other malignant neoplasm of large intestine; Z82.49 Family history of ischemic heart disease and other diseases of the circulatory system; Z80.7 Family history of other malignant neoplasms of lymphoid, hematopoietic and related tissues
CPT/HCPCS: 96374; 96375; 93005 ×2; 99285; 36415; 94640 ×4; 94760; 93306; 85379; 83880; 80061; 80053 ×2; 83735; 84484; 85025 ×2; 85610; 85730; 84145; 87635; 71046; 71275; G0378 ×3; J1200; J2930; Q9967

== ENCOUNTER 2020-06-28 07:47 | Day surgery (SDC) | payer MEDICARE, BC ==
[2020-06-23 11:19] VITALS: BMI 38.0
[~2020-06-28 07:47] MED LIST changes: -LACTATED RINGERS 1,000 ML IV SCH
[2020-06-28] MEDS ORDERED: PROPOFOL 10 MG/ML 20 ML VIAL IV ONE (09:11)
[2020-06-28 09:20] VITALS: RESP 16
[2020-06-28 09:51] VITALS: TEMP 97.6
[2020-06-28] MEDS ORDERED: SODIUM CHLORIDE 0.9% 1,000 ML IV SCH (10:15)
--- NOTE | 2020-06-28 10:33 | ECHOT ---
TRANSESOPHAGEAL ECHOCARDIOGRAM INDICATION: Persistent atrial fibrillation. PROCEDURE: Transesophageal echocardiogram. INDICATION: To rule out intracardiac thrombus prior to cardioversion. PROCEDURE NOTE: After obtaining informed consent, transesophageal echocardiogram is performed in left lateral position using an Omniplane probe. Local and IV sedation were obtained by the rock cutter. The patient underwent color Doppler 2D analysis. FINDINGS: 1. There is no intracardiac thrombus within the left atrial appendage, left atrium, right atrium right ventricle or left ventricle. 2. Left atrium appears enlarged. 3. Right atrium and right ventricle appear mildly enlarged. 4. Left ventricle has normal size and systolic function with an ejection fraction of 60%. 5. Interatrial Septum: There is no evidence of pjka-yv-jdtia shunt by color-flow Doppler or wfyzs-tv-bmwx shunt by agitated saline contrast study. 6. Mitral valve appears anatomically normal. There is moderate central mitral regurgitation. 7. Aortic valve is a 3-leaflet valve. There is no evidence of aortic stenosis or regurgitation. 8. There is moderate tricuspid regurgitation. 9. Aorta shows moderate atherosclerotic changes. 10.There is no evidence of dilatation of the aorta. CONCLUSIONS: 1. No intracardiac thrombus. 2. Moderate mitral regurgitation. 3. Left ventricular function is normal. PLAN: Patient will undergo cardioversion. MMODL / IJN: [id number] /
--- NOTE | 2020-06-28 10:41 | CE ---
CARDIAC ELECTROPHYSIOLOGY REPORT CARDIOVERSION NOTE: INDICATION: Persistent atrial fibrillation. PROCEDURE: After obtaining informed consent, the patient underwent electrical cardioversion with a single 300 joule synchronized DC current. Converted to sinus rhythm. The patient is adequately anticoagulated with Xarelto and a transesophageal echo ruled out intracardiac thrombus. The patient will continue the Xarelto upon discharge. MMODIvon / IJN: [id number] /
--- NOTE | 2020-06-28 10:45 | LTR ---
June 28, 2020 Re: Kimberly DeL a Cruz Dear Sheila: I performed BILL cardioversion on Kimberly De La Cruz. A detailed report is enclosed for your records. In brief, I am happy to report to you that the patient converted to sinus rhythm following a single shock and will continue the anticoagulant that she is on. Thank you for letting us participate in the care of this pleasant lady. Sincerely, MD MIGUEL Rasheed / ALIZE: [id number] /
[2020-06-28 11:58] VITALS: BP 137/63; PULSE 70
--- NOTE | 2020-06-30 10:06 | CDI ---
Outpatient Documentation Clarification Form Date: 06/30/20 CDS/Candy Depositing Machine Operator Name: Kierra Gaffney Phone: If any questions, call Mariluz Bates National [employer] Leader at [phone] Patient Name: Kimberly De La Cruz Admit Date: 06/28/20 Discharge Date: 06/28/20 ATTENTION: The [facility] Coding Staff appreciate your assistance in clarifying documentation. Please respond to the clarification below the line at the bottom and electronically sign. The [facility] Coding staff will review the response and follow-up if needed. Please note: Queries are made part of the Legal Health Record. If you have any questions, please contact the National Stormwater Leader. Dear Dr. Bernardo, Please provide clarification which parts and if all part of the BILL were performed. Which of the following were performed. [id number] Echocardiography,transesophageal, real time with image documentation (2D) (with or without M-Mode recording); including probe placement image acquisition, interpretation and report [id number] Doppler echocardiography pulsed waive with spectral display [id number] Doppler echocardiography color flow velocity mapping Thank you for your kind consideration .2d m mode and colour doppler MTDD
== END 2020-06-28 12:08 | disposition home or self-care (01) ==
LOC: CATHCVL 07:47
PROVIDERS: ATTEND Internal Medicine Cardiovascular Disease
DX: I08.1 Rheumatic disorders of both mitral and tricuspid valves (principal); I70.0 Atherosclerosis of aorta; I48.19 Other persistent atrial fibrillation; I10 Essential (primary) hypertension; R07.2 Precordial pain; Z87.891 Personal history of nicotine dependence; Z85.038 Personal history of other malignant neoplasm of large intestine; Z82.49 Family history of ischemic heart disease and other diseases of the circulatory system; Z79.01 Long term (current) use of anticoagulants; Z79.82 Long term (current) use of aspirin; Z79.51 Long term (current) use of inhaled steroids; Z79.899 Other long term (current) drug therapy; Z88.0 Allergy status to penicillin; Z88.8 Allergy status to other drugs, medicaments and biological substances; Z91.048 Other nonmedicinal substance allergy status
CPT/HCPCS: 93312; 93325; 92960; 87635; J2704; 93320

== ENCOUNTER 2020-08-04 09:26 | Day surgery (SDC) | payer MEDICARE, BC ==
[2020-08-01 12:09] VITALS: BMI 38.2
[2020-08-04] MEDS ORDERED: SODIUM CHLORIDE 0.9% 500 ML 500 ML IV ONE ×2 (09:41→11:05)
[2020-08-04 09:51] VITALS: RESP 16
[2020-08-04 10:18] LABS: African American GFR (CKD) >90 (>60 ml/min/1.73 sqM); Anion Gap 3 mmol/L; Blood Urea Nitrogen 17 mg/dL (7-17); Carbon Dioxide 32 mmol/L (22-30); Chloride 107 mmol/L (98-107); Glucose 110 mg/dL (74-99); Non-African American GFR(CKD) 86 (>60 ml/min/1.73 sqM); Potassium 3.9 mmol/L (3.5-5.1); Sodium 142 mmol/L (137-145)
[2020-08-04] MEDS ORDERED: PROPOFOL 10 MG/ML 20 ML VIAL IV ONE (10:20)
[2020-08-04 10:24] VITALS: TEMP 98
[2020-08-04] MEDS ORDERED: BENZOCAINE SPRAY 1 CAN TOPICAL ONE (10:30)
--- NOTE | 2020-08-04 11:08 | CE ---
CARDIAC ELECTROPHYSIOLOGY REPORT CARDIOVERSION NOTE: INDICATION: Persistent atrial fibrillation After obtaining informed consent and making sure that she does not have an intracardiac thrombus with a transesophageal echo ensuring that she is adequately anticoagulated with Eliquis, the patient underwent electrical cardioversion. She initially received 200 joules of synchronized DC current which did not convert her to sinus rhythm. Received a second shock at 300 joules following which she converted to sinus rhythm. Her sedation and anesthesia have been taken care of by the net developer. MIGUEL / ALIZE: [id number] /
[2020-08-04] MEDS ORDERED: SODIUM CHLORIDE 0.9% 1,000 ML IV SCH (11:30)
[2020-08-04 13:26] VITALS: BP 130/67; PULSE 66
--- NOTE | 2020-08-17 14:22 | ECHOT ---
TRANSESOPHAGEAL ECHOCARDIOGRAM DATE OF SERVICE: 08/17/2020. INDICATION: Persistent atrial fibrillation. PROCEDURE NOTE: After obtaining informed consent, transesophageal echocardiogram was performed in left lateral position using an Omni plane probe. Local and IV sedation were obtained by the construction carpenters helper. The patient tolerated the procedure well without any obvious immediate complications. FINDINGS: 1. There is no intracardiac thrombus within the left atrial appendage, left atrium, right atrium, right ventricle, left ventricle. 2. Left ventricle appears mildly enlarged with preserved LV function with an ejection fraction of 50%. 3. There is mitral annular calcification with mild mitral regurgitation. 4. There is aortic sclerosis with mild aortic regurgitation. 5. There is mild tricuspid regurgitation. 6. There is no evidence of twym-xt-zyheh shunt by color-flow Doppler or kgnnn-gr-mebe shunt by agitated saline contrast study. CONCLUSIONS: No intracardiac thrombus. PLAN: Patient will proceed with cardioversion. The patient transesophageal echo involved 2D M-mode, color Doppler and spectral analysis. MMODL / IJN: [id number] /
== END 2020-08-04 12:38 | disposition home or self-care (01) ==
LOC: CATHCVL 09:26
PROVIDERS: ATTEND Internal Medicine Cardiovascular Disease
DX: I48.19 Other persistent atrial fibrillation (principal); I08.3 Combined rheumatic disorders of mitral, aortic and tricuspid valves; J44.9 Chronic obstructive pulmonary disease, unspecified; E66.01 Morbid (severe) obesity due to excess calories; Z68.38 Body mass index [BMI] 38.0-38.9, adult; Z20.822 Contact with and (suspected) exposure to COVID-19; J43.9 Emphysema, unspecified; I10 Essential (primary) hypertension; Z91.048 Other nonmedicinal substance allergy status; Z79.01 Long term (current) use of anticoagulants; Z79.82 Long term (current) use of aspirin; Z79.51 Long term (current) use of inhaled steroids; Z79.899 Other long term (current) drug therapy; Z88.0 Allergy status to penicillin; Z88.8 Allergy status to other drugs, medicaments and biological substances
CPT/HCPCS: 93312; 93320; 93325; 92960; 80048; 87635; J2704; 93005

== ENCOUNTER 2021-06-02 18:54 | Observation (INO) | payer MEDICARE, BC ==
[2021-06-02 19:43] LABS: Basophils % (A) 1 %; Eosinophils # (A) 0.1 k/uL (0-0.7); Eosinophils % (A) 2 %; HCT 39.4 % (34.0-46.0); HGB 12.7 gm/dL (11.4-16.0); Lymphocytes # (A) 0.9 k/uL (1.0-4.8); Lymphocytes % (A) 18 %; MCH 30.6 pg (25.0-35.0); MCHC 32.3 g/dL (31.0-37.0); MCV 94.7 fL (80.0-100.0); Mean Platelet Volume 8.2; Monocytes # (A) 0.3 k/uL (0-1.0); Monocytes % (A) 7 %; Neutrophils # (A) 3.5 k/uL (1.3-7.7); Neutrophils % (A) 70 %; Platelet Count 149 k/uL (150-450); RBC 4.16 m/uL (3.80-5.40); RDW 13.6 % (11.5-15.5)
[2021-06-02 19:55] LABS: Albumin 3.9 g/dL (3.5-5.0); Calcium 8.9 mg/dL (8.4-10.2); INR 1.2 (<1.2); Magnesium 1.8 mg/dL (1.6-2.3); Partial Thromboplastin Time 30.3 sec (22.0-30.0); Potassium 3.8 mmol/L (3.5-5.1); Prothrombin Time 12.4 sec (9.0-12.0); Total Bilirubin 0.5 mg/dL (0.2-1.3); Total Protein 6.7 g/dL (6.3-8.2)
--- NOTE | 2021-06-02 19:56 | XR ---
EXAMINATION TYPE: XR chest 2V DATE OF EXAM: 06/02/2021 7:36 PM COMPARISON:Chest radiographs from 06/03/2020 TECHNIQUE: XR chest 2V Frontal and lateral views of the chest. CLINICAL INDICATION:Female, 75 years old with history of Chest Pain; FINDINGS: Lungs/Pleura: There is no evidence of pleural effusion, focal consolidation, or pneumothorax. Pulmonary vascularity: Unremarkable. Heart/mediastinum: Cardiomediastinal silhouette is unremarkable. Atherosclerotic calcifications are seen in the aorta. Musculoskeletal: Multiple level degenerative disc disease changes seen throughout the spine. IMPRESSION: No acute cardiopulmonary disease/process.
[2021-06-02] MEDS ORDERED: ASPIRIN 81 MG PO STA (20:13)
--- NOTE | 2021-06-02 20:36 | ED ---
General Adult HPI - General Chief complaint: Chest Pain Stated complaint: Chest & Lt Arm Pain Time Seen by Provider: 06/02/21 20:15 Source: patient, family (daughter), RN notes reviewed, old records reviewed Mode of arrival: wheelchair Limitations: no limitations - History of Present Illness Initial comments: 75-year-old female presents to the emergency room with her daughter complaining of 3 hours of persistent chest pain at home today. Patient states that she was just sitting when the pain started. Started to radiate down her left arm. She said it hurt to take a deep breath and resolved on its own. She denies any nausea vomiting diarrhea or fevers. No reports of diaphoresis. She denies any abdominal pain. She has had a history of atrial fibrillation, asthma, DVT, hypertension, PE and mitral valve prolapse. She states that she underwent a cardioversion for A. fib last year and her autopsy assistant is Dr. Bernardo. She is on Xarelto -: hour(s) (3) Location: chest Radiation: distal (left upper arm) Severity scale (1-10): 0 Quality: aching Consistency: now resolved Associated Symptoms: shortness of breath - Related Data Home Medications Medication Instructions Recorded Confirmed Pantoprazole Sodium [Protonix] 40 mg PO DAILY 07/23/13 06/02/21 Brimonidine Tartrate [Alphagan P 1 drop BOTH EYES BID 05/05/14 06/02/21 0.2% Ophth Soln] Multivitamin/Iron/Folic Acid 1 tab PO DAILY 05/05/14 06/02/21 [Centrum Complete Multivit Tab] Albuterol Inhaler [Ventolin Hfa 2 puff INHALATION RT-Q4H PRN 08/27/19 06/02/21 Inhaler] Furosemide [Lasix] 40 mg PO DAILY 03/07/20 06/02/21 Potassium Chloride [Klor-Con 20] 20 meq PO DAILY 03/07/20 06/02/21 Ascorbic Acid [Vitamin C] 500 mg PO DAILY 06/05/20 06/02/21 Cholecalciferol [Vitamin D3 (25 25 mcg PO DAILY 06/05/20 06/02/21 Mcg = 1000 Iu)] Sertraline [Zoloft] 100 mg PO DAILY 06/05/20 06/02/21 Aspirin 81 mg PO DAILY 06/23/20 06/02/21 Nxkitcq-Ggob-Ivsr [id number] 1 tab PO Q4HR PRN 06/02/21 06/02/21 [Excedrin] Ipratropium-Albuterol Nebulize 3 ml INHALATION RT-QID PRN 06/02/21 06/02/21 [Duoneb 0.5 mg-3 mg/3 ml Soln] Metoprolol Tartrate [Lopressor] 50 mg PO BID 06/02/21 06/02/21 Montelukast [Singulair] 10 mg PO DAILY 06/02/21 06/02/21 Rosuvastatin Calcium [Crestor] 40 mg PO DAILY 06/02/21 06/02/21 Ubidecarenone [Co Q-10] 100 mg PO DAILY 06/02/21 06/02/21 Previous Rx's Medication Instructions Recorded Rivaroxaban [Xarelto] 20 mg PO W/SUPPER #30 tab 01/16/20 Losartan [Cozaar] 50 mg PO DAILY #30 tab 06/07/20 Allergies Allergy/AdvReac Type Severity Reaction Status Date / Time amoxicillin trihydrate Allergy Rash/Hives Verified 06/02/21 20:53 [From Augmentin] hydromorphone HCl Allergy Rash/Hives Verified 06/02/21 20:53 [From Dilaudid] Penicillins Allergy Rash/Hives Verified 06/02/21 20:53 on chest potassium clavulanate Allergy Rash/Hives Verified 06/02/21 20:53 [From Augmentin] tramadol Allergy "VERY RED Verified 06/02/21 20:53 FACE" Iodinated Contrast Media AdvReac Red face Verified 06/02/21 20:53 [Iodinated Contrast Media - and felt IV Dye] like it was on fire. Jhvcwcs-FPG-GvY Reductase AdvReac LEG Verified 06/02/21 20:53 Inhibitor SWELLING [Habfrcc-Gzl-Phz Reductase AND PAIN Inhibitor] Review of Systems ROS Statement: Those systems with pertinent positive or pertinent negative responses have been documented in the HPI. ROS Other: All systems not noted in ROS Statement are negative. Past Medical History Past Medical History: Atrial Fibrillation, Asthma, Cancer, Deep Vein Thrombosis (DVT), Eye Disorder, GERD/Reflux, Hypertension, Osteoarthritis (OA), Pulmonary Embolus (PE), Sleep Apnea/CPAP/BIPAP, Vascular Disorder Additional Past Medical History / Comment(s): 2012 colon cancer, Mitral Valve Prolapse, heartmurmur, chronic low back pain, herniated discs, scoliosis, does not use C-PAP, 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 History of Any Multi-Drug Resistant Organisms: None Reported Past Surgical History: Adenoidectomy, Bladder Surgery, Bowel Resection, Hystere ctomy, Joint Replacement, Orthopedic Surgery, Tonsillectomy Additional Past Surgical History / Comment(s): Colonoscopies/polypectomies, bladder prolapse repair, bilateral shoulder rotator cuff repair.Total right knee arthroplasty, L knee arthroscopy, bilateral feet bunionectomies, bilateral cataract removals. Past Anesthesia/Blood Transfusion Reactions: Motion Sickness, Postoperative Nausea & Vomiting (PONV) Additional Past Anesthesia/Blood Transfusion Reaction / Comment(s): Pt has claustrophobia. Past Psychological History: No Psychological Hx Reported Smoking Status: Former smoker Past Alcohol Use History: None Reported Past Drug Use History: None Reported - Past Family History Sister(s) Family Medical History: Pulmonary Embolus Father Family Medical History: Myocardial Infarction (MA) Additional Family Medical History / Comment(s): Father had his first MA at the age of 61 yrs. Mother Family Medical History: Cancer Additional Family Medical History / Comment(s): LYMPHOMA General Exam Limitations: no limitations General appearance: alert, in no apparent distress Head exam: Present: atraumatic, normocephalic, normal inspection Eye exam: Present: normal appearance. Absent: scleral icterus, conjunctival injection ENT exam: Present: normal exam, normal oropharynx, mucous membranes moist Neck exam: Present: full ROM. Absent: tenderness, meningismus Respiratory exam: Present: normal lung sounds bilaterally. Absent: respiratory distress, wheezes, rales, rhonchi, stridor, chest wall tenderness, accessory muscle use Cardiovascular Exam: Present: regular rate, normal rhythm, normal heart sounds. Absent: JVD GI/Abdominal exam: Present: soft, normal bowel sounds. Absent: distended, tenderness Extremities exam: Present: normal capillary refill. Absent: pedal edema Back exam: Present: normal inspection, full ROM. Absent: tenderness, CVA tend erness (R), CVA tenderness (L), rash noted Neurological exam: Present: alert, oriented X3 Psychiatric exam: Present: normal affect, normal mood Skin exam: Present: warm, dry, intact, normal color. Absent: cyanosis, diaphoretic, petechiae, pallor Course Vital Signs 06/02/21 18:59 Temperature 98.3 F Pulse Rate 69 Respiratory 16 Rate Blood Pressure 113/61 O2 Sat by Pulse 93 L Oximetry EKG Findings - EKG Results: EKG: sinus rhythm (Ventricular rate of 65, ID interval 0.205, QRS 0.97, QTC 0.4 43) Medical Decision Making - Medical Decision Making 75-year-old female presents with complaints of 3 hours of chest pain at home today that traveled down into her left arm. History of atrial fibrillation, PE and DVT, mitral valve prolapse and unstable angina. She had a BILL done by Dr. Gonzáles 08/17/2020 with an ejection fraction of 50%. EKG shows sinus rhythm with no ST elevation. Troponin is negative at 0.012. Hemoglobin and hematocrit are stable. Chest x-ray is negative for infiltrate or acute cardiopulmonary process. Vital signs are stable and she is pain-free at this time. Patient will be admitted to the hospital. She is agreeable to this plan of care. - Lab Data Result diagrams: 06/02/21 19:11 06/02/21 19:11 Lab Results 06/02/21 06/02/21 06/02/21 Range/Units 19:11 19:11 19:11 WBC 5.0 (3.8-10.6) k/uL RBC 4.16 (3.80-5.40) m/uL Hgb 12.7 (11.4-16.0) gm/dL Hct 39.4 (34.0-46.0) % MCV 94.7 (80.0-100.0) fL MCH 30.6 (25.0-35.0) pg MCHC 32.3 (31.0-37.0) g/dL RDW 13.6 (11.5-15.5) % Plt Count 149 L (150-450) k/uL MPV 8.2 Neutrophils % 70 % Lymphocytes % 18 % Monocytes % 7 % Eosinophils % 2 % Basophils % 1 % Neutrophils # 3.5 (1.3-7.7) k/uL Lymphocytes # 0.9 L (1.0-4.8) k/uL Monocytes # 0.3 (0-1.0) k/uL Eosinophils # 0.1 (0-0.7) k/uL Basophils # 0.0 (0-0.2) k/uL PT 12.4 H (9.0-12.0) sec INR 1.2 H (<1.2) APTT 30.3 H (22.0-30.0) sec Sodium 141 (137-145) mmol/L Potassium 3.8 (3.5-5.1) mmol/L Chloride 104 (98-107) mmol/L Carbon Dioxide 32 H (22-30) mmol/L Anion Gap 5 mmol/L BUN 21 H (7-17) mg/dL Creatinine 0.94 (0.52-1.04) mg/dL Est GFR (CKD-EPI)AfAm 69 (>60 ml/min/1.73 sqM) Est GFR (CKD-EPI)NonAf 60 (>60 ml/min/1.73 sqM) Glucose 134 H (74-99) mg/dL Calcium 8.9 (8.4-10.2) mg/dL Magnesium 1.8 (1.6-2.3) mg/dL Total Bilirubin 0.5 (0.2-1.3) mg/dL AST 36 (14-36) U/L ALT 27 (4-34) U/L Alkaline Phosphatase 60 (38-126) U/L Troponin I (0.000-0.034) ng/mL Total Protein 6.7 (6.3-8.2) g/dL Albumin 3.9 (3.5-5.0) g/dL 06/02/21 Range/Units 19:11 WBC (3.8-10.6) k/uL RBC (3.80-5.40) m/uL Hgb (11.4-16.0) gm/dL Hct (34.0-46.0) % MCV (80.0-100.0) fL MCH (25.0-35.0) pg MCHC (31.0-37.0) g/dL RDW (11.5-15.5) % Plt Count (150-450) k/uL MPV Neutrophils % % Lymphocytes % % Monocytes % % Eosinophils % % Basophils % % Neutrophils # (1.3-7.7) k/uL Lymphocytes # (1.0-4.8) k/uL Monocytes # (0-1.0) k/uL Eosinophils # (0-0.7) k/uL Basophils # (0-0.2) k/uL PT (9.0-12.0) sec INR (<1.2) APTT (22.0-30.0) sec Sodium (137-145) mmol/L Potassium (3.5-5.1) mmol/L Chloride (98-107) mmol/L Carbon Dioxide (22-30) mmol/L Anion Gap mmol/L BUN (7-17) mg/dL Creatinine (0.52-1.04) mg/dL Est GFR (CKD-EPI)AfAm (>60 ml/min/1.73 sqM) Est GFR (CKD-EPI)NonAf (>60 ml/min/1.73 sqM) Glucose (74-99) mg/dL Calcium (8.4-10.2) mg/dL Magnesium (1.6-2.3) mg/dL Total Bilirubin (0.2-1.3) mg/dL AST (14-36) U/L ALT (4-34) U/L Alkaline Phosphatase (38-126) U/L Troponin I <0.012 (0.000-0.034) ng/mL Total Protein (6.3-8.2) g/dL Albumin (3.5-5.0) g/dL Disposition Clinical Impression: Atypical chest pain Disposition: ADMITTED IP TO THIS [facility] Decision Date: 06/02/21 Decision Time: 20:38
[2021-06-02] MEDS ORDERED: NALOXONE 0.4 MG/ML 1 ML VIAL IV PRN (20:47)
[2021-06-02] MEDS ORDERED: ACETAMINOPHEN TAB 325 MG TAB PO PRN (20:47)
[2021-06-02] MEDS ORDERED: IPRATROPIUM-ALBUTEROL 3 ML NEB INHALATION PRN (23:24)
[2021-06-02] MEDS ORDERED: ALBUTEROL NEBULIZED 2.5 MG/3 ML INHALATION PRN (23:24)
[2021-06-03] MEDS ORDERED: ASPIRIN-ACET-CAFF 250-250-65MG 1 EACH TAB PO PRN
[2021-06-03] MEDS ORDERED: SERTRALINE 100 MG TAB PO SCH (09:00)
[2021-06-03] MEDS ORDERED: ASPIRIN 81 MG PO SCH (09:00)
[2021-06-03] MEDS ORDERED: MONTELUKAST 10 MG TAB PO SCH (09:00)
[2021-06-03] MEDS ORDERED: ASCORBIC ACID 500 MG TAB PO SCH (09:00)
[2021-06-03] MEDS ORDERED: FUROSEMIDE 40 MG TAB PO SCH (09:00)
[2021-06-03] MEDS ORDERED: BRIMONIDINE TARTRATE 0.2% DROPS 5 ML BTL BOTH EYES SCH (09:00)
[2021-06-03] MEDS ORDERED: PANTOPRAZOLE 40 MG TABLET PO SCH (09:00)
[2021-06-03] MEDS ORDERED: NON FORMULARY DRUG (Rosuvastatin Calcium [Crestor] 40 MG Tablet) PO SCH (09:00)
[2021-06-03] MEDS ORDERED: METOPROLOL TARTRATE 50 MG TAB PO SCH (09:00)
[2021-06-03] MEDS ORDERED: CHOLECALCIFEROL 25 MCG (1000 IU) TABLET PO SCH (09:00)
[2021-06-03] MEDS ORDERED: NON FORMULARY DRUG (Ubidecarenone [Co Q-10] 100 MG Capsule) PO SCH (09:00)
[2021-06-03] MEDS ORDERED: LOSARTAN 50 MG TAB PO SCH (09:00)
[2021-06-03] MEDS ORDERED: POTASSIUM CHLORIDE ER 20 MEQ TAB.ER PO SCH (09:00)
[2021-06-03] MEDS ORDERED: MULTIVITAMINS, THERA 1 EACH TAB PO SCH (09:00)
[2021-06-03] MEDS ORDERED: HYDROcodone/APAP 5-325MG 1 EACH TAB PO PRN (10:40)
--- NOTE | 2021-06-03 11:52 | P.CRDCN ---
History of Present Illness Consult date: 06/03/21 Consult reason: chest pain History of present illness: HISTORY OF PRESENTING ILLNESS This is a pleasant 75-year-old female patient of Dr. Bernardo with past medical history significant of persistent atrial fibrillation (on xarelto), supraventricular tachycardia, hypertension, history of PE, COPD, and obstructive sleep apnea. Patient states that she saw Dr. Saul Bernardo last week and was scheduled for an echocardiogram down the road but no medication changes were done at that time. She developed heaviness in her chest yesterday while she was at rest and to the left upper arm and she thought it was hard to take a deep breath. Also went into the upper left abdomen. She describes the pain as heaviness. She took a couple baby aspirins and it did not go away. Pain lasted about 3 hours. She thinks she had a stress test done in the office about one year ago. EKG sinus rhythm Platelet count 149 otherwise CBC unremarkable. INR 1.2. BUN 21 creatinine 0.94. CO2 32. Blood sugar 134. Troponin negative on 2 draws. Chest x-ray shows no acute cardio pulmonary disease or process. Current daily cardiac medications include Xarelto 20 mg nightly, potassium chloride 20meq daily, metoprolol tartrate 50 mg twice a day, Lasix 40 mg daily, Crestor 40 mg daily, aspirin 81 mg daily, losartan 50 mg daily. BILL 08/04/2020: No intracardiac thrombus, EF 50%, mild mitral regurgitation, aortic sclerosis with mild aortic regurgitation, mild tricuspid regurgitation, no evidence of gcii-yo-aujim shunt. REVIEW OF SYSTEMS At the time of my exam: CONSTITUTIONAL: Denies fever or chills. CARDIOVASCULAR: Denies chest pain and denies shortness of breath, Denies orthopnea, PND or palpitations. RESPIRATORY: No cough. Denies sputum GASTROINTESTINAL: Denies abdominal pain, diarrhea, constipation, nausea or vomiting. MUSCULOSKELETAL: Denies myalgias. NEUROLOGIC: Denies numbness, tingling or weakness. ENDOCRINE: Denies fatigue, weight change, polydipsia or polyurina. GENITOURINARY: Denies burning, hematuria or urgency with micturation. HEMATOLOGIC: Denies history of anemia or bleeding. PHYSICAL EXAMINATION Blood pressure 167/91, heart rate in the 70s, afebrile, pulse ox 93% on room air CONSTITUTIONAL: Calm, No apparent distress. HEENT: Head is normocephalic. Pupils are equal, round. Sclerae anicteric. Mucous membranes of the mouth are moist. No JVD. No carotid bruit. CHEST EXAMINATION: Lungs clear to auscultation, no wheezing. No chest wall tenderness with palpation and deep breathing HEART EXAMINATION: Regular rate and rhythm. S1, S2 heard. No murmurs, gallops or rub. ABDOMEN: Soft, nontender. Positive bowel sounds. EXTREMITIES: 2+ peripheral pulses, no lower extremity edema and no calf tenderness. SKIN: intact NEUROLOGIC EXAMINATION: Patient is awake, alert and oriented x3. ASSESSMENT Chest pain- atypical, acute coronary event ruled out. 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 Saul Bernardo in the office for possible stress test in the office Thank you kindly for the consultation. Nurse Practitioner note has been reviewed, I agree with a documented findings and plan of care. Patient was seen and examined. 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 History of Any Multi-Drug Resistant Organisms: None Reported Past Surgical History: Adenoidectomy, Bladder Surgery, Bowel Resection, Hysterectomy, Joint Replacement, Orthopedic Surgery, Tonsillectomy Additional Past Surgical History / Comment(s): Colonoscopies/polypectomies, bladder prolapse repair, bilateral shoulder rotator cuff repair.Total right knee arthroplasty, L knee arthroscopy, bilateral feet bunionectomies, bilateral cataract removals. Past Anesthesia/Blood Transfusion Reactions: Motion Sickness, Postoperative Nausea & Vomiting (PONV) Additional Past Anesthesia/Blood Transfusion Reaction / Comment(s): Pt has claustrophobia. Past Psychological History: No Psychological Hx Reported Smoking Status: Former smoker Past Alcohol Use History: None Reported Past Drug Use History: None Reported - Past Family History Sister(s) Family Medical History: Pulmonary Embolus Father Family Medical History: Myocardial Infarction (MT) Additional Family Medical History / Comment(s): Father had his first MT at the age of 61 yrs. Mother Family Medical History: Cancer Additional Family Medical History / Comment(s): LYMPHOMA Medications and Allergies Home Medications Medication Instructions Recorded Confirmed Type Pantoprazole Sodium [Protonix] 40 mg PO DAILY 07/23/13 06/02/21 History Brimonidine Tartrate [Alphagan P 1 drop BOTH EYES BID 05/05/14 06/02/21 History 0.2% Ophth Soln] Multivitamin/Iron/Folic Acid 1 tab PO DAILY 05/05/14 06/02/21 History [Centrum Complete Multivit Tab] Albuterol Inhaler [Ventolin Hfa 2 puff INHALATION RT-Q4H PRN 08/27/19 06/02/21 History Inhaler] Rivaroxaban [Xarelto] 20 mg PO W/SUPPER #30 tab 01/16/20 06/02/21 Rx Furosemide [Lasix] 40 mg PO DAILY 03/07/20 06/02/21 History Potassium Chloride [Klor-Con 20] 20 meq PO DAILY 03/07/20 06/02/21 History Ascorbic Acid [Vitamin C] 500 mg PO DAILY 06/05/20 06/02/21 History Cholecalciferol [Vitamin D3 (25 25 mcg PO DAILY 06/05/20 06/02/21 History Mcg = 1000 Iu)] Sertraline [Zoloft] 100 mg PO DAILY 06/05/20 06/02/21 History Losartan [Cozaar] 50 mg PO DAILY #30 tab 06/07/20 06/02/21 Rx Aspirin 81 mg PO DAILY 06/23/20 06/02/21 History Lzbumlo-Fixp-Ytzm [id number] 1 tab PO Q4HR PRN 06/02/21 06/02/21 History [Excedrin] Ipratropium-Albuterol Nebulize 3 ml INHALATION RT-QID PRN 06/02/21 06/02/21 History [Duoneb 0.5 mg-3 mg/3 ml Soln] Metoprolol Tartrate [Lopressor] 50 mg PO BID 06/02/21 06/02/21 History Montelukast [Singulair] 10 mg PO DAILY 06/02/21 06/02/21 History Rosuvastatin Calcium [Crestor] 40 mg PO DAILY 06/02/21 06/02/21 History Ubidecarenone [Co Q-10] 100 mg PO DAILY 06/02/21 06/02/21 History Allergies Allergy/AdvReac Type Severity Reaction Status Date / Time amoxicillin trihydrate Allergy Rash/Hives Verified 06/02/21 20:53 [From Augmentin] hydromorphone HCl Allergy Rash/Hives Verified 06/02/21 20:53 [From Dilaudid] Penicillins Allergy Rash/Hives Verified 06/02/21 20:53 on chest potassium clavulanate Allergy Rash/Hives Verified 06/02/21 20:53 [From Augmentin] tramadol Allergy "VERY RED Verified 06/02/21 20:53 FACE" Iodinated Contrast Media AdvReac Red face Verified 06/02/21 20:53 [Iodinated Contrast Media - and felt IV Dye] like it was on fire. Dwmqrqy-CAA-JvN Reductase AdvReac LEG Verified 06/02/21 20:53 Inhibitor SWELLING [Vldhzmi-Wih-Sbb Reductase AND PAIN Inhibitor] Physical Exam Vitals: Vital Signs Temp Pulse Pulse Resp BP BP Pulse Ox 06/03/21 02:13 97.5 F L 70 17 147/70 94 L 06/02/21 23:16 98.3 F 53 L 18 114/74 93 L 06/02/21 18:59 98.3 F 69 16 113/61 93 L Intake and Output 06/02/21 06/03/21 06/03/21 22:59 06:59 14:59 Other: # Voids 1 1 Weight 100.698 kg Results 06/02/21 19:11 06/02/21 19:11 Cardiac Enzymes 06/02/21 06/02/21 06/02/21 Range/Units 19:11 19:11 22:32 AST 36 (14-36) U/L Troponin I <0.012 <0.012 (0.000-0.034) ng/mL Coagulation 06/02/21 Range/Units 19:11 PT 12.4 H (9.0-12.0) sec APTT 30.3 H (22.0-30.0) sec CBC 06/02/21 Range/Units 19:11 WBC 5.0 (3.8-10.6) k/uL RBC 4.16 (3.80-5.40) m/uL Hgb 12.7 (11.4-16.0) gm/dL Hct 39.4 (34.0-46.0) % Plt Count 149 L (150-450) k/uL Comprehensive Metabolic Panel 06/02/21 Range/Units 19:11 Sodium 141 (137-145) mmol/L Potassium 3.8 (3.5-5.1) mmol/L Chloride 104 (98-107) mmol/L Carbon Dioxide 32 H (22-30) mmol/L BUN 21 H (7-17) mg/dL Creatinine 0.94 (0.52-1.04) mg/dL Glucose 134 H (74-99) mg/dL Calcium 8.9 (8.4-10.2) mg/dL AST 36 (14-36) U/L ALT 27 (4-34) U/L Alkaline Phosphatase 60 (38-126) U/L Total Protein 6.7 (6.3-8.2) g/dL Albumin 3.9 (3.5-5.0) g/dL Current Medications Generic Name Dose Route Start Last Admin Trade Name Freq PRN Reason Stop Dose Admin Acetaminophen 650 mg 06/02/21 20:47 Acetaminophen Tab 325 Mg Tab PO Q6HR PRN Mild Pain or Fever > 100.5 Acetaminophen/Aspirin/Caffeine 1 each 06/03/21 00:00 Fwvtwbx-Jslb-Refa [id number] 1 Each Tab PO Q4HR PRN Migraine Headache Albuterol Sulfate 2.5 mg 06/02/21 23:24 06/03/21 08:24 Albuterol Nebulized 2.5 Mg/3 Ml INHALATION 2.5 mg RT-Q4H PRN Administration Shortness Of Breath Albuterol/Ipratropium 3 ml 06/02/21 23:24 Ipratropium-Albuterol 3 Ml Neb INHALATION RT-QID PRN Shortness Of Breath Ascorbic Acid 500 mg 06/03/21 09:00 Ascorbic Acid 500 Mg Tab PO DAILY [facility] Aspirin 81 mg 06/03/21 09:00 Aspirin 81 Mg PO DAILY [facility] Brimonidine Tartrate 1 drops 06/03/21 09:00 Brimonidine Tartrate 0.2% Drops 5 Ml Btl BOTH EYES BID [facility] Cholecalciferol 25 mcg 06/03/21 09:00 Cholecalciferol 25 Mcg (1000 Iu) Tablet PO DAILY [facility] Furosemide 40 mg 06/03/21 09:00 Furosemide 40 Mg Tab PO DAILY [facility] Losartan Potassium 50 mg 06/03/21 09:00 Losartan 50 Mg Tab PO DAILY [facility] Metoprolol Tartrate 50 mg 06/03/21 09:00 Metoprolol Tartrate 50 Mg Tab PO BID [facility] Montelukast Sodium 10 mg 06/03/21 09:00 Montelukast 10 Mg Tab PO DAILY [facility] Multivitamins 1 each 06/03/21 09:00 Multivitamins, Thera 1 Each Tab PO DAILY [facility] Naloxone HCl 0.2 mg 06/02/21 20:47 Naloxone 0.4 Mg/Ml 1 Ml Vial IV Q2M PRN Opioid Reversal Non-Formulary Medication 40 mg 06/03/21 09:00 Rosuvastatin Calcium [Crestor] PO DAILY [facility] Pantoprazole Sodium 40 mg 06/03/21 09:00 Pantoprazole 40 Mg Tablet PO DAILY [facility] Potassium Chloride 20 meq 06/03/21 09:00 Potassium Chloride Er 20 Meq Tab.Er PO DAILY [facility] Rivaroxaban 20 mg 06/03/21 17:30 Rivaroxaban 20 Mg Tab PO W/SUPPER [facility] Protocol Sertraline HCl 100 mg 06/03/21 09:00 Sertraline 100 Mg Tab PO DAILY [facility] Intake and Output 06/02/21 06/03/21 06/03/21 22:59 06:59 14:59 Other: # Voids 1 1 Weight 100.698 kg 06/02/21 19:11 06/02/21 19:11
--- NOTE | 2021-06-03 13:35 | P.HPIM ---
History of Present Illness H&P Date: 06/03/21 Chief Complaint: Chest pain HISTORY OF PRESENT ILLNESS This is a 74-year-old female patient of [facility] and Dr. Saul Bernardo with past medical history of hypertension, glaucoma, DVT, colon cancer status post partial colectomy, gastroesophageal reflux disease, mild intermittent asthma, patient was seen by Dr. Bernardo about a week ago and no changes in her medication were don e, patient also was supposed to go for an echocardiogram as an outpatient, she did have a last transesophageal echo cardiogram about a year ago and that showed that mild aortic sclerosis with mild aortic regurgitation and mitral regurgitation with tricuspid regurgitation ejection fraction was about 50%, patient presented to the emergency department at [facility] yesterday because of left sided chest heaviness while she was sitting watching TV radiating into the left inner arm associated with left upper abdominal pain as well did not do anything about it at times when she ended up taking 2 baby aspirin, the pain did not go away she decided to come to the emergency department for evaluation her laboratory evaluation as well as 12-lead EKG did not show evidence of acute abnormalities, her troponins came back negative, she was admitted to the hospital for evaluation by cardiology. REVIEW OF SYSTEMS Constitutional: No documented fever, no chills, no night sweats. No weight change. No weakness, fatigue or lethargy. No daytime sleepiness. HEENT: No headache. No blurred vision or double vision, no loss of vision. No loss of Hearing, no ringing in the ears, no dizziness. No nasal drainage or congestion. No epistaxis. No sore throat. Lungs: Reports shortness of breath, no cough, no sputum production. No wheezing. Reports dyspnea with activity. Cardiovascular: Reports chest pain, no lower extremity edema. No palpitations. No paroxysmal nocturnal dyspnea. No orthopnea. No lightheadedness or dizziness. No syncopal episodes. Abdominal: Reports abdominal pain. No nausea, vomiting. No diarrhea. No constipation. No bloody or tarry stools reports loss of appetite. Genitourinary: No dysuria, increased frequency, urgency. No urinary retention. Musculoskeletal: No myalgias. No muscle weakness, no gait dysfunction, no frequent falls. No back pain. No neck pain. Integumentary: No wounds, no lesions. No rash or pruritus. No unusual bruising. No change in hair or nails. Neurologic: No aphasia. No facial droop. No change in mentation. No head injury. No headache. No paralysis. No paresthesia. Psychiatric: No depression. No anxiety. No mood swings. Endocrine: No abnormal blood sugars. No weight change. SOCIAL HISTORY Patient was a smoker of one pack per day for 25 years and quit in 1992. She denies any marijuana use, alcohol use or illicit drug use. She resides in a senior apartment. FAMILY HISTORY Family history his first myocardial infarction at age 61. Mother from lymphoma. PHYSICAL EXAMINATION General: This is a 74-year-old female. She is was seen on the ER stretcher and appears to be comfortable. HEENT: Head is atraumatic, normocephalic, pupils were equal round reactive to light and recommendation, extraocular muscle movement were intact, sclera nonicteric, conjunctivae were pale, mucous membranes of the mouth are somewhat dry. Neck: Supple, no JVP, normal carotid upstroke bilaterally, no lymphadenopathy. Chest: Decreased breath sounds at the bases, few rhonchi, no extremity wheezes, no chest wall tenderness, no intercostal retractions. Heart: First heart sound is normal, second heart sounds normal, irregularly irregular, systolic murmur Abdomen: Soft, nontender, nondistended, positive bowel sounds. Extremities: There is no edema no calf tenderness DP +2 bilaterally. Neurologic examination: Patient is awake alert and oriented 3, cranial nerves II-12 appear grossly intact, muscle power were 5 out of 5 in upper extremities and 5 out of 5 in bilateral lower extremities, deep tendon reflexes normal bilaterally. ASSESSMENT AND PLAN 1. Chest pain, atypical. Troponins are negative and 3 draws. Cardiology consult. 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 2. Paroxysmal atrial fibrillation. Continue Lopressor 100 mg twice daily and Xarelto 20 mg with supper. 3. Hypertension. Continue Lasix 40 mg daily, Lopressor. 4. Mild intermittent asthma. Continue albuterol nebulizer every 4 hours as needed, Symbicort 1604 0.5 g 2 puffs twice daily. 5. Glaucoma. Continue eyedrops. 6. Recurrent depression. Continue Zoloft 100 mg daily. 7. Osteoarthritis. Continue current pain management. 8. Observation. 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 History of Any Multi-Drug Resistant Organisms: None Reported Past Surgical History: Adenoidectomy, Bladder Surgery, Bowel Resection, Hysterectomy, Joint Replacement, Orthopedic Surgery, Tonsillectomy Additional Past Surgical History / Comment(s): Colonoscopies/polypectomies, bladder prolapse repair, bilateral shoulder rotator cuff repair.Total right knee arthroplasty, L knee arthroscopy, bilateral feet bunionectomies, bilateral cataract removals. Past Anesthesia/Blood Transfusion Reactions: Motion Sickness, Postoperative Nausea & Vomiting (PONV) Additional Past Anesthesia/Blood Transfusion Reaction / Comment(s): Pt has claustrophobia. Past Psychological History: No Psychological Hx Reported Smoking Status: Former smoker Past Alcohol Use History: None Reported Past Drug Use History: None Reported - Past Family History Sister(s) Family Medical History: Pulmonary Embolus Father Family Medical History: Myocardial Infarction (RI) Additional Family Medical History / Comment(s): Father had his first RI at the age of 61 yrs. Mother Family Medical History: Cancer Additional Family Medical History / Comment(s): LYMPHOMA Medications and Allergies Home Medications Medication Instructions Recorded Confirmed Type Pantoprazole Sodium [Protonix] 40 mg PO DAILY 07/23/13 06/02/21 History Brimonidine Tartrate [Alphagan P 1 drop BOTH EYES BID 05/05/14 06/02/21 History 0.2% Ophth Soln] Multivitamin/Iron/Folic Acid 1 tab PO DAILY 05/05/14 06/02/21 History [Centrum Complete Multivit Tab] Albuterol Inhaler [Ventolin Hfa 2 puff INHALATION RT-Q4H PRN 08/27/19 06/02/21 History Inhaler] Rivaroxaban [Xarelto] 20 mg PO W/SUPPER #30 tab 01/16/20 06/02/21 Rx Furosemide [Lasix] 40 mg PO DAILY 03/07/20 06/02/21 History Potassium Chloride [Klor-Con 20] 20 meq PO DAILY 03/07/20 06/02/21 History Ascorbic Acid [Vitamin C] 500 mg PO DAILY 06/05/20 06/02/21 History Cholecalciferol [Vitamin D3 (25 25 mcg PO DAILY 06/05/20 06/02/21 History Mcg = 1000 Iu)] Sertraline [Zoloft] 100 mg PO DAILY 06/05/20 06/02/21 History Losartan [Cozaar] 50 mg PO DAILY #30 tab 06/07/20 06/02/21 Rx Aspirin 81 mg PO DAILY 06/23/20 06/02/21 History Vynling-Kccz-Abth [id number] 1 tab PO Q4HR PRN 06/02/21 06/02/21 History [Excedrin] Ipratropium-Albuterol Nebulize 3 ml INHALATION RT-QID PRN 06/02/21 06/02/21 History [Duoneb 0.5 mg-3 mg/3 ml Soln] Metoprolol Tartrate [Lopressor] 50 mg PO BID 06/02/21 06/02/21 History Montelukast [Singulair] 10 mg PO DAILY 06/02/21 06/02/21 History Rosuvastatin Calcium [Crestor] 40 mg PO DAILY 06/02/21 06/02/21 History Ubidecarenone [Co Q-10] 100 mg PO DAILY 06/02/21 06/02/21 History Allergies Allergy/AdvReac Type Severity Reaction Status Date / Time amoxicillin trihydrate Allergy Rash/Hives Verified 06/02/21 20:53 [From Augmentin] hydromorphone HCl Allergy Rash/Hives Verified 06/02/21 20:53 [From Dilaudid] Penicillins Allergy Rash/Hives Verified 06/02/21 20:53 on chest potassium clavulanate Allergy Rash/Hives Verified 06/02/21 20:53 [From Augmentin] tramadol Allergy "VERY RED Verified 06/02/21 20:53 FACE" Iodinated Contrast Media AdvReac Red face Verified 06/02/21 20:53 [Iodinated Contrast Media - and felt IV Dye] like it was on fire. Kulkffb-TMC-OhN Reductase AdvReac LEG Verified 06/02/21 20:53 Inhibitor SWELLING [Lkxqadv-Zhi-Ths Reductase AND PAIN Inhibitor] Physical Exam Vitals: Vital Signs Temp Pulse Pulse Resp BP BP Pulse Ox 06/03/21 09:03 72 06/03/21 08:49 72 06/03/21 07:00 97.6 F 71 18 167/91 93 L 06/03/21 02:13 97.5 F L 70 17 147/70 94 L 06/02/21 23:16 98.3 F 53 L 18 114/74 93 L 06/02/21 18:59 98.3 F 69 16 113/61 93 L Intake and Output 06/02/21 06/03/21 06/03/21 22:59 06:59 14:59 Other: # Voids 1 1 Weight 100.698 kg Results CBC & Chem 7: 06/02/21 19:11 06/02/21 19:11 Labs: Abnormal Lab Results - Last 24 Hours (Table) 06/02/21 06/02/21 06/02/21 Range/Units 19:11 19:11 19:11 Plt Count 149 L (150-450) k/uL Lymphocytes # 0.9 L (1.0-4.8) k/uL PT 12.4 H (9.0-12.0) sec INR 1.2 H (<1.2) APTT 30.3 H (22.0-30.0) sec Carbon Dioxide 32 H (22-30) mmol/L BUN 21 H (7-17) mg/dL Glucose 134 H (74-99) mg/dL Thrombosis Risk Factor Assmnt - Choose All That Apply Any of the Below Risk Factors Present?: Yes Each Factor Represents 1 point: Obesity (BMI >25) Other Risk Factors: Yes Each Risk Factor Represents 2 Points: Age 61-74 years Other congenital or acquired thrombophilia - If yes, enter type in comment: No Thrombosis Risk Factor Assessment Total Risk Factor Score: 3 Thrombosis Risk Factor Assessment Level: Moderate Risk
--- NOTE | 2021-06-03 13:37 | P.DS ---
Providers Date of admission: 06/02/21 20:39 Expected date of discharge: 06/03/21 Attending physician: Sheila Grace Consults: 06/02/21 20:47 Consult Physician Routine Consulting Provider: Gavin Young Consult Reason/Comments: Atypical chest pain Do you want consulting provider notified?: Yes Primary care physician: Sheila Grace Hospital Course: HISTORY OF PRESENT ILLNESS This is a 74-year-old female patient of [facility] and Dr. Saul Bernardo with past medical history of hypertension, glaucoma, DVT, colon cancer status post partial colectomy, gastroesophageal reflux disease, mild intermittent asthma, patient was seen by Dr. Bernardo about a week ago and no changes in her medication were done, patient also was supposed to go for an echocardiogram as an outpatient, she did have a last transesophageal echo cardiogram about a year ago and that showed that mild aortic sclerosis with mild aortic regurgitation and mitral regurgitation with tricuspid regurgitation ejection fraction was about 50%, patient presented to the emergency department at [facility] yesterday because of left sided chest heaviness while she was sitting watching TV radiating into the left inner arm associated with left upper abdominal pain as well did not do anything about it at times when she ended up taking 2 baby aspirin, the pain did not go away she decided to come to the emergency [facility] for evaluation her laboratory evaluation as well as 12-lead EKG did not show evidence of acute abnormalities, her troponins came back negative, she was admitted to the hospital for evaluation by cardiology. Discharge diagnoses: 1. Chest pain, atypical. 2. Paroxysmal atrial fibrillation. 3. Hypertension. 4. Mild intermittent asthma. 5. Glaucoma. 6. Recurrent depression. 7. Osteoarthritis. Patient Condition at Discharge: Stable Plan - Discharge Summary Discharge Rx Participant: No New Discharge Prescriptions: No Action Pantoprazole Sodium [Protonix] 40 mg PO DAILY Multivitamin/Iron/Folic Acid [Centrum Complete Multivit Tab] 1 tab PO DAILY Brimonidine Tartrate [Alphagan P 0.2% Ophth Soln] 1 drop BOTH EYES BID Albuterol Inhaler [Ventolin Hfa Inhaler] 2 puff INHALATION RT-Q4H PRN PRN Reason: Shortness Of Breath Rivaroxaban [Xarelto] 20 mg PO W/SUPPER #30 tab Potassium Chloride [Klor-Con 20] 20 meq PO DAILY Furosemide [Lasix] 40 mg PO DAILY Ascorbic Acid [Vitamin C] 500 mg PO DAILY Sertraline [Zoloft] 100 mg PO DAILY Losartan [Cozaar] 50 mg PO DAILY #30 tab Aspirin 81 mg PO DAILY Ubidecarenone [Co Q-10] 100 mg PO DAILY Rosuvastatin Calcium [Crestor] 40 mg PO DAILY Gdtsbry-Ccse-Bpfa [id number] [Excedrin] 1 tab PO Q4HR PRN PRN Reason: Migraine Headache Ipratropium-Albuterol Nebulize [Duoneb 0.5 mg-3 mg/3 ml Soln] 3 ml INHALATION RT-QID PRN PRN Reason: Shortness Of Breath Metoprolol Tartrate [Lopressor] 50 mg PO BID Cholecalciferol [Vitamin D3 (25 Mcg = 1000 Iu)] 25 mcg PO DAILY Montelukast [Singulair] 10 mg PO DAILY Discharge Medication List Pantoprazole Sodium [Protonix] 40 mg PO DAILY 07/23/13 [History] Brimonidine Tartrate [Alphagan P 0.2% Ophth Soln] 1 drop BOTH EYES BID 05/05/14 [History] Multivitamin/Iron/Folic Acid [Centrum Complete Multivit Tab] 1 tab PO DAILY 05/05/14 [History] Albuterol Inhaler [Ventolin Hfa Inhaler] 2 puff INHALATION RT-Q4H PRN 08/27/19 [History] Rivaroxaban [Xarelto] 20 mg PO W/SUPPER #30 tab 01/16/20 [Rx] Furosemide [Lasix] 40 mg PO DAILY 03/07/20 [History] Potassium Chloride [Klor-Con 20] 20 meq PO DAILY 03/07/20 [History] Ascorbic Acid [Vitamin C] 500 mg PO DAILY 06/05/20 [History] Cholecalciferol [Vitamin D3 (25 Mcg = 1000 Iu)] 25 mcg PO DAILY 06/05/20 [History] Sertraline [Zoloft] 100 mg PO DAILY 06/05/20 [History] Losartan [Cozaar] 50 mg PO DAILY #30 tab 06/07/20 [Rx] Aspirin 81 mg PO DAILY 06/23/20 [History] Prfelce-Duil-Wqos [phone] [Excedrin] 1 tab PO Q4HR PRN 06/02/21 [History] Ipratropium-Albuterol Nebulize [Duoneb 0.5 mg-3 mg/3 ml Soln] 3 ml INHALATION RT-QID PRN 06/02/21 [History] Metoprolol Tartrate [Lopressor] 50 mg PO BID 06/02/21 [History] Montelukast [Singulair] 10 mg PO DAILY 06/02/21 [History] Rosuvastatin Calcium [Crestor] 40 mg PO DAILY 06/02/21 [History] Ubidecarenone [Co Q-10] 100 mg PO DAILY 06/02/21 [History] Follow up Appointment(s)/Referral(s): Sheila Grace MD [Primary Care Provider] - 1-2 days Paulino Bernardo MD [STAFF PHYSICIAN] - 1 Week
[2021-06-03 15:45] VITALS: BP 120/72; PULSE 75; RESP 17; TEMP 98
[2021-06-03] MEDS ORDERED: RIVAROXABAN 20 MG TAB PO SCH (17:30)
== END 2021-06-03 15:27 | disposition home or self-care (01) ==
LOC: EC 18:54 → 6NMEDSUR 20:39
PROVIDERS: ADMIT Internal Medicine; ATTEND Internal Medicine
DX: R07.89 Other chest pain (principal); I48.19 Other persistent atrial fibrillation; I10 Essential (primary) hypertension; J45.20 Mild intermittent asthma, uncomplicated; H40.9 Unspecified glaucoma; F33.9 Major depressive disorder, recurrent, unspecified; M19.90 Unspecified osteoarthritis, unspecified site; M79.602 Pain in left arm; R10.12 Left upper quadrant pain; G47.33 Obstructive sleep apnea (adult) (pediatric); I08.3 Combined rheumatic disorders of mitral, aortic and tricuspid valves; K21.9 Gastro-esophageal reflux disease without esophagitis; G89.29 Other chronic pain; M54.50 Low back pain, unspecified; E66.9 Obesity, unspecified; Z68.41 Body mass index [BMI] 40.0-44.9, adult; I47.1 Supraventricular tachycardia; J44.9 Chronic obstructive pulmonary disease, unspecified; I20.0 Unstable angina; Z85.038 Personal history of other malignant neoplasm of large intestine; Z86.718 Personal history of other venous thrombosis and embolism; Z96.651 Presence of right artificial knee joint; Z86.16 Personal history of COVID-19; Z86.010 Personal history of colon polyps; Z87.891 Personal history of nicotine dependence; Z86.711 Personal history of pulmonary embolism; Z79.82 Long term (current) use of aspirin; Z88.5 Allergy status to narcotic agent; Z88.0 Allergy status to penicillin; Z88.8 Allergy status to other drugs, medicaments and biological substances; Z91.041 Radiographic dye allergy status; Z90.710 Acquired absence of both cervix and uterus; Z90.49 Acquired absence of other specified parts of digestive tract; Z79.01 Long term (current) use of anticoagulants; Z79.899 Other long term (current) drug therapy; Z79.51 Long term (current) use of inhaled steroids; Z82.49 Family history of ischemic heart disease and other diseases of the circulatory system; Z80.7 Family history of other malignant neoplasms of lymphoid, hematopoietic and related tissues
CPT/HCPCS: 99285; 36415; 94640; 93005; 80053; 83735; 84484; 85025; 85610; 85730; 71046; G0378 ×2

== ENCOUNTER → 2021-06-25 | Outpatient (CLI) | payer MEDICARE, BC ==
--- NOTE | 2021-06-27 11:55 | MM ---
Reason for exam: screening (asymptomatic). Last mammogram was performed 1 year and 1 month ago. History: Patient is postmenopausal and has history of colon cancer at age 66. Benign right mammotome panel of the right breast, November 27, 2009. Took estrogen for 3 years. Took progesterone for 3 years. Physical Findings: A clinical breast exam by your physician is recommended on an annual basis and results should be correlated with mammographic findings. MG 3D Screening Mammo W/Cad Bilateral CC and MLO view(s) were taken. Prior study comparison: May 15, 2020, bilateral MG 3d screening mammo w/cad. April 27, 2019, bilateral MG 3d screening mammo w/cad. The breast tissue is almost entirely fat. Previous mammotome biopsy in the right breast. There is chronic nodularity in the right breast. No significant changes when compared with prior studies. ASSESSMENT: Benign, BI-RAD 2 RECOMMENDATION: Routine screening mammogram of both breasts in 1 year.
== END | disposition home or self-care (01) ==
LOC: RADMAMWWP 15:58
PROVIDERS: ATTEND Internal Medicine
DX: Z12.31 Encounter for screening mammogram for malignant neoplasm of breast (principal); Z78.0 Asymptomatic menopausal state; Z85.038 Personal history of other malignant neoplasm of large intestine
CPT/HCPCS: 77063; 77067

== ENCOUNTER 2021-11-07 06:43 | Inpatient (IN) | payer MEDICARE, BC ==
[2021-11-07] MEDS ORDERED: SODIUM CHLORIDE 0.9% 1,000 ML IV STA (07:28)
[2021-11-07] MEDS ORDERED: diphenhydrAMINE 50 MG/ML 1 ML VIAL IVP STA (07:28)
[2021-11-07] MEDS ORDERED: KETOROLAC 15 MG/ML 1 ML VIAL IVP STA (07:28)
[2021-11-07] MEDS ORDERED: HYDROmorphone 0.5 MG/0.5 ML SYRINGE IVP STA (07:28)
--- NOTE | 2021-11-07 07:33 | ED ---
General Adult HPI - General Chief complaint: Abdominal Pain Stated complaint: Abd Pain Time Seen by Provider: 11/07/21 07:00 Source: patient, RN notes reviewed, old records reviewed Mode of arrival: ambulatory Limitations: no limitations - History of Present Illness Initial comments: This is a 76-year-old female presents emergency Department complaining of left lower quadrant abdominal pain for 2 weeks per patient states she's been on antibiotics for over a week now and is not getting any better. Patient states she has not yet had a CAT scan it was diagnosed clinically. Patient denies any fever chills per patient denies any dysuria hematuria urinary frequency. Patient states she's been occasionally nauseated but no vomiting per patient denies any diarrhea per patient denies chest pain difficult breathing shortness of breath. Patient states she's never had diverticulitis in the past but she has been told she has diverticulosis. - Related Data Home Medications Medication Instructions Recorded Confirmed Pantoprazole Sodium [Protonix] 40 mg PO DAILY 07/23/13 06/02/21 Brimonidine Tartrate [Alphagan P 1 drop BOTH EYES BID 05/05/14 06/02/21 0.2% Ophth Soln] Multivitamin/Iron/Folic Acid 1 tab PO DAILY 05/05/14 06/02/21 [Centrum Complete Multivit Tab] Albuterol Inhaler [Ventolin Hfa 2 puff INHALATION RT-Q4H PRN 08/27/19 06/02/21 Inhaler] Furosemide [Lasix] 40 mg PO DAILY 03/07/20 06/02/21 Potassium Chloride [Klor-Con 20] 20 meq PO DAILY 03/07/20 06/02/21 Ascorbic Acid [Vitamin C] 500 mg PO DAILY 06/05/20 06/02/21 Cholecalciferol [Vitamin D3 (25 25 mcg PO DAILY 06/05/20 06/02/21 Mcg = 1000 Iu)] Sertraline [Zoloft] 100 mg PO DAILY 06/05/20 06/02/21 Aspirin 81 mg PO DAILY 06/23/20 06/02/21 Pjmqrtx-Mvku-Eqoe [phone] 1 tab PO Q4HR PRN 06/02/21 06/02/21 [Excedrin] Ipratropium-Albuterol Nebulize 3 ml INHALATION RT-QID PRN 06/02/21 06/02/21 [Duoneb 0.5 mg-3 mg/3 ml Soln] Metoprolol Tartrate [Lopressor] 50 mg PO BID 06/02/21 06/02/21 Montelukast [Singulair] 10 mg PO DAILY 06/02/21 06/02/21 Rosuvastatin Calcium [Crestor] 40 mg PO DAILY 06/02/21 06/02/21 Ubidecarenone [Co Q-10] 100 mg PO DAILY 06/02/21 06/02/21 Previous Rx's Medication Instructions Recorded Rivaroxaban [Xarelto] 20 mg PO W/SUPPER #30 tab 01/16/20 Losartan [Cozaar] 50 mg PO DAILY #30 tab 06/07/20 Allergies Allergy/AdvReac Type Severity Reaction Status Date / Time amoxicillin trihydrate Allergy Rash/Hives Verified 11/07/21 07:04 [From Augmentin] hydromorphone HCl Allergy Rash/Hives Verified 11/07/21 07:04 [From Dilaudid] Penicillins Allergy Rash/Hives Verified 11/07/21 07:04 on chest potassium clavulanate Allergy Rash/Hives Verified 11/07/21 07:04 [From Augmentin] tramadol Allergy "VERY RED Verified 11/07/21 07:04 FACE" Iodinated Contrast Media AdvReac Red face Verified 11/07/21 07:04 [Iodinated Contrast Media - and felt IV Dye] like it was on fire. Xfwkiss-VKG-HkS Reductase AdvReac LEG Verified 11/07/21 07:04 Inhibitor SWELLING [Ukbpvwm-Odo-Amy Reductase AND PAIN Inhibitor] Review of Systems ROS Statement: Those systems with pertinent positive or pertinent negative responses have been documented in the HPI. ROS Other: All systems not noted in ROS Statement are negative. 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 History of Any Multi-Drug Resistant Organisms: None Reported Past Surgical History: Adenoidectomy, Bladder Surgery, Bowel Resection, Hysterectomy, Joint Replacement, Orthopedic Surgery, Tonsillectomy Additional Past Surgical History / Comment(s): Colonoscopies/polypectomies, bladder prolapse repair, bilateral shoulder rotator cuff repair.Total right knee arthroplasty, L knee arthroscopy, bilateral feet bunionectomies, bilateral cataract removals. Past Anesthesia/Blood Transfusion Reactions: Motion Sickness, Postoperative Nausea & Vomiting (PONV) Additional Past Anesthesia/Blood Transfusion Reaction / Comment(s): Pt has claustrophobia. Past Psychological History: No Psychological Hx Reported Smoking Status: Former smoker Past Alcohol Use History: None Reported Past Drug Use History: None Reported - Past Family History Sister(s) Family Medical History: Pulmonary Embolus Father Family Medical History: Myocardial Infarction ([place]) Additional Family Medical History / Comment(s): Father had his first [place] at the age of 61 yrs. Mother Family Medical History: Cancer Additional Family Medical History / Comment(s): LYMPHOMA General Exam - General Exam Comments Initial Comments: GENERAL: Patient is well-developed and well-nourished. Patient is nontoxic and well- hydrated and is in mild distress. ENT: Neck is soft and supple. No significant lymphadenopathy is noted. Oropharynx is clear. Moist mucous membranes. Neck has full range of motion without eliciting any pain. EYES: The sclera were anicteric and conjunctiva were pink and moist. Extraocular movements were intact and pupils were equal round and reactive to light. Eyelids were unremarkable. PULMONARY: Unlabored respirations. Good breath sounds bilaterally. No audible rales rhonchi or wheezing was noted. CARDIOVASCULAR: There is a regular rate and rhythm without any murmurs gallops or rubs. ABDOMEN: Left lower quadrant abdominal pain SKIN: Skin is clear with no lesions or rashes and otherwise unremarkable. NEUROLOGIC: Patient is alert and oriented x3. Cranial nerves II through XII are grossly intact. Motor and sensory are also intact. Normal speech, volume and content. Symmetrical smile. MUSCULOSKELETAL: Normal extremities with adequate strength and full range of motion. LYMPHATICS: No significant lymphadenopathy is noted PSYCHIATRIC: Normal psychiatric evaluation. Limitations: no limitations Course Vital Signs 11/07/21 11/07/21 07:02 09:00 Temperature 98.5 F Pulse Rate 76 Respiratory 18 18 Rate Blood Pressure 155/88 138/77 O2 Sat by Pulse 93 L Oximetry Medical Decision Making - Medical Decision Making Computed tomography scan shows an,. Diverticular eyes. I started the patient on Levaquin and Flagyl IV. I spoke with Dr. Grace he agreed to admit the patient admitted the patient wrote admitting orders. - Lab Data Result diagrams: 11/07/21 07:39 11/07/21 07:39 Lab Results 11/07/21 11/07/21 11/07/21 Range/Units 07:39 07:39 07:39 WBC 10.0 (3.8-10.6) k/uL RBC 4.46 (3.80-5.40) m/uL Hgb 13.0 (11.4-16.0) gm/dL Hct 42.0 (34.0-46.0) % MCV 94.2 (80.0-100.0) fL MCH 29.1 (25.0-35.0) pg MCHC 31.0 (31.0-37.0) g/dL RDW 13.6 (11.5-15.5) % Plt Count 149 L (150-450) k/uL MPV 7.4 Neutrophils % 86 % Lymphocytes % 7 % Monocytes % 4 % Eosinophils % 1 % Basophils % 0 % Neutrophils # 8.6 H (1.3-7.7) k/uL Lymphocytes # 0.7 L (1.0-4.8) k/uL Monocytes # 0.4 (0-1.0) k/uL Eosinophils # 0.1 (0-0.7) k/uL Basophils # 0.0 (0-0.2) k/uL Hypochromasia Slight Sodium 140 (137-145) mmol/L Potassium 4.5 (3.5-5.1) mmol/L Chloride 103 (98-107) mmol/L Carbon Dioxide 27 (22-30) mmol/L Anion Gap 10 mmol/L BUN 21 H (7-17) mg/dL Creatinine 0.66 (0.52-1.04) mg/dL Est GFR (CKD-EPI)AfAm >90 (>60 ml/min/1.73 sqM) Est GFR (CKD-EPI)NonAf 87 (>60 ml/min/1.73 sqM) Glucose 135 H (74-99) mg/dL Plasma Lactic Acid Aris 1.1 (0.7-2.0) mmol/L Calcium 8.7 (8.4-10.2) mg/dL Total Bilirubin 0.5 (0.2-1.3) mg/dL AST 38 H (14-36) U/L ALT 26 (4-34) U/L Alkaline Phosphatase 57 (38-126) U/L Total Protein 6.5 (6.3-8.2) g/dL Albumin 4.0 (3.5-5.0) g/dL Amylase 52 (30-110) U/L Lipase 44 (23-300) U/L Disposition Clinical Impression: Diverticulitis Disposition: ADMITTED IP TO THIS [facility] Referrals: Sheila Grace MD [Primary Care Provider] - 1-2 days Time of Disposition: 09:13
[2021-11-07 08:14] LABS: Basophils % (A) 0 %; Eosinophils # (A) 0.1 k/uL (0-0.7); Eosinophils % (A) 1 %; Hypochromasia Slight; Lymphocytes # (A) 0.7 k/uL (1.0-4.8); Lymphocytes % (A) 7 %; MCH 29.1 pg (25.0-35.0); MCV 94.2 fL (80.0-100.0); Mean Platelet Volume 7.4; Monocytes # (A) 0.4 k/uL (0-1.0); Monocytes % (A) 4 %; Neutrophils # (A) 8.6 k/uL (1.3-7.7); Neutrophils % (A) 86 %; Platelet Count 149 k/uL (150-450); RBC 4.46 m/uL (3.80-5.40); RDW 13.6 % (11.5-15.5)
[2021-11-07 08:26] LABS: ALT 26 U/L (4-34); AST 38 U/L (14-36); African American GFR (CKD) >90 (>60 ml/min/1.73 sqM); Alkaline Phosphatase 57 U/L (38-126); Amylase 52 U/L (30-110); Anion Gap 10 mmol/L; Blood Urea Nitrogen 21 mg/dL (7-17); Calcium 8.7 mg/dL (8.4-10.2); Carbon Dioxide 27 mmol/L (22-30); Chloride 103 mmol/L (98-107); Glucose 135 mg/dL (74-99); Lipase 44 U/L (23-300); Non-African American GFR(CKD) 87 (>60 ml/min/1.73 sqM); Potassium 4.5 mmol/L (3.5-5.1); Sodium 140 mmol/L (137-145); Total Bilirubin 0.5 mg/dL (0.2-1.3); Total Protein 6.5 g/dL (6.3-8.2)
[2021-11-07 08:42] LABS: Appearance,Urine Clear (Clear); Bilirubin,Urine Negative (Negative); Blood,Urine Moderate (Negative); Color,Urine Yellow; Glucose,Urine (UA) Negative (Negative); Ketones,Urine Negative (Negative); Leukocyte Esterase,Urine Negative (Negative); Mucus,Urine Occasional /hpf; Nitrite,Urine Negative (Negative); PH, Urine 5.5 (5.0-8.0); Protein,Urine Negative (Negative); RBC,Urine 19 /hpf (0-5); Specific Gravity,Urine 1.018 (1.001-1.035); Squamous Epithelial Cell,Urine 2 /hpf (0-4); Urobilinogen,Urine <2.0 mg/dL (<2.0); WBC,Urine 1 /hpf (0-5)
--- NOTE | 2021-11-07 08:52 | CT ---
EXAMINATION TYPE: CT abdomen pelvis wo con DATE OF EXAM: 11/07/2021 HISTORY: Abdominal pain. Diverticulitis CT DLP: 1106.3 mGycm. Automated Exposure Control for Dose Reduction was Utilized. TECHNIQUE: CT scan of the abdomen and pelvis is performed without oral or IV contrast. COMPARISON: CT abdomen and pelvis August 27, 2019 FINDINGS: Within the limitations of a non-contrast study, the following observations are made. LUNG BASES: Focal central scarring right lung base redemonstrated. Persistent calcification at level of the mitral annulus. LIVER/GB: No significant abnormality is appreciated. PANCREAS: No significant abnormality is seen. SPLEEN: Spleen upper limits of normal in size at 14.0 cm long axis axial image 19. Small splenules ne ar region of the pancreatic tail redemonstrated. ADRENALS: No significant abnormality is seen. KIDNEYS: No left-sided nephrolithiasis. There are 2 scattered right sided renal calculi including a 4 mm calculus upper to midpole level axial image 32. No hydronephrosis seen bilaterally. Mild left-calixto ed hydroureter. No ureter calculi. No intraluminal calculi in the poorly distended bladder. BOWEL: Suboptimal evaluation without enteric contrast. Stomach poorly distended and are thus suboptim ally evaluated. There are duodenal diverticulum with air-fluid levels axial image 32 along the second portion redemonstrated. There is no suspicious small or large bowel dilatation. There are surgical s utures in the mid transverse colon. There are diverticula in the left and sigmoid colon greatest in p rominence in the sigmoid colon of the pelvis where there is mild to moderate fat stranding and modera te focal wall thickening axial image 62. No well-formed fluid collection or abscess seen. No free air noted. GENITAL ORGANS: Uterus surgically absent or markedly atrophic. Occasional scattered tiny pelvic phleb oliths redemonstrated. LYMPH NODES: No greater than 1cm abdominal or pelvic lymph nodes are appreciated. OSSEOUS STRUCTURES: Osseous structures are demineralized. Moderate axial joint space loss in both hip s is seen. Underlying scoliotic curvature is present. Exaggerated lumbar lordosis noted. Multilevel s purring and disc space narrowing in the visualized thoracic spine. Sacralized L5 vertebra redemonstra wesley. OTHER: No significant additional abnormality is seen. IMPRESSION: CT findings consistent with a fairly moderate but uncomplicated acute diverticulitis of t he sigmoid colon of the pelvis as detailed above.
[2021-11-07] MEDS ORDERED: metroNIDAZOLE-NS PMX 500 MG in SALINE 1 100ML.BAG IVPB STA (09:12)
[2021-11-07] MEDS ORDERED: LEVOFLOXACIN 750MG-D5W PMX 750 MG in DEXTROSE/WATER 1 150ML.BAG IVPB SCH (09:15)
[2021-11-07] MEDS ORDERED: SODIUM CHLORIDE 0.9% 1,000 ML IV ONE (09:17)
[2021-11-07] MEDS ORDERED: HYDROcodone/APAP 5-325MG 1 EACH TAB PO PRN (12:23)
[2021-11-07] MEDS ORDERED: ALBUTEROL NEBULIZED 2.5 MG/3 ML INHALATION PRN (12:23)
[2021-11-07] MEDS ORDERED: HYDROmorphone 0.5 MG/0.5 ML SYRINGE IVP PRN (13:06)
[2021-11-07] MEDS ORDERED: diphenhydrAMINE 50 MG/ML 1 ML VIAL IVP PRN (13:07)
--- NOTE | 2021-11-07 13:12 | P.HPIM ---
History of Present Illness H&P Date: 11/07/21 HISTORY OF PRESENT ILLNESS This is a 76-year-old female patient of liza, Dr. Miguel and Dr. Saul Bernardo with past medical history of hypertension, hyperlipidemia, persistent atrial fibrillation on Xarelto,glaucoma, DVT, colon cancer status post partial colectomy, gastroesophageal reflux disease, mild intermittent asthma. Patient has had left lower quadrant abdominal pain for 2 weeks and has been on antibiotics the form of ciprofloxacin and Flagyl for at least 1 week now and not feeling better. No fever or chills. No urinary symptoms. She occasionally feels nausea but no vomiting. No diarrhea. No chest pain or shortness of breath. Patient presented to [facility] emergency center. She was found to be afebrile, heart rate 76, blood pressure 155/88, pulse ox 93% on room air. WBC 10, hemoglobin 13, platelet count 149. Electrolytes were normal. BUN 21 creatinine 0.6. Blood sugar 135. Lactic acid 1.1. AST 38 otherwise liver function tests were within normal limits. Lipase 44. Urinalysis revealed moderate bilirubin, RBCs 19. CAT scan of the abdomen and pelvis without contrast revealed moderate but uncomplicated acute diverticulitis of the sigmoid colon of the pelvis. Patient was provided 1 L of IV fluid, Dilaudid and Toradol. Patient was started on IV Flagyl, IV Levaquin, seen today in the ER waiting for a bed on the [facility]. REVIEW OF SYSTEMS Constitutional: No documented fever, no chills, no night sweats. No weight change. No weakness, fatigue or lethargy. No daytime sleepiness. HEENT: No headache. No blurred vision or double vision, no loss of vision. No loss of Hearing, no ringing in the ears, no dizziness. No nasal drainage or congestion. No epistaxis. No sore throat. Lungs: Denies shortness of breath, no cough, no sputum production. No wheezing. Reports dyspnea with activity. Cardiovascular: Denies chest pain, no lower extremity edema. No palpitations. No paroxysmal nocturnal dyspnea. No orthopnea. No lightheadedness or dizziness. No syncopal episodes. Abdominal: Reports abdominal pain. No nausea, vomiting. No diarrhea. No constipation. No bloody or tarry stools. reports loss of appetite. Genitourinary: No dysuria, increased frequency, urgency. No urinary retention. Musculoskeletal: No myalgias. No muscle weakness, no gait dysfunction, no freq uent falls. No back pain. No neck pain. Integumentary: No wounds, no lesions. No rash or pruritus. No unusual bruising. No change in hair or nails. Neurologic: No aphasia. No facial droop. No change in mentation. No head injury. No headache. No paralysis. No paresthesia. Psychiatric: No depression. No anxiety. No mood swings. Endocrine: No abnormal blood sugars. No weight change. MEDICAL HISTORY Hypertension Hyperlipidemia Persistent atrial fibrillation Glaucoma DVT Colon cancer status post laparoscopic resection of transverse colon lesion Hiatal hernia Gastroesophageal reflux disease SURGICAL HISTORY EGD Colonoscopy Laparoscopic resection of transverse colon lesion 2011 Adenoidectomy Tonsillectomy Hysterectomy Bladder prolapse repair Bilateral rotator cuff repair Total right knee arthroplasty Left knee arthroscopic Bilateral bunionectomies Bilateral cataract removal and intraocular lens implants SOCIAL HISTORY Patient was a smoker of one pack per day for 25 years and quit in 1992. She denies any marijuana use, alcohol use or illicit drug use. She resides in a senior apartment. FAMILY HISTORY Family history his first myocardial infarction at age 61. Mother from lymphoma. PHYSICAL EXAMINATION General: This is a 76-year-old female. She is was seen on the ER stretcher and appears to be comfortable. HEENT: Head is atraumatic, normocephalic, pupils were equal round reactive to light and recommendation, extraocular muscle movement were intact, sclera nonicteric, conjunctivae were pale, mucous membranes of the mouth are somewhat dry. Neck: Supple, no JVP, normal carotid upstroke bilaterally, no lymphadenopathy. Chest: Decreased breath sounds at the bases, few rhonchi, no extremity wheezes, no chest wall tenderness, no intercostal retractions. Heart: First heart sound is normal, second heart sounds normal, irregularly irregular, systolic murmur Abdomen: Soft, nontender, nondistended, positive bowel sounds. Extremities: There is no edema no calf tenderness DP +2 bilaterally. Neurologic examination: Patient is awake alert and oriented 3, cranial nerves II-12 appear grossly intact, muscle power were 5 out of 5 in upper extremities and 5 out of 5 in bilateral lower extremities, deep tendon reflexes normal b ilaterally. ASSESSMENT AND PLAN 1. Acute diverticulitis failed outpatient treatment. Patient be admitted to the [facility] floor, patient started on Flagyl 500 mg IV piggyback every 8 hours, Levaquin 500 mg IV piggyback daily, continue IVF 0.9NS at 75 cc/hr, currently nothing by mouth status, consult with Dr. Dumont. 2. Persistent atrial fibrillation. Continue Lopressor 50 mg twice daily and Xarelto 20 mg with supper. 3. Hypertension. Continue losartan 80 mg daily, Lopressor. Hold Lasix. 4. Mild intermittent asthma. Continue DuoNeb treatments 4 times daily as needed. 5. Glaucoma. Continue eyedrops. 6. Recurrent depression. Continue Zoloft 100 mg daily. 7. Osteoarthritis, generalized. Continue current pain management. 8. Gastroesophageal reflux disease. Patient will be placed on Protonix 40 mg daily. 9. DVT prophylaxis. Patient is on Xarelto. Patient will be admitted to the hospital for a minimum of 2 night stay. DISCHARGE PLAN Most likely return home. Impression and plan of care have been directed as dictated by the signing physician. Yolanda Munoz nurse practitioner acting as scribe for signing physi gayla. 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 History of Any Multi-Drug Resistant Organisms: None Reported Past Surgical History: Adenoidectomy, Bladder Surgery, Bowel Resection, H ysterectomy, Joint Replacement, Orthopedic Surgery, Tonsillectomy Additional Past Surgical History / Comment(s): Colonoscopies/polypectomies, bladder prolapse repair, bilateral shoulder rotator cuff repair.Total right knee arthroplasty, L knee arthroscopy, bilateral feet bunionectomies, bilateral cataract removals. Past Anesthesia/Blood Transfusion Reactions: Motion Sickness, Postoperative Nausea & Vomiting (PONV) Additional Past Anesthesia/Blood Transfusion Reaction / Comment(s): Pt has claustrophobia. Past Psychological History: No Psychological Hx Reported Smoking Status: Former smoker Past Alcohol Use History: None Reported Past Drug Use History: None Reported - Past Family History Sister(s) Family Medical History: Pulmonary Embolus Father Family Medical History: Myocardial Infarction ([place]) Additional Family Medical History / Comment(s): Father had his first NC at the age of 61 yrs. Mother Family Medical History: Cancer Additional Family Medical History / Comment(s): LYMPHOMA Medications and Allergies Home Medications Medication Instructions Recorded Confirmed Type Pantoprazole Sodium [Protonix] 40 mg PO DAILY 07/23/13 11/07/21 History Brimonidine Tartrate [Alphagan P 1 drop BOTH EYES BID 05/05/14 11/07/21 History 0.2% Ophth Soln] Multivitamin/Iron/Folic Acid 1 tab PO DAILY 05/05/14 11/07/21 History [Centrum Complete Multivit Tab] Albuterol Inhaler [Ventolin Hfa 2 puff INHALATION RT-Q4H PRN 08/27/19 11/07/21 History Inhaler] Rivaroxaban [Xarelto] 20 mg PO W/SUPPER #30 tab 01/16/20 11/07/21 Rx Furosemide [Lasix] 40 mg PO DAILY 03/07/20 11/07/21 History Potassium Chloride [Klor-Con 20] 20 meq PO DAILY 03/07/20 11/07/21 History Ascorbic Acid [Vitamin C] 500 mg PO DAILY 06/05/20 11/07/21 History Cholecalciferol [Vitamin D3 (25 25 mcg PO DAILY 06/05/20 11/07/21 History Mcg = 1000 Iu)] Sertraline [Zoloft] 100 mg PO DAILY 06/05/20 11/07/21 History Losartan [Cozaar] 50 mg PO DAILY #30 tab 06/07/20 11/07/21 Rx Aspirin 81 mg PO DAILY 06/23/20 11/07/21 History Enybsek-Eqrd-Wmxa [id number] 1 tab PO Q4HR PRN 06/02/21 11/07/21 History [Excedrin] Ipratropium-Albuterol Nebulize 3 ml INHALATION RT-QID PRN 06/02/21 11/07/21 History [Duoneb 0.5 mg-3 mg/3 ml Soln] Metoprolol Tartrate [Lopressor] 50 mg PO BID 06/02/21 11/07/21 History Montelukast [Singulair] 10 mg PO DAILY 06/02/21 11/07/21 History Rosuvastatin Calcium [Crestor] 40 mg PO DAILY 06/02/21 11/07/21 History Ubidecarenone [Co Q-10] 100 mg PO DAILY 06/02/21 11/07/21 History Ciprofloxacin HCl [Cipro] 250 mg PO Q12HR 11/07/21 11/07/21 History Ezetimibe [Zetia] 10 mg PO DAILY 11/07/21 11/07/21 History HYDROcodone/APAP 5-325MG [[place] 1 tab PO HS PRN 11/07/21 11/07/21 History 5-325] Nystatin 100,000Unit/gm Cream 1 applic TOPICAL BID PRN 11/07/21 11/07/21 History [Mycostatin Cream] metroNIDAZOLE [Flagyl] 250 mg PO TID 11/07/21 11/07/21 History Allergies Allergy/AdvReac Type Severity Reaction Status Date / Time amoxicillin trihydrate Allergy Rash/Hives Verified 11/07/21 09:43 [From Augmentin] hydromorphone HCl Allergy Rash/Hives Verified 11/07/21 09:43 [From Dilaudid] Penicillins Allergy Rash/Hives Verified 11/07/21 09:43 on chest potassium clavulanate Allergy Rash/Hives Verified 11/07/21 09:43 [From Augmentin] tramadol Allergy "VERY RED Verified 11/07/21 09:43 FACE" Iodinated Contrast Media AdvReac Red face Verified 11/07/21 09:43 [Iodinated Contrast Media - and felt IV Dye] like it was on fire. Bpmqvxp-LPA-RlG Reductase AdvReac LEG Verified 11/07/21 09:43 Inhibitor SWELLING [Trlgcbt-Clx-Zok Reductase AND PAIN Inhibitor] Physical Exam Vitals: Vital Signs Temp Pulse Resp BP Pulse Ox 11/07/21 11:30 70 18 134/79 95 11/07/21 09:00 18 138/77 11/07/21 07:02 98.5 F 76 18 155/88 93 L Intake and Output 11/06/21 11/07/21 11/07/21 22:59 06:59 14:59 Other: Weight 90.718 kg Results CBC & Chem 7: 11/07/21 07:39 08/24/22 07:39 Labs: Abnormal Lab Results - Last 24 Hours (Table) 11/07/21 11/07/21 11/07/21 Range/Units 07:39 07:39 07:39 Plt Count 149 L (150-450) k/uL Neutrophils # 8.6 H (1.3-7.7) k/uL Lymphocytes # 0.7 L (1.0-4.8) k/uL BUN 21 H (7-17) mg/dL Glucose 135 H (74-99) mg/dL AST 38 H (14-36) U/L Urine Blood Moderate H (Negative) Urine RBC 19 H (0-5) /hpf Urine Mucus Occasional H (None) /hpf
[2021-11-07] MEDS: IPRATROPIUM-ALBUTEROL 3 ML NEB INHALATION PRN (14:37)
[2021-11-07] MEDS ORDERED: ONDANSETRON 4 MG/2 ML VIAL IVP PRN ×2 (14:46→14:47)
--- NOTE | 2021-11-07 14:48 | P.GSCN ---
History of Present Illness Consult date: 11/07/21 History of present illness: CHIEF COMPLAINT: Left lower quadrant pain HISTORY OF PRESENT ILLNESS: This is a 76-year-old female with a known history of diverticulosis. Last colonoscopy was in 2016 which did reveal moderate sigmoid diverticulosis. Patient also has a history of colon cancer with bowel resection. Patient presents to hospital with complaints of left lower quadrant abdominal pain for the past 2 weeks. She has been taking antibiotics for the past 8 days with no significant improvement in her symptoms. In fact today she had increase in pain especially with movement. Also reported nausea. She also has been feeling hot at times but denies fevers. Her white count was normal. She is currently afebrile. Computed tomography scan showed evidence of uncomplicated diverticulitis of the sigmoid colon. Patient reports regular bowel movements. Except last week she did note some blood in her stool which she contributed to a bleeding hemorrhoid. This has resolved. Surgical service consulted for diverticulitis. Patient currently on IV antibiotics. She has required pain medication in the ER. Patient seen and examined in the ER. Her other past abdominal surgical history includes hysterectomy and bladder prolapse repair. Patient is on Xarelto for atrial fibrillation. Patient denies any prior history of diverticulitis. PAST MEDICAL HISTORY: Hypertension Hyperlipidemia Persistent atrial fibrillation Glaucoma DVT Colon cancer status post laparoscopic resection of transverse colon lesion Hiatal hernia Gastroesophageal reflux disease PAST SURGICAL HISTORY: See list. MEDICATIONS: See list. ALLERGIES: See list. SOCIAL HISTORY: No illicit drug use. REVIEW OF SYSTEMS: CONSTITUTIONAL: Denies fever or chills. HEENT: Denies blurred vision, vision changes, or eye pain. Denies hemoptysis CARDIOVASCULAR: Denies chest pain or pressure. RESPIRATORY: No shortness of breath. GASTROINTESTINAL: See HPI for pertinent findings HEMATOLOGIC: Denies bleeding disorders. GENITOURINARY: Denies any blood in urine or increased urinary frequency. SKIN: Denies pruitis. Denies rash. PHYSICAL EXAM: VITAL SIGNS: Reviewed GENERAL: Well-developed in no acute distress. HEENT: No sclera icterus. Extraocular movements grossly intact. Moist buccal mucosa. Head is atraumatic, normocephalic. No nasal drainage. ABDOMEN: Soft. Nondistended. Tenderness to palpation left lower quadrant NEUROLOGIC: Alert and oriented. Cranial nerves II through XII grossly intact. LABORATORY DATA: WBC 10 HGB 13 Plt 149 SODIUM 140 POTASSIUM 4.5 CREATININE 0.66 IMAGING: Computed tomography scan abdomen and pelvis with oral contrast findings consis tent with a fairly moderate but uncomplicated acute diverticulitis of sigmoid colon of the pelvis. ASSESSMENT: 1. Acute diverticulitis of the sigmoid colon failed outpatient antibiotic treatment 2. History of colon cancer status post bowel resection PLAN: -Further recommendations forthcoming per surgeon -Continue with IV antibiotics -Keep patient nothing by mouth -Continue IV fluids -Continue pain medication as needed -Add Zofran as needed for nausea Thank you for this consultation Physician Horticultural Farmer note has been reviewed by physician. Signing provider agrees with the documented findings, assessment, and plan of care. I have personally seen and examined the patient, reviewed the MANAGER OF CORPORATE /PAs history, exam and MDM and agree with the assessment and plan as written. Based on total visit time, I have performed more than 50% of the visit. As above: Patient with left lower quadrant pain. CAT scan consistent with acute diverticulitis. Continue antibiotics. Continue diet as ordered. 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 History of Any Multi-Drug Resistant Organisms: None Reported Past Surgical History: Adenoidectomy, Bladder Surgery, Bowel Resection, Hysterectomy, Joint Replacement, Orthopedic Surgery, Tonsillectomy Additional Past Surgical History / Comment(s): Colonoscopies/polypectomies, bladder prolapse repair, bilateral shoulder rotator cuff repair.Total right knee arthroplasty, L knee arthroscopy, bilateral feet bunionectomies, bilateral cataract removals. Past Anesthesia/Blood Transfusion Reactions: Motion Sickness, Postoperative Nausea & Vomiting (PONV) Additional Past Anesthesia/Blood Transfusion Reaction / Comm: Pt has claustrophobia. Past Psychological History: No Psychological Hx Reported Smoking Status: Former smoker Past Alcohol Use History: None Reported Past Drug Use History: None Reported - Past Family History Sister(s) Family Medical History: Pulmonary Embolus Father Family Medical History: Myocardial Infarction ([place]) Additional Family Medical History / Comment(s): Father had his first AL at the age of 61 yrs. Mother Family Medical History: Cancer Additional Family Medical History / Comment(s): LYMPHOMA Medications and Allergies Home Medications Medication Instructions Recorded Confirmed Type Pantoprazole Sodium [Protonix] 40 mg PO DAILY 07/23/13 11/07/21 History Brimonidine Tartrate [Alphagan P 1 drop BOTH EYES BID 05/05/14 11/07/21 History 0.2% Ophth Soln] Multivitamin/Iron/Folic Acid 1 tab PO DAILY 05/05/14 11/07/21 History [Centrum Complete Multivit Tab] Albuterol Inhaler [Ventolin Hfa 2 puff INHALATION RT-Q4H PRN 08/27/19 11/07/21 History Inhaler] Rivaroxaban [Xarelto] 20 mg PO W/SUPPER #30 tab 01/16/20 11/07/21 Rx Furosemide [Lasix] 40 mg PO DAILY 03/07/20 11/07/21 History Potassium Chloride [Klor-Con 20] 20 meq PO DAILY 03/07/20 11/07/21 History Ascorbic Acid [Vitamin C] 500 mg PO DAILY 06/05/20 11/07/21 History Cholecalciferol [Vitamin D3 (25 25 mcg PO DAILY 06/05/20 11/07/21 History Mcg = 1000 Iu)] Sertraline [Zoloft] 100 mg PO DAILY 06/05/20 11/07/21 History Losartan [Cozaar] 50 mg PO DAILY #30 tab 06/07/20 11/07/21 Rx Aspirin 81 mg PO DAILY 06/23/20 11/07/21 History Gzsjymd-Xlzb-Kodo [id number] 1 tab PO Q4HR PRN 06/02/21 11/07/21 History [Excedrin] Ipratropium-Albuterol Nebulize 3 ml INHALATION RT-QID PRN 06/02/21 11/07/21 History [Duoneb 0.5 mg-3 mg/3 ml Soln] Metoprolol Tartrate [Lopressor] 50 mg PO BID 06/02/21 11/07/21 History Montelukast [Singulair] 10 mg PO DAILY 06/02/21 11/07/21 History Rosuvastatin Calcium [Crestor] 40 mg PO DAILY 06/02/21 11/07/21 History Ubidecarenone [Co Q-10] 100 mg PO DAILY 06/02/21 11/07/21 History Ciprofloxacin HCl [Cipro] 250 mg PO Q12HR 11/07/21 11/07/21 History Ezetimibe [Zetia] 10 mg PO DAILY 11/07/21 11/07/21 History HYDROcodone/APAP 5-325MG [[place] 1 tab PO HS PRN 11/07/21 11/07/21 History 5-325] Nystatin 100,000Unit/gm Cream 1 applic TOPICAL BID PRN 11/07/21 11/07/21 History [Mycostatin Cream] metroNIDAZOLE [Flagyl] 250 mg PO TID 11/07/21 11/07/21 History Allergies Allergy/AdvReac Type Severity Reaction Status Date / Time amoxicillin trihydrate Allergy Rash/Hives Verified 11/07/21 09:43 [From Augmentin] hydromorphone HCl Allergy Rash/Hives Verified 11/07/21 09:43 [From Dilaudid] Penicillins Allergy Rash/Hives Verified 11/07/21 09:43 on chest potassium clavulanate Allergy Rash/Hives Verified 11/07/21 09:43 [From Augmentin] tramadol Allergy "VERY RED Verified 11/07/21 09:43 FACE" Iodinated Contrast Media AdvReac Red face Verified 11/07/21 09:43 [Iodinated Contrast Media - and felt IV Dye] like it was on fire. Yelrpzl-JRB-TpT Reductase AdvReac LEG Verified 11/07/21 09:43 Inhibitor SWELLING [Ntvodsr-Ggd-Npt Reductase AND PAIN Inhibitor] Surgical - Exam Vital Signs Temp Pulse Resp BP Pulse Ox 98.5 F 76 18 155/88 93 L 11/07/21 07:02 11/07/21 07:02 11/07/21 07:02 11/07/21 07:02 11/07/21 07:02 Results - Labs 11/07/21 07:39 11/07/21 07:39 Abnormal Lab Results - Last 24 Hours (Table) 11/07/21 11/07/21 11/07/21 Range/Units 07:39 07:39 07:39 Plt Count 149 L (150-450) k/uL Neutrophils # 8.6 H (1.3-7.7) k/uL Lymphocytes # 0.7 L (1.0-4.8) k/uL BUN 21 H (7-17) mg/dL Glucose 135 H (74-99) mg/dL AST 38 H (14-36) U/L Urine Blood Moderate H (Negative) Urine RBC 19 H (0-5) /hpf Urine Mucus Occasional H (None) /hpf Diabetes panel 11/07/21 Range/Units 07:39 Sodium 140 (137-145) mmol/L Potassium 4.5 (3.5-5.1) mmol/L Chloride 103 (98-107) mmol/L Carbon Dioxide 27 (22-30) mmol/L BUN 21 H (7-17) mg/dL Creatinine 0.66 (0.52-1.04) mg/dL Glucose 135 H (74-99) mg/dL Calcium 8.7 (8.4-10.2) mg/dL AST 38 H (14-36) U/L ALT 26 (4-34) U/L Alkaline Phosphatase 57 (38-126) U/L Total Protein 6.5 (6.3-8.2) g/dL Albumin 4.0 (3.5-5.0) g/dL Calcium panel 11/07/21 Range/Units 07:39 Calcium 8.7 (8.4-10.2) mg/dL Albumin 4.0 (3.5-5.0) g/dL Pituitary panel 11/07/21 Range/Units 07:39 Sodium 140 (137-145) mmol/L Potassium 4.5 (3.5-5.1) mmol/L Chloride 103 (98-107) mmol/L Carbon Dioxide 27 (22-30) mmol/L BUN 21 H (7-17) mg/dL Creatinine 0.66 (0.52-1.04) mg/dL Glucose 135 H (74-99) mg/dL Calcium 8.7 (8.4-10.2) mg/dL Adrenal panel 11/07/21 Range/Units 07:39 Sodium 140 (137-145) mmol/L Potassium 4.5 (3.5-5.1) mmol/L Chloride 103 (98-107) mmol/L Carbon Dioxide 27 (22-30) mmol/L BUN 21 H (7-17) mg/dL Creatinine 0.66 (0.52-1.04) mg/dL Glucose 135 H (74-99) mg/dL Calcium 8.7 (8.4-10.2) mg/dL Total Bilirubin 0.5 (0.2-1.3) mg/dL AST 38 H (14-36) U/L ALT 26 (4-34) U/L Alkaline Phosphatase 57 (38-126) U/L Total Protein 6.5 (6.3-8.2) g/dL Albumin 4.0 (3.5-5.0) g/dL
[2021-11-07] MEDS ORDERED: metroNIDAZOLE-NS PMX 500 MG in SALINE 1 100ML.BAG IVPB SCH (16:00)
[2021-11-07] MEDS ORDERED: RIVAROXABAN 20 MG TAB PO SCH (17:30)
[2021-11-07] MEDS: METOPROLOL TARTRATE 50 MG TAB PO SCH (19:42)
[2021-11-07] MEDS: metroNIDAZOLE-NS PMX 500 MG in SALINE 1 100ML.BAG IVPB SCH (19:42)
[2021-11-07] MEDS: BRIMONIDINE TARTRATE 0.2% DROPS 5 ML BTL BOTH EYES SCH (19:42)
[2021-11-08] MEDS: metroNIDAZOLE-NS PMX 500 MG in SALINE 1 100ML.BAG IVPB SCH ×3 (04:08→20:03)
[2021-11-08] MEDS: ACETAMINOPHEN TAB 325 MG TAB PO PRN (06:21)
[2021-11-08] MEDS: ASPIRIN 81 MG PO SCH (07:50)
[2021-11-08] MEDS: ATORVASTATIN 80 MG TAB PO SCH (07:50)
[2021-11-08] MEDS: MONTELUKAST 10 MG TAB PO SCH (07:50)
[2021-11-08] MEDS: METOPROLOL TARTRATE 50 MG TAB PO SCH ×2 (07:50→20:03)
[2021-11-08] MEDS: PANTOPRAZOLE 40 MG/10 ML VIAL IVP SCH (07:50)
[2021-11-08] MEDS: LOSARTAN 50 MG TAB PO SCH (07:50)
[2021-11-08] MEDS: LEVOFLOXACIN 500MG-D5W PMX 500 MG in DEXTROSE/WATER 1 100ML.BAG IVPB SCH (07:50)
[2021-11-08] MEDS: SERTRALINE 100 MG TAB PO SCH (07:50)
[2021-11-08] MEDS: BRIMONIDINE TARTRATE 0.2% DROPS 5 ML BTL BOTH EYES SCH ×2 (07:51→20:04)
[2021-11-08] MEDS: IPRATROPIUM-ALBUTEROL 3 ML NEB INHALATION PRN ×3 (08:10→15:19)
[2021-11-08] MEDS ORDERED: SODIUM CHLORIDE 0.9% 1,000 ML IV SCH (10:00)
--- NOTE | 2021-11-08 10:46 | P.PN ---
Subjective Progress Note Date: 11/08/21 CHIEF COMPLAINT: Diverticulitis HISTORY OF PRESENT ILLNESS: Patient reports improvement in her abdominal pain. She has been able to stand up and move with physical therapy this morning. She complains of more knee pain than any abdominal pain. Denies any nausea or vomiting. No bowel movement. She reports feeling hungry. Afebrile. PHYSICAL EXAM: VITAL SIGNS: Reviewed. GENERAL: Well-developed in no acute distress. HEENT: No sclera icterus. Extraocular movements grossly intact. Moist buccal mucosa. Head is atraumatic, normocephalic. ABDOMEN: Soft. Nondistended. Minimal discomfort with palpation left lower quadrant NEUROLOGIC: Alert and oriented. Cranial nerves II through XII grossly intact. ASSESSMENT: 1. Acute diverticulitis of the sigmoid colon failed outpatient antibiotic treat ment PLAN: -Advance diet to clears -Continue IV antibiotics -Continue IV fluids -Continue pain medications as needed Physician Research And Development Engineer note has been reviewed by physician. Signing provider agrees with the documented findings, assessment, and plan of care. I have personally seen and examined the patient, reviewed the CONFERENCE SERVICES MANAGER /PAs history, exam and MDM and agree with the assessment and plan as written. Based on total visit time, I have performed more than 50% of the visit. As above: The patient's pain has improved. Begin clear liquids. Continue IV antibiotics. On exam patient with minimal tenderness. Objective - Vital Signs Vital signs: Vital Signs Temp 98.6 F 11/08/21 08:00 Pulse 70 11/08/21 08:20 Resp 18 11/08/21 02:03 BP 136/74 11/08/21 08:00 Pulse Ox 89 L 11/08/21 08:12 FiO2 Intake & Output 11/07/21 11/08/21 11/08/21 18:59 06:59 18:59 Intake Total 1100 Balance 1100 Weight 90.718 kg Intake: Intake, IV Titration 1100 Amount Sodium Chloride 0.9% 1, 900 000 ml @ 75 mls/hr IV . [id number] ONE Rx#:[id number] metroNIDAZOLE-NS PMX 500 200 mg In Saline 1 100ml.bag @ 100 mls/hr IVPB Q8H [facility] Rx#:[id number] - Labs CBC & Chem 7: 11/07/21 07:39 11/07/21 07:39
--- NOTE | 2021-11-08 12:57 | P.PN ---
Subjective Progress Note Date: 11/08/21 HISTORY OF PRESENT ILLNESS This is a 76-year-old female patient of liza, Dr. Miguel and Dr. Saul Bernardo with past medical history of hypertension, hyperlipidemia, persistent atrial fibrillation on Xarelto,glaucoma, DVT, colon cancer status post partial colectomy, gastroesophageal reflux disease, mild intermittent asthma. Patient has had left lower quadrant abdominal pain for 2 weeks and has been on antibiotics the form of ciprofloxacin and Flagyl for at least 1 week now and not feeling better. No fever or chills. No urinary symptoms. She occasionally feels nausea but no vomiting. No diarrhea. No chest pain or shortness of breath. Patient presented to [facility] emergency center. She was found to be afebrile, heart rate 76, blood pressure 155/88, pulse ox 93% on room air. WBC 10, hemoglobin 13, platelet count 149. Electrolytes were normal. BUN 21 creatinine 0.6. Blood sugar 135. Lactic acid 1.1. AST 38 otherwise liver function tests were within normal limits. Lipase 44. Urinalysis revealed moderate bilirubin, RBCs 19. CAT scan of the abdomen and pelvis without contrast revealed moderate but uncomplicated acute diverticulitis of the sigmoid colon of the pelvis. Patient was provided 1 L of IV fluid, Dilaudid and Toradol. Patient was started on IV Flagyl, IV Levaquin, seen today in the ER waiting for a bed on the [facility] floor. 11/08: She has been seen by general surgery and continued on nothing by mouth status, IV fluids, antibiotics. Patient has been afebrile, heart rate 73, blood pressure 119/85, pulse ox 91% on room air. Repeat blood work ordered for tomorrow. Patient's diet advanced to clears for lunch and patient tolerated well. No nausea or vomiting. She states that abdominal pain is much improved from yesterday. She is passing a little gas but no BM. Dr. Dumont is requesting to hold Xarelto and we'll place the patient on Lovenox 80 mg subcu every 12 hours secondary to atrial fibrillation. REVIEW OF SYSTEMS Constitutional: No documented fever, no chills, no night sweats. No weight change. No weakness, fatigue or lethargy. No daytime sleepiness. HEENT: No headache. No blurred vision or double vision, no loss of vision. No loss of Hearing, no ringing in the ears, no dizziness. No nasal drainage or congestion. No epistaxis. No sore throat. Lungs: Denies shortness of breath, no cough, no sputum production. No wheezing. Reports dyspnea with activity. Cardiovascular: Denies chest pain, no lower extremity edema. No palpitations. No paroxysmal nocturnal dyspnea. No orthopnea. No lightheadedness or dizziness. No syncopal episodes. Abdominal: Reports abdominal pain-improved. No nausea, vomiting. No diarrhea. No constipation. No bloody or tarry stools. reports loss of appetite. Genitourinary: No dysuria, increased frequency, urgency. No urinary retention. Musculoskeletal: No myalgias. No muscle weakness, no gait dysfunction, no frequent falls. No back pain. No neck pain. Integumentary: No wounds, no lesions. No rash or pruritus. No unusual bruising. No change in hair or nails. Neurologic: No aphasia. No facial droop. No change in mentation. No head injury. No headache. No paralysis. No paresthesia. Psychiatric: No depression. No anxiety. No mood swings. Endocrine: No abnormal blood sugars. No weight change. PHYSICAL EXAMINATION General: This is a 76-year-old female. She is was seen resting in recliner and appears to be comfortable. HEENT: Head is atraumatic, normocephalic, pupils were equal round reactive to light and recommendation, extraocular muscle movement were intact, sclera sage cteric, conjunctivae were pale, mucous membranes of the mouth are somewhat dry. Neck: Supple, no JVP, normal carotid upstroke bilaterally, no lymphadenopathy. Chest: Decreased breath sounds at the bases, few rhonchi, no extremity wheezes, no chest wall tenderness, no intercostal retractions. Heart: First heart sound is normal, second heart sounds normal, irregularly irregular, systolic murmur Abdomen: Soft, very mild tenderness, nondistended, positive bowel sounds. Extremities: There is no edema no calf tenderness DP +2 bilaterally. Neurologic examination: Patient is awake alert and oriented 3, cranial nerves II-12 appear grossly intact, muscle power were 5 out of 5 in upper extremities and 5 out of 5 in bilateral lower extremities, deep tendon reflexes normal bilaterally. ASSESSMENT AND PLAN 1. Acute diverticulitis failed outpatient treatment. Patient be admitted to the [facility] floor, patient continued on Flagyl 500 mg IV piggyback every 8 hours, Levaquin 500 mg IV piggyback daily, continue IVF 0.9NS decreased to 50 cc/hr, diet advanced to clears, consult with Dr. Dumont appreciated. Plan to continue conservative management. 2. Persistent atrial fibrillation. Continue Lopressor 50 mg twice daily and Lovenox 80 mg subcu daily 3. Hypertension. Continue losartan 80 mg daily, Lopressor. Hold Lasix. 4. Mild intermittent asthma. Continue DuoNeb treatments 4 times daily as needed. 5. Glaucoma. Continue eyedrops. 6. Recurrent depression. Continue Zoloft 100 mg daily. 7. Osteoarthritis, generalized. Continue current pain management. 8. Gastroesophageal reflux disease. Patient will be placed on Protonix 40 mg daily. 9. DVT prophylaxis. Patient is on Lovenox. DISCHARGE PLAN Most likely return home. PT and OT consults added. Impression and plan of care have been directed as dictated by the signing physician. Yolanda Munoz nurse practitioner acting as scribe for signing physician. Objective - Vital Signs Vital signs: Vital Signs Temp 99.1 F 11/08/21 02:03 Pulse 73 11/08/21 02:03 Resp 18 11/08/21 02:03 BP 119/85 11/08/21 02:03 Pulse Ox 91 L 11/08/21 02:03 FiO2 Intake & Output 11/07/21 11/08/21 11/08/21 18:59 06:59 18:59 Intake Total 1100 Balance 1100 Weight 90.718 kg Intake: Intake, IV Titration 1100 Amount Sodium Chloride 0.9% 1, 900 000 ml @ 75 mls/hr IV . [id number] Rx#:[id number] metroNIDAZOLE-NS PMX 500 200 mg In Saline 1 100ml.bag @ 100 mls/hr IVPB Q8H [facility] Rx#:[id number] - Labs CBC & Chem 7: 11/07/21 07:39 11/07/21 07:39 Labs: Abnormal Lab Results - Last 24 Hours (Table) 11/07/21 11/07/21 11/07/21 Range/Units 07:39 07:39 07:39 Plt Count 149 L (150-450) k/uL Neutrophils # 8.6 H (1.3-7.7) k/uL Lymphocytes # 0.7 L (1.0-4.8) k/uL BUN 21 H (7-17) mg/dL Glucose 135 H (74-99) mg/dL AST 38 H (14-36) U/L Urine Blood Moderate H (Negative) Urine RBC 19 H (0-5) /hpf Urine Mucus Occasional H (None) /hpf
[2021-11-08] MEDS: SODIUM CHLORIDE 0.9% 1,000 ML IV SCH (13:03)
[2021-11-08] MEDS: ENOXAPARIN 80 MG/0.8 ML SYRINGE SQ SCH (14:51)
[2021-11-08] MEDS ORDERED: HEPARIN SODIUM,PORCINE/PF 5,000 UNIT/0.5 ML SYRINGE SQ SCH (16:00)
[2021-11-09] MEDS: HYDROcodone/APAP 5-325MG 1 EACH TAB PO PRN ×2 (00:24→21:15)
[2021-11-09] MEDS: ENOXAPARIN 80 MG/0.8 ML SYRINGE SQ SCH ×2 (00:25→12:08)
[2021-11-09] MEDS: metroNIDAZOLE-NS PMX 500 MG in SALINE 1 100ML.BAG IVPB SCH ×3 (02:35→18:00)
[2021-11-09] MEDS: ACETAMINOPHEN TAB 325 MG TAB PO PRN ×2 (06:12→19:36)
[2021-11-09] MEDS: METOPROLOL TARTRATE 50 MG TAB PO SCH ×2 (07:32→20:22)
[2021-11-09] MEDS: MONTELUKAST 10 MG TAB PO SCH (07:32)
[2021-11-09] MEDS: ATORVASTATIN 80 MG TAB PO SCH (07:32)
[2021-11-09] MEDS: SERTRALINE 100 MG TAB PO SCH (07:33)
[2021-11-09] MEDS: LOSARTAN 50 MG TAB PO SCH (07:33)
[2021-11-09] MEDS: LEVOFLOXACIN 500MG-D5W PMX 500 MG in DEXTROSE/WATER 1 100ML.BAG IVPB SCH (07:33)
[2021-11-09] MEDS: BRIMONIDINE TARTRATE 0.2% DROPS 5 ML BTL BOTH EYES SCH ×2 (07:33→20:24)
[2021-11-09] MEDS: ASPIRIN 81 MG PO SCH (07:33)
[2021-11-09] MEDS: PANTOPRAZOLE 40 MG/10 ML VIAL IVP SCH (07:34)
[2021-11-09] MEDS: SODIUM CHLORIDE 0.9% 1,000 ML IV SCH (07:37)
[2021-11-09] MEDS: IPRATROPIUM-ALBUTEROL 3 ML NEB INHALATION PRN ×4 (08:26→21:21)
[2021-11-09 09:29] LABS: HCT 36.1 % (37.2-46.3); HGB 11.3 g/dL (12.0-15.0); MCH 29.9 pg (27.0-32.0); MCHC 31.3 g/dL (32.0-37.0); MCV 95.5 fL (80.0-97.0); Mean Platelet Volume 10.2 fL (9.5-12.2); NRBC Per 100 WBC 0 /100 WBCS (0.0-0.0); Platelet Count 132 X 10*3/uL (140-440); RBC 3.78 X 10*6/uL (4.10-5.20); RDW 13.7 % (11.5-14.5); WBC 4.78 X 10*3/uL (4.50-10.00)
[2021-11-09 10:07] LABS: African American GFR (CKD) 98.2 (60.0-200.0); Albumin 3.7 g/dL (3.8-4.9); Albumin/Globulin Ratio 2.06 (1.60-3.17); Anion Gap 7.7 mmol/L (10.00-18.00); BUN/Creat Ratio 12.43 Ratio (12.00-20.00); Blood Urea Nitrogen 8.7 mg/dL (9.0-27.0); Calcium 8.5 mg/dL (8.7-10.3); Carbon Dioxide 24.3 mmol/L (20.0-27.5); Globulin 1.8 g/dL (1.6-3.3); Non-African American GFR(CKD) 84.8 (60.0-200.0); Potassium 3.9 mmol/L (3.5-5.5); Total Bilirubin 0.5 mg/dL (0.30-1.20); Total Protein 5.5 g/dL (6.2-8.2)
[2021-11-09] MEDS ORDERED: HYDROcodone/APAP 7.5-325MG 1 EACH TAB PO PRN (10:11)
--- NOTE | 2021-11-09 10:49 | P.PN ---
Subjective Progress Note Date: 11/09/21 CHIEF COMPLAINT: Diverticulitis HISTORY OF PRESENT ILLNESS: Patient sitting up at bedside chair. She currently denies any abdominal pain. She reports improvement in her pain overall. However, yesterday she noted left lower quadrant pain after her second bowel movement. No blood in the stool. No nausea or vomiting. She is tolerating clear liquid diet. Afebrile. WBC is 4.78 Hgb 11.3 platelets 132 sodium 140 potassium 3.9 creatinine 0.7 PHYSICAL EXAM: VITAL SIGNS: Reviewed. GENERAL: Well-developed in no acute distress. HEENT: No sclera icterus. Extraocular movements grossly intact. Moist buccal mucosa. Head is atraumatic, normocephalic. ABDOMEN: Soft. Nondistended. Nontender NEUROLOGIC: Alert and oriented. Cranial nerves II through XII grossly intact. ASSESSMENT: 1. Acute diverticulitis of the sigmoid colon failed outpatient antibiotic treatment PLAN: -Continue clear liquids -Continue IV antibiotics -Continue IV fluids -Continue pain medications as needed Physician Desktop Support Associate note has been reviewed by physician. Signing provider agrees with the documented findings, assessment, and plan of care. I have personally seen and examined the patient, reviewed the OFFICE MANAGER RECEPTIONIST /PAs history, exam and MDM and agree with the assessment and plan as written. Based on total visit time, I have performed more than 50% of the visit. As above: Patient doing well today. Had some discomfort with a bowel movement earlier today. Tolerating full liquid diet currently. She is asking for more to eat. Anticipate discharge tomorrow. Objective - Vital Signs Vital signs: Vital Signs Temp 98.2 F 11/09/21 08:00 Pulse 66 11/09/21 08:41 Resp 16 11/09/21 02:03 BP 157/78 11/09/21 08:00 Pulse Ox 96 11/09/21 08:00 FiO2 Intake & Output 11/08/21 11/09/21 11/09/21 18:59 06:59 18:59 Intake Total 600 Balance 600 Intake: Intake, IV Titration 600 Amount Levofloxacin 500Mg-D5w 100 Pmx 500 mg In Dextrose/ Water 1 100ml.bag @ 100 mls/hr IVPB Q24HR [facility] Rx# :[id number] Sodium Chloride 0.9% 1, 400 000 ml @ 50 mls/hr IV . Q20H [facility] Rx#:[id number] metroNIDAZOLE-NS PMX 500 100 mg In Saline 1 100ml.bag @ 100 mls/hr IVPB Q8H [facility] Rx#:[id number] Other: # Voids 0 1 - Labs CBC & Chem 7: 11/09/21 06:21 11/09/21 06:21 Labs: Abnormal Lab Results - Last 24 Hours (Table) 11/09/21 11/09/21 Range/Units 06:21 06:21 RBC 3.78 L (4.10-5.20) X 10*6/uL Hgb 11.3 L (12.0-15.0) g/dL Hct 36.1 L (37.2-46.3) % MCHC 31.3 L (32.0-37.0) g/dL Plt Count 132 L (140-440) X 10*3/uL Anion Gap 7.70 L (10.00-18.00) mmol/L BUN 8.7 L (9.0-27.0) mg/dL Calcium 8.5 L (8.7-10.3) mg/dL AST 38 H (13-35) U/L Total Protein 5.5 L (6.2-8.2) g/dL Albumin 3.7 L (3.8-4.9) g/dL Microbiology - Last 24 Hours (Table) 11/07/21 09:30 Blood Culture - Preliminary Blood No Growth after 24 hours 11/07/21 09:45 Blood Culture - Preliminary Blood No Growth after 24 hours
--- NOTE | 2021-11-09 14:57 | P.PN ---
Subjective Progress Note Date: 11/09/21 HISTORY OF PRESENT ILLNESS This is a 76-year-old female patient of liza, Dr. Miguel and Dr. Saul Bernardo with past medical history of hypertension, hyperlipidemia, persistent atrial fibrillation on Xarelto,glaucoma, DVT, colon cancer status post partial colectomy, gastroesophageal reflux disease, mild intermittent asthma. Patient has had left lower quadrant abdominal pain for 2 weeks and has been on antibiotics the form of ciprofloxacin and Flagyl for at least 1 week now and not feeling better. No fever or chills. No urinary symptoms. She occasionally feels nausea but no vomiting. No diarrhea. No chest pain or shortness of breath. Patient presented to [facility] emergency center. She was found to be afebrile, heart rate 76, blood pressure 155/88, pulse ox 93% on room air. WBC 10, hemoglobin 13, platelet count 149. Electrolytes were normal. BUN 21 creatinine 0.6. Blood sugar 135. Lactic acid 1.1. AST 38 otherwise liver function tests were within normal limits. Lipase 44. Urinalysis revealed moderate bilirubin, RBCs 19. CAT scan of the abdomen and pelvis without contrast revealed moderate but uncomplicated acute diverticulitis of the sigmoid colon of the pelvis. Patient was provided 1 L of IV fluid, Dilaudid and Toradol. Patient was started on IV Flagyl, IV Levaquin, seen today in the ER waiting for a bed on the [facility] floor. 11/08: She has been seen by general surgery and continued on nothing by mouth status, IV fluids, antibiotics. Patient has been afebrile, heart rate 73, blood pressure 119/85, pulse ox 91% on room air. Repeat blood work ordered for tomorrow. Patient's diet advanced to clears for lunch and patient tolerated well. No nausea or vomiting. She states that abdominal pain is much improved from yesterday. She is passing a little gas but no BM. Dr. Dumont is requesting to hold Xarelto and we'll place the patient on Lovenox 80 mg subcu every 12 hours secondary to atrial fibrillation. 11/09: Patient has been afebrile, heart rate in the 50s, blood pressure 127/74, pulse ox 92% on 2 L nasal cannula. Repeat blood work reveals WBC 4.7, Hgb 11.3, PLT 132, BUN 8.7, Creat 0.7, AST 38, other LFT within normal limits. Blood culture reveals no growth after 24 hours 2 specimens. Patient remains on L evaquin and Flagyl both IV and clear liquid diet advanced to full liquid today for lunch which she tolerated. Patient had BM today, no blood. Patient states abdominal pain is better but sore after having BM. We will transition patient back to Xarelto 20 mg tonight and discontinue the subcu Lovenox. REVIEW OF SYSTEMS Constitutional: No documented fever, no chills, no night sweats. No weight change. No weakness, fatigue or lethargy. No daytime sleepiness. HEENT: No headache. No blurred vision or double vision, no loss of vision. No loss of Hearing, no ringing in the ears, no dizziness. No nasal drainage or congestion. No epistaxis. No sore throat. Lungs: Denies shortness of breath, no cough, no sputum production. No wheezing. Reports dyspnea with activity. Cardiovascular: Denies chest pain, no lower extremity edema. No palpitations. No paroxysmal nocturnal dyspnea. No orthopnea. No lightheadedness or dizziness. No syncopal episodes. Abdominal: Reports abdominal pain-improved. No nausea, vomiting. No diarrhea. No constipation. No bloody or tarry stools. reports loss of appetite. Genitourinary: No dysuria, increased frequency, urgency. No urinary retention. Musculoskeletal: No myalgias. No muscle weakness, no gait dysfunction, no frequent falls. No back pain. No neck pain. Integumentary: No wounds, no lesions. No rash or pruritus. No unusual bruising. No change in hair or nails. Neurologic: No aphasia. No facial droop. No change in mentation. No head injury. No headache. No paralysis. No paresthesia. Psychiatric: No depression. No anxiety. No mood swings. Endocrine: No abnormal blood sugars. No weight change. PHYSICAL EXAMINATION General: This is a 76-year-old female. She is was seen resting in recliner and appears to be comfortable. HEENT: Head is atraumatic, normocephalic, pupils were equal round reactive to light and recommendation, extraocular muscle movement were intact, sclera nonicteric, conjunctivae were pale, mucous membranes of the mouth are somewhat dry. Neck: Supple, no JVP, normal carotid upstroke bilaterally, no lymphadenopathy. Chest: Decreased breath sounds at the bases, few rhonchi, no extremity wheezes, no chest wall tenderness, no intercostal retractions. Heart: First heart sound is normal, second heart sounds normal, irregularly irregular, systolic murmur Abdomen: Soft, very mild tenderness, nondistended, positive bowel sounds. Extremities: There is no edema no calf tenderness DP +2 bilaterally. Neurologic examination: Patient is awake alert and oriented 3, cranial nerves II-12 appear grossly intact, muscle power were 5 out of 5 in upper extremities and 5 out of 5 in bilateral lower extremities, deep tendon reflexes normal bilaterally. ASSESSMENT AND PLAN 1. Acute diverticulitis failed outpatient treatment. Patient be admitted to the [facility] floor, patient continued on Flagyl 500 mg IV piggyback every 8 yuri rs, Levaquin 500 mg IV piggyback daily, continue IVF 0.9NS decreased to 50 cc/hr, diet advanced to full clears, consult with Dr. Dumont appreciated. Plan to continue conservative management. 2. Persistent atrial fibrillation. Continue Lopressor 50 mg twice daily and resume Xarelto, discontinue Lovenox. 3. Hypertension. Continue losartan 80 mg daily, Lopressor. Hold Lasix. 4. Mild intermittent asthma. Continue DuoNeb treatments 4 times daily as needed. 5. Glaucoma. Continue eyedrops. 6. Recurrent depression. Continue Zoloft 100 mg daily. 7. Osteoarthritis, generalized. Continue current pain management. 8. Gastroesophageal reflux disease. Patient will be placed on Protonix 40 mg daily. 9. DVT prophylaxis. Xarelto 20 mg daily. DISCHARGE PLAN Most likely return home on Friday. Impression and plan of care have been directed as dictated by the signing physician. Yolanda Munoz nurse practitioner acting as scribe for signing physician. Objective - Vital Signs Vital signs: Vital Signs Temp 97.3 F L 11/09/21 02:03 Pulse 53 L 11/09/21 02:03 Resp 16 11/09/21 02:03 BP 127/74 11/09/21 02:03 Pulse Ox 92 L 11/09/21 02:03 FiO2 Intake & Output 11/08/21 11/09/21 11/09/21 18:59 06:59 18:59 Intake Total 600 Balance 600 Intake: Intake, IV Titration 600 Amount Levofloxacin 500Mg-D5w 100 Pmx 500 mg In Dextrose/ Water 1 100ml.bag @ 100 mls/hr IVPB Q24HR [facility] Rx# :[id number] Sodium Chloride 0.9% 1, 400 000 ml @ 50 mls/hr IV . Q20H [facility] Rx#:[id number] metroNIDAZOLE-NS PMX 500 100 mg In Saline 1 100ml.bag @ 100 mls/hr IVPB Q8H [facility] Rx#:[id number] Other: # Voids 0 - Labs CBC & Chem 7: 11/09/21 06:21 11/09/21 06:21 Labs: Microbiology - Last 24 Hours (Table) 11/07/21 09:30 Blood Culture - Preliminary Blood No Growth after 24 hours 11/07/21 09:45 Blood Culture - Preliminary Blood No Growth after 24 hours
[2021-11-09] MEDS ORDERED: RIVAROXABAN 20 MG TAB PO SCH (21:00)
[2021-11-10] MEDS: metroNIDAZOLE-NS PMX 500 MG in SALINE 1 100ML.BAG IVPB SCH ×2 (03:57→11:18)
[2021-11-10] MEDS: HYDROcodone/APAP 5-325MG 1 EACH TAB PO PRN (04:55)
[2021-11-10] MEDS: SODIUM CHLORIDE 0.9% 1,000 ML IV SCH (07:26)
[2021-11-10] MEDS: LOSARTAN 50 MG TAB PO SCH (07:44)
[2021-11-10] MEDS: ACETAMINOPHEN TAB 325 MG TAB PO PRN (07:44)
[2021-11-10] MEDS: ATORVASTATIN 80 MG TAB PO SCH (07:45)
[2021-11-10] MEDS: ASPIRIN 81 MG PO SCH (07:45)
[2021-11-10] MEDS: MONTELUKAST 10 MG TAB PO SCH (07:45)
[2021-11-10] MEDS: SERTRALINE 100 MG TAB PO SCH (07:45)
[2021-11-10] MEDS: METOPROLOL TARTRATE 50 MG TAB PO SCH (07:45)
[2021-11-10] MEDS: BRIMONIDINE TARTRATE 0.2% DROPS 5 ML BTL BOTH EYES SCH (07:46)
[2021-11-10] MEDS: PANTOPRAZOLE 40 MG/10 ML VIAL IVP SCH (07:46)
[2021-11-10] MEDS: LEVOFLOXACIN 500MG-D5W PMX 500 MG in DEXTROSE/WATER 1 100ML.BAG IVPB SCH (07:53)
[2021-11-10] MEDS: IPRATROPIUM-ALBUTEROL 3 ML NEB INHALATION PRN ×3 (08:01→16:05)
--- NOTE | 2021-11-10 11:14 | P.PN ---
Subjective Progress Note Date: 11/10/21 Principal diagnosis: Diverticulitis Patient doing well today. No significant abdominal pain. Tolerating diet. Is afebrile. Objective - Vital Signs Vital signs: Vital Signs Temp 98.4 F 11/10/21 07:12 Pulse 64 11/10/21 08:13 Resp 16 11/10/21 07:12 BP 170/94 11/10/21 07:12 Pulse Ox 94 L 11/10/21 07:12 FiO2 Intake & Output 11/09/21 11/10/21 11/10/21 18:59 06:59 18:59 Intake Total 180 Balance 180 Intake: Oral 180 Other: Voiding Method Toilet # Voids 2 6 - Exam Abdomen: Soft, nontender, nondistended - Labs CBC & Chem 7: 11/09/21 06:21 11/09/21 06:21 Labs: Microbiology - Last 24 Hours (Table) 11/07/21 09:45 Blood Culture - Preliminary Blood No Growth after 48 hours 11/07/21 09:30 Blood Culture - Preliminary Blood No Growth after 48 hours Assessment and Plan (1) Diverticulitis Narrative/Plan: Patient doing well today. Continue antibiotics. Possible discharge. Continue low fiber diet post discharge. Current Visit: Yes Status: Acute Code(s): K57.92 - DVTRCLI OF INTEST, PART UNSP, W/O PERF OR ABSCESS W/O BLEED SNOMED Code(s): 516384925
[2021-11-10] MEDS ORDERED: LEVOFLOXACIN 500 MG TAB PO SCH (13:30)
--- NOTE | 2021-11-10 14:13 | P.DS ---
Providers Date of admission: 11/07/21 09:17 Expected date of discharge: 11/10/21 Attending physician: Sheila Grace Consults: 11/07/21 12:54 Consult Physician Routine Consulting Provider: Isaías Dumont Consult Reason/Comments: Diverticulitis Do you want consulting provider notified?: Yes Primary care physician: Sheila Grace [facility] Course: HISTORY OF PRESENT ILLNESS This is a 76-year-old female patient of liza, Dr. Miguel and Dr. Saul Bernardo with past medical history of hypertension, hyperlipidemia, persistent atrial fibrillation on Xarelto,glaucoma, DVT, colon cancer status post partial colectomy, gastroesophageal reflux disease, mild intermittent asthma. Patient has had left lower quadrant abdominal pain for 2 weeks and has been on ant ibiotics the form of ciprofloxacin and Flagyl for at least 1 week now and not feeling better. No fever or chills. No urinary symptoms. She occasionally feels nausea but no vomiting. No diarrhea. No chest pain or shortness of breath. Patient presented to [facility] emergency center. She was found to be afebrile, heart rate 76, blood pressure 155/88, pulse ox 93% on room air. WBC 10, hemoglobin 13, platelet count 149. Electrolytes were normal. BUN 21 creatinine 0.6. Blood sugar 135. Lactic acid 1.1. AST 38 otherwise liver function tests were within normal limits. Lipase 44. Urinalysis revealed moderate bilirubin, RBCs 19. CAT scan of the abdomen and pelvis without contrast revealed moderate but uncomplicated acute diverticulitis of the sigmoid colon of the pelvis. Patient was provided 1 L of IV fluid, Dilaudid and Toradol. Patient was started on IV Flagyl, IV Levaquin, seen today in the ER waiting for a bed on the [facility]. 11/08: She has been seen by general surgery and continued on nothing by mouth status, IV fluids, antibiotics. Patient has been afebrile, heart rate 73, blood pressure 119/85, pulse ox 91% on room air. Repeat blood work ordered for tomorrow. Patient's diet advanced to clears for lunch and patient tolerated well. No nausea or vomiting. She states that abdominal pain is much improved from yesterday. She is passing a little gas but no BM. Dr. Dumont is requesting to hold Xarelto and we'll place the patient on Lovenox 80 mg subcu every 12 hours secondary to atrial fibrillation. 11/09: Patient has been afebrile, heart rate in the 50s, blood pressure 127/74, pulse ox 92% on 2 L nasal cannula. Repeat blood work reveals WBC 4.7, Hgb 11.3, PLT 132, BUN 8.7, Creat 0.7, AST 38, other LFT within normal limits. Blood culture reveals no growth after 24 hours 2 specimens. Patient remains on Levaquin and Flagyl both IV and clear liquid diet advanced to full liquid today for lunch which she tolerated. Patient had BM today, no blood. Patient states abdominal pain is better but sore after having BM. We will transition patient back to Xarelto 20 mg tonight and discontinue the subcu Lovenox. Discharge diagnoses: 1. Acute diverticulitis failed outpatient treatment. 2. Persistent atrial fibrillation. 3. Hypertension. 4. Mild intermittent asthma. 5. Glaucoma. 6. Recurrent depression. 7. Osteoarthritis, generalized. 8. Gastroesophageal reflux disease. Plan - Discharge Summary Discharge Rx Participant: No New Discharge Prescriptions: No Action Pantoprazole Sodium [Protonix] 40 mg PO DAILY Multivitamin/Iron/Folic Acid [Centrum Complete Multivit Tab] 1 tab PO DAILY Brimonidine Tartrate [Alphagan P 0.2% Ophth Soln] 1 drop BOTH EYES BID Albuterol Inhaler [Ventolin Hfa Inhaler] 2 puff INHALATION RT-Q4H PRN PRN Reason: Shortness Of Breath Rivaroxaban [Xarelto] 20 mg PO W/SUPPER #30 tab Potassium Chloride [Klor-Con 20] 20 meq PO DAILY Furosemide [Lasix] 40 mg PO DAILY Ascorbic Acid [Vitamin C] 500 mg PO DAILY Sertraline [Zoloft] 100 mg PO DAILY Losartan [Cozaar] 50 mg PO DAILY #30 tab Aspirin 81 mg PO DAILY Ubidecarenone [Co Q-10] 100 mg PO DAILY Rosuvastatin Calcium [Crestor] 40 mg PO DAILY [id number]-Vuyn-Uwwx [id number] [Excedrin] 1 tab PO Q4HR PRN PRN Reason: Migraine Headache Ipratropium-Albuterol Nebulize [Duoneb 0.5 mg-3 mg/3 ml Soln] 3 ml INHALATION RT-QID PRN PRN Reason: Shortness Of Breath Metoprolol Tartrate [Lopressor] 50 mg PO BID metroNIDAZOLE [Flagyl] 250 mg PO TID Nystatin 100,000Unit/gm Cream [Mycostatin Cream] 1 applic TOPICAL BID PRN PRN Reason: yeast infection HYDROcodone/APAP 5-325MG [[place] 5-325] 1 tab PO HS PRN PRN Reason: Pain Cholecalciferol [Vitamin D3 (25 Mcg = 1000 Iu)] 25 mcg PO DAILY Montelukast [Singulair] 10 mg PO DAILY Ciprofloxacin HCl [Cipro] 250 mg PO Q12HR Ezetimibe [Zetia] 10 mg PO DAILY Discharge Medication List Pantoprazole Sodium [Protonix] 40 mg PO DAILY 07/23/13 [History] Brimonidine Tartrate [Alphagan P 0.2% Ophth Soln] 1 drop BOTH EYES BID 05/05/14 [History] Multivitamin/Iron/Folic Acid [Centrum Complete Multivit Tab] 1 tab PO DAILY 05/05/14 [History] Albuterol Inhaler [Ventolin Hfa Inhaler] 2 puff INHALATION RT-Q4H PRN 08/27/19 [History] Rivaroxaban [Xarelto] 20 mg PO W/SUPPER #30 tab 01/16/20 [Rx] Furosemide [Lasix] 40 mg PO DAILY 03/07/20 [History] Potassium Chloride [Klor-Con 20] 20 meq PO DAILY 03/07/20 [History] Ascorbic Acid [Vitamin C] 500 mg PO DAILY 06/05/20 [History] Cholecalciferol [Vitamin D3 (25 Mcg = 1000 Iu)] 25 mcg PO DAILY 06/05/20 [History] Sertraline [Zoloft] 100 mg PO DAILY 06/05/20 [History] Losartan [Cozaar] 50 mg PO DAILY #30 tab 06/07/20 [Rx] Aspirin 81 mg PO DAILY 06/23/20 [History] Vdtrmht-Xqjh-Zwzx [id number] [Excedrin] 1 tab PO Q4HR PRN 06/02/21 [History] Ipratropium-Albuterol Nebulize [Duoneb 0.5 mg-3 mg/3 ml Soln] 3 ml INHALATION RT-QID PRN 06/02/21 [History] Metoprolol Tartrate [Lopressor] 50 mg PO BID 06/02/21 [History] Montelukast [Singulair] 10 mg PO DAILY 06/02/21 [History] Rosuvastatin Calcium [Crestor] 40 mg PO DAILY 06/02/21 [History] Ubidecarenone [Co Q-10] 100 mg PO DAILY 06/02/21 [History] Ciprofloxacin HCl [Cipro] 250 mg PO Q12HR 11/07/21 [History] Ezetimibe [Zetia] 10 mg PO DAILY 11/07/21 [History] HYDROcodone/APAP 5-325MG [[place] 5-325] 1 tab PO HS PRN 11/07/21 [History] Nystatin 100,000Unit/gm Cream [Mycostatin Cream] 1 applic TOPICAL BID PRN 11/07/21 [History] metroNIDAZOLE [Flagyl] 250 mg PO TID 11/07/21 [History] Follow up Appointment(s)/Referral(s): Sheila Grace MD [Primary Care Provider] - 1-2 days [facility] [NON-STAFF] - As Needed
[2021-11-10 15:30] VITALS: BP 143/80; RESP 17; TEMP 98
[2021-11-10] MEDS ORDERED: metroNIDAZOLE 500 MG TAB PO SCH (16:00)
[2021-11-10 16:16] VITALS: PULSE 67
== END 2021-11-10 16:28 | disposition home health service (06) | DRG 392 ==
LOC: EC 06:43 → 4SSUR 09:17
PROVIDERS: ADMIT Internal Medicine; ATTEND Internal Medicine
DX: K57.32 Diverticulitis of large intestine without perforation or abscess without bleeding (principal); I48.19 Other persistent atrial fibrillation; F33.9 Major depressive disorder, recurrent, unspecified; E78.5 Hyperlipidemia, unspecified; J45.20 Mild intermittent asthma, uncomplicated; I34.1 Nonrheumatic mitral (valve) prolapse; K64.9 Unspecified hemorrhoids; K21.9 Gastro-esophageal reflux disease without esophagitis; I10 Essential (primary) hypertension; M15.9 Polyosteoarthritis, unspecified; G89.29 Other chronic pain; M54.40 Lumbago with sciatica, unspecified side; H40.9 Unspecified glaucoma; G47.30 Sleep apnea, unspecified; K44.9 Diaphragmatic hernia without obstruction or gangrene; M25.569 Pain in unspecified knee; I83.90 Asymptomatic varicose veins of unspecified lower extremity; Z79.01 Long term (current) use of anticoagulants; Z79.82 Long term (current) use of aspirin; Z79.899 Other long term (current) drug therapy; Z86.718 Personal history of other venous thrombosis and embolism; Z86.711 Personal history of pulmonary embolism; Z85.038 Personal history of other malignant neoplasm of large intestine; Z86.16 Personal history of COVID-19; Z96.651 Presence of right artificial knee joint; Z87.891 Personal history of nicotine dependence; Z90.49 Acquired absence of other specified parts of digestive tract; Z88.5 Allergy status to narcotic agent; Z88.0 Allergy status to penicillin; Z88.8 Allergy status to other drugs, medicaments and biological substances; Z91.041 Radiographic dye allergy status
CPT/HCPCS: 36415; 74176; 80053; 81001; 82150; 83605; 83690; 83735; 85025; 85027; 87040; 94640; 94760; 96361; 96365; 96367; 96375; 96376; 99285

== ENCOUNTER → 2021-12-12 | Outpatient (CLI) | payer MEDICARE, BC ==
--- NOTE | 2021-12-12 15:51 | BD ---
EXAMINATION TYPE: Axial Bone Density DATE OF EXAM: 12/12/2021 COMPARISON: Prior DEXA bone scan 2019 CLINICAL HISTORY: 76 years year old Female. ICD-10 CODE: M85.851 osteopenia rt hip Height: 63 Weight: 222.6 FRAX RISK QUESTIONS: Alcohol (3 or more units per day): NO Family History (Parent hip fracture): NO Glucocorticoids (More than 3mos): NO History of Fracture in Adulthood: NO Secondary Osteoporosis: 1. Type 1 Diabetes: NO 2. Hyperthyroidism: NO 3. Menopause before 45: NO 4. Malnutrition: NO 5. Chronic liver disease: NO Rheumatoid Arthritis: NO Current Tobacco Use: NO RISK FACTORS HISTORY OF: Hip Fracture (Right/Left): NO Spine Fracture: NO History of Wrist Fracture: NO Surgery to Spine/Hip(right/left)/Wrist (right/left): NO Family History of Osteoporosis: NO Active: NO Diet low in dairy products/other sources of calcium: YES Take estrogen and/or progesterone medications: NO Lost more than 2 inches in height since high school: YES Frequent falls: YES Poor Health: NO Hyperparathyroidism: NO Adrenal Insufficiency: NO MEDICATIONS: Prednisone or other steroids: NO Thyroid Medications: NO Osteoporosis Medications: NO Additional Medications: REFLUX MEDS, LOSARTAN POTASSIUM, POTASSIUM, ATORVASTATIN, MULTI VIT., VIT D Additional History: EXAM MEASUREMENTS: Bone mineral densitometry was performed using the [employer] System. Bone mineral density as measured about the Lumbar spine is: ----- L1-L4(G/cm2): 1.265 T Score Values are as follows: ----- L1: -1.4 ----- L2: -0.5 ----- L3: 1.6 ----- L4: 2.4 ----- L1-L4: 0.7 Bone mineral density has: INCREASED 1.2 % since study of: 02/26/2017 Bone mineral density about the R hip (g/cm2): .841 Bone mineral density about the L hip (g/cm2): 0.876 T Score values are as follows: -----R Neck: -1.4 -----L Neck: -1.2 -----R Total: -0.7 -----L Total: -0.3 Bone mineral density has: DECREASED 4.2 % since study of: 02/26/2017 FRAX%s: The graph provided illustrates a 9.7% chance for a major osteoporotic fx and a 1.7% chance fo r the hips probability for fx in 10 years time. IMPRESSION: Osteopenia (T Score between -2.5 and -1) is redemonstrated. There is slightly increased risk of fracture and the patient may be considered for treatment. Re-Screen 2-5 years. NOTE: T-SCORE=SD OF THE YOUNG ADULT MEAN.
== END | disposition home or self-care (01) ==
LOC: RADBDWWP 14:43
PROVIDERS: ATTEND Internal Medicine
DX: M85.80 Other specified disorders of bone density and structure, unspecified site (principal)
CPT/HCPCS: 77080

== ENCOUNTER 2021-12-14 16:22 | Emergency (ER) | payer MEDICARE, BC ==
[2021-12-14 16:28] VITALS: TEMP 98
[2021-12-14] MEDS ORDERED: SODIUM CHLORIDE 0.9% 1,000 ML IV STA (17:23)
[2021-12-14] MEDS ORDERED: MORPHINE SULFATE 2 MG/ML SYRINGE IVP STA (17:23)
[2021-12-14] MEDS ORDERED: FAMOTIDINE 20 MG/2 ML VIAL IV STA (17:24)
[2021-12-14] MEDS ORDERED: diphenhydrAMINE 50 MG/ML 1 ML VIAL IVP STA (17:24)
[2021-12-14] MEDS ORDERED: methylPREDNISolone SOD SUCCI 125 MG/2 ML VIAL IV STA (17:24)
--- NOTE | 2021-12-14 17:27 | ED ---
General Adult HPI - General Chief complaint: Abdominal Pain Stated complaint: Lower ABD pain Time Seen by Provider: 12/14/21 17:05 Source: patient, RN notes reviewed Mode of arrival: wheelchair Limitations: no limitations - History of Present Illness Initial comments: Patient is a pleasant 76-year-old female presenting to the emergency department with concerns with abdominal discomfort. Onset of symptoms was yesterday. discomfort has worsened since that time. Patient does have history of similar symptoms previously associated with diverticulitis. Patient has noticed a mild odor with her urine however no dysuria. Discomfort is left lower abdomen. No fever. No constipation or diarrhea. Patient has minimal nausea. - Related Data Home Medications Medication Instructions Recorded Confirmed Pantoprazole Sodium [Protonix] 40 mg PO DAILY 07/23/13 11/07/21 Brimonidine Tartrate [Alphagan P 1 drop BOTH EYES BID 05/05/14 11/07/21 0.2% Ophth Soln] Multivitamin/Iron/Folic Acid 1 tab PO DAILY 05/05/14 11/07/21 [Centrum Complete Multivit Tab] Albuterol Inhaler [Ventolin Hfa 2 puff INHALATION RT-Q4H PRN 08/27/19 11/07/21 Inhaler] Furosemide [Lasix] 40 mg PO DAILY 03/07/20 11/07/21 Potassium Chloride [Klor-Con 20] 20 meq PO DAILY 03/07/20 11/07/21 Ascorbic Acid [Vitamin C] 500 mg PO DAILY 06/05/20 11/07/21 Cholecalciferol [Vitamin D3 (25 25 mcg PO DAILY 06/05/20 11/07/21 Mcg = 1000 Iu)] Sertraline [Zoloft] 100 mg PO DAILY 06/05/20 11/07/21 Aspirin 81 mg PO DAILY 06/23/20 11/07/21 Gdtgdgv-[id number] [id number] 1 tab PO Q4HR PRN 06/02/21 11/07/21 [Excedrin] Ipratropium-Albuterol Nebulize 3 ml INHALATION RT-QID PRN 06/02/21 11/07/21 [Duoneb 0.5 mg-3 mg/3 ml Soln] Metoprolol Tartrate [Lopressor] 50 mg PO BID 06/02/21 11/07/21 Montelukast [Singulair] 10 mg PO DAILY 06/02/21 11/07/21 Rosuvastatin Calcium [Crestor] 40 mg PO DAILY 06/02/21 11/07/21 Ubidecarenone [Co Q-10] 100 mg PO DAILY 06/02/21 11/07/21 Ezetimibe [Zetia] 10 mg PO DAILY 11/07/21 11/07/21 HYDROcodone/APAP 5-325MG [[place] 1 tab PO HS PRN 11/07/21 11/07/21 5-325] Nystatin 100,000Unit/gm Cream 1 applic TOPICAL BID PRN 11/07/21 11/07/21 [Mycostatin Cream] Previous Rx's Medication Instructions Recorded Rivaroxaban [Xarelto] 20 mg PO W/SUPPER #30 tab 01/16/20 Losartan [Cozaar] 50 mg PO DAILY #30 tab 06/07/20 Levofloxacin [Levaquin] 500 mg PO Q24H #10 tab 11/10/21 metroNIDAZOLE [Flagyl] 500 mg PO TID #30 tab 11/10/21 Allergies Allergy/AdvReac Type Severity Reaction Status Date / Time amoxicillin trihydrate Allergy Rash/Hives Verified 12/14/21 16:28 [From Augmentin] hydromorphone HCl Allergy Rash/Hives Verified 12/14/21 16:28 [From Dilaudid] Penicillins Allergy Rash/Hives Verified 12/14/21 16:28 on chest potassium clavulanate Allergy Rash/Hives Verified 12/14/21 16:28 [From Augmentin] tramadol Allergy "VERY RED Verified 12/14/21 16:28 FACE" Iodinated Contrast Media AdvReac Red face Verified 12/14/21 16:28 [Iodinated Contrast Media - and felt IV Dye] like it was on fire. Llemgxu-RUH-FdT Reductase AdvReac LEG Verified 12/14/21 16:28 Inhibitor SWELLING [Ztoibzj-Scy-Tdb Reductase AND PAIN Inhibitor] Review of Systems ROS Statement: Those systems with pertinent positive or pertinent negative responses have been documented in the HPI. ROS Other: All systems not noted in ROS Statement are negative. Constitutional: Denies: fever Eyes: Denies: eye pain ENT: Denies: ear pain Respiratory: Denies: cough Cardiovascular: Denies: chest pain Endocrine: Denies: fatigue Gastrointestinal: Reports: as per HPI, abdominal pain Genitourinary: Reports: as per HPI Musculoskeletal: Denies: back pain Skin: Denies: rash Neurological: Denies: weakness Past Medical History Past Medical History: Atrial Fibrillation, Asthma, Cancer, Deep Vein Thrombosis (DVT), Eye Disorder, GERD/Reflux, Hypertension, Osteoarthritis (OA), Pulmonary Embolus (PE), Sleep Apnea/CPAP/BIPAP, Vascular Disorder Additional Past Medical History / Comment(s): 2011 colon cancer, Mitral Valve Prolapse, heartmurmur, chronic low back pain, herniated discs, scoliosis, does not use C-PAP, 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 History of Any Multi-Drug Resistant Organisms: None Reported Past Surgical History: Adenoidectomy, Bladder Surgery, Bowel Resection, Hysterectomy, Joint Replacement, Orthopedic Surgery, Tonsillectomy Additional Past Surgical History / Comment(s): Colonoscopies/polypectomies, bladder prolapse repair, bilateral shoulder rotator cuff repair.Total right knee arthroplasty, L knee arthroscopy, bilateral feet bunionectomies, bilateral cataract removals. Past Anesthesia/Blood Transfusion Reactions: Motion Sickness, Postoperative Nausea & Vomiting (PONV) Additional Past Anesthesia/Blood Transfusion Reaction / Comment(s): Pt has claustrophobia. Past Psychological History: No Psychological Hx Reported Smoking Status: Former smoker Past Alcohol Use History: None Reported Past Drug Use History: None Reported - Past Family History Sister(s) Family Medical History: Pulmonary Embolus Father Family Medical History: Myocardial Infarction (NE) Additional Family Medical History / Comment(s): Father had his first NE at the age of 61 yrs. Mother Family Medical History: Cancer Additional Family Medical History / Comment(s): LYMPHOMA General Exam Limitations: no limitations General appearance: alert, in no apparent distress Head exam: Present: normocephalic Eye exam: Present: normal appearance Neck exam: Present: normal inspection Respiratory exam: Present: normal lung sounds bilaterally Cardiovascular Exam: Present: regular rate, normal rhythm Expanded Peripheral pulses: 2+: Posterior Tibialis (R), Posterior Tibialis (L) GI/Abdominal exam: Present: soft, tenderness (Moderate left lower quadrant tenderness). Absent: distended, guarding, rebound, rigid, pulsatile mass Extremities exam: Present: normal inspection Neurological exam: Present: alert Psychiatric exam: Present: normal affect, normal mood Skin exam: Present: normal color Course Vital Signs 12/14/21 12/14/21 16:25 18:24 Temperature 98.0 F Pulse Rate 63 54 L Respiratory 18 18 Rate Blood Pressure 137/69 146/80 O2 Sat by Pulse 95 96 Oximetry Medical Decision Making - Medical Decision Making Patient reevaluated and updated. - Lab Data Result diagrams: 12/14/21 17:58 12/14/21 17:58 Lab Results 12/14/21 12/14/21 12/14/21 Range/Units 17:30 17:58 17:58 WBC 4.8 (3.8-10.6) k/uL RBC 4.23 (3.80-5.40) m/uL Hgb 12.6 (11.4-16.0) gm/dL Hct 38.7 (34.0-46.0) % MCV 91.3 (80.0-100.0) fL MCH 29.8 (25.0-35.0) pg MCHC 32.7 (31.0-37.0) g/dL RDW 13.6 (11.5-15.5) % Plt Count 118 L (150-450) k/uL MPV 8.7 Neutrophils % 74 % Lymphocytes % 12 % Monocytes % 7 % Eosinophils % 2 % Basophils % 0 % Neutrophils # 3.5 (1.3-7.7) k/uL Lymphocytes # 0.6 L (1.0-4.8) k/uL Monocytes # 0.3 (0-1.0) k/uL Eosinophils # 0.1 (0-0.7) k/uL Basophils # 0.0 (0-0.2) k/uL PT 11.2 (9.0-12.0) sec INR 1.0 (<1.2) APTT 26.1 (22.0-30.0) sec Sodium (137-145) mmol/L Potassium (3.5-5.1) mmol/L Chloride (98-107) mmol/L Carbon Dioxide (22-30) mmol/L Anion Gap mmol/L BUN (7-17) mg/dL Creatinine (0.52-1.04) mg/dL Est GFR (CKD-EPI)AfAm (>60 ml/min/1.73 sqM) Est GFR (CKD-EPI)NonAf (>60 ml/min/1.73 sqM) Glucose (74-99) mg/dL Calcium (8.4-10.2) mg/dL Total Bilirubin (0.2-1.3) mg/dL AST (14-36) U/L ALT (4-34) U/L Alkaline Phosphatase (38-126) U/L Total Protein (6.3-8.2) g/dL Albumin (3.5-5.0) g/dL Amylase (30-110) U/L Lipase (23-300) U/L Urine Color Yellow Urine Appearance Cloudy H (Clear) Urine pH 5.5 (5.0-8.0) Ur Specific Stanton 1.029 (1.001-1.035) Urine Protein Trace H (Negative) Urine Glucose (UA) Negative (Negative) Urine Ketones Trace H (Negative) Urine Blood Negative (Negative) Urine Nitrite Negative (Negative) Urine Bilirubin Negative (Negative) Urine Urobilinogen <2.0 (<2.0) mg/dL Ur Leukocyte Esterase Small H (Negative) Urine RBC 6 H (0-5) /hpf Urine WBC 1 (0-5) /hpf Ur Squamous Epith Cells 10 H (0-4) /hpf Calcium Oxalate Crystal Occasional H (None) /hpf Hyaline Casts 3 H (0-2) /lpf Urine Mucus Few H (None) /hpf 12/14/21 Range/Units 17:58 WBC (3.8-10.6) k/uL RBC (3.80-5.40) m/uL Hgb (11.4-16.0) gm/dL Hct (34.0-46.0) % MCV (80.0-100.0) fL MCH (25.0-35.0) pg MCHC (31.0-37.0) g/dL RDW (11.5-15.5) % Plt Count (150-450) k/uL MPV Neutrophils % % Lymphocytes % % Monocytes % % Eosinophils % % Basophils % % Neutrophils # (1.3-7.7) k/uL Lymphocytes # (1.0-4.8) k/uL Monocytes # (0-1.0) k/uL Eosinophils # (0-0.7) k/uL Basophils # (0-0.2) k/uL PT (9.0-12.0) sec INR (<1.2) APTT (22.0-30.0) sec Sodium 139 (137-145) mmol/L Potassium 4.2 (3.5-5.1) mmol/L Chloride 103 (98-107) mmol/L Carbon Dioxide 23 (22-30) mmol/L Anion Gap 13 mmol/L BUN 18 H (7-17) mg/dL Creatinine 0.54 (0.52-1.04) mg/dL Est GFR (CKD-EPI)AfAm >90 (>60 ml/min/1.73 sqM) Est GFR (CKD-EPI)NonAf >90 (>60 ml/min/1.73 sqM) Glucose 99 (74-99) mg/dL Calcium 9.2 (8.4-10.2) mg/dL Total Bilirubin 0.5 (0.2-1.3) mg/dL AST 40 H (14-36) U/L ALT 21 (4-34) U/L Alkaline Phosphatase 43 (38-126) U/L Total Protein 6.5 (6.3-8.2) g/dL Albumin 4.1 (3.5-5.0) g/dL Amylase 43 (30-110) U/L Lipase 49 (23-300) U/L Urine Color Urine Appearance (Clear) Urine pH (5.0-8.0) Ur Specific Stanton (1.001-1.035) Urine Protein (Negative) Urine Glucose (UA) (Negative) Urine Ketones (Negative) Urine Blood (Negative) Urine Nitrite (Negative) Urine Bilirubin (Negative) Urine Urobilinogen (<2.0) mg/dL Ur Leukocyte Esterase (Negative) Urine RBC (0-5) /hpf Urine WBC (0-5) /hpf Ur Squamous Epith Cells (0-4) /hpf Calcium Oxalate Crystal (None) /hpf Hyaline Casts (0-2) /lpf Urine Mucus (None) /hpf - Radiology Data Radiology results: image reviewed (Computed tomography scan of abdomen and pelvis reveals no acute abnormality) Disposition Clinical Impression: Abdominal pain Disposition: HOME SELF-CARE Condition: Stable Instructions (If sedation given, give patient instructions): Abdominal Pain (ED) Additional Instructions: Please do follow-up with primary care physician in the next day or 2 for recheck. Return for increased pain, fever, vomiting, worsening or change in symptoms or other concerns. Is patient prescribed a controlled substance at d/c from ED?: No Referrals: Sheila Grace MD [Primary Care Provider] - 1-2 days Time of Disposition: 19:47
[2021-12-14 17:49] LABS: Appearance,Urine Cloudy (Clear); Bilirubin,Urine Negative (Negative); Blood,Urine Negative (Negative); Calcium Oxalate Crystals,Urine Occasional /hpf; Color,Urine Yellow; Glucose,Urine (UA) Negative (Negative); Hyaline Casts,Urine 3 /lpf (0-2); Ketones,Urine Trace (Negative); Leukocyte Esterase,Urine Small (Negative); Mucus,Urine Few /hpf; Nitrite,Urine Negative (Negative); PH, Urine 5.5 (5.0-8.0); Protein,Urine Trace (Negative); RBC,Urine 6 /hpf (0-5); Specific Gravity,Urine 1.029 (1.001-1.035); Squamous Epithelial Cell,Urine 10 /hpf (0-4); Urobilinogen,Urine <2.0 mg/dL (<2.0); WBC,Urine 1 /hpf (0-5)
[2021-12-14 18:35] LABS: ALT 21 U/L (4-34); African American GFR (CKD) >90 (>60 ml/min/1.73 sqM); Albumin 4.1 g/dL (3.5-5.0); Amylase 43 U/L (30-110); Anion Gap 13 mmol/L; Blood Urea Nitrogen 18 mg/dL (7-17); Calcium 9.2 mg/dL (8.4-10.2); Carbon Dioxide 23 mmol/L (22-30); Chloride 103 mmol/L (98-107); Glucose 99 mg/dL (74-99); Lipase 49 U/L (23-300); Non-African American GFR(CKD) >90 (>60 ml/min/1.73 sqM); Sodium 139 mmol/L (137-145); Total Bilirubin 0.5 mg/dL (0.2-1.3); Total Protein 6.5 g/dL (6.3-8.2)
[2021-12-14 18:37] LABS: Basophils % (A) 0 %; Eosinophils # (A) 0.1 k/uL (0-0.7); Eosinophils % (A) 2 %; HCT 38.7 % (34.0-46.0); HGB 12.6 gm/dL (11.4-16.0); Lymphocytes # (A) 0.6 k/uL (1.0-4.8); Lymphocytes % (A) 12 %; MCH 29.8 pg (25.0-35.0); MCHC 32.7 g/dL (31.0-37.0); MCV 91.3 fL (80.0-100.0); Mean Platelet Volume 8.7; Monocytes # (A) 0.3 k/uL (0-1.0); Monocytes % (A) 7 %; Neutrophils # (A) 3.5 k/uL (1.3-7.7); Neutrophils % (A) 74 %; Platelet Count 118 k/uL (150-450); RBC 4.23 m/uL (3.80-5.40); RDW 13.6 % (11.5-15.5); WBC 4.8 k/uL (3.8-10.6)
[2021-12-14 18:40] LABS: Partial Thromboplastin Time 26.1 sec (22.0-30.0); Prothrombin Time 11.2 sec (9.0-12.0)
[2021-12-14 18:47] LABS: Potassium 4.2 mmol/L (3.5-5.1)
[2021-12-14 18:48] LABS: AST 40 U/L (14-36); Alkaline Phosphatase 43 U/L (38-126)
--- NOTE | 2021-12-14 19:36 | CT ---
EXAMINATION TYPE: CT abdomen pelvis w con DATE OF EXAM: 12/14/2021 COMPARISON: 11/07/2021 HISTORY: Lower quadrant abdominal pain. CT DLP: 2115.5 mGycm Automated exposure control for dose reduction was used. CONTRAST: Performed with IV Contrast, patient injected with 100cc mL of Isovue 300. the lung bases show mild subsegmental atelectasis. Heart is top normal in size. No pericardial effusi on. No pleural effusion. Liver spleen and stomach pancreas gallbladder appear intact. The bile ducts are not dilated. There is no adrenal mass. Kidneys of normal size and contour. No hydronephrosis. There are small calc malvin in the right kidney. Ureters are not dilated. No retroperitoneal adenopathy. Bladder distends smo othly. No inguinal hernia. No free fluid in the pelvis. There are multiple sigmoid diverticula. No di verticulitis. There is no mesenteric edema. No ascites or free air. No sign of a bowel obstruction. Appendix not se en. The lumbar vertebrae have normal alignment. No compression fracture. There is multilevel thoracic and lumbar spondylotic changes. The bony pelvis is intact. There is minor spurring at the hip joints. IMPRESSION: There is nonobstructing 2 mm calculi in the mid and upper pole right kidney. No acute abnormality of the abdomen and pelvis. There is sigmoid diverticulosis. Hypertrophic changes in the mid sigmoid colon. No diverticulitis. No significant change compared to old exam.
[2021-12-14] MEDS ORDERED: ACET/COD 300 MG/30 MG STARTER PACK 6 TAB BTL PO STA (19:43)
[2021-12-14 20:02] VITALS: BP 153/87; PULSE 74; RESP 17
== END 2021-12-14 20:15 | disposition home or self-care (01) ==
LOC: EC 16:22
DX: R10.32 Left lower quadrant pain (principal); J45.909 Unspecified asthma, uncomplicated; I10 Essential (primary) hypertension; K21.9 Gastro-esophageal reflux disease without esophagitis; M19.90 Unspecified osteoarthritis, unspecified site; Z86.79 Personal history of other diseases of the circulatory system; Z86.718 Personal history of other venous thrombosis and embolism; Z86.711 Personal history of pulmonary embolism; Z87.891 Personal history of nicotine dependence; Z79.82 Long term (current) use of aspirin; Z79.899 Other long term (current) drug therapy; Z88.1 Allergy status to other antibiotic agents; Z88.0 Allergy status to penicillin; Z88.8 Allergy status to other drugs, medicaments and biological substances; Z91.041 Radiographic dye allergy status; Z88.5 Allergy status to narcotic agent
CPT/HCPCS: 36415; 80053; 82150; 83690; 85025; 85610; 85730; 81001; 74177; 99284; 96374; 96375; 96361; J1200; J2930; J2270; Q9967

== ENCOUNTER 2022-04-02 08:18 | Day surgery (SDC) | payer MEDICARE, BC ==
[~2022-04-02 08:18] MED LIST changes: +LACTATED RINGERS 1,000 ML IV SCH; +LIDOCAINE 1% (10MG/ML) FOR IV START INTRADERMA PRN; -SODIUM CHLORIDE 0.9% 1,000 ML IV SCH
[2022-04-02 08:56] VITALS: TEMP 97.6
[2022-04-02] MEDS ORDERED: PROPOFOL 10 MG/ML 20 ML VIAL IV ONE (09:14)
[2022-04-02] MEDS ORDERED: LIDOCAINE 2% INJ 20 MG/ML (2 ML VIAL) ONE (09:14)
--- NOTE | 2022-04-02 09:28 | P.PCN ---
Date of Procedure: 04/02/22 Procedure(s) Performed: BRIEF HISTORY: Patient is a 76-year-old pleasant female scheduled for an elective colonoscopy as a part of surveillance of prior history of colon cancer diagnosed in 2011. Last colonoscopy was 3 years ago. PROCEDURE PERFORMED: Colonoscopy. PREOPERATIVE DIAGNOSIS: Personal history of colon cancer and history of colon polyps. IV sedation per Anesthesia. PROCEDURE: After informed consent was obtained, the patient, was brought into the endoscopy unit. IV sedation was administered by Anesthesia under continuous monitoring. Digital rectal examination was normal. Initially the Olympus CF-160 flexible video colonoscope was then inserted in the rectum, gradually advanced into the cecum without any difficulty. Careful examination was performed as the scope was gradually being withdrawn. Ileocecal valve and the appendiceal orifice were visualized and appeared normal. Prep was excellent. Mucosa of the cecum, ascending colon, appeared normal. There was a nonobstructive anastomosis located 60 cm from the anal was there appeared normal. Mucosa of the descending colon, sigmoid colon, and rectum appeared normal. Retroflexion was performed in the rectum and no lesions were seen. The patient tolerated the procedure well. IMPRESSION: Normal-appearing colon from rectum to cecum . RECOMMENDATIONS: Findings of this examination were discussed with the patient as well as her family. She was advised to have a repeat colonoscopy in 3 years because of the prior history of colon cancer.
[2022-04-02 09:33] VITALS: RESP 18
[2022-04-02 09:51] VITALS: BP 114/66; PULSE 65
== END 2022-04-02 10:22 | disposition home or self-care (01) ==
LOC: ORWHC2ENDO 08:18
PROVIDERS: ATTEND Internal Medicine Gastroenterology
DX: Z12.11 Encounter for screening for malignant neoplasm of colon (principal); Z85.038 Personal history of other malignant neoplasm of large intestine; Z87.19 Personal history of other diseases of the digestive system
CPT/HCPCS: J2704; J2001; G0105; 45378

== ENCOUNTER → 2022-06-26 | Outpatient (CLI) | payer MEDICARE, BC ==
--- NOTE | 2022-06-27 08:37 | MM ---
Reason for Exam: Screening (asymptomatic). Last screening mammogram was performed 12 month(s) ago. Patient History: Menarche at age 14. First Full-Term at age 19. Hysterectomy at age 34. Postmenopausal. Colorectal cancer, age 66. Patient used Estrogen for 3 years. Patient used Progesterone for 3 years. 11/27/2009, Benign Core Biopsy on the right side. Risk Values: Jyotsna 5 year model risk: 1.5%. NCI Lifetime model risk: 3.3%. Prior Study Comparison: 04/27/2019 Bilateral Screening Mammogram, [facility]. 05/15/2020 Bilateral Screening Mammogram, [facility]. 06/25/2021 Bilateral Screening Mammogram, [facility]. Tissue Density: The breast tissue is almost entirely fat. Findings: Analyzed By CAD. There is no suspicious group of microcalcifications or new suspicious mass in either breast. Overall Assessment: Benign, BI-RAD 2 Management: Screening Mammogram of both breasts in 1 year. A clinical breast exam by your physician is recommended on an annual basis and results should be correlated with mammographic findings. Electronically signed and approved by: Yony Alan M.D. Radiologis
== END | disposition home or self-care (01) ==
LOC: RADMAMWWP 14:53
PROVIDERS: ATTEND Internal Medicine
DX: Z12.31 Encounter for screening mammogram for malignant neoplasm of breast (principal); C19 Malignant neoplasm of rectosigmoid junction; Z78.0 Asymptomatic menopausal state; Z98.890 Other specified postprocedural states
CPT/HCPCS: 77063; 77067

== ENCOUNTER 2022-07-08 09:45 | Emergency (ER) | payer MEDICARE, BC ==
[2022-07-08 09:56] VITALS: RESP 18; TEMP 98.1
[2022-07-08] MEDS ORDERED: SODIUM CHLORIDE 0.9% 1,000 ML IV STA (10:19)
[2022-07-08] MEDS ORDERED: diphenhydrAMINE 50 MG/ML 1 ML VIAL IVP STA (10:21)
[2022-07-08] MEDS ORDERED: methylPREDNISolone SOD SUCCI 125 MG/2 ML VIAL IV STA (10:21)
[2022-07-08] MEDS ORDERED: FAMOTIDINE 20 MG/2 ML VIAL IV STA (10:21)
--- NOTE | 2022-07-08 10:22 | ED ---
Abdominal Pain HPI - General Chief Complaint: Abdominal Pain Stated Complaint: Lower Abd Pain Time Seen by Provider: 07/08/22 10:07 Source: patient, family (daughter), RN notes reviewed Mode of arrival: wheelchair - History of Present Illness Initial Comments: Patient is a 76-year-old female presenting to the emergency room with complaints of left lower quadrant abdominal pain ongoing for approximately 3-4 days with worsening intensity in the last 24 hours. She reports nausea without vomiting. She does report some constipation which was relieved with stool softeners. She denies any laxative use. She reports proximally 3-4 weeks ago she was treated by her primary care provider for diverticulitis with a course of Cipro and Flagyl. She reports that her abdominal pain is similar to when she was treated for diverticulitis in the past. She denies any abdominal pain in any other region. She reports that her shortness of breath is at her baseline. She denies any chest pain, flank pain, vomiting, diarrhea, blood or mucus in her stool, dysuria, hematuria, urinary frequency, fevers or chills. In addition to her diverticulosis noted history she has a past medical history significant for COPD, asthma, sleep apnea, atrial fibrillation, DVT, PE, colon cancer and GERD. - Related Data Home Medications Medication Instructions Recorded Confirmed Pantoprazole Sodium [Protonix] 40 mg PO DAILY 07/23/13 07/08/22 Brimonidine Tartrate [Alphagan P 1 drop BOTH EYES BID 05/05/14 07/08/22 0.2% Ophth Soln] Multivitamin/Iron/Folic Acid 1 tab PO DAILY 05/05/14 07/08/22 [Centrum Complete Multivit Tab] Albuterol Inhaler [Ventolin Hfa 1 puff INHALATION RT-Q4H PRN 08/27/19 07/08/22 Inhaler] Furosemide [Lasix] 40 mg PO DAILY 03/07/20 07/08/22 Potassium Chloride [Klor-Con 20] 20 meq PO DAILY 03/07/20 07/08/22 Ascorbic Acid [Vitamin C] 500 mg PO DAILY 06/05/20 07/08/22 Cholecalciferol [Vitamin D3 (25 25 mcg PO DAILY 06/05/20 07/08/22 Mcg = 1000 Iu)] Aspirin 81 mg PO DAILY 06/23/20 07/08/22 Xyfzlpj-Unxi-Gijk [id number] 1 tab PO Q4H PRN 06/02/21 07/08/22 [Excedrin] Ipratropium-Albuterol Nebulize 3 ml INHALATION RT-QID PRN 06/02/21 07/08/22 [Duoneb 0.5 mg-3 mg/3 ml Soln] Metoprolol Tartrate [Lopressor] 50 mg PO BID 06/02/21 07/08/22 Montelukast [Singulair] 10 mg PO HS 06/02/21 07/08/22 Rosuvastatin Calcium [Crestor] 40 mg PO DAILY 06/02/21 07/08/22 Ezetimibe [Zetia] 10 mg PO DAILY 11/07/21 07/08/22 Erythromycin Ophth Oint (1 gm) 1 applic RIGHT EYE BID 07/08/22 07/08/22 [Ilotycin Ophth Oint (1 gm)] HYDROcodone/APAP 7.5-325MG [[place] 1 tab PO Q12H PRN 07/08/22 07/08/22 7.5-325] Rivaroxaban [Xarelto] 20 mg PO HS 07/08/22 07/08/22 Previous Rx's Medication Instructions Recorded Losartan [Cozaar] 50 mg PO DAILY #30 tab 06/07/20 Allergies Allergy/AdvReac Type Severity Reaction Status Date / Time amoxicillin trihydrate Allergy Rash/Hives Verified 07/08/22 12:52 [From Augmentin] hydromorphone HCl Allergy Rash/Hives Verified 07/08/22 12:52 [From Dilaudid] Penicillins Allergy Rash/Hives Verified 07/08/22 12:52 on chest potassium clavulanate Allergy Rash/Hives Verified 07/08/22 12:52 [From Augmentin] tramadol Allergy "VERY RED Verified 07/08/22 12:52 FACE" Iodinated Contrast Media AdvReac Red face Verified 07/08/22 12:52 [Iodinated Contrast Media - and felt IV Dye] like it was on fire. Sdblzfa-ZOA-OvF Reductase AdvReac LEG Verified 07/08/22 12:52 Inhibitor SWELLING [Xqzlgkm-Hut-Qrm Reductase AND PAIN Inhibitor] Review of Systems ROS Statement: Those systems with pertinent positive or pertinent negative responses have been documented in the HPI. ROS Other: All systems not noted in ROS Statement are negative. 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 History of Any Multi-Drug Resistant Organisms: None Reported Past Surgical History: Adenoidectomy, Bladder Surgery, Bowel Resection, Hysterectomy, Joint Replacement, Orthopedic Surgery, Tonsillectomy Additional Past Surgical History / Comment(s): Colonoscopies/polypectomies, bladder prolapse repair, bilateral shoulder rotator cuff repair.Total right knee arthroplasty, L knee arthroscopy, bilateral feet bunionectomies, bilateral mandy ract removals. Past Anesthesia/Blood Transfusion Reactions: Motion Sickness, Postoperative Nausea & Vomiting (PONV) Additional Past Anesthesia/Blood Transfusion Reaction / Comment(s): Pt has claustrophobia. Past Psychological History: No Psychological Hx Reported Smoking Status: Former smoker - Past Family History Sister(s) Family Medical History: Pulmonary Embolus Father Family Medical History: Myocardial Infarction (NM) Additional Family Medical History / Comment(s): Father had his first NM at the age of 61 yrs. Mother Family Medical History: Cancer Additional Family Medical History / Comment(s): LYMPHOMA General Exam - General Exam Comments Initial Comments: GENERAL: No acute distress, well developed, well nourished. HEENT: Normocephalic, atraumatic. Pupils equal, round, reactive to light. Moist mucous membranes. LUNGS: No respiratory distress. Clear to auscultation, no adventitious sounds, no use of accessory muscles. HEART: Regular rate and irregular rhythm without murmur, rub, or gallop. ABDOMEN: Normal bowel sounds. Soft, large abdomen, mild tenderness left lower quadrant, nondistended, no guarding or rebound tenderness.. BACK: Normal inspection. EXTREMITIES: No edema. No tenderness. Moves all extremities. NEUROLOGIC: Alert & oriented x 3. CN II-XII grossly intact. PSYCHIATRIC: Normal affect and behavior. DERMATOLOGIC: Skin intact, without rashes or lesions noted. Course Vital Signs 07/08/22 07/08/22 09:52 13:49 Temperature 98.1 F Pulse Rate 76 66 Respiratory 18 18 Rate Blood Pressure 130/81 118/74 O2 Sat by Pulse 94 L 98 Oximetry Medical Decision Making - Medical Decision Making Was pt. sent in by a medical professional or institution (, PA, CUSTOMER ACCOUNTS ADVISOR, urgent care, hospital, or long-term...) When possible be specific @ -No Did you speak to anyone other than the patient for history (EMS, parent, family, police, friend...)? What history was obtained from this source @ -Daughter at bedside helping patient with history information. Did you review nursing and triage notes (agree or disagree)? Why? @ -I reviewed and agree with nursing and triage notes Were old charts reviewed (outside hosp., previous admission, EMS record, old EKG, old radiological studies, urgent care reports/EKG's, long-term records)? Report findings @ -Yes, colonoscopy report from March 2022 reviewed. Differential Diagnosis (chest pain, altered mental status, abdominal pain women, abdominal pain men, vaginal bleeding, weakness, fever, dyspnea, syncope, headache, dizziness, GI bleed, back pain, seizure, CVA, palpatations, mental health, musculoskeletal)? @ -Differential Abdominal Pain Women: Appendicitis, Cholecystitis, diverticulosis, ischemic bowel, pancreatitis, hepatitis, UTI, gastroenteritis, AAA, incarcerated hernia, bowel obstruction, constipation, inflammatory bowel, hepatitis, peptic ulcer disease, splenic i nfarction, perforated viscus, vulvitis, ovarian torsion, PID, kidney stone, placenta abruption, this is not meant to be an all-inclusive list EKG interpreted by me (3pts min.). @ -None done X-rays interpreted by me (1pt min.). @ -None done CT interpreted by me (1pt min.). @ -CT of the abdomen and pelvis with contrast: Colonic diverticulia with mild colon inflammation. No obstruction, abscess mass, or free air. Nonobstructive right renal calculi. U/S interpreted by me (1pt. min.). @ -None done What testing was considered but not performed or refused? (CT, X-rays, U/S, labs)? Why? @ -None What meds were considered but not given or refused? Why? @ -Analgesics and anti-medics offered but declined Did you discuss the management of the patient with other professionals (professionals i.e. , PA, CUSTOMER ACCOUNTS ADVISOR, lab, RT, psych nurse, social service assistant, helminthology teacher, te acher, armed custom protection officer, immigration case worker)? Give summary @ -No Was smoking cessation discussed for >3mins.? @ -No Was critical care preformed (if so, how long)? @ -No Were there social determinants of health that impacted care today? How? (Homelessness, low income, unemployed, alcoholism, drug addiction, transportation, low edu. Level, literacy, decrease access to med. care, half-way, rehab)? @ -No Was there de-escalation of care discussed even if they declined (Discuss DNR or withdrawal of care, Hospice)? DNR status @ -No What co-morbidities impacted this encounter? (DM, HTN, Smoking, COPD, CAD, Cancer, CVA, ARF, Chemo, Hep., AIDS, mental health diagnosis, sleep apnea, morbid obesity)? @ -Reports history of diverticulosis despite most recent colonoscopy with normal colon lining. Was patient admitted / discharged? Hospital course, mention meds given and route, prescriptions, significant lab abnormalities, going to OR and other pertinent info. @ -76-year-old female presenting to the emergency room with worsening of left lower quadrant pain with nausea. Notes constipation improved with stool softener. Reports previously treated approximately 3 weeks ago with Cipro and Flagyl for diverticulitis by primary care provider improvement in symptoms for approximately 1 week. Due to colonoscopy noting no evidence of diverticulosis along with recent treatment for diverticulosis and persistent symptoms will obtain CT of the abdomen and pelvis with contrast. Patient with previous mild reactions to iodine tolerating iodine well with premedication will premedicate patient for computed tomography scan. Will obtain CBC, CMP, amylase, lipase, lactic acid and urinalysis. Will give 1 L IV fluid bolus. Tolerated IV hydration and CT scan premedication well. CBC with lymphocytes low at 0.9, WBC and remaining differential normal. CMP demonstrates mild dehydration with a BUN of 19, creatinine normal, glucose slightly elevated at 126, lactic ac id normal 1.3, AST slightly elevated 37, Normal ALT and alkaline phosphate, amylase and lipase normal. Electrolytes all normal. Urinalysis negative for leukocyte estrace or bacteria. Trace blood noted on UA. CT scan of abdomen/pelvis with mild colonic inflammation consistent with uncomplicated dive rticulitis. No indication for further diagnostic testing or laboratory studies or above findings. Discussed with patient and daughter at the bedside. Advised in the absence of diarrhea with mild symptoms and recent treatment for diverticulitis by primary care provider advised watchful, waiting, rather than another course of antibiotics. Patient and daughter are agreeable with this plan and understand need for follow up with primary care provider. Questions and concerns answered. Encouraged good oral hydration strict return parameters to the emergency room reviewed. Will discharge home on [id number] analgesics of Tylenol as needed for abdominal pain due to uncomplicated diverticulitis advising follow up with primary care provider. Undiagnosed new problem with uncertain prognosis? @ -No Drug Therapy requiring intensive monitoring for toxicity (Heparin, Nitro, Insulin, Cardizem)? @ -No Were any procedures done? @ -No Diagnosis/symptom? @ -Abdominal pain/ Uncomplicated diverticulitis Acute, or Chronic, or Acute on Chronic? @ -Acute Uncomplicated (without systemic symptoms) or Complicated (systemic symptoms)? @ -Uncomplicated Side effects of treatment? @ -No Exacerbation, Progression, or Severe Exacerbation? @ -No Poses a threat to life or bodily function? How? (Chest pain, USA, NM, pneumonia, PE, COPD, DKA, ARF, appy, cholecystitis, CVA, Diverticulitis, Homicidal, Suicidal, threat to staff... and all critical care pts) @ -No Case discussed with Dr. Posadas. - Lab Data Result diagrams: 07/08/22 10:32 07/08/22 10:32 Lab Results 07/08/22 07/08/22 07/08/22 Range/Units 10:32 10:32 10:32 WBC 6.0 (3.8-10.6) k/uL RBC 4.31 (3.80-5.40) m/uL Hgb 13.6 (11.4-16.0) gm/dL Hct 41.6 (34.0-46.0) % MCV 96.5 (80.0-100.0) fL MCH 31.5 (25.0-35.0) pg MCHC 32.6 (31.0-37.0) g/dL RDW 13.2 (11.5-15.5) % Plt Count 183 (150-450) k/uL MPV 7.6 Neutrophils % 74 % Lymphocytes % 15 % Monocytes % 5 % Eosinophils % 3 % Basophils % 0 % Neutrophils # 4.4 (1.3-7.7) k/uL Lymphocytes # 0.9 L (1.0-4.8) k/uL Monocytes # 0.3 (0-1.0) k/uL Eosinophils # 0.2 (0-0.7) k/uL Basophils # 0.0 (0-0.2) k/uL Sodium 139 (137-145) mmol/L Potassium 4.7 (3.5-5.1) mmol/L Chloride 104 (98-107) mmol/L Carbon Dioxide 29 (22-30) mmol/L Anion Gap 6 mmol/L BUN 19 H (7-17) mg/dL Creatinine 0.58 (0.52-1.04) mg/dL Est GFR (CKD-EPI)AfAm >90 (>60 ml/min/1.73 sqM) Est GFR (CKD-EPI)NonAf >90 (>60 ml/min/1.73 sqM) Glucose 126 H (74-99) mg/dL Plasma Lactic Acid Aris (0.7-2.0) mmol/L Calcium 9.2 (8.4-10.2) mg/dL Total Bilirubin 0.7 (0.2-1.3) mg/dL AST 37 H (14-36) U/L ALT 28 (4-34) U/L Alkaline Phosphatase 61 (38-126) U/L Total Protein 6.7 (6.3-8.2) g/dL Albumin 4.0 (3.5-5.0) g/dL Amylase 41 (30-110) U/L Lipase 42 (23-300) U/L Urine Color Yellow Urine Appearance Clear (Clear) Urine pH 6.5 (5.0-8.0) Ur Specific [place] 1.050 H (1.001-1.035) Urine Protein Negative (Negative) Urine Glucose (UA) Negative (Negative) Urine Ketones Negative (Negative) Urine Blood Trace H (Negative) Urine Nitrite Negative (Negative) Urine Bilirubin Negative (Negative) Urine Urobilinogen <2.0 (<2.0) mg/dL Ur Leukocyte Esterase Negative (Negative) Urine RBC 17 H (0-5) /hpf Urine WBC 1 (0-5) /hpf Ur Squamous Epith Cells 3 (0-4) /hpf Urine Mucus Rare H (None) /hpf 07/08/22 Range/Units 10:32 WBC (3.8-10.6) k/uL RBC (3.80-5.40) m/uL Hgb (11.4-16.0) gm/dL Hct (34.0-46.0) % MCV (80.0-100.0) fL MCH (25.0-35.0) pg MCHC (31.0-37.0) g/dL RDW (11.5-15.5) % Plt Count (150-450) k/uL MPV Neutrophils % % Lymphocytes % % Monocytes % % Eosinophils % % Basophils % % Neutrophils # (1.3-7.7) k/uL Lymphocytes # (1.0-4.8) k/uL Monocytes # (0-1.0) k/uL Eosinophils # (0-0.7) k/uL Basophils # (0-0.2) k/uL Sodium (137-145) mmol/L Potassium (3.5-5.1) mmol/L Chloride (98-107) mmol/L Carbon Dioxide (22-30) mmol/L Anion Gap mmol/L BUN (7-17) mg/dL Creatinine (0.52-1.04) mg/dL Est GFR (CKD-EPI)AfAm (>60 ml/min/1.73 sqM) Est GFR (CKD-EPI)NonAf (>60 ml/min/1.73 sqM) Glucose (74-99) mg/dL Plasma Lactic Acid [place] 1.3 (0.7-2.0) mmol/L Calcium (8.4-10.2) mg/dL Total Bilirubin (0.2-1.3) mg/dL AST (14-36) U/L ALT (4-34) U/L Alkaline Phosphatase (38-126) U/L Total Protein (6.3-8.2) g/dL Albumin (3.5-5.0) g/dL Amylase (30-110) U/L Lipase (23-300) U/L Urine Color Urine Appearance (Clear) Urine pH (5.0-8.0) Ur Specific [place] (1.001-1.035) Urine Protein (Negative) Urine Glucose (UA) (Negative) Urine Ketones (Negative) Urine Blood (Negative) Urine Nitrite (Negative) Urine Bilirubin (Negative) Urine Urobilinogen (<2.0) mg/dL Ur Leukocyte Esterase (Negative) Urine RBC (0-5) /hpf Urine WBC (0-5) /hpf Ur Squamous Epith Cells (0-4) /hpf Urine Mucus (None) /hpf - Radiology Data Radiology results: report reviewed, image reviewed Disposition Clinical Impression: Abdominal pain, Diverticulitis Disposition: HOME SELF-CARE Condition: Stable Instructions (If sedation given, give patient instructions): Diverticulitis (DC), Abdominal Pain (ED) Additional Instructions: ER workup revealed mild diverticulitis in the setting of recent antibiotic tr eatment for diverticulitis antibiotics not started today. Recommend following up with your primary care provider in 3-4 days for further evaluation and initiation of treatment if needed. Please stay well hydrated. Avoid foods containing seeds and nuts. High fiber diet and avoiding constipation encouraged. Please return to the Emergency Department if symptoms worsen or any other concerns. Is patient prescribed a controlled substance at d/c from ED?: No Referrals: Sheila Grace MD [Primary Care Provider] - 1-2 days Time of Disposition: 13:29
[2022-07-08 10:50] LABS: Basophils % (A) 0 %; Eosinophils # (A) 0.2 k/uL (0-0.7); Eosinophils % (A) 3 %; HCT 41.6 % (34.0-46.0); HGB 13.6 gm/dL (11.4-16.0); Lymphocytes # (A) 0.9 k/uL (1.0-4.8); Lymphocytes % (A) 15 %; MCH 31.5 pg (25.0-35.0); MCHC 32.6 g/dL (31.0-37.0); MCV 96.5 fL (80.0-100.0); Mean Platelet Volume 7.6; Monocytes # (A) 0.3 k/uL (0-1.0); Monocytes % (A) 5 %; Neutrophils # (A) 4.4 k/uL (1.3-7.7); Neutrophils % (A) 74 %; Platelet Count 183 k/uL (150-450); RBC 4.31 m/uL (3.80-5.40); RDW 13.2 % (11.5-15.5)
[2022-07-08 11:07] LABS: ALT 28 U/L (4-34); AST 37 U/L (14-36); African American GFR (CKD) >90 (>60 ml/min/1.73 sqM); Alkaline Phosphatase 61 U/L (38-126); Amylase 41 U/L (30-110); Anion Gap 6 mmol/L; Blood Urea Nitrogen 19 mg/dL (7-17); Calcium 9.2 mg/dL (8.4-10.2); Carbon Dioxide 29 mmol/L (22-30); Chloride 104 mmol/L (98-107); Glucose 126 mg/dL (74-99); Lipase 42 U/L (23-300); Non-African American GFR(CKD) >90 (>60 ml/min/1.73 sqM); Potassium 4.7 mmol/L (3.5-5.1); Sodium 139 mmol/L (137-145); Total Bilirubin 0.7 mg/dL (0.2-1.3); Total Protein 6.7 g/dL (6.3-8.2)
--- NOTE | 2022-07-08 12:28 | CT ---
EXAMINATION TYPE: CT abdomen pelvis w con CT DLP: 2066.1 mGycm, Automated exposure control for dose reduction was used. DATE OF EXAM: 07/08/2022 12:08 PM COMPARISON: CT abdomen pelvis most recent from 12/14/2021 CLINICAL INDICATION:Female, 76 years old with history of abdominal pain; Abdominal pain TECHNIQUE: Axial CT of the abdomen and pelvis. Sagittal and coronal reformats were created on a [employer] workstation. Contrast used:100 ml mL of Isovue 300 with IV Contrast, Oral contrast used: without Oral Contrast FINDINGS: LOWER CHEST: The heart is mildly enlarged for size. Mitral valve annular calcifications. Coronary art clement calcifications are present. ABDOMEN LIVER: Unremarkable GALLBLADDER AND BILE DUCTS: Unremarkable. PANCREAS: Unremarkable. SPLEEN: Unremarkable. ADRENAL GLANDS: Unremarkable. KIDNEYS AND URETERS: Right upper pole nonobstructing calculus. No evidence of hydronephrosis or renal calculus. The ureters are unremarkable. PELVIS BLADDER: Unremarkable REPRODUCTIVE: Unremarkable. ABDOMEN & PELVIS STOMACH AND BOWEL: No evidence of bowel obstruction. Scattered colonic diverticula are present with s ome mild inflammation changes present. Postsurgical changes to the colon. PERITONEUM/RETROPERITONEUM: No evidence of pneumoperitoneum or free fluid. VASCULATURE: No evidence of aortic aneurysm. MUSCULOSKELETAL: No acute osseous abnormalities LYMPH NODES: No gross evidence for lymphadenopathy. SOFT TISSUE/ABDOMINAL WALL: Unremarkable IMPRESSION: 1. Scattered colonic diverticula in the sigmoid colon with some mild inflammation changes correlate for diverticulitis. Evaluation with colonoscopy is recommended if not recently performed to rule out underlying neoplasm. 2. Post surgical changes to the colon without evidence for obstruction. 3. Nonobstructing right renal calculus.
[2022-07-08 13:18] LABS: Appearance,Urine Clear (Clear); Bilirubin,Urine Negative (Negative); Blood,Urine Trace (Negative); Color,Urine Yellow; Glucose,Urine (UA) Negative (Negative); Ketones,Urine Negative (Negative); Leukocyte Esterase,Urine Negative (Negative); Mucus,Urine Rare /hpf; Nitrite,Urine Negative (Negative); PH, Urine 6.5 (5.0-8.0); Protein,Urine Negative (Negative); RBC,Urine 17 /hpf (0-5); Squamous Epithelial Cell,Urine 3 /hpf (0-4); Urobilinogen,Urine <2.0 mg/dL (<2.0); WBC,Urine 1 /hpf (0-5)
[2022-07-08 13:50] VITALS: BP 118/74; PULSE 66
== END 2022-07-08 13:50 | disposition home or self-care (01) ==
LOC: EC 09:45
DX: K57.92 Diverticulitis of intestine, part unspecified, without perforation or abscess without bleeding (principal); R10.32 Left lower quadrant pain; I48.91 Unspecified atrial fibrillation; J45.909 Unspecified asthma, uncomplicated; K21.9 Gastro-esophageal reflux disease without esophagitis; I10 Essential (primary) hypertension; M19.90 Unspecified osteoarthritis, unspecified site; Z86.718 Personal history of other venous thrombosis and embolism; Z87.891 Personal history of nicotine dependence; Z88.0 Allergy status to penicillin; Z88.1 Allergy status to other antibiotic agents; Z88.5 Allergy status to narcotic agent; Z88.8 Allergy status to other drugs, medicaments and biological substances; Z91.041 Radiographic dye allergy status; Z86.16 Personal history of COVID-19; Z79.82 Long term (current) use of aspirin; Z79.899 Other long term (current) drug therapy
CPT/HCPCS: 36415; 80053; 82150; 83605; 83690; 85025; 81001; 74177; 99284; 96374; 96375 ×2; 96361; J1200; J2930; Q9967

== ENCOUNTER 2022-12-26 11:31 | Emergency (ER) | payer MEDICARE, BC ==
--- NOTE | 2022-12-26 12:11 | ED ---
GI Bleed HPI - General Source: patient, RN notes reviewed Mode of arrival: wheelchair Limitations: no limitations - History of Present Illness MD complaint: gross hematochezia <Anh Walton - Last Filed: 12/26/22 12:08> <Lupillo Cade - Last Filed: 12/26/22 17:08> - General Chief complaint: GI Bleed Stated complaint: blood in stool Time Seen by Provider: 12/26/22 12:10 - History of Present Illness Initial comments: This is a 77 year old female who presents to the emergency department for blood in her stool. States that she was on Keflex for three days for a stye in her eye, and while taking the medication she started to develop diarrhea. She then stopped the Keflex. She noted this to have blood in it twice earlier this week. The blood stopped, and this morning she had blood in her stool again. Reports generalized abdominal discomfort. (Anh Walton) 77 year old female with past medical history significant for diverticulosis and A. fib on the route to presenting to the ED with a chief complaint of blood in the stool. Patient states recently started on Keflex for a stye of the left eye. Was prescribed Keflex on 12/18/22. States that since taking this has started to experience diarrhea. Notes over the past 3 days has noticed blood in the stool. Reports that his filling of the toilet with mostly blood. Patient admits to some left lower abdominal pain. Denies chest pain or shortness of breath. No urinary complaints. No other complaints. (Lupillo Cade) - Related Data Home Medications Medication Instructions Recorded Confirmed Pantoprazole Sodium [Protonix] 40 mg PO DAILY 07/23/13 12/26/22 Multivitamin/Iron/Folic Acid 1 tab PO DAILY 05/05/14 12/26/22 [Centrum Complete Multivit Tab] Albuterol Inhaler [Ventolin Hfa 2 puff INHALATION RT-Q4H PRN 08/27/19 12/26/22 Inhaler] Furosemide [Lasix] 40 mg PO DAILY 03/07/20 12/26/22 Potassium Chloride [Klor-Con 20] 20 meq PO DAILY 03/07/20 12/26/22 Ascorbic Acid [Vitamin C] 500 mg PO DAILY 06/05/20 12/26/22 Cholecalciferol [Vitamin D3 (25 50 mcg PO DAILY 06/05/20 12/26/22 Mcg = 1000 Iu)] Aspirin 81 mg PO DAILY 06/23/20 12/26/22 Thdpedo-Dggw-Mohc [phone] 1 tab PO Q4H PRN 06/02/21 12/26/22 [Excedrin] Ipratropium-Albuterol Nebulize 3 ml INHALATION RT-QID PRN 06/02/21 12/26/22 [Duoneb 0.5 mg-3 mg/3 ml Soln] Metoprolol Tartrate [Lopressor] 50 mg PO BID 06/02/21 12/26/22 Montelukast [Singulair] 10 mg PO HS 06/02/21 12/26/22 Rosuvastatin Calcium [Crestor] 40 mg PO DAILY 06/02/21 12/26/22 Ezetimibe [Zetia] 10 mg PO DAILY 11/07/21 12/26/22 HYDROcodone/APAP 7.5-325MG [[place] 1 tab PO Q12H PRN 07/08/22 12/26/22 7.5-325] Rivaroxaban [Xarelto] 20 mg PO DIRECTED 07/08/22 12/26/22 Flaxseed Oil 1,200mg 1,200 mg PO DAILY 12/26/22 12/26/22 Nystatin 100,000Unit/gm Cream 1 applic TOPICAL BID PRN 12/26/22 12/26/22 [Mycostatin Cream] Ubidecarenone [Coenzyme Q10] 200 mg PO DAILY 12/26/22 12/26/22 Previous Rx's Medication Instructions Recorded Losartan [Cozaar] 50 mg PO DAILY #30 tab 06/07/20 Allergies Allergy/AdvReac Type Severity Reaction Status Date / Time amoxicillin trihydrate Allergy Rash/Hives Verified 12/26/22 14:52 [From Augmentin] hydromorphone HCl Allergy Rash/Hives Verified 12/26/22 14:52 [From Dilaudid] Iodinated Contrast Media Allergy Red face Verified 12/26/22 14:52 [Iodinated Contrast Media - and felt IV Dye] like it was on fire. Penicillins Allergy Rash/Hives Verified 12/26/22 14:52 on chest potassium clavulanate Allergy Rash/Hives Verified 12/26/22 14:52 [From Augmentin] Oztfrgb-XBG-CdY Reductase Allergy LEG Verified 12/26/22 14:52 Inhibitor SWELLING [Zoncvsq-Qrm-Kei Reductase AND PAIN Inhibitor] tramadol Allergy "VERY RED Verified 12/26/22 14:52 FACE" Review of Systems ROS Other: All systems not noted in ROS Statement are negative. <Anh Walton - Last Filed: 12/26/22 12:08> ROS Other: All systems not noted in ROS Statement are negative. <Lupillo Cade - Last Filed: 12/26/22 17:08> ROS Statement: Those systems with pertinent positive or pertinent negative responses have been documented in the HPI. 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 History of Any Multi-Drug Resistant Organisms: None Reported Past Surgical History: Adenoidectomy, Bladder Surgery, Bowel Resection, Hysterectomy, Joint Replacement, Orthopedic Surgery, Tonsillectomy Additional Past Surgical History / Comment(s): Colonoscopies/polypectomies, bladder prolapse repair, bilateral shoulder rotator cuff repair.Total right knee arthroplasty, L knee arthroscopy, bilateral feet bunionectomies, bilateral cataract removals. Past Anesthesia/Blood Transfusion Reactions: Motion Sickness, Postoperative Nausea & Vomiting (PONV) Additional Past Anesthesia/Blood Transfusion Reaction / Comment(s): Pt has claustrophobia. Past Psychological History: No Psychological Hx Reported Smoking Status: Former smoker - Past Family History Sister(s) Family Medical History: Pulmonary Embolus Father Family Medical History: Myocardial Infarction ([place]) Additional Family Medical History / Comment(s): Father had his first [place] at the age of 61 yrs. Mother Family Medical History: Cancer Additional Family Medical History / Comment(s): LYMPHOMA <Anh Walton - Last Filed: 12/26/22 12:08> General Exam <Anh Walton - Last Filed: 12/26/22 12:08> General appearance: alert, in no apparent distress Eye exam: Present: normal appearance Neck exam: Present: normal inspection Respiratory exam: Present: normal lung sounds bilaterally Cardiovascular Exam: Present: regular rate, normal rhythm GI/Abdominal exam: Present: soft (Tenderness to palpation in the left lower quadrant. No rebound guarding or rigidity.) Neurological exam: Present: alert, oriented X3 Skin exam: Present: warm, dry <Lupillo Cade - Last Filed: 12/26/22 17:08> - General Exam Comments Initial Comments: Visual Physical Exam Vital signs reviewed General: Well-appearing, nontoxic, no acute distress. Head: Normocephalic, atraumatic Eyes: PERRLA, EOMI ENT: Airway patent Chest: Nonlabored breathing Skin: No visual rash, normal skin tone Neuro: Alert and oriented 3 Musculoskeletal: No gross abnormalities I performed the QuickNote portion of this chart. Signed Anh Walton PA-C. (Anh Walton) Course Vital Signs 12/26/22 12:07 Temperature 98 F Pulse Rate 85 Respiratory 16 Rate Blood Pressure 119/63 O2 Sat by Pulse 96 Oximetry Medical Decision Making - Lab Data Result diagrams: 12/26/22 14:37 12/26/22 14:37 <Lupillo Cade - Last Filed: 12/26/22 17:08> - Medical Decision Making Was pt. sent in by a medical professional or institution ([facility], RUG MEASURER, urgent care, hospital, or usp...) When possible be specific @ -No Did you speak to anyone other than the patient for history (EMS, parent, family, police, friend...)? What history was obtained from this source @ -No Did you review nursing and triage notes (agree or disagree)? Why? @ -I reviewed and agree with nursing and triage notes Were old charts reviewed (outside hosp., previous admission, EMS record, old EKG, old radiological studies, urgent care reports/EKG's, usp records)? Report findings @ -No old charts were reviewed Differential Diagnosis (chest pain, altered mental status, abdominal pain women, abdominal pain men, vaginal bleeding, weakness, fever, dyspnea, syncope, headache, dizziness, GI bleed, back pain, seizure, CVA, palpatations, mental health, musculoskeletal)? @ -Differential Abdominal Pain Women: Appendicitis, Cholecystitis, diverticulosis, ischemic bowel, pancreatitis, hepatitis, UTI, gastroenteritis, AAA, incarcerated hernia, bowel obstruction, constipation, inflammatory bowel, hepatitis, peptic ulcer disease, splenic infarction, perforated viscus, vulvitis, ovarian torsion, PID, kidney stone, placenta abruption, this is not meant to be an all-inclusive list EKG interpreted by me (3pts min.). @ -As above X-rays interpreted by me (1pt min.). @ -None done CT interpreted by me (1pt min.). @ - CT abdomen And pelvis with contrast interpreted by me showing diverticulosis however no acute findings. U/S interpreted by me (1pt. min.). @ -None done What testing was considered but not performed or refused? (CT, X-rays, U/S, labs)? Why? @ -None What meds were considered but not given or refused? Why? @ -None Did you discuss the management of the patient with other professionals (professionals i.e. , PA, RUG MEASURER, lab, RT, psych nurse, social worker school, miller wood flour, teacher, commissioned security officer, disease case manager)? Give summary @ -No Was smoking cessation discussed for >3mins.? @ -No Was critical care preformed (if so, how long)? @ -No Were there social determinants of health that impacted care today? How? ([place] elessness, low income, unemployed, alcoholism, drug addiction, transportation, low edu. Level, literacy, decrease access to med. care, nursing home, rehab)? @ -No Was there de-escalation of care discussed even if they declined (Discuss DNR or withdrawal of care, Hospice)? DNR status @ -No What co-morbidities impacted this encounter? (DM, HTN, Smoking, COPD, CAD, Cancer, CVA, ARF, Chemo, Hep., AIDS, mental health diagnosis, sleep apnea, morbid obesity)? @ -A. fib on Xarelto Was patient admitted / discharged? Hospital course, mention meds given and route, prescriptions, significant lab abnormalities, going to OR and other pertinent info. @ -Discharge 77-year-old female presents to the ED with concerns of blood in stool. No gross blood on exam. Laboratory studies show hemoglobin stable. Remainder of laboratory studies unremarkable. CT abdomen and pelvis showed no acute findings. At this time, patient stable for discharge. Discussed return precautions patient verbalized agreement. Advised follow-up with GI. Undiagnosed new problem with uncertain prognosis? @ -No Drug Therapy requiring intensive monitoring for toxicity (Heparin, Nitro, Insulin, Cardizem)? @ -No Were any procedures done? @ -No Diagnosis/symptom? @ -Blood in the stool Acute, or Chronic, or Acute on Chronic? @ -Acute Uncomplicated (without systemic symptoms) or Complicated (systemic symptoms)? @ -Uncomplicated Side effects of treatment? @ -No Exacerbation, Progression, or Severe Exacerbation? @ -No Poses a threat to life or bodily function? How? (Chest pain, [place], [place], pneumonia, PE, COPD, DKA, ARF, appy, cholecystitis, CVA, Diverticulitis, Homicidal, Suicidal, threat to staff... and all critical care pts) @ -No (Lupillo Cade) - Lab Data Lab Results 12/26/22 12/26/22 12/26/22 Range/Units 14:37 14:37 14:37 WBC 5.2 (3.8-10.6) k/uL RBC 4.41 (3.80-5.40) m/uL Hgb 12.9 (11.4-16.0) gm/dL Hct 40.1 (34.0-46.0) % MCV 90.9 (80.0-100.0) fL MCH 29.3 (25.0-35.0) pg MCHC 32.2 (31.0-37.0) g/dL RDW 14.5 (11.5-15.5) % Plt Count 161 (150-450) k/uL MPV 7.7 Neutrophils % 66 % Lymphocytes % 20 % Monocytes % 7 % Eosinophils % 3 % Basophils % 1 % Neutrophils # 3.4 (1.3-7.7) k/uL Lymphocytes # 1.0 (1.0-4.8) k/uL Monocytes # 0.3 (0-1.0) k/uL Eosinophils # 0.2 (0-0.7) k/uL Basophils # 0.0 (0-0.2) k/uL Hypochromasia Slight PT 11.5 (9.0-12.0) sec INR 1.1 (<1.2) APTT 28.0 (22.0-30.0) sec Sodium 139 (137-145) mmol/L Potassium 4.4 (3.5-5.1) mmol/L Chloride 101 (98-107) mmol/L Carbon Dioxide 26 (22-30) mmol/L Anion Gap 12 mmol/L BUN 18 H (7-17) mg/dL Creatinine 0.68 (0.52-1.04) mg/dL Est GFR (CKD-EPI)AfAm >90 (>60 ml/min/1.73 sqM) Est GFR (CKD-EPI)NonAf 85 (>60 ml/min/1.73 sqM) Glucose 91 (74-99) mg/dL Plasma Lactic Acid Aris (0.7-2.0) mmol/L Calcium 9.5 (8.4-10.2) mg/dL Total Bilirubin 0.9 (0.2-1.3) mg/dL AST 55 H (14-36) U/L ALT 29 (4-34) U/L Alkaline Phosphatase 57 (38-126) U/L Troponin I (0.000-0.034) ng/mL Total Protein 7.2 (6.3-8.2) g/dL Albumin 4.4 (3.5-5.0) g/dL 12/26/22 12/26/22 Range/Units 14:37 14:37 WBC (3.8-10.6) k/uL RBC (3.80-5.40) m/uL Hgb (11.4-16.0) gm/dL Hct (34.0-46.0) % MCV (80.0-100.0) fL MCH (25.0-35.0) pg MCHC (31.0-37.0) g/dL RDW (11.5-15.5) % Plt Count (150-450) k/uL MPV Neutrophils % % Lymphocytes % % Monocytes % % Eosinophils % % Basophils % % Neutrophils # (1.3-7.7) k/uL Lymphocytes # (1.0-4.8) k/uL Monocytes # (0-1.0) k/uL Eosinophils # (0-0.7) k/uL Basophils # (0-0.2) k/uL Hypochromasia PT (9.0-12.0) sec INR (<1.2) APTT (22.0-30.0) sec Sodium (137-145) mmol/L Potassium (3.5-5.1) mmol/L Chloride (98-107) mmol/L Carbon Dioxide (22-30) mmol/L Anion Gap mmol/L BUN (7-17) mg/dL Creatinine (0.52-1.04) mg/dL Est GFR (CKD-EPI)AfAm (>60 ml/min/1.73 sqM) Est GFR (CKD-EPI)NonAf (>60 ml/min/1.73 sqM) Glucose (74-99) mg/dL Plasma Lactic Acid Aris 1.0 (0.7-2.0) mmol/L Calcium (8.4-10.2) mg/dL Total Bilirubin (0.2-1.3) mg/dL AST (14-36) U/L ALT (4-34) U/L Alkaline Phosphatase (38-126) U/L Troponin I <0.012 (0.000-0.034) ng/mL Total Protein (6.3-8.2) g/dL Albumin (3.5-5.0) g/dL - EKG Data EKG Comments: EKG shows A. fib at 76 beats for minute. (Lupillo Cade) Disposition <Anh Walton - Last Filed: 12/26/22 12:08> Is patient prescribed a controlled substance at d/c from ED?: No <Lupillo Cade - Last Filed: 12/26/22 17:08> Clinical Impression: Blood in the stool Disposition: HOME SELF-CARE Condition: Good Instructions (If sedation given, give patient instructions): Gastrointestinal Bleeding (ED) Additional Instructions: Please return to the Emergency Department if symptoms worsen or any other concerns. Please follow-up with GI. Referrals: Sheila Grace MD [Primary Care Provider] - 1-2 days Dahlia Bernardo MD [STAFF PHYSICIAN] - 1-2 days
[2022-12-26 12:16] VITALS: TEMP 98
[2022-12-26 14:53] LABS: Basophils % (A) 1 %; Eosinophils # (A) 0.2 k/uL (0-0.7); Eosinophils % (A) 3 %; HCT 40.1 % (34.0-46.0); HGB 12.9 gm/dL (11.4-16.0); Hypochromasia Slight; Lymphocytes % (A) 20 %; MCH 29.3 pg (25.0-35.0); MCHC 32.2 g/dL (31.0-37.0); MCV 90.9 fL (80.0-100.0); Mean Platelet Volume 7.7; Monocytes # (A) 0.3 k/uL (0-1.0); Monocytes % (A) 7 %; Neutrophils # (A) 3.4 k/uL (1.3-7.7); Neutrophils % (A) 66 %; Platelet Count 161 k/uL (150-450); RBC 4.41 m/uL (3.80-5.40); RDW 14.5 % (11.5-15.5); WBC 5.2 k/uL (3.8-10.6)
[2022-12-26] MEDS ORDERED: FAMOTIDINE 20 MG/2 ML VIAL IV STA (15:03)
[2022-12-26] MEDS ORDERED: diphenhydrAMINE 50 MG/ML 1 ML VIAL IVP STA (15:03)
[2022-12-26 15:04] LABS: INR 1.1 (<1.2); Prothrombin Time 11.5 sec (9.0-12.0)
[2022-12-26] MEDS ORDERED: predniSONE 50 MG TAB PO STA (15:06)
[2022-12-26 15:17] LABS: ALT 29 U/L (4-34); African American GFR (CKD) >90 (>60 ml/min/1.73 sqM); Anion Gap 12 mmol/L; Blood Urea Nitrogen 18 mg/dL (7-17); Calcium 9.5 mg/dL (8.4-10.2); Carbon Dioxide 26 mmol/L (22-30); Chloride 101 mmol/L (98-107); Glucose 91 mg/dL (74-99); Non-African American GFR(CKD) 85 (>60 ml/min/1.73 sqM); Sodium 139 mmol/L (137-145); Total Bilirubin 0.9 mg/dL (0.2-1.3)
[2022-12-26 16:06] LABS: AST 55 U/L (14-36); Alkaline Phosphatase 57 U/L (38-126); Potassium 4.4 mmol/L (3.5-5.1); Total Protein 7.2 g/dL (6.3-8.2)
[2022-12-26 16:07] LABS: Albumin 4.4 g/dL (3.5-5.0)
--- NOTE | 2022-12-26 16:36 | CT ---
EXAMINATION TYPE: CT abdomen pelvis w con DATE OF EXAM: 12/26/2022 COMPARISON: None HISTORY: diarrhea and blood in stool CT DLP: 1992.6 mGycm CONTRAST: CT scan of the abdomen and pelvis is performed without Oral Contrast and with IV Contrast, patient in jected with 100ml mL of Isovue 300. FINDINGS: LUNG BASES-: No visible nodule. No infiltrate. LIVER/GB: No calcified gallstones. No space occupying hepatic lesion. Biliary tree is of normal ca liber. PANCREAS: No inflammation. No distinct mass. SPLEEN: No splenic enlargement. No lesion seen. ADRENALS: No nodule. No thickening. KIDNEYS/BLADDER: No hydronephrosis. 2 mm nonobstructing calculus mid pole right kidney. No distinct renal mass. Urinary bladder grossly unremarkable. BOWEL: Normal appendix. Normal bowel caliber. No inflammation. Moderate sigmoid diverticulosis with out diverticulitis. GENITAL ORGANS: Hysterectomy changes seen. LYMPH NODES: No greater than 1cm abdominal or pelvic lymph nodes are appreciated. AORTA: No significant abnormality. OSSEOUS STRUCTURES: Severe degenerative narrowing thoracolumbar and lumbar spines. Grade 1 anterolist hesis L3 on L4. OTHER: No significant additional abnormality is seen. IMPRESSION: 1. Moderate sigmoid diverticulosis without diverticulitis. No acute process seen.
[2022-12-26 17:43] VITALS: BP 122/68; PULSE 84; RESP 18
== END 2022-12-26 17:40 | disposition home or self-care (01) ==
LOC: EC 11:31
DX: K92.1 Melena (principal); I48.91 Unspecified atrial fibrillation; J45.909 Unspecified asthma, uncomplicated; K21.9 Gastro-esophageal reflux disease without esophagitis; I10 Essential (primary) hypertension; M19.90 Unspecified osteoarthritis, unspecified site; Z86.718 Personal history of other venous thrombosis and embolism; Z87.891 Personal history of nicotine dependence; Z88.0 Allergy status to penicillin; Z88.8 Allergy status to other drugs, medicaments and biological substances; Z91.041 Radiographic dye allergy status; Z79.82 Long term (current) use of aspirin; Z79.899 Other long term (current) drug therapy; Z79.01 Long term (current) use of anticoagulants
CPT/HCPCS: 36415; 86900; 86901; 80053; 83605; 84484; 85025; 85610; 85730; 86850; 74177; 99285; 96374; 96375; J1200; J3490; J7512; Q9967

== ENCOUNTER 2023-05-12 12:03 | Inpatient (IN) | payer MEDICARE, BC ==
[2023-05-12] MEDS: ASPIRIN 81 MG PO STA (13:04)
[2023-05-12] MEDS: NITROGLYCERIN OINT 1 INCH/GM PACKET TOPICAL STA (13:04)
[2023-05-12 13:16] LABS: Basophils % (A) 0 %; Eosinophils # (A) 0.2 k/uL (0-0.7); Eosinophils % (A) 4 %; HCT 41.5 % (34.0-46.0); HGB 12.7 gm/dL (11.4-16.0); Hypochromasia Marked; Lymphocytes # (A) 1.1 k/uL (1.0-4.8); Lymphocytes % (A) 20 %; MCH 27.3 pg (25.0-35.0); MCHC 30.6 g/dL (31.0-37.0); MCV 89.1 fL (80.0-100.0); Mean Platelet Volume 8.2; Monocytes # (A) 0.3 k/uL (0-1.0); Monocytes % (A) 6 %; Neutrophils # (A) 3.6 k/uL (1.3-7.7); Neutrophils % (A) 66 %; Platelet Count 183 k/uL (150-450); RBC 4.66 m/uL (3.80-5.40); RDW 14.4 % (11.5-15.5); WBC 5.4 k/uL (3.8-10.6)
--- NOTE | 2023-05-12 13:21 | ED ---
General Adult HPI - General Chief complaint: Chest Pain Stated complaint: Chest pain Time Seen by Provider: 05/12/23 12:10 Source: patient, RN notes reviewed, old records reviewed Mode of arrival: ambulatory Limitations: no limitations - History of Present Illness Initial comments: This is a 77-year-old female presents to the emergency department the past medical history significant for high cholesterol and high blood pressure. Patient comes in today because she was experiencing some chest pain that radiates to her back. Patient also states her shortness of breath is worse than normal. Patient states exertion definitely makes it worse. Patient denies any fever chills or cough or patient has any abdominal pain patient denies any nausea vomiting diarrhea. Patient [place] any swelling to legs or calf tenderness. - Related Data Home Medications Medication Instructions Recorded Confirmed Pantoprazole Sodium [Protonix] 40 mg PO DAILY 07/23/13 05/12/23 Multivitamin/Iron/Folic Acid 1 tab PO DAILY 05/05/14 05/12/23 [Centrum Complete Multivit Tab] Albuterol Inhaler [Ventolin Hfa 2 puff INHALATION RT-Q4H PRN 08/27/19 05/12/23 Inhaler] Furosemide [Lasix] 40 mg PO DAILY 03/07/20 05/12/23 Potassium Chloride [Klor-Con 20] 20 meq PO DAILY 03/07/20 05/12/23 Ascorbic Acid [Vitamin C] 500 mg PO DAILY 06/05/20 05/12/23 Aspirin 81 mg PO DAILY 06/23/20 05/12/23 Mppedbo-Dybu-Zxpw [id number] 1 tab PO Q4H PRN 06/02/21 05/12/23 [Excedrin] Metoprolol Tartrate [Lopressor] 50 mg PO BID 06/02/21 05/12/23 Montelukast [Singulair] 10 mg PO HS 06/02/21 05/12/23 Rosuvastatin Calcium [Crestor] 40 mg PO DAILY 06/02/21 05/12/23 Ezetimibe [Zetia] 10 mg PO DAILY 11/07/21 05/12/23 HYDROcodone/APAP 7.5-325MG [[place] 1 tab PO BID PRN 07/08/22 05/12/23 7.5-325] Rivaroxaban [Xarelto] 20 mg PO PC-SUPPER 07/08/22 05/12/23 Flaxseed Oil 1,200mg 1,200 mg PO DAILY 12/26/22 05/12/23 Nystatin 100,000Unit/gm Cream 1 applic TOPICAL BID 12/26/22 05/12/23 [Mycostatin Cream] Ubidecarenone [Coenzyme Q10] 200 mg PO DAILY 12/26/22 05/12/23 Cholecalciferol (Vitamin D3) 50 mcg PO DAILY 05/12/23 05/12/23 [Vitamin D3 (50 Mcg = 2000 Iu)] Doxycycline Hyclate 100 mg PO PC-LUNCH 05/12/23 05/12/23 Losartan [Cozaar] 25 mg PO DAILY 05/12/23 05/12/23 [place]-3 540mg 1 cap PO DAILY 05/12/23 05/12/23 Allergies Allergy/AdvReac Type Severity Reaction Status Date / Time amoxicillin trihydrate Allergy Rash/Hives Verified 05/12/23 14:14 [From Augmentin] hydromorphone HCl Allergy Rash/Hives Verified 05/12/23 14:14 [From Dilaudid] Iodinated Contrast Media Allergy Red face Verified 05/12/23 14:14 [Iodinated Contrast Media - and felt IV Dye] like it was on fire. Penicillins Allergy Rash/Hives Verified 05/12/23 14:14 on chest potassium clavulanate Allergy Rash/Hives Verified 05/12/23 14:14 [From Augmentin] Mdnduib-GYM-JmB Reductase Allergy LEG Verified 05/12/23 14:14 Inhibitor SWELLING [Rgtdibt-Cvn-Sbc Reductase AND PAIN Inhibitor] tramadol Allergy "VERY RED Verified 05/12/23 14:14 FACE" Review of Systems ROS Statement: Those systems with pertinent positive or pertinent negative responses have been documented in the HPI. ROS Other: All systems not noted in ROS Statement are negative. 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 History of Any Multi-Drug Resistant Organisms: None Reported Past Surgical History: Adenoidectomy, Bladder Surgery, Bowel Resection, Hysterectomy, Joint Replacement, Orthopedic Surgery, Tonsillectomy Additional Past Surgical History / Comment(s): Colonoscopies/polypectomies, bladder prolapse repair, bilateral shoulder rotator cuff repair.Total right knee arthroplasty, L knee arthroscopy, bilateral feet bunionectomies, bilateral cataract removals. Past Anesthesia/Blood Transfusion Reactions: Motion Sickness, Postoperative Nausea & Vomiting (PONV) Additional Past Anesthesia/Blood Transfusion Reaction / Comment(s): Pt has claustrophobia. Past Psychological History: No Psychological Hx Reported Smoking Status: Former smoker - Past Family History Sister(s) Family Medical History: Pulmonary Embolus Father Family Medical History: Myocardial Infarction (PA) Additional Family Medical History / Comment(s): Father had his first PA at the age of 61 yrs. Mother Family Medical History: Cancer Additional Family Medical History / Comment(s): LYMPHOMA General Exam - General Exam Comments Initial Comments: GENERAL: Patient is well-developed and well-nourished. Patient is nontoxic and well- hydrated and is in mild distress. ENT: Neck is soft and supple. No significant lymphadenopathy is noted. Oropharynx is clear. Moist mucous membranes. Neck has full range of motion without e liciting any pain. EYES: The sclera were anicteric and conjunctiva were pink and moist. Extraocular movements were intact and pupils were equal round and reactive to light. Eyelids were unremarkable. PULMONARY: Unlabored respirations. Good breath sounds bilaterally. No audible rales rhonchi or wheezing was noted. CARDIOVASCULAR: There is a regular rate and rhythm without any murmurs gallops or rubs. ABDOMEN: Soft and nontender with normal bowel sounds. SKIN: Skin is clear with no lesions or rashes and otherwise unremarkable. NEUROLOGIC: Patient is alert and oriented x3. Cranial nerves II through XII are grossly intact. Motor and sensory are also intact. Normal speech, volume and content. Symmetrical smile. MUSCULOSKELETAL: Normal extremities with adequate strength and full range of motion. LYMPHATICS: No significant lymphadenopathy is noted PSYCHIATRIC: Normal psychiatric evaluation. Limitations: no limitations Course Vital Signs 05/12/23 12:08 Temperature 98.8 F Pulse Rate 82 Respiratory 18 Rate Blood Pressure 114/71 O2 Sat by Pulse 92 L Oximetry Medical Decision Making - Medical Decision Making EKG is interpreted by myself. EKG shows atrial fibrillation at 76 bpm QRS is 96 QT interval 387 QTc is 418. Patient's EKG shows no ST segment ovation or depression. Was pt. sent in by a medical professional or institution (, PA, EDUCATIONAL RECRUITER, urgent care, hospital, or snf...) When possible be specific @ -No Did you speak to anyone other than the patient for history (EMS, parent, family, police, friend...)? What history was obtained from this source @ -Daughter gave quite a bit of the history Did you review nursing and triage notes (agree or disagree)? Why? @ -I reviewed and agree with nursing and triage notes Were old charts reviewed (outside hosp., previous admission, EMS record, old EKG, old radiological studies, urgent care reports/EKG's, snf records)? Report findings @ -I reviewed prior charts and prior lab work on this patient Differential Diagnosis (chest pain, altered mental status, abdominal pain women, abdominal pain men, vaginal bleeding, weakness, fever, dyspnea, syncope, headache, dizziness, GI bleed, back pain, seizure, CVA, palpatations, mental health, musculoskeletal)? @ -Differential Chest Pain: Stable Angina, Unstable Angina, STEMI, NSTEMI Aortic Dissection, Pneumothorax, Musculoskeletal, Esophageal Spasm GERD, Cholecystitis, Pancreatitis, Zoster, this is not meant to be an all-inclusive list. EKG interpreted by me (3pts min.). @ -As above X-rays interpreted by me (1pt min.). @ -Chest x-ray shows no acute abnormality CT interpreted by me (1pt min.). @ -None done U/S interpreted by me (1pt. min.). @ -None done What testing was considered but not performed or refused? (CT, X-rays, U/S, labs)? Why? @ -None What meds were considered but not given or refused? Why? @ -None Did you discuss the management of the patient with other professionals (professionals i.e. , [employer], EDUCATIONAL RECRUITER, lab, RT, psych nurse, forensic social worker, senior security architect, teacher, president and chief executive officer, rifle case repairer)? Give summary @ -I spoke with [facility] hospitalist they agreed to admit the patient Was smoking cessation discussed for >3mins.? @ -No Was critical care preformed (if so, how long)? @ -No Were there social determinants of health that impacted care today? How? (Homelessness, low income, unemployed, alcoholism, drug addiction, transportation, low edu. Level, literacy, decrease access to med. care, senior care, rehab)? @ -No Was there de-escalation of care discussed even if they declined (Discuss DNR or withdrawal of care, Hospice)? DNR status @ -No What co-morbidities impacted this encounter? (DM, HTN, Smoking, COPD, CAD, Cancer, CVA, ARF, Chemo, Hep., AIDS, mental health diagnosis, sleep apnea, morbid obesity)? @ -None Was patient admitted / discharged? Hospital course, mention meds given and route, prescriptions, significant lab abnormalities, going to OR and other pertinent info. @ -Patient was given aspirin and Nitropaste in the emergency department is feeling better and did want to go home but I convinced her to stay for a cardiac workup and to see cardiology. I wrote admitting orders Undiagnosed new problem with uncertain prognosis? @ -No Drug Therapy requiring intensive monitoring for toxicity (Heparin, Nitro, Insulin, Cardizem)? @ -No Were any procedures done? @ -No Diagnosis/symptom? @ -Chest pain Acute, or Chronic, or Acute on Chronic? @ -Acute Uncomplicated (without systemic symptoms) or Complicated (systemic symptoms)? @ -Complicated Side effects of treatment? @ -No Exacerbation, Progression, or Severe Exacerbation? @ -No Poses a threat to life or bodily function? How? (Chest pain, [place], PA, pneumonia, PE, COPD, DKA, ARF, appy, cholecystitis, CVA, Diverticulitis, Homicidal, Suicidal, threat to staff... and all critical care pts) @ -Yes this can lead to an PA and endorgan dysfunction - Lab Data Result diagrams: 05/12/23 13:02 05/12/23 13:02 Lab Results 05/12/23 05/12/23 05/12/23 Range/Units 13:02 13:02 13:02 WBC 5.4 (3.8-10.6) k/uL RBC 4.66 (3.80-5.40) m/uL Hgb 12.7 (11.4-16.0) gm/dL Hct 41.5 (34.0-46.0) % MCV 89.1 (80.0-100.0) fL MCH 27.3 (25.0-35.0) pg MCHC 30.6 L (31.0-37.0) g/dL RDW 14.4 (11.5-15.5) % Plt Count 183 (150-450) k/uL MPV 8.2 Neutrophils % 66 % Lymphocytes % 20 % Monocytes % 6 % Eosinophils % 4 % Basophils % 0 % Neutrophils # 3.6 (1.3-7.7) k/uL Lymphocytes # 1.1 (1.0-4.8) k/uL Monocytes # 0.3 (0-1.0) k/uL Eosinophils # 0.2 (0-0.7) k/uL Basophils # 0.0 (0-0.2) k/uL Hypochromasia Marked PT 11.9 (10.0-12.5) sec INR 1.1 (<1.2) APTT 28.7 (22.0-30.0) sec Sodium 140 (137-145) mmol/L Potassium 4.6 (3.5-5.1) mmol/L Chloride 104 (98-107) mmol/L Carbon Dioxide 27 (22-30) mmol/L Anion Gap 9 mmol/L BUN 21 H (7-17) mg/dL Creatinine 0.65 (0.52-1.04) mg/dL Est GFR (CKD-EPI)AfAm >90 (>60 ml/min/1.73 sqM) Est GFR (CKD-EPI)NonAf 87 (>60 ml/min/1.73 sqM) Glucose 108 H (74-99) mg/dL Calcium 9.1 (8.4-10.2) mg/dL Magnesium 1.8 (1.6-2.3) mg/dL Total Bilirubin 0.6 (0.2-1.3) mg/dL AST 38 H (14-36) U/L ALT 26 (4-34) U/L Alkaline Phosphatase 74 (38-126) U/L Troponin I (0.000-0.034) ng/mL Total Protein 6.7 (6.3-8.2) g/dL Albumin 4.0 (3.5-5.0) g/dL 05/12/23 Range/Units 13:02 WBC (3.8-10.6) k/uL RBC (3.80-5.40) m/uL Hgb (11.4-16.0) gm/dL Hct (34.0-46.0) % MCV (80.0-100.0) fL MCH (25.0-35.0) pg MCHC (31.0-37.0) g/dL RDW (11.5-15.5) % Plt Count (150-450) k/uL MPV Neutrophils % % Lymphocytes % % Monocytes % % Eosinophils % % Basophils % % Neutrophils # (1.3-7.7) k/uL Lymphocytes # (1.0-4.8) k/uL Monocytes # (0-1.0) k/uL Eosinophils # (0-0.7) k/uL Basophils # (0-0.2) k/uL Hypochromasia PT (10.0-12.5) sec INR (<1.2) APTT (22.0-30.0) sec Sodium (137-145) mmol/L Potassium (3.5-5.1) mmol/L Chloride (98-107) mmol/L Carbon Dioxide (22-30) mmol/L Anion Gap mmol/L BUN (7-17) mg/dL Creatinine (0.52-1.04) mg/dL Est GFR (CKD-EPI)AfAm (>60 ml/min/1.73 sqM) Est GFR (CKD-EPI)NonAf (>60 ml/min/1.73 sqM) Glucose (74-99) mg/dL Calcium (8.4-10.2) mg/dL Magnesium (1.6-2.3) mg/dL Total Bilirubin (0.2-1.3) mg/dL AST (14-36) U/L ALT (4-34) U/L Alkaline Phosphatase (38-126) U/L Troponin I <0.012 (0.000-0.034) ng/mL Total Protein (6.3-8.2) g/dL Albumin (3.5-5.0) g/dL Disposition Clinical Impression: Chest pain Disposition: ADMITTED IP TO THIS HOSP Referrals: Sheila Grace MD [Primary Care Provider] - 1-2 days Time of Disposition: 14:23
[2023-05-12 13:25] LABS: ALT 26 U/L (4-34); AST 38 U/L (14-36); African American GFR (CKD) >90 (>60 ml/min/1.73 sqM); Alkaline Phosphatase 74 U/L (38-126); Anion Gap 9 mmol/L; Blood Urea Nitrogen 21 mg/dL (7-17); Calcium 9.1 mg/dL (8.4-10.2); Carbon Dioxide 27 mmol/L (22-30); Chloride 104 mmol/L (98-107); Glucose 108 mg/dL (74-99); Magnesium 1.8 mg/dL (1.6-2.3); Non-African American GFR(CKD) 87 (>60 ml/min/1.73 sqM); Potassium 4.6 mmol/L (3.5-5.1); Sodium 140 mmol/L (137-145); Total Bilirubin 0.6 mg/dL (0.2-1.3); Total Protein 6.7 g/dL (6.3-8.2)
[2023-05-12 13:30] LABS: INR 1.1 (<1.2); Partial Thromboplastin Time 28.7 sec (22.0-30.0); Prothrombin Time 11.9 sec (10.0-12.5)
--- NOTE | 2023-05-12 14:04 | XR ---
EXAMINATION TYPE: XR chest 2V DATE OF EXAM: 05/12/2023 COMPARISON: 06/02/2021 INDICATION: Chest pain TECHNIQUE: Frontal and lateral views of the chest are obtained. FINDINGS: The heart size is normal. The pulmonary vasculature is normal. The lungs are clear. IMPRESSION: 1. No acute pulmonary process.
[2023-05-12] MEDS ORDERED: HYDROcodone/APAP 7.5-325MG 1 EACH TAB PO PRN (14:43)
[2023-05-12] MEDS ORDERED: MAG HYDROX/AL HYDROX/SIMETH 30 ML CUP PO PRN (14:44)
[2023-05-12] MEDS ORDERED: ACETAMINOPHEN TAB 325 MG TAB PO PRN (14:44)
[2023-05-12] MEDS ORDERED: NALOXONE 0.4 MG/ML 1 ML VIAL IV PRN (14:44)
[2023-05-12] MEDS ORDERED: ONDANSETRON 4 MG/2 ML VIAL IVP PRN (14:44)
--- NOTE | 2023-05-12 14:51 | P.HPIM ---
History of Present Illness H&P Date: 05/12/23 History of present illness; patient 77-year-old lady with past medical history significant for hypertension, hyperlipidemia, persistent atrial fibrillation on Xarelto,glaucoma, DVT, colon cancer status post partial colectomy, gastroesophageal reflux disease, mild intermittent asthma who presented to hospital because of chest pain. Patient stated that she was all right last night when he started experiencing chest pain which was central location, pressure-like, radiating to the back, no aggravating or relieving factor associated with this chest pain. Denies any shortness of breath or palpitati ons. Patient is complaining of dizziness. Denies any diaphoresis associated with this chest pain. Denies any nausea, vomiting abdominal pain. Patient has history of exertional dyspnea. Denies any orthopnea or PND. There is no complaint of swelling of feet. Initial lab work done in the ER showed WBC 5.4, hemoglobin 12.7, platelet count 183, sodium 140, potassium 4.6, BUN 31, creatinine 0.65, glucose 108, AST 38, ALT 26, troponin 0.012 EKG done in the ER showed heart rate of 76, irregular in rate and rhythm, no ST segment elevation or depression seen, no T-wave inversions seen. Chest x-ray done in the ER showed no acute pulmonary process Patient admitted to internal medicine service REVIEW OF SYSTEMS: CONSTITUTIONAL: No fever, no malaise, no fatigue. HEENT: No recent visual problems or hearing problems. Denied any sore throat. CARDIOVASCULAR: As mentioned HPI PULMONARY: As mentioned in HPI GASTROINTESTINAL: No diarrhea, no nausea, no vomiting, no abdominal pain. NEUROLOGICAL: No headaches, no weakness, no numbness. HEMATOLOGICAL: Denies any bleeding or petechiae. GENITOURINARY: Denies any burning micturition, frequency, or urgency. MUSCULOSKELETAL/RHEUMATOLOGICAL: Denies any joint pain, swelling, or any muscle pain. ENDOCRINE: Denies any polyuria or polydipsia. The rest of the 14-point review of systems is negative. PHYSICAL EXAMINATION: GENERAL: The patient is alert and oriented x3, not in any acute distress. Well developed, well nourished. HEENT: Pupils are round and equally reacting to light. EOMI. No scleral icterus. No conjunctival pallor. Normocephalic, atraumatic. No pharyngeal erythema. No thyromegaly. CARDIOVASCULAR: S1 and S2 present. No murmurs, rubs, or gallops. PULMONARY: Chest is clear to auscultation, no wheezing or crackles. ABDOMEN: Soft, nontender, nondistended, normoactive bowel sounds. No palpable organomegaly. MUSCULOSKELETAL: No joint swelling or deformity. EXTREMITIES: No cyanosis, clubbing, or pedal edema. NEUROLOGICAL: Gross neurological examination did not reveal any focal deficits. SKIN: No rashes. Assessment and plan Chest pain, rule out acute coronary syndrome Monitor vital signs monitor CBC Monitor CMP Trend troponin Ordered D-dimer Consult cardiology Persistent atrial fibrillation. Continue Lopressor 50 mg twice daily and Xarelto 20 mg Hypertension. Continue losartan 25 mg daily, Lopressor. Mild intermittent asthma. Continue DuoNeb treatments 4 times daily as needed. Glaucoma. Continue eyedrops. Osteoarthritis, generalized. Continue current pain management. Gastroesophageal reflux disease. Continue Protonix daily. Labs and medication were reviewed.. Continue same treatment. Continue with symptomatic treatment. Resume home medication. Monitor labs and vitals. DVT and GI prophylaxis. Further recommendations as per clinical course of the patient Dictation was produced using [employer] dictation software. please excuse any grammatical, word or spelling errors. 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 History of Any Multi-Drug Resistant Organisms: None Reported Past Surgical History: Adenoidectomy, Bladder Surgery, Bowel Resection, Hysterectomy, Joint Replacement, Orthopedic Surgery, Tonsillectomy Additional Past Surgical History / Comment(s): Colonoscopies/polypectomies, bladder prolapse repair, bilateral shoulder rotator cuff repair.Total right knee arthroplasty, L knee arthroscopy, bilateral feet bunionectomies, bilateral cataract removals. Past Anesthesia/Blood Transfusion Reactions: Motion Sickness, Postoperative Nausea & Vomiting (PONV) Additional Past Anesthesia/Blood Transfusion Reaction / Comment(s): Pt has claustrophobia. Past Psychological History: No Psychological Hx Reported Smoking Status: Former smoker - Past Family History Sister(s) Family Medical History: Pulmonary Embolus Father Family Medical History: Myocardial Infarction (ID) Additional Family Medical History / Comment(s): Father had his first ID at the age of 61 yrs. Mother Family Medical History: Cancer Additional Family Medical History / Comment(s): LYMPHOMA Medications and Allergies Home Medications Medication Instructions Recorded Confirmed Type Pantoprazole Sodium [Protonix] 40 mg PO DAILY 07/23/13 05/12/23 History Multivitamin/Iron/Folic Acid 1 tab PO DAILY 05/05/14 05/12/23 History [Centrum Complete Multivit Tab] Albuterol Inhaler [Ventolin Hfa 2 puff INHALATION RT-Q4H PRN 08/27/19 05/12/23 History Inhaler] Furosemide [Lasix] 40 mg PO DAILY 03/07/20 05/12/23 History Potassium Chloride [Klor-Con 20] 20 meq PO DAILY 03/07/20 05/12/23 History Ascorbic Acid [Vitamin C] 500 mg PO DAILY 06/05/20 05/12/23 History Aspirin 81 mg PO DAILY 06/23/20 05/12/23 History Cdyxveh-Sfjz-Exhx [id number] 1 tab PO Q4H PRN 06/02/21 05/12/23 History [Excedrin] Metoprolol Tartrate [Lopressor] 50 mg PO BID 06/02/21 05/12/23 History Montelukast [Singulair] 10 mg PO HS 06/02/21 05/12/23 History Rosuvastatin Calcium [Crestor] 40 mg PO DAILY 06/02/21 05/12/23 History Ezetimibe [Zetia] 10 mg PO DAILY 11/07/21 05/12/23 History HYDROcodone/APAP 7.5-325MG [[place] 1 tab PO BID PRN 07/08/22 05/12/23 History 7.5-325] Rivaroxaban [Xarelto] 20 mg PO PC-SUPPER 07/08/22 05/12/23 History Flaxseed Oil 1,200mg 1,200 mg PO DAILY 12/26/22 05/12/23 History Nystatin 100,000Unit/gm Cream 1 applic TOPICAL BID 12/26/22 05/12/23 History [Mycostatin Cream] Ubidecarenone [Coenzyme Q10] 200 mg PO DAILY 12/26/22 05/12/23 History Cholecalciferol (Vitamin D3) 50 mcg PO DAILY 05/12/23 05/12/23 History [Vitamin D3 (50 Mcg = 2000 Iu)] Doxycycline Hyclate 100 mg PO PC-LUNCH 05/12/23 05/12/23 History Losartan [Cozaar] 25 mg PO DAILY 05/12/23 05/12/23 History [place]-3 540mg 1 cap PO DAILY 05/12/23 05/12/23 History Allergies Allergy/AdvReac Type Severity Reaction Status Date / Time amoxicillin trihydrate Allergy Rash/Hives Verified 05/12/23 14:14 [From Augmentin] hydromorphone HCl Allergy Rash/Hives Verified 05/12/23 14:14 [From Dilaudid] Iodinated Contrast Media Allergy Red face Verified 05/12/23 14:14 [Iodinated Contrast Media - and felt IV Dye] like it was on fire. Penicillins Allergy Rash/Hives Verified 05/12/23 14:14 on chest potassium clavulanate Allergy Rash/Hives Verified 05/12/23 14:14 [From Augmentin] Ihhwseu-ZWM-OrR Reductase Allergy LEG Verified 05/12/23 14:14 Inhibitor SWELLING [Iteorxx-Ggs-Ybn Reductase AND PAIN Inhibitor] tramadol Allergy "VERY RED Verified 05/12/23 14:14 FACE" Physical Exam Vitals: Vital Signs Temp Pulse Resp BP Pulse Ox 05/12/23 12:08 98.8 F 82 18 114/71 92 L Intake and Output 05/11/23 05/12/23 05/12/23 22:59 06:59 14:59 Other: Weight 99.79 kg Results CBC & Chem 7: 05/12/23 13:02 05/12/23 13:02 Labs: Abnormal Lab Results - Last 24 Hours (Table) 05/12/23 05/12/23 Range/Units 13:02 13:02 MCHC 30.6 L (31.0-37.0) g/dL BUN 21 H (7-17) mg/dL Glucose 108 H (74-99) mg/dL AST 38 H (14-36) U/L
[2023-05-12] MEDS: ALBUTEROL NEBULIZED 2.5 MG/3 ML INHALATION PRN (15:52)
[2023-05-12] MEDS: RIVAROXABAN 20 MG TAB PO SCH (17:55)
[2023-05-12] MEDS: MONTELUKAST 10 MG TAB PO SCH (20:38)
[2023-05-12] MEDS: METOPROLOL TARTRATE 50 MG TAB PO SCH (20:38)
[2023-05-12] MEDS: MELATONIN 3 MG TABLET PO PRN (23:58)
[2023-05-13] MEDS: PANTOPRAZOLE 40 MG TABLET PO SCH (05:59)
[2023-05-13 08:38] VITALS: RESP 16
[2023-05-13] MEDS: CHOLECALCIFEROL 25 MCG (1000 IU) TABLET PO SCH (10:00)
[2023-05-13] MEDS: ASCORBIC ACID 500 MG TAB PO SCH (10:00)
[2023-05-13] MEDS: EZETIMIBE 10 MG TAB PO SCH (10:00)
[2023-05-13] MEDS: LOSARTAN 25 MG TAB PO SCH (10:00)
[2023-05-13] MEDS: ATORVASTATIN 80 MG TAB PO SCH (10:00)
[2023-05-13] MEDS: ASPIRIN 81 MG PO SCH (10:00)
[2023-05-13] MEDS: FUROSEMIDE 40 MG TAB PO SCH (10:00)
[2023-05-13] MEDS: POTASSIUM CHLORIDE ER 20 MEQ TAB.ER PO SCH (10:00)
[2023-05-13] MEDS: DOXYCYCLINE 100 MG CAP PO SCH (10:01)
[2023-05-13] MEDS ORDERED: ALPRAZolam 0.5 MG TAB PO PRN (10:36)
[2023-05-13] MEDS ORDERED: NITROGLYCERIN SL TABS 0.4 MG TAB SUBLINGUAL PRN (10:36)
[2023-05-13] MEDS ORDERED: ALPRAZolam 0.25 MG TAB PO PRN (10:36)
--- NOTE | 2023-05-13 10:43 | P.CRDCN ---
History of Present Illness History of present illness: HISTORY OF PRESENT ILLNESS: This is a 77-year-old female with a past medical history significant for atrial fibrillation, SVT, hypertension, PE, COPD, and obstructive sleep apnea. Patient follows in the office with Dr. Bernardo. We have been asked to see the patient in consultation for chest pain. Patient examined at the bedside. Patient states she has been having chest pain for the past couple days. She states the pain is in the middle of her chest and also radiates into her back. She states it feels like a pressure type sensation. She also reports the pain is worse with movemen t and deep inspiration. She states that she has been unable to wear a bra due to the extra pressure on her chest. She reports some chronic shortness of breath but she states it is not worse than her baseline. DIAGNOSTICS: - EKG reveals atrial fibrillation with controlled ventricular rate. No signs of acute ischemia. Heart rate 76. Incomplete right bundle branch block.. - Chest xray negative for acute process. - Laboratory data: WBC 5.4. Hemoglobin 12.7. Platelet count 183. D-dimer 0.52. Sodium 140. Potassium 4.6. BUN 21. Creatinine 0.65. Troponin negative x 3 - Current home cardiac medications include Xarelto 20 mg at night, aspirin 81 mg daily, rosuvastatin 40 mg daily, metoprolol tartrate 50 mg twice a day, losartan 25 mg daily, Lasix 40 mg daily, and Zetia 10 mg daily. -Patient underwent BILL in July 2020 without evidence for cardiac thrombus. Mild TR. Aortic sclerosis with mild AR. Mild MR. No evidence of wtya-hc-amihn shunt by color-flow Doppler or right to left shunt by agitated saline contrast study. -Patient underwent cardioversion in July 2020 - Most recent echocardiogram obtained in May 2020 revealed ejection fraction 55%, mild TR, mild MR, mild , mild AR REVIEW OF SYSTEMS: At the time of my exam: CONSTITUTIONAL: Denies fever or chills. HEENT: Denies blurred vision, vision changes, or eye pain. Denies hemoptysis CARDIOVASCULAR: Denies chest pain. Denies orthopnea. Denies PND. Denies palpitations RESPIRATORY: Denies shortness of breath. GASTROINTESTINAL: Denies abdominal pain. Denies nausea or vomiting. HEMATOLOGIC: Denies bleeding disorders. GENITOURINARY: Denies any blood in urine. SKIN: Denies pruitis. Denies rash. PHYSICAL EXAM: VITAL SIGNS: Reviewed. GENERAL: Well-developed in no acute distress. HEENT: Head is normocephalic. Pupils are equal, round. Sclerae anicteric. Mucous membranes of the mouth are moist. Neck supple. No JVD or thyromegaly LUNGS: Respirations even and unlabored. Lungs essentially clear to auscultation bilaterally. HEART: Irregular rate and rhythm. S1 and S2 heard. ABDOMEN: Soft. Nondistended. Nontender. EXTREMITIES: Normal range of motion. No clubbing or cyanosis. Peripheral pulses intact. No lower extremity edema NEUROLOGIC: Awake and alert. Oriented x 3. ASSESSMENT: Chest pain, troponin negative x 3, possible unstable angina Persistent atrial fibrillation History of BILL and cardioversion, 2020 Hypertension History of SVT History of PE History of COPD History of obstructive sleep apnea PLAN: An acute coronary event has been ruled out Resume home cardiac medications Obtain 2D echo to assess cardiac structure and function Hold Xarelto tonight N.p.o. at midnight Patient to undergo cardiac catheterization tomorrow with Dr. Bernardo Patient with iodine allergy. She will be premedicated prior to procedure Further recommendations pending patient course Nurse practitioner note has been reviewed by physician. Signing provider agrees with the documented findings, assessment, and plan of care documented by P[employer]DER as a scribe. 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 History of Any Multi-Drug Resistant Organisms: None Reported Past Surgical History: Adenoidectomy, Bladder Surgery, Bowel Resection, Hysterectomy, Joint Replacement, Orthopedic Surgery, Tonsillectomy Additional Past Surgical History / Comment(s): Colonoscopies/polypectomies, bl adder prolapse repair, bilateral shoulder rotator cuff repair.Total right knee arthroplasty, L knee arthroscopy, bilateral feet bunionectomies, bilateral cataract removals with lens implants. Past Anesthesia/Blood Transfusion Reactions: Motion Sickness, Postoperative Nausea & Vomiting (PONV) Additional Past Anesthesia/Blood Transfusion Reaction / Comment(s): Pt has claustrophobia. Past Psychological History: No Psychological Hx Reported Smoking Status: Former smoker Past Alcohol Use History: None Reported Additional Past Alcohol Use History / Comment(s): STARTED SMOKING AT AGE 15 QUIT AT AGE 41 SMOKED 1 PPD OR LESS. Past Drug Use History: None Reported - Past Family History Sister(s) Family Medical History: Pulmonary Embolus Father Family Medical History: Myocardial Infarction (IA) Additional Family Medical History / Comment(s): Father had his first IA at the age of 61 yrs. Mother Family Medical History: Cancer Additional Family Medical History / Comment(s): LYMPHOMA Medications and Allergies Home Medications Medication Instructions Recorded Confirmed Type Pantoprazole Sodium [Protonix] 40 mg PO DAILY 07/23/13 05/12/23 History Multivitamin/Iron/Folic Acid 1 tab PO DAILY 05/05/14 05/12/23 History [Centrum Complete Multivit Tab] Albuterol Inhaler [Ventolin Hfa 2 puff INHALATION RT-Q4H PRN 08/27/19 05/12/23 History Inhaler] Furosemide [Lasix] 40 mg PO DAILY 03/07/20 05/12/23 History Potassium Chloride [Klor-Con 20] 20 meq PO DAILY 03/07/20 05/12/23 History Ascorbic Acid [Vitamin C] 500 mg PO DAILY 06/05/20 05/12/23 History Aspirin 81 mg PO DAILY 06/23/20 05/12/23 History Evcxqbl-Otzi-Luab [id number] 1 tab PO Q4H PRN 06/02/21 05/12/23 History [Excedrin] Metoprolol Tartrate [Lopressor] 50 mg PO BID 06/02/21 05/12/23 History Montelukast [Singulair] 10 mg PO HS 06/02/21 05/12/23 History Rosuvastatin Calcium [Crestor] 40 mg PO DAILY 06/02/21 05/12/23 History Ezetimibe [Zetia] 10 mg PO DAILY 11/07/21 05/12/23 History HYDROcodone/APAP 7.5-325MG [[place] 1 tab PO BID PRN 07/08/22 05/12/23 History 7.5-325] Rivaroxaban [Xarelto] 20 mg PO PC-SUPPER 07/08/22 05/12/23 History Flaxseed Oil 1,200mg 1,200 mg PO DAILY 12/26/22 05/12/23 History Nystatin 100,000Unit/gm Cream 1 applic TOPICAL BID 12/26/22 05/12/23 History [Mycostatin Cream] Ubidecarenone [Coenzyme Q10] 200 mg PO DAILY 12/26/22 05/12/23 History Cholecalciferol (Vitamin D3) 50 mcg PO DAILY 05/12/23 05/12/23 History [Vitamin D3 (50 Mcg = 2000 Iu)] Doxycycline Hyclate 100 mg PO PC-LUNCH 05/12/23 05/12/23 History Losartan [Cozaar] 25 mg PO DAILY 05/12/23 05/12/23 History [place]-3 540mg 1 cap PO DAILY 05/12/23 05/12/23 History Allergies Allergy/AdvReac Type Severity Reaction Status Date / Time amoxicillin trihydrate Allergy Rash/Hives Verified 05/12/23 14:14 [From Augmentin] hydromorphone HCl Allergy Rash/Hives Verified 05/12/23 14:14 [From Dilaudid] Iodinated Contrast Media Allergy Red face Verified 05/12/23 14:14 [Iodinated Contrast Media - and felt IV Dye] like it was on fire. Penicillins Allergy Rash/Hives Verified 05/12/23 14:14 on chest potassium clavulanate Allergy Rash/Hives Verified 05/12/23 14:14 [From Augmentin] Cuuyzif-ESA-SaL Reductase Allergy LEG Verified 05/12/23 14:14 Inhibitor SWELLING [Skeldnl-Xek-Bnu Reductase AND PAIN Inhibitor] tramadol Allergy "VERY RED Verified 05/12/23 14:14 FACE" Physical Exam Vitals: Vital Signs Temp Pulse Pulse Resp BP BP Pulse Ox 05/13/23 01:06 97.8 F 91 18 136/91 93 L 05/12/23 20:19 97.7 F 83 18 111/69 92 L 05/12/23 20:09 93 18 123/77 95 05/12/23 19:54 93 05/12/23 19:46 81 05/12/23 18:00 94 14 120/89 05/12/23 16:05 92 05/12/23 15:55 76 05/12/23 14:00 76 21 122/93 05/12/23 13:00 80 12 05/12/23 12:31 82 22 05/12/23 12:08 98.8 F 82 18 114/71 92 L Intake and Output 05/12/23 05/13/23 05/13/23 22:59 06:59 14:59 Other: Voiding Method Toilet # Voids 1 Weight 99.79 kg Results 05/12/23 13:02 05/12/23 13:02 Cardiac Enzymes 05/12/23 05/12/23 05/12/23 Range/Units 13:02 13:02 15:57 AST 38 H (14-36) U/L Troponin I <0.012 <0.012 (0.000-0.034) ng/mL 05/12/23 Range/Units 18:55 AST (14-36) U/L Troponin I <0.012 (0.000-0.034) ng/mL Coagulation 05/12/23 Range/Units 13:02 PT 11.9 (10.0-12.5) sec APTT 28.7 (22.0-30.0) sec CBC 05/12/23 Range/Units 13:02 WBC 5.4 (3.8-10.6) k/uL RBC 4.66 (3.80-5.40) m/uL Hgb 12.7 (11.4-16.0) gm/dL Hct 41.5 (34.0-46.0) % Plt Count 183 (150-450) k/uL Comprehensive Metabolic Panel 05/12/23 Range/Units 13:02 Sodium 140 (137-145) mmol/L Potassium 4.6 (3.5-5.1) mmol/L Chloride 104 (98-107) mmol/L Carbon Dioxide 27 (22-30) mmol/L BUN 21 H (7-17) mg/dL Creatinine 0.65 (0.52-1.04) mg/dL Glucose 108 H (74-99) mg/dL Calcium 9.1 (8.4-10.2) mg/dL AST 38 H (14-36) U/L ALT 26 (4-34) U/L Alkaline Phosphatase 74 (38-126) U/L Total Protein 6.7 (6.3-8.2) g/dL Albumin 4.0 (3.5-5.0) g/dL Current Medications Generic Name Dose Route Start Last Admin Trade Name Freq PRN Reason Stop Dose Admin Acetaminophen 650 mg 05/12/23 14:44 Acetaminophen Tab 325 Mg Tab PO Q6HR PRN Mild Pain or Fever > 100.5 Hydrocodone Bitart/Acetaminophen 1 each 05/12/23 14:43 Hydrocodone/Apap 7.5-325mg 1 Each Tab PO BID PRN Pain Al Hydroxide/Mg Hydroxide 15 ml 05/12/23 14:44 Mag Hydrox/Al Hydrox/Simeth 30 Ml Cup PO Q6HR PRN Indigestion Albuterol Sulfate 2.5 mg 05/12/23 14:43 05/12/23 19:44 Albuterol Nebulized 2.5 Mg/3 Ml INHALATION 2.5 mg RT-Q4H PRN Administration Shortness Of Breath Ascorbic Acid 500 mg 05/13/23 09:00 Ascorbic Acid 500 Mg Tab PO DAILY [facility] Aspirin 81 mg 05/13/23 09:00 Aspirin 81 Mg PO DAILY [facility] Atorvastatin Calcium 80 mg 05/13/23 09:00 Atorvastatin 80 Mg Tab PO DAILY [facility] Cholecalciferol 50 mcg 05/13/23 09:00 Cholecalciferol 25 Mcg (1000 Iu) Tablet PO DAILY [facility] Doxycycline Monohydrate 100 mg 05/13/23 13:30 Doxycycline 100 Mg Cap PO PC-LUNCH [facility] Ezetimibe 10 mg 05/13/23 09:00 Ezetimibe 10 Mg Tab PO DAILY [facility] Furosemide 40 mg 05/13/23 09:00 Furosemide 40 Mg Tab PO DAILY [facility] Losartan Potassium 25 mg 05/13/23 09:00 Losartan 25 Mg Tab PO DAILY [facility] Melatonin 3 mg 05/12/23 14:44 05/12/23 23:58 Melatonin 3 Mg Tablet PO 3 mg HS PRN Administration Insomnia Metoprolol Tartrate 50 mg 05/12/23 21:00 05/12/23 20:38 Metoprolol Tartrate 50 Mg Tab PO 50 mg BID KALYAN Administration Montelukast Sodium 10 mg 05/12/23 21:00 05/12/23 20:38 Montelukast 10 Mg Tab PO 10 mg HS KALYAN Administration Naloxone HCl 0.2 mg 05/12/23 14:44 Naloxone 0.4 Mg/Ml 1 Ml Vial IV Q2M PRN Opioid Reversal Ondansetron HCl 4 mg 05/12/23 14:44 Ondansetron 4 Mg/2 Ml Vial IVP Q8HR PRN Nausea And Vomiting Pantoprazole Sodium 40 mg 05/13/23 07:30 05/13/23 05:59 Pantoprazole 40 Mg Tablet PO 40 mg [id number] KALYAN Administration Potassium Chloride 20 meq 05/13/23 09:00 Potassium Chloride Er 20 Meq Tab.Er PO DAILY [facility] Rivaroxaban 20 mg 05/12/23 18:30 05/12/23 17:55 Rivaroxaban 20 Mg Tab PO 20 mg PC-SUPPER KALYAN Administration Protocol Intake and Output 05/12/23 05/13/23 05/13/23 22:59 06:59 14:59 Other: Voiding Method Toilet # Voids 1 Weight 99.79 kg 05/12/23 13:02 05/12/23 13:02
--- NOTE | 2023-05-13 12:56 | CA ---
Transthoracic Echo Report Name: Kimberly De La Cruz Age: 77 Gender: F : 1945 Exam Date: 05/13/2023 09:29 Exam Location: [facility] Ht (in): 62 Wt (lb): 220 Ordering Physician: Coty Kelley Attending/Referring Phys: [id number], [employer] Re[employer] Assistant Ravinder Laguna RDCS Procedure CPT: Indications: LV function, CP Cardiac Hx: Technical Quality: Contrast 1: Total Dose (mL): Contrast 2: Total Dose (mL): MEASUREMENTS (Male / Female) Normal Values 2D ECHO LV Diastolic Diameter PLAX 4.0 cm 4.2 - 5.9 / 3.9 - 5.3 cm LV Systolic Diameter PLAX 3.2 cm IVS Diastolic Thickness 1.2 cm 0.6 - 1.0 / 0.6 - 0.9 cm LVPW Diastolic Thickness 1.1 cm 0.6 - 1.0 / 0.6 - 0.9 cm LV Relative Wall Thickness 0.6 LVOT Diameter 1.6 cm Aortic Root Diameter 3.4 cm LA Systolic Diameter LX 4.7 cm 3.0 - 4.0 / 2.7 - 3.8 cm DOPPLER AV Peak Velocity 192.8 cm/s AV Peak Gradient 14.9 mmHg AV Mean Velocity 119.3 cm/s AV Mean Gradient 6.3 mmHg AV Velocity Time Integral 29.1 cm AI Peak Velocity 494.2 cm/s AI Peak Gradient 97.7 mmHg AI Pressure Half Time 602.8 ms LVOT Peak Velocity 0.6 cm/s LVOT Peak Gradient 0.0 mmHg AV Area Cont Eq pk 0.0 cm??? MR Peak Velocity 607.8 cm/s MR Peak Gradient 147.8 mmHg Mitral E Point Velocity 105.8 cm/s Mitral A Point Velocity 44.4 cm/s Mitral E to A Ratio 2.4 MV Deceleration Time 197.6 ms TR Peak Velocity 417.7 cm/s TR Peak Gradient 69.8 mmHg PV Peak Velocity 82.7 cm/s PV Peak Gradient 2.7 mmHg FINDINGS Left Ventricle Mildly increased septal wall thickness. Mildly increased posterior wall thickness. Left ventricular ejection fraction is estimated at 45-50 %. Right Ventricle Normal right ventricular size. Right Atrium Right atrial dilatation. Left Atrium Moderately increased left atrial diameter. Mitral Valve [id number]-[id number] mitral regurgitation. Aortic Valve Wgxc-cy-ebkaneos aortic regurgitation. Tricuspid Valve Mild tricuspid regurgitation. Pulmonic Valve No pulmonic regurgitation. Pericardium No pericardial effusion. Aorta Normal size aortic root. CONCLUSIONS Mild LV systolic dysfunction with an ejection fraction of 45% Mild to moderate aortic regurgitation Mild to moderate mitral regurgitation Previewed by: Dr. Paulino Bernardo MD (Electronically Signed) Final Date: 13 May 2023 12:56
--- NOTE | 2023-05-13 13:38 | P.PN ---
Subjective Progress Note Date: 05/13/23 patient 77-year-old lady with past medical history significant for hypertension, hyperlipidemia, persistent atrial fibrillation on Xarelto,glaucoma, DVT, colon cancer status post partial colectomy, gastroesophageal reflux disease, mild intermittent asthma who presented to hospital because of chest pain. Patient stated that she was all right last night when he started experiencing chest pain which was central location, pressure-like, radiating to the back, no aggravating or relieving factor associated with this chest pain. Denies any shortness of breath or palpitations. Patient is complaining of dizziness. Denies any diaphoresis associated with this chest pain. Denies any nausea, vomiting abdo javi pain. Patient has history of exertional dyspnea. Denies any orthopnea or PND. There is no complaint of swelling of feet. Initial lab work done in the ER showed WBC 5.4, hemoglobin 12.7, platelet count 183, sodium 140, potassium 4.6, BUN 31, creatinine 0.65, glucose 108, AST 38, ALT 26, troponin 0.012 EKG done in the ER showed heart rate of 76, irregular in rate and rhythm, no ST segment elevation or depression seen, no T-wave inversions seen. Chest x-ray done in the ER showed no acute pulmonary process Patient admitted to internal medicine service 05/13. Patient seen and examined. Cardiology evaluated patient, ordered 2D echo. Denies any chest pain. States shortness of breath is improved. REVIEW OF SYSTEMS: CONSTITUTIONAL: No fever, no malaise,. CARDIOVASCULAR: No chest pain, no palpitations, no syncope. PULMONARY: No shortness of breath, no cough, GASTROINTESTINAL: No diarrhea, no nausea, no vomiting, no abdominal pain. NEUROLOGICAL: No headaches, no weakness, PHYSICAL EXAMINATION: GENERAL: The patient is alert and oriented x3, not in any acute distress. Well developed, well nourished. HEENT: Pupils are round and equally reacting to light. EOMI. No scleral icterus. No conjunctival pallor. Normocephalic, atraumatic. No pharyngeal erythema. No thyromegaly. CARDIOVASCULAR: S1 and S2 present. No murmurs, rubs, or gallops. PULMONARY: Chest is clear to auscultation, no wheezing or crackles. ABDOMEN: Soft, nontender, nondistended, normoactive bowel sounds. No palpable organomegaly. MUSCULOSKELETAL: No joint swelling or deformity. EXTREMITIES: No cyanosis, clubbing, or pedal edema. NEUROLOGICAL: Gross neurological examination did not reveal any focal deficits. SKIN: No rashes. Assessment and plan Chest pain, rule out acute coronary syndrome Monitor vital signs monitor CBC Monitor CMP Trend troponin 2D echo ordered Cardiology following, planning cardiac cath in the morning. Persistent atrial fibrillation. Continue Lopressor 50 mg twice daily, hold Xarelto for tonight Hypertension. Continue losartan 25 mg daily, Lopressor. Mild intermittent asthma. Continue DuoNeb treatments 4 times daily as needed. Glaucoma. Continue eyedrops. Osteoarthritis, generalized. Continue current pain management. Gastroesophageal reflux disease. Continue Protonix daily. Labs and medication were reviewed.. Continue same treatment. Continue with symptomatic treatment. Resume home medication. Monitor labs and vitals. DVT and GI prophylaxis. Further recommendations as per clinical course of the patient Dictation was produced using [employer]ander dictation software. please excuse any grammatical, word or spelling errors. Objective - Vital Signs Vital signs: Vital Signs Temp 98.0 F 05/13/23 07:00 Pulse 95 05/13/23 07:00 Resp 16 05/13/23 07:00 BP 158/101 05/13/23 07:00 Pulse Ox 93 L 05/13/23 07:00 FiO2 Intake & Output 05/12/23 05/13/23 05/13/23 18:59 06:59 18:59 Weight 99.79 kg 99.79 kg Other: Voiding Method Toilet # Voids 1 1 - Labs CBC & Chem 7: 05/12/23 13:02 05/12/23 13:02 Labs: Abnormal Lab Results - Last 24 Hours (Table) 05/12/23 05/12/23 Range/Units 13:02 13:02 MCHC 30.6 L (31.0-37.0) g/dL BUN 21 H (7-17) mg/dL Glucose 108 H (74-99) mg/dL AST 38 H (14-36) U/L
[2023-05-14] MEDS: ATORVASTATIN 80 MG TAB PO ONE (06:24)
[2023-05-14] MEDS: ASPIRIN 325 MG TAB PO ONE (06:24)
[2023-05-14] MEDS: SODIUM CHLORIDE 0.9% 1,000 ML in EMPTY BAG 1 BAG IV SCH (06:24)
[2023-05-14] MEDS ORDERED: HEPARIN SODIUM,PORCINE (1 ML) 2,500 UNIT in SODIUM CHLORIDE 0.9% 250 ML IRRIGATION PRN (07:00)
[2023-05-14] MEDS ORDERED: HEPARIN SODIUM,PORCINE 10,000 UNIT in SODIUM CHLORIDE 0.9% 1,000 ML IRRIGATION PRN (07:00)
[2023-05-14] MEDS: methylPREDNISolone SOD SUCCI 125 MG/2 ML VIAL IV ONE (08:06)
[2023-05-14] MEDS: diphenhydrAMINE 50 MG/ML 1 ML VIAL IVP ONE (08:07)
[2023-05-14] MEDS: FAMOTIDINE 20 MG/2 ML VIAL IV ONE (08:07)
[2023-05-14 08:47] VITALS: TEMP 97.8
[2023-05-14] MEDS ORDERED: LIDOCAINE 1% INJ 10MG/ML (20 ML MDV) ONE (10:04)
[2023-05-14] MEDS ORDERED: fentaNYL (PF) 50 MCG/ML 2 ML AMP ONE (10:04)
[2023-05-14] MEDS ORDERED: VERAPAMIL 2.5 MG/ML 2 ML AMP ONE (10:04)
[2023-05-14] MEDS: SODIUM CHLORIDE 0.9% 1,000 ML IV ONE (10:25)
[2023-05-14] MEDS: fentaNYL (PF) 50 MCG/ML 2 ML AMP IVP ONE (10:40)
[2023-05-14] MEDS: MIDAZOLAM 2 MG/2 ML VIAL IVP ONE ×2 (10:40→10:53)
[2023-05-14] MEDS: LIDOCAINE 1% INJ 10MG/ML (20 ML MDV) SQ ONE (10:41)
[2023-05-14] MEDS: VERAPAMIL SYRINGE (5 MG/10 ML) INTRAARTER ONE (10:42)
[2023-05-14] MEDS: HEPARIN SODIUM 1,000 UN/ML (10ML VL) IV ONE (10:49)
[2023-05-14] MEDS: IOPAMIDOL-370 100ML BTL INJ ONE (11:08)
[2023-05-14] MEDS ORDERED: RX INFO: IV CONTRAST WAS GIVEN 1 EACH MISC MISCELLANE PRN (11:35)
--- NOTE | 2023-05-14 11:52 | CC ---
CARDIAC CATHETERIZATION REPORT INDICATION: Unstable angina. PROCEDURE NOTE: After obtaining informed consent, left heart catheterization and coronary angiogram were performed via the right radial artery using standard Po catheters. The patient tolerated the procedure well without any obvious immediate complications. The patient received moderate conscious sedation. Total sedation time was 20 minutes. Right radial artery access was obtained using Seldinger technique, 6-Kenyan sheath was placed. Catheters and wires were floated into the ascending aorta under fluoroscopic guidance. The patient received verapamil and heparin per protocol and a TR band was used for hemostasis. FINDINGS: 1. Hemodynamics: Left ventricular end-diastolic pressure is 16 to 18 mm. There is no significant gradient across the aortic valve. 2. Left ventriculogram: Left ventriculogram is not performed. 3. Angiographic data: a.Right coronary artery is a large codominant system that was subselectively engaged, but is free of significant disease. Left main coronary artery is a short vessel, divides into left anterior descending coronary artery and circumflex coronary artery. LAD and its branches are free of significant stenosis. A high OM branch shows a 40% to 50% stenosis involving the ostial portion. 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 PLAN: The patient's management is going to be in the form of risk factor modification, optimal medical therapy. She does not require any revascularization. MMODL / IJN: [id number] /
--- NOTE | 2023-05-14 14:45 | P.DS ---
Providers Date of admission: 05/13/23 12:07 Expected date of discharge: 05/14/23 Attending physician: Kevin Castro MD Consults: 05/12/23 14:45 Consult Physician Routine Consulting Provider: Paulino Bernardo Consult Reason/Comments: Chest pain Do you want consulting provider notified?: Yes Primary care physician: Sheila Grace Hospital Course: Final diagnosis Chest pain, ruled out acute coronary syndrome, cardiac catheterization revealed mild to moderate disease involving the ostial portion of the ramus intermedius recommending maximizing medical management Persistent atrial fibrillation history, currently rate controlled Hypertension Mild intermittent asthma, not in exacerbation History of glaucoma History of osteoarthritis Gastroesophageal reflux disease Morbid obesity with a BMI of 40.2 GI prophylaxis DVT prophylaxis Full code Discharge disposition Patient is being discharged in a stable condition with guarded prognosis to home. Patient will follow-up with Dr. Grace in the outpatient setting upon discharge. Patient is to continue with current medications and outpatient follow-up with cardiology as scheduled. Total time taken is greater than 35 minutes. Hospital course This is a 77-year-old female who was recently admitted with chest pain, ruled out ACS. Patient was evaluated and monitored closely with cardiology underwent cardiac catheterization which was showing mild to moderate disease involving the ostial portion of the ramus and recommending maximizing medical management and aggressive risk factor lifestyle modifications. Patient has been cleared by cardiology and requesting to go home. Patient to follow-up with primary care provider along with cardiology in the outpatient setting. Please refer to consultation notes for further HPI. Patient has been instructed to follow-up with primary care provider this week. Currently no reports of chest pain, shortness of breath, or palpitations. Patient is afebrile. No reports of nausea or vomiting and patient is tolerating diet. Patient will be discharged home today. Physical exam: Gen: This is a 77-year-old female who is awake, alert and oriented x 3, well- developed, well-nourished, morbidly obese HEENT: Head is atraumatic, normocephalic. Pupils equal, round. Sclerae is anicteric. NECK: Supple. No JVD. No lymphadenopathy. No thyromegaly. LUNGS: Diminished breath sounds bilaterally otherwise clear to auscultation. Some scattered rhonchi. No intercostal retractions. HEART: S1, S2 are muffled ABDOMEN: Soft. Obese. Bowel sounds are present. No masses. No tenderness. EXTREMITIES: No pedal edema. No calf tenderness. NEUROLOGICAL: Patient is awake, alert and oriented x3. Cranial nerves 2 through 12 are grossly intact. Please refer to medication reconciliation sheet for a list of medications. The impression and plan of care has been dictated by Betty Velez, Nurse Practitioner as directed. Dr. Kassie MD I have performed a history and examination and MDM of this patient, discussed the same with the dictator, and agree with the dictator's assessment and plan as written ,documented as a scribe. Based on total visit time, I have performed more than 50% of the visit. Patient Condition at Discharge: Fair Plan - Discharge Summary New Discharge Prescriptions: Continue Pantoprazole Sodium [Protonix] 40 mg PO DAILY Multivitamin/Iron/Folic Acid [Centrum Complete Multivit Tab] 1 tab PO DAILY Albuterol Inhaler [Ventolin Hfa Inhaler] 2 puff INHALATION RT-Q4H PRN PRN Reason: Shortness Of Breath Potassium Chloride [Klor-Con 20] 20 meq PO DAILY Furosemide [Lasix] 40 mg PO DAILY Ascorbic Acid [Vitamin C] 500 mg PO DAILY Aspirin 81 mg PO DAILY Rosuvastatin Calcium [Crestor] 40 mg PO DAILY [id number] [phone] [Excedrin] 1 tab PO Q4H PRN PRN Reason: Migraine Headache Metoprolol Tartrate [Lopressor] 50 mg PO BID Rivaroxaban [Xarelto] 20 mg PO PC-SUPPER Doxycycline Hyclate 100 mg PO PC-LUNCH Cholecalciferol (Vitamin D3) [Vitamin D3 (50 Mcg = 2000 Iu)] 50 mcg PO DAILY Montelukast [Singulair] 10 mg PO HS Ezetimibe [Zetia] 10 mg PO DAILY HYDROcodone/APAP 7.5-325MG [[place] 7.5-325] 1 tab PO BID PRN PRN Reason: Pain Flaxseed Oil 1,200mg 1,200 mg PO DAILY Ubidecarenone [Coenzyme Q10] 200 mg PO DAILY Nystatin 100,000Unit/gm Cream [Mycostatin Cream] 1 applic TOPICAL BID [place]-3 540mg 1 cap PO DAILY Losartan [Cozaar] 25 mg PO DAILY Discharge Medication List Pantoprazole Sodium [Protonix] 40 mg PO DAILY 07/23/13 [History] Multivitamin/Iron/Folic Acid [Centrum Complete Multivit Tab] 1 tab PO DAILY 05/05/14 [History] Albuterol Inhaler [Ventolin Hfa Inhaler] 2 puff INHALATION RT-Q4H PRN 08/27/19 [History] Furosemide [Lasix] 40 mg PO DAILY 03/07/20 [History] Potassium Chloride [Klor-Con 20] 20 meq PO DAILY 03/07/20 [History] Ascorbic Acid [Vitamin C] 500 mg PO DAILY 06/05/20 [History] Aspirin 81 mg PO DAILY 06/23/20 [History] [id number]-[id number]-Vsse [id number] [Excedrin] 1 tab PO Q4H PRN 06/02/21 [History] Metoprolol Tartrate [Lopressor] 50 mg PO BID 06/02/21 [History] Montelukast [Singulair] 10 mg PO HS 06/02/21 [History] Rosuvastatin Calcium [Crestor] 40 mg PO DAILY 06/02/21 [History] Ezetimibe [Zetia] 10 mg PO DAILY 11/07/21 [History] HYDROcodone/APAP 7.5-325MG [[place] 7.5-325] 1 tab PO BID PRN 07/08/22 [History] Rivaroxaban [Xarelto] 20 mg PO PC-SUPPER 07/08/22 [History] Flaxseed Oil 1,200mg 1,200 mg PO DAILY 12/26/22 [History] Nystatin 100,000Unit/gm Cream [Mycostatin Cream] 1 applic TOPICAL BID 12/26/22 [History] Ubidecarenone [Coenzyme Q10] 200 mg PO DAILY 12/26/22 [History] Cholecalciferol (Vitamin D3) [Vitamin D3 (50 Mcg = 2000 Iu)] 50 mcg PO DAILY 05/12/23 [History] Doxycycline Hyclate 100 mg PO PC-LUNCH 05/12/23 [History] Losartan [Cozaar] 25 mg PO DAILY 05/12/23 [History] [place]-3 540mg 1 cap PO DAILY 05/12/23 [History] Follow up Appointment(s)/Referral(s): Sheila Grace MD [Primary Care Provider] - 1-2 days Paulino Bernardo MD [STAFF PHYSICIAN] - 1 Week Activity/Diet/Wound Care/Special Instructions: Activity limited until follow-up Follow-up with primary care provider on discharge Follow-up cardiology outpatient Continue with medications as prescribed Continue heart healthy diet Discharge Disposition: HOME SELF-CARE
[2023-05-14 15:23] VITALS: BP 139/95; PULSE 83
[2023-05-14] MEDS: SODIUM CHLORIDE 0.9% 1,000 ML IV SCH (16:19)
[2023-05-14] MEDS: RIVAROXABAN 20 MG TAB PO SCH (18:54)
== END 2023-05-14 18:56 | disposition home or self-care (01) | DRG 287 ==
LOC: EC 12:03 → 6NMEDSUR 14:46 → OBSVTOIN 05-13 12:07
PROVIDERS: ADMIT Internal Medicine; ATTEND Internal Medicine
PROC: B2111ZZ Fluoroscopy of Multiple Coronary Arteries using Low Osmolar Contrast (ICD-10-PCS; principal; 2023-05-14 10:30)
PROC: 4A023N7 Measurement of Cardiac Sampling and Pressure, Left Heart, Percutaneous Approach (ICD-10-PCS; principal; 2023-05-14 10:30)
DX: I25.10 Atherosclerotic heart disease of native coronary artery without angina pectoris (principal); Z68.41 Body mass index [BMI] 40.0-44.9, adult; I48.19 Other persistent atrial fibrillation; I47.10 Supraventricular tachycardia, unspecified; E66.01 Morbid (severe) obesity due to excess calories; E78.00 Pure hypercholesterolemia, unspecified; F40.240 Claustrophobia; H40.9 Unspecified glaucoma; I10 Essential (primary) hypertension; I08.3 Combined rheumatic disorders of mitral, aortic and tricuspid valves; I45.10 Unspecified right bundle-branch block; J45.20 Mild intermittent asthma, uncomplicated; J44.9 Chronic obstructive pulmonary disease, unspecified; M15.9 Polyosteoarthritis, unspecified; M41.9 Scoliosis, unspecified; I83.90 Asymptomatic varicose veins of unspecified lower extremity; Z79.01 Long term (current) use of anticoagulants; Z79.82 Long term (current) use of aspirin; Z79.899 Other long term (current) drug therapy; Z85.038 Personal history of other malignant neoplasm of large intestine; Z82.49 Family history of ischemic heart disease and other diseases of the circulatory system; Z80.7 Family history of other malignant neoplasms of lymphoid, hematopoietic and related tissues; Z86.16 Personal history of COVID-19; Z86.711 Personal history of pulmonary embolism; Z90.49 Acquired absence of other specified parts of digestive tract; Z96.651 Presence of right artificial knee joint; Z86.010 Personal history of colon polyps; Z86.718 Personal history of other venous thrombosis and embolism; Z88.5 Allergy status to narcotic agent; Z88.0 Allergy status to penicillin; Z88.8 Allergy status to other drugs, medicaments and biological substances; Z91.041 Radiographic dye allergy status
CPT/HCPCS: 36415; 71046; 80053; 83735; 84484; 85025; 85379; 85610; 85730; 93005; 93306; 93458; 94640; 99285

== ENCOUNTER → 2023-06-23 | Outpatient (CLI) | payer MEDICARE, BC ==
--- NOTE | 2023-06-23 19:00 | XR ---
EXAMINATION TYPE: XR chest 2V DATE OF EXAM: 06/23/2023 12:08 PM CLINICAL INDICATION:Female, 77 years old with history of J10.1 Influenza A; COMPARISON: Chest radiographs from 05/12/2023 TECHNIQUE: XR chest 2V Frontal and lateral views of the chest. FINDINGS: Lungs/Pleura: There is no evidence of pleural effusion, focal consolidation, or pneumothorax. Pulmonary vascularity: Unremarkable. Heart/mediastinum: Cardiomediastinal silhouette is enlarged and stable. Atherosclerotic calcificatio ns are seen in the aorta. Musculoskeletal: Degenerative changes of the shoulder joints. Other findings: None IMPRESSION: 1. No acute cardiopulmonary disease process. 2. COPD changes.
== END | disposition home or self-care (01) ==
LOC: RADXRMAIN 11:55
PROVIDERS: ATTEND Internal Medicine
DX: J44.9 Chronic obstructive pulmonary disease, unspecified (principal)
CPT/HCPCS: 71046

== ENCOUNTER → 2023-07-09 | Outpatient (CLI) | payer MEDICARE, BC ==
--- NOTE | 2023-07-13 20:36 | MM ---
Reason for Exam: Screening (asymptomatic). Last screening mammogram was performed 12 month(s) ago. Patient History: Menarche at age 14. First Full-Term at age 19. Hysterectomy at age 34. Postmenopausal. Colorectal cancer, age 66. Patient used Estrogen for 3 years. Patient used Progesterone for 3 years. 11/27/2009, Benign Core Biopsy on the right side. Risk Values: Jyotsna 5 year model risk: 1.5%. NCI Lifetime model risk: 3.1%. Prior Study Comparison: 05/15/2020 Bilateral Screening Mammogram, [facility]. 06/25/2021 Bilateral Screening Mammogram, [facility]. 06/26/2022 Bilateral MG 3D screening mammo w/cad, [facility]. Tissue Density: The breasts are almost entirely fatty. Findings: Analyzed By CAD. Chronic nodularity on the right. Microclip right breast from prior biopsy. Unchanged scattered benign round calcifications on both sides. There is no suspicious group of microcalcifications or new suspicious mass in either breast. Overall Assessment: Benign, BI-RAD 2 Management: Screening Mammogram of both breasts in 1 year. . Patient should continue monthly self-breast exams. A clinical breast exam by your physician is recommended on an annual basis. This exam should not preclude additional follow-up of suspicious palpable abnormalities. Note on Jyotsna scores and lifetime risk: 1. A Jyotsna score greater than 3% is considered moderate risk. If this is the case, consider specialist referral to assess eligibility for a risk reducing agent. 2. If overall lifetime risk for the development of breast cancer is 20% or higher, the patient may qualify for future screening with alternating mammogram and breast MRI. Electronically signed and approved by: William Walter M.D. Radiologist
== END | disposition home or self-care (01) ==
LOC: RADMAMWWP 14:17
PROVIDERS: ATTEND Internal Medicine
DX: Z12.31 Encounter for screening mammogram for malignant neoplasm of breast (principal); Z78.0 Asymptomatic menopausal state
CPT/HCPCS: 77063; 77067

== ENCOUNTER 2023-12-23 09:46 | Day surgery (SDC) | payer MEDICARE, BC ==
[2023-12-23 11:40] VITALS: TEMP 97.8
[2023-12-23] MEDS: LACTATED RINGERS 1,000 ML IV SCH (11:50)
[2023-12-23] MEDS: IV FLUID CONTINUATION 1,000 ML IV ONE (11:51)
[2023-12-23] MEDS ORDERED: PROPOFOL 10 MG/ML 20 ML VIAL IV ONE (12:21)
--- NOTE | 2023-12-23 12:41 | P.PCN ---
Date of Procedure: 12/23/23 Procedure(s) Performed: brief history: Patient is a pleasant 78-year-old white female scheduled for an elective upper endoscopy as well as colonoscopy as a part of evaluation of GERD and Hemoccult positive stool. She was history of colon cancer diagnosed 10 years ago. Procedure performed: Esophagogastroduodenoscopy with biopsy Colonoscopy snare polypectomy Preoperative diagnosis: Longstanding history of GERD Hemoccult positive stool History of colon cancer diagnosed in 2011 Anesthesia: MAC Procedure: After informed consent was obtained from the patient was brought into the endoscopy unit and IV sedation was administered by anesthesia under continuous monitoring. Initially upper endoscopy was done. The Olympus GF 160 video endoscope was inserted inserted into the mouth and esophagus intubated without any difficulty and was gradually advanced into the stomach and duodenum and carefully examined. The bulb and second part of the duodenum appeared normal. The scope was then withdrawn into the stomach adequately insufflated with air and upon careful examination the antrum had antral erosive gastritis and biopsies were done from this area. Mucosa body, cardia and fundus appeared normal. The scope was then withdrawn into the esophagus. The GE junction was located at 40 cm to the incisors. It appeared regular with no erythema erosions or ulcerations. Rest of the esophagus appeared normal. Patient tolerated the procedure well. At this time the patient continued to remain sedation. Initial digital rectal examination was normal. Olympus CF 160 video colonoscope was then inserted into the rectum and gradually advanced to the cecum without any difficulty. Careful examination was performed as the scope was gradually being withdrawn. The prep was fair.. The cecum, normal. Descending colon there was a 4 mm polyp that was removed by cold snare polypectomy. The anastomosis from previous colon surgery was located in the hepatic flexure that appeared normal. Rest of the ascending colon, transverse colon, descending colon, sigmoid colon and rectum appeared normal. Sigmoid diverticulosis. Retroflexion was performed in the rectum and no lesions were noted. Patient tolerated the procedure well. Impression: 1. Upper endoscopy revealed antral erosive gastritis but no evidence of peptic ulcer disease 2. Colonoscopy revealed 4 mm ascending colon polyp status post cold snare polypectomy and scattered sigmoid diverticulosis Recommendations: Findings of this examination were discussed with the patient as well as her family. She was advised to follow with the biopsy results. Recommended repeat colonoscopy in 3 years.
[2023-12-23 12:49] VITALS: RESP 16
[2023-12-23 13:06] VITALS: BP 162/87; PULSE 81
== END 2023-12-23 13:32 | disposition home or self-care (01) ==
LOC: ORWHC2ENDO 09:46
PROVIDERS: ATTEND Internal Medicine Gastroenterology
DX: K57.30 Diverticulosis of large intestine without perforation or abscess without bleeding (principal); K21.9 Gastro-esophageal reflux disease without esophagitis; K29.60 Other gastritis without bleeding; K63.5 Polyp of colon; I10 Essential (primary) hypertension; I48.91 Unspecified atrial fibrillation; G47.33 Obstructive sleep apnea (adult) (pediatric); J45.909 Unspecified asthma, uncomplicated; I34.1 Nonrheumatic mitral (valve) prolapse; Z85.038 Personal history of other malignant neoplasm of large intestine; Z91.041 Radiographic dye allergy status; Z88.0 Allergy status to penicillin; Z79.02 Long term (current) use of antithrombotics/antiplatelets; Z88.8 Allergy status to other drugs, medicaments and biological substances; Z79.899 Other long term (current) drug therapy
CPT/HCPCS: 43239; 45385; 88305

== ENCOUNTER 2024-03-21 18:34 | Observation (INO) | payer MEDICARE, BC ==
--- NOTE | 2024-03-21 18:44 | ED ---
Chest Pain HPI - General Source: patient Mode of arrival: wheelchair Limitations: no limitations <Darren Posadas - Last Filed: 03/21/24 18:44> <Rhea Kaur - Last Filed: 03/21/24 21:42> - General Chief Complaint: Chest Pain Stated Complaint: Chest pain Time Seen by Provider: 03/21/24 18:42 - History of Present Illness Initial Comments: 78-year-old female with past medical history of A-fib, PE on Xarelto who presents emergency department reporting chest pain. States the pain is pleuritic in nature. Also worse when she moves her left arm. Patient complains of the pain has been going on for the past 4 hours. Is been consistent. She did take 2 aspirin to help alleviate her symptoms. She denies history of similar in the past. Patient denies coronary disease. She denies any calf pain or swelling. No numbness, tingling or weakness in her extremities. No ripping or tearing station to her back. Denies any additional symptoms to include cough, fevers, abdominal pain. No other alleviating, precipitating modifying factors (Rhea Kaur) - Related Data Home Medications Medication Instructions Recorded Confirmed Pantoprazole Sodium [Protonix] 40 mg PO BID 07/23/13 12/23/23 Multivitamin/Iron/Folic Acid 1 tab PO DAILY 05/05/14 12/23/23 [Centrum Complete Multivit Tab] Albuterol Inhaler [Ventolin Hfa 2 puff INHALATION RT-Q4H PRN 08/27/19 12/23/23 Inhaler] Furosemide [Lasix] 40 mg PO DAILY 03/07/20 12/23/23 Potassium Chloride [Klor-Con 20] 20 meq PO DAILY 03/07/20 12/23/23 Ascorbic Acid [Vitamin C] 500 mg PO DAILY 06/05/20 12/23/23 Aspirin 81 mg PO DAILY 06/23/20 12/23/23 Metoprolol Tartrate [Lopressor] 50 mg PO BID 06/02/21 12/23/23 Montelukast [Singulair] 10 mg PO HS 06/02/21 12/23/23 Rosuvastatin Calcium [Crestor] 40 mg PO DAILY 06/02/21 12/23/23 Ezetimibe [Zetia] 10 mg PO DAILY 11/07/21 12/23/23 HYDROcodone/APAP 7.5-325MG [[place] 1 tab PO BID PRN 07/08/22 12/23/23 7.5-325] Rivaroxaban [Xarelto] 20 mg PO PC-SUPPER 07/08/22 12/23/23 Flaxseed Oil 1,200mg 1,200 mg PO DAILY 12/26/22 12/23/23 Nystatin 100,000Unit/gm Cream 1 applic TOPICAL BID PRN 12/26/22 12/23/23 [Mycostatin Cream] Ubidecarenone [Coenzyme Q10] 200 mg PO DAILY 12/26/22 12/23/23 Cholecalciferol (Vitamin D3) 50 mcg PO DAILY 05/12/23 12/23/23 [Vitamin D3 (50 Mcg = 2000 Iu)] Losartan [Cozaar] 25 mg PO DAILY 05/12/23 12/23/23 Ipratropium-Albuterol Nebulize 3 ml INHALATION BID 12/19/23 12/23/23 [Duoneb 0.5 mg-3 mg/3 ml Soln] Allergies Allergy/AdvReac Type Severity Reaction Status Date / Time amoxicillin trihydrate Allergy Rash/Hives Verified 03/21/24 18:40 [From Augmentin] hydromorphone HCl Allergy Rash/Hives Verified 03/21/24 18:40 [From Dilaudid] Iodinated Contrast Media Allergy Red face Verified 03/21/24 18:40 [Iodinated Contrast Media - and felt IV Dye] like it was on fire. Penicillins Allergy Rash/Hives Verified 03/21/24 18:40 on chest potassium clavulanate Allergy Rash/Hives Verified 03/21/24 18:40 [From Augmentin] Deivqhr-LPX-HjC Reductase Allergy LEG Verified 03/21/24 18:40 Inhibitor SWELLING [Tmgzfqo-Loo-Mlj Reductase AND PAIN Inhibitor] tramadol Allergy "VERY RED Verified 03/21/24 18:40 FACE" Review of Systems ROS Other: All systems not noted in ROS Statement are negative. <Darren Posadas - Last Filed: 03/21/24 18:44> ROS Other: All systems not noted in ROS Statement are negative. <Rhea Kaur - Last Filed: 03/21/24 21:42> ROS Statement: Those systems with pertinent positive or pertinent negative responses have been documented in the HPI. Past Medical History Past Medical History: Atrial Fibrillation, Asthma, Cancer, Deep Vein Thrombosis (DVT), Eye Disorder, GERD/Reflux, Hypertension, Mitral Valve Prolapse (MVP), Osteoarthritis (OA), Pulmonary Embolus (PE), Sleep Apnea/CPAP/BIPAP, Vascular Disorder Additional Past Medical History / Comment(s): 2011 colon cancer, heart murmur, chronic low back pain, herniated discs, scoliosis, does not use C-PAP, glaucoma with bilateral nerve damage behind eyes, varicose veins, PE 2018 after knee replacement,admitted for covid 01/2020, recent positive cologuard History of Any Multi-Drug Resistant Organisms: None Reported Past Surgical History: Adenoidectomy, Bladder Surgery, Bowel Resection, Hysterectomy, Joint Replacement, Orthopedic Surgery, Tonsillectomy Additional Past Surgical History / Comment(s): Colonoscopies/polypectomies, bladder prolapse repair, bilateral shoulder rotator cuff repair.Total right knee arthroplasty, L knee arthroscopy, bilateral feet bunionectomies, bilateral cataract removals with lens implants. Past Anesthesia/Blood Transfusion Reactions: Motion Sickness, Postoperative Nausea & Vomiting (PONV) Additional Past Anesthesia/Blood Transfusion Reaction / Comment(s): Pt has claustrophobia. Past Psychological History: No Psychological Hx Reported Smoking Status: Former smoker Past Alcohol Use History: None Reported Past Drug Use History: None Reported - Past Family History Sister(s) Family Medical History: Pulmonary Embolus Father Family Medical History: Myocardial Infarction (SC) Additional Family Medical History / Comment(s): Father had his first SC at the age of 61 yrs. Mother Family Medical History: Cancer Additional Family Medical History / Comment(s): LYMPHOMA <aDrren Posadas - Last Filed: 03/21/24 18:44> General Exam Limitations: no limitations <Darren Posadas - Last Filed: 03/21/24 18:44> General appearance: alert, in no apparent distress Head exam: Present: atraumatic, normocephalic, normal inspection Eye exam: Present: normal appearance, PERRL, EOMI. Absent: scleral icterus, conjunctival injection, periorbital swelling ENT exam: Present: normal exam, mucous membranes moist Neck exam: Present: normal inspection. Absent: tenderness, meningismus, lymphadenopathy Respiratory exam: Present: normal lung sounds bilaterally. Absent: respiratory distress, wheezes, rales, rhonchi, stridor Cardiovascular Exam: Present: regular rate, normal rhythm, normal heart sounds. Absent: systolic murmur, diastolic murmur, rubs, gallop, clicks GI/Abdominal exam: Present: soft, normal bowel sounds. Absent: distended, tenderness, guarding, rebound, rigid Extremities exam: Present: normal inspection, full ROM, normal capillary refill. Absent: tenderness, pedal edema, joint swelling, calf tenderness Back exam: Present: normal inspection Neurological exam: Present: alert, oriented X3, CN II-XII intact Psychiatric exam: Present: normal affect, normal mood Skin exam: Present: warm, dry, intact, normal color. Absent: rash <Rhea Kaur Rohan - Last Filed: 03/21/24 21:42> Course Vital Signs 03/21/24 03/21/24 03/21/24 18:38 20:10 21:07 Temperature 98.2 F Pulse Rate 67 78 76 Respiratory 16 18 18 Rate Blood Pressure 131/72 132/89 142/86 O2 Sat by Pulse 95 94 L 95 Oximetry Chest Pain MDM <VincentRhea A - Last Filed: 03/21/24 21:42> - MDM Was pt. sent in by a medical professional or institution ([facility], GIN [employer]LE OPERATOR, urgent care, hospital, or penitentiary...) When possible be specific @ -[No] Did you speak to anyone other than the patient for history (EMS, parent, family, police, friend...)? What history was obtained from this source @ -[No] Did you review nursing and triage notes (agree or disagree)? Why? @ -[I reviewed and agree with nursing and triage notes] Were old charts reviewed (outside hosp., previous admission, EMS record, old EKG, old radiological studies, urgent care reports/EKG's, penitentiary records)? Report findings @ -[No old charts were reviewed] Differential Diagnosis (chest pain, altered mental status, abdominal pain women, abdominal pain men, vaginal bleeding, weakness, fever, dyspnea, syncope, headache, dizziness, GI bleed, back pain, seizure, CVA, palpatations, mental health, musculoskeletal)? @ -[not applicable] EKG interpreted by me (3pts min.). @ -Yes and demonstrates A-fib with a rate of 71. QRS 83. QTc of 424. No acute ST segment elevations or depressions X-rays interpreted by me (1pt min.). @ -[None done] CT interpreted by me (1pt min.). @ -[None done] U/S interpreted by me (1pt. min.). @ -[None done] What testing was considered but not performed or refused? (CT, X-rays, U/S, labs)? Why? @ -[None] What meds were considered but not given or refused? Why? @ -[None] Did you discuss the management of the patient with other professionals (professionals i.e. , PA, GIN POLE OPERATOR, lab, RT, psych nurse, director social welfare, sugar controller, teacher, chief communications officer, case management associate)? Give summary @ -[No] Was smoking cessation discussed for >3mins.? @ -[No] Was critical care preformed (if so, how long)? @ -[No] Were there social determinants of health that impacted care today? How? (Homelessness, low income, unemployed, alcoholism, drug addiction, transportation, low edu. Level, literacy, decrease access to med. care, [facility], r ehab)? @ -[No] Was there de-escalation of care discussed even if they declined (Discuss DNR or withdrawal of care, Hospice)? DNR status @ -[No] What co-morbidities impacted this encounter? (DM, HTN, Smoking, COPD, CAD, Cancer, CVA, ARF, Chemo, Hep., AIDS, mental health diagnosis, sleep apnea, morbid obesity)? @ -[None] Was patient admitted / discharged? Hospital course, mention meds given and r oute, prescriptions, significant lab abnormalities, going to OR and other pertinent info. @ -[hospital course] Undiagnosed new problem with uncertain prognosis? @ -[No] Drug Therapy requiring intensive monitoring for toxicity (Heparin, Nitro, Insulin, Cardizem)? @ -[No] Were any procedures done? @ -[No] Diagnosis/symptom? @ -[default] Acute, or Chronic, or Acute on Chronic? @ -[default] Uncomplicated (without systemic symptoms) or Complicated (systemic symptoms)? @ -[default] Side effects of treatment? @ -[No] Exacerbation, Progression, or Severe Exacerbation? @ -[No] Poses a threat to life or bodily function? How? (Chest pain, [place], SC, pneumonia, PE, COPD, DKA, ARF, appy, cholecystitis, CVA, Diverticulitis, Homicidal, Suicidal, threat to staff... and all critical care pts) @ -[No] (Rhea Kaur) Disposition <Darren Posadas - Last Filed: 03/21/24 18:44> Is patient prescribed a controlled substance at d/c from ED?: No Time of Disposition: 21:42 Decision to Admit Reason: Admit from EC Decision Date: 03/21/24 Decision Time: 21:42 <Rhea Kaur - Last Filed: 03/21/24 21:42> Clinical Impression: Chest pain Disposition: ADMITTED IP TO THIS HOSP Condition: Stable Referrals: Sheila Grace MD [Primary Care Provider] - 1-2 days
[2024-03-21 19:16] LABS: Anisocytosis Slight; Basophils % (A) 1 %; Eosinophils # (A) 0.1 k/uL (0-0.7); Eosinophils % (A) 3 %; HCT 39.6 % (34.0-46.0); HGB 12.2 gm/dL (11.4-16.0); Hypochromasia Marked; Lymphocytes # (A) 1.1 k/uL (1.0-4.8); Lymphocytes % (A) 19 %; MCH 26.6 pg (25.0-35.0); MCHC 30.8 g/dL (31.0-37.0); MCV 86.2 fL (80.0-100.0); Mean Platelet Volume 7.7; Monocytes # (A) 0.4 k/uL (0-1.0); Monocytes % (A) 7 %; Neutrophils # (A) 3.7 k/uL (1.3-7.7); Neutrophils % (A) 68 %; Platelet Count 164 k/uL (150-450); RDW 16.1 % (11.5-15.5); WBC 5.5 k/uL (3.8-10.6)
--- NOTE | 2024-03-21 19:16 | XR ---
EXAMINATION TYPE: XR chest 2V DATE OF EXAM: 03/21/2024 7:08 PM COMPARISON: Previous chest radiograph 06/23/2023. CLINICAL INDICATION: Female, 78 years old with history of Chest Pain; [facility] TECHNIQUE: XR chest 2V Frontal and lateral views of the chest. FINDINGS: Cardiac silhouette prominent, similar to prior study. New focal consolidation in the medial aspect of the right upper lobe. No sizable pleural effusion. Lungs hyperinflated bilaterally with coarsening of the interstitial markings. No acute osseous abnormality. IMPRESSION: 1. Right upper lobe consolidated changes suspicious for pneumonia. 2. Questionable prominence of the thoracic aorta. Consider CT chest for further evaluation if there is underlying clinical concern for dissection. [facility], , 03/21/2024 7:14 PM
[2024-03-21 19:32] LABS: ALT 29 U/L (4-34); African American GFR (CKD) >90 (>60 ml/min/1.73 sqM); Albumin 4.3 g/dL (3.5-5.0); Anion Gap 9 mmol/L; Blood Urea Nitrogen 23 mg/dL (7-17); Calcium 9.4 mg/dL (8.4-10.2); Carbon Dioxide 28 mmol/L (22-30); Chloride 103 mmol/L (98-107); Glucose 99 mg/dL (74-99); Lipase 54 U/L (23-300); Non-African American GFR(CKD) 84 (>60 ml/min/1.73 sqM); Sodium 140 mmol/L (137-145); Total Bilirubin 0.7 mg/dL (0.2-1.3); Total Protein 6.7 g/dL (6.3-8.2)
[2024-03-21 19:36] LABS: INR 1.3 (<1.2); Partial Thromboplastin Time 32.1 sec (22.0-30.0); Prothrombin Time 14.1 sec (10.0-12.5)
[2024-03-21 19:40] LABS: NT-Pro-B-Type Natriuretic Pept 1180 pg/mL
[2024-03-21 19:41] LABS: AST 44 U/L (14-36); Alkaline Phosphatase 43 U/L (38-126); Potassium 4.3 mmol/L (3.5-5.1)
[2024-03-21] MEDS: diphenhydrAMINE 50 MG/ML 1 ML VIAL IVP STA (20:11)
[2024-03-21] MEDS: FAMOTIDINE 20 MG/2 ML VIAL IV STA (20:11)
[2024-03-21] MEDS: HYDROcodone/APAP 7.5-325MG 1 EACH TAB PO ONE (20:11)
[2024-03-21] MEDS: methylPREDNISolone SOD SUCCI 125 MG/2 ML VIAL IV STA (20:12)
--- NOTE | 2024-03-21 21:23 | CT ---
EXAMINATION TYPE: CT noncontrast chest abdomen pelvis. CT angio thor/abd pel aorta DATE OF EXAM: 03/21/2024 9:06 PM COMPARISON: Previous CT study 12/26/2022.. CLINICAL INDICATION: Female, 78 years old with history of chest pain; PHH, chest pain TECHNIQUE: Noncontrast CT chest followed by CT angiogram chest abdomen pelvis. A noncontrast CT chest Multiple a xial CT images of the chest, abdomen, and pelvis were obtained prior to and after the administration of IV contrast. 3-D reformats and maximum intensity projection format were performed on a separate wo rkstation. . Contrast used:100ml mL of Isovue 370 without and with IV Contrast, CT DLP: 2318.5 mGycm, Automated exposure control for dose reduction was used. FINDINGS: CTA chest: Cardiomegaly without significant pericardial effusion. Mild coronary artery calculi since. Calcified atelectatic disease and mild dilatation of the ascending thoracic aorta measuring up to 4.1 cm in te meter at the level of the right pulmonary artery. Mildly dilated main pulmonary artery measuring 2.2 cm in diameter. Annular calcifications. No pathologic mediastinal or hilar lymphadenopathy. No pathologic axillary ly mphadenopathy. No central or segmental acute pulmonary embolism. Imaging through the lungs demonstrates centrilobular and paraseptal emphysema, most dense in the apic es. No suspicious pulmonary mass. No acute focal consolidation. No pleural effusion or pneumothorax. 3 mm ground glass nodule right upper lobe (image 55). Near complete collapse/atelectasis of the right middle lobe, likely chronic in etiology. Osseous structures demineralized. No acute fracture or traumatic dilatation. Multilevel thoracic spin e degenerative changes. CTA abdomen/pelvis: Evaluation of abdominal organs suboptimal due to arterial phase of contrast. No suspicious liver lesi on identified. Gallbladder unremarkable. Spleen normal in size and morphology. No suspicious tumor no dule. Pancreas unremarkable. No abnormal biliary ductal dilatation. Symmetric enhancement of the kidn eys bilaterally. No hydronephrosis or right ureter. Nonspecific irregular calculi. Fat-sat Extensive colonic diverticulosis without acute diverticulitis. Post surgical anastomotic changes note d in the anterior abdomen. Small hiatal hernia. No pathologic retroperitoneal or mesenteric adenopath y. No significant free fluid or free air in the abdomen/pelvis. Calcified atherosclerotic disease of the abdominal aorta without aneurysmal dilatation. 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 Urinary bladder unremarkable. Uterus surgically absent. No acute osseous abnormality. IMPRESSION: 1. No acute abnormality in the chest/abdomen/pelvis. 2. Nonacute findings as above. [facility], , 03/21/2024 9:20 PM
[2024-03-21] MEDS ORDERED: NALOXONE 0.4 MG/ML 1 ML VIAL IV PRN (21:42)
[2024-03-21] MEDS ORDERED: PNEUMONIA PROTOCOL UTILIZED 1 EACH MISC PO PRN (21:47)
[2024-03-21] MEDS: AZITHROMYCIN 500 MG in SODIUM CHLORIDE 0.9% 250 ML IVPB ONE (22:58)
[2024-03-21] MEDS: AZITHROMYCIN 500 MG in SODIUM CHLORIDE 0.9% 250 ML IVPB STA (23:05)
[2024-03-22] MEDS: IPRATROPIUM-ALBUTEROL 3 ML NEB INHALATION PRN (00:07)
[2024-03-22] MEDS: IPRATROPIUM-ALBUTEROL 3 ML NEB INHALATION STA (00:07)
[2024-03-22 05:14] LABS: Anisocytosis Slight; Basophils % (A) 0 %; Eosinophils % (A) 0 %; HCT 38.1 % (34.0-46.0); HGB 11.7 gm/dL (11.4-16.0); Hypochromasia Marked; Lymphocytes # (A) 0.4 k/uL (1.0-4.8); Lymphocytes % (A) 10 %; MCH 26.8 pg (25.0-35.0); MCHC 30.9 g/dL (31.0-37.0); Mean Platelet Volume 8.1; Monocytes # (A) 0.1 k/uL (0-1.0); Monocytes % (A) 1 %; Neutrophils # (A) 3.7 k/uL (1.3-7.7); Neutrophils % (A) 89 %; Platelet Count 155 k/uL (150-450); RBC 4.38 m/uL (3.80-5.40); RDW 16.1 % (11.5-15.5); WBC 4.2 k/uL (3.8-10.6)
[2024-03-22 05:45] LABS: African American GFR (CKD) >90 (>60 ml/min/1.73 sqM); Anion Gap 9 mmol/L; Blood Urea Nitrogen 23 mg/dL (7-17); Calcium 9.2 mg/dL (8.4-10.2); Carbon Dioxide 27 mmol/L (22-30); Chloride 103 mmol/L (98-107); Glucose 168 mg/dL (74-99); Non-African American GFR(CKD) 88 (>60 ml/min/1.73 sqM); Potassium 4.1 mmol/L (3.5-5.1); Sodium 139 mmol/L (137-145)
[2024-03-22] MEDS ORDERED: POTASSIUM CHLORIDE ER 20 MEQ TAB.ER PO SCH (09:00)
[2024-03-22] MEDS: ASPIRIN 81 MG PO SCH (09:26)
[2024-03-22] MEDS: AZITHROMYCIN 500 MG TAB PO SCH (09:28)
[2024-03-22] MEDS: FUROSEMIDE 20 MG TAB PO SCH (09:28)
[2024-03-22] MEDS: FUROSEMIDE 40 MG TAB PO SCH (09:29)
[2024-03-22] MEDS: DAPAGLIFLOZIN PROPANEDIOL 10 MG TABLET PO SCH (09:29)
[2024-03-22] MEDS: METOPROLOL TARTRATE 50 MG TAB PO SCH ×2 (09:30→18:05)
[2024-03-22] MEDS: POTASSIUM CHLORIDE ER 10 MEQ TAB.ER.PRT PO SCH (09:30)
[2024-03-22] MEDS: LOSARTAN 50 MG TAB PO SCH (09:34)
[2024-03-22] MEDS ORDERED: HYDROcodone/APAP 7.5-325MG 1 EACH TAB PO PRN (10:39)
[2024-03-22] MEDS ORDERED: ALBUTEROL NEBULIZED 2.5 MG/3 ML INHALATION PRN (10:39)
--- NOTE | 2024-03-22 11:37 | P.CRDCN ---
History of Present Illness Consult date: 03/22/24 Consult reason: chest pain History of present illness: This is a 78-year-old female patient of Dr. Sandra Bernardo with past medical history of persistent atrial fibrillation on Xarelto, hypertension, aortic stenosis and regurgitation, mitral regurgitation, mild CAD. We have been asked to evaluate the patient for chest pain. Patient states that she developed pain and discomfort in the left side of her chest that went under her breast to the left lateral chest wall. She states when she moves her left arm the pain is worse. She states she was moving and she was unpacking boxes and she developed this sharp pain. It was worse with activity and better when she was at rest. She states she had this pain for about 4 hours yesterday. She states now her chest is sore. Regarding atrial fibrillation. She has had cardioversion x 2 in the past with only brief episodes of sinus rhythm. She does have a history of smoking as well as asthma and COPD and follows with Dr. Miguel. She states chronic shortness of breath keeps her from being very active. She utilizes a walker for ambulation. Blood pressure 145/86, heart rate 85, pulse ox 93% on room air. Patient has been started on IV antibiotics for possible pneumonia. -EKG: -Chest x-ray: Right upper lobe consolidation suspicious for pneumonia. -CT a of the thorax and abdominal pelvic aorta, noncontrast CT of the abdomen pelvis: No acute abnormality in the chest, abdomen, pelvis. Nonacute findings. -Laboratory studies: Hemoglobin 11.7. Electrolytes are normal, BUN 23 creatinine 0.61. Troponin negative x 3. proBNP 1180. -Home cardiac medications: Aspirin 81 mg daily, Zetia 10 mg daily, Lasix 40 mg daily, losartan 25 mg daily, Lopressor 50 mg twice daily, Xarelto 20 mg at sup per, Crestor 40 mg daily. -Cardiac catheterization performed 05/13/2023 reveals mild to moderate disease involving the ostial portion of the ramus intermedius. Plan is for medical management. -Echocardiogram performed 05/13/2023 revealed mild LV systolic dysfunction with EF of 45%, mild to moderate aortic regurgitation, mild to moderate mitral regurgitation. Review Of Systems: At the time of my exam: CONSTITUTIONAL: Denies fever or chills. HEENT: Denies blurred vision, vision changes, or eye pain. Denies hemoptysis CARDIOVASCULAR: Denies chest pain. Denies orthopnea. Denies PND. Denies palpit ations RESPIRATORY: Denies shortness of breath. GASTROINTESTINAL: Denies abdominal pain. Denies nausea or vomiting. HEMATOLOGIC: Denies bleeding disorders. GENITOURINARY: Denies any blood in urine. SKIN: Denies puritis. Denies rash. Physical examination: Gen: This is a 78-year-old morbidly obese woman in no acute distress. VS: reviewed HEENT: Head is atraumatic, normocephalic. Pupils equal, round. Sclerae is anicteric. NECK: Supple. No JVD. LUNGS: Clear to auscultation. No wheezes or rhonchi. No intercostal retractions. HEART: Irregular rate and rhythm. No murmur. Mild tenderness with palpation ABDOMEN: Soft No tenderness. EXTREMITIES: No pedal edema. No calf tenderness. NEUROLOGICAL: Patient is awake, alert and oriented x3. Assessment: Atypical chest pain, acute coronary syndrome ruled out Persistent atrial fibrillation on Xarelto Hypertension Aortic stenosis and regurgitation Mitral regurgitation Mild CAD Plan: Resume patient's home cardiac medications with the following changes Decrease Lasix to 20 mg daily Add Farxiga 10 mg daily Obtain 2-D echocardiogram and Doppler study to assess cardiac structure and function Further recommendations to follow based upon clinical course Thank you kindly for this consultation. Nurse practitioner note has been reviewed, I agree with documented findings and plan of care. Patient was seen and examined. 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 Past Anesthesia/Blood Transfusion Reactions: Motion Sickness, Postoperative Nausea & Vomiting (PONV) Additional Past Anesthesia/Blood Transfusion Reaction / Comment(s): Pt has claustrophobia. Past Psychological History: No Psychological Hx Reported Additional Psychological History / Comment(s): Pt resides alone. She drives. Smoking Status: Former smoker Past Alcohol Use History: None Reported Additional Past Alcohol Use History / Comment(s): STARTED SMOKING AT AGE 15 QUIT AT AGE 41 SMOKED 1 PPD OR LESS. Past Drug Use History: None Reported - Past Family History Sister(s) Family Medical History: Pulmonary Embolus Father Family Medical History: Myocardial Infarction (SC) Additional Family Medical History / Comment(s): Father had his first SC at the age of 61 yrs. Mother Family Medical History: Cancer Additional Family Medical History / Comment(s): LYMPHOMA Medications and Allergies Home Medications Medication Instructions Recorded Confirmed Type Pantoprazole Sodium [Protonix] 40 mg PO DAILY 07/23/13 03/22/24 History Multivitamin/Iron/Folic Acid 1 tab PO DAILY 05/05/14 03/22/24 History [Centrum Complete Multivit Tab] Albuterol Inhaler [Ventolin Hfa 2 puff INHALATION RT-Q4H PRN 08/27/19 03/22/24 History Inhaler] Furosemide [Lasix] 40 mg PO DAILY 03/07/20 03/22/24 History Potassium Chloride [Klor-Con 20] 20 meq PO DAILY 03/07/20 03/22/24 History Ascorbic Acid [Vitamin C] 500 mg PO DAILY 06/05/20 03/22/24 History Aspirin 81 mg PO DAILY 06/23/20 03/22/24 History Metoprolol Tartrate [Lopressor] 50 mg PO BID 06/02/21 03/22/24 History Montelukast [Singulair] 10 mg PO HS 06/02/21 03/22/24 History Rosuvastatin Calcium [Crestor] 40 mg PO DAILY 06/02/21 03/22/24 History Ezetimibe [Zetia] 10 mg PO DAILY 11/07/21 03/22/24 History HYDROcodone/APAP 7.5-325MG [[place] 1 tab PO BID PRN 07/08/22 03/22/24 History 7.5-325] Rivaroxaban [Xarelto] 20 mg PO PC-SUPPER 07/08/22 03/22/24 History Ubidecarenone [Coenzyme Q10] 200 mg PO DAILY 12/26/22 03/22/24 History Cholecalciferol (Vitamin D3) 50 mcg PO DAILY 05/12/23 03/22/24 History [Vitamin D3 (50 Mcg = 2000 Iu)] Losartan [Cozaar] 25 mg PO DAILY 05/12/23 03/22/24 History Ipratropium-Albuterol Nebulize 3 ml INHALATION RT-BID 12/19/23 03/22/24 History [Duoneb 0.5 mg-3 mg/3 ml Soln] Allergies Allergy/AdvReac Type Severity Reaction Status Date / Time amoxicillin trihydrate Allergy Rash/Hives Verified 03/22/24 08:54 [From Augmentin] hydromorphone HCl Allergy Rash/Hives Verified 03/22/24 08:54 [From Dilaudid] Iodinated Contrast Media Allergy Red face Verified 03/22/24 08:54 [Iodinated Contrast Media - and felt IV Dye] like it was on fire. Penicillins Allergy Rash/Hives Verified 03/22/24 08:54 on chest potassium clavulanate Allergy Rash/Hives Verified 03/22/24 08:54 [From Augmentin] Doudvpg-XDE-CfH Reductase Allergy LEG Verified 03/22/24 08:54 Inhibitor SWELLING [Ehahria-Ewr-Huw Reductase AND PAIN Inhibitor] tramadol Allergy "VERY RED Verified 03/22/24 08:54 FACE" Physical Exam Vitals: Vital Signs Temp Pulse Pulse Resp BP BP Pulse Ox 03/22/24 07:00 98.3 F 85 16 145/86 93 L 03/22/24 02:00 98.0 F 88 18 131/85 96 03/22/24 00:15 99 03/22/24 00:07 98 03/21/24 23:06 97.7 F 67 158/87 92 L 03/21/24 22:21 77 18 96 03/21/24 21:07 76 18 142/86 95 03/21/24 20:10 78 18 132/89 94 L 03/21/24 18:38 98.2 F 67 16 131/72 95 Intake and Output 03/21/24 03/22/24 03/22/24 22:59 06:59 14:59 Other: # Voids 1 2 Weight 99.79 kg Results 03/22/24 04:45 03/22/24 04:45 Cardiac Enzymes 03/21/24 03/21/24 03/22/24 Range/Units 19:00 19:00 00:10 AST 44 H (14-36) U/L Troponin I <0.012 <0.012 (0.000-0.034) ng/mL 03/22/24 Range/Units 04:45 AST (14-36) U/L Troponin I <0.012 (0.000-0.034) ng/mL Coagulation 03/21/24 Range/Units 19:00 PT 14.1 H (10.0-12.5) sec APTT 32.1 H (22.0-30.0) sec CBC 03/21/24 03/22/24 Range/Units 19:00 04:45 WBC 5.5 4.2 (3.8-10.6) k/uL RBC 4.60 4.38 (3.80-5.40) m/uL Hgb 12.2 11.7 (11.4-16.0) gm/dL Hct 39.6 38.1 (34.0-46.0) % Plt Count 164 155 (150-450) k/uL Comprehensive Metabolic Panel 03/21/24 03/22/24 Range/Units 19:00 04:45 Sodium 140 139 (137-145) mmol/L Potassium 4.3 4.1 (3.5-5.1) mmol/L Chloride 103 103 (98-107) mmol/L Carbon Dioxide 28 27 (22-30) mmol/L BUN 23 H 23 H (7-17) mg/dL Creatinine 0.69 0.61 (0.52-1.04) mg/dL Glucose 99 168 H (74-99) mg/dL Calcium 9.4 9.2 (8.4-10.2) mg/dL AST 44 H (14-36) U/L ALT 29 (4-34) U/L Alkaline Phosphatase 43 (38-126) U/L Total Protein 6.7 (6.3-8.2) g/dL Albumin 4.3 (3.5-5.0) g/dL Current Medications Generic Name Dose Route Start Last Admin Trade Name Freq PRN Reason Stop Dose Admin Albuterol/Ipratropium 3 ml 03/21/24 21:47 03/22/24 00:07 Ipratropium-Albuterol 3 Ml Neb INHALATION 3 ml RT-Q4H PRN Administration shortness of breath Azithromycin 500 mg 03/22/24 09:00 Azithromycin 500 Mg Tab PO 03/23/24 09:01 DAILY [facility] Protocol Ceftriaxone Sodium 2 gm/ 50 mls @ 100 mls/hr 03/22/24 21:00 Sodium Chloride IVPB 03/25/24 21:29 Q24H [facility] Protocol Miscellaneous Information 1 each 03/21/24 21:47 Pneumonia Protocol Utilized 1 Each Misc PO ONCE PRN Per Protocol Naloxone HCl 0.2 mg 03/21/24 21:42 Naloxone 0.4 Mg/Ml 1 Ml Vial IV Q2M PRN Opioid Reversal Intake and Output 03/21/24 03/22/24 03/22/24 22:59 06:59 14:59 Other: # Voids 1 2 Weight 99.79 kg 03/22/24 04:45 03/22/24 04:45
--- NOTE | 2024-03-22 13:23 | CA ---
Transthoracic Echo Report Name: Kimberly De La Cruz Age: 78 Gender: F : 1945 Exam Date: 03/22/2024 12:31 Exam Location: [facility] Ht (in): 62 Wt (lb): 220 Ordering Physician: Yolanda Munoz Attending/Referring Phys: [id number], Alexander Telescope Operator Allyson Gonzalez RDCS Procedure CPT: Indications: LVF Cardiac Hx: Technical Quality: Technically difficult study Contrast 1: Definity Total Dose (mL): 2 Contrast 2: Total Dose (mL): MEASUREMENTS (Male / Female) Normal Values 2D ECHO LV Diastolic Diameter PLAX 4.2 cm 4.2 - 5.9 / 3.9 - 5.3 cm LV Systolic Diameter PLAX 2.9 cm IVS Diastolic Thickness 1.1 cm 0.6 - 1.0 / 0.6 - 0.9 cm LVPW Diastolic Thickness 1.0 cm 0.6 - 1.0 / 0.6 - 0.9 cm LV Relative Wall Thickness 0.5 RV Internal Dim ED PLAX 3.3 cm LA Systolic Diameter LX 3.3 cm 3.0 - 4.0 / 2.7 - 3.8 cm LA Volume 74.5 cm??? 18 - 58 / 22 - 52 cm??? LA Volume Index 34.8 cm???/m??? 16 - 28 cm???/m??? M-MODE Aortic Root Diameter MM 3.4 cm DOPPLER AV Peak Velocity 190.2 cm/s AV Peak Gradient 14.5 mmHg AI Peak Velocity 471.3 cm/s AI Peak Gradient 88.8 mmHg AI Pressure Half Time 505.2 ms MV Area PHT 4.0 cm??? MR Peak Velocity 514.4 cm/s MR Peak Gradient 105.8 mmHg MV Deceleration Time 166.2 ms TR Peak Velocity 279.7 cm/s TR Peak Gradient 31.3 mmHg Right Ventricular Systolic Press 36.3 mmHg FINDINGS Left Ventricle Left ventricular ejection fraction is estimated at 55-60 %. Left ventricular cavity size normal. Mildly increased septal wall thickness. Mildly increased posterior wall thickness. Right Ventricle Mild right ventricular dilatation. Mild pulmonary hypertension. Right Atrium Normal right atrial size. No right atrial thrombus or mass seen. Left Atrium Moderately increased left atrial volume. Mildly increased left atrial area. Mitral Valve Structurally normal mitral valve. Mitral valve thickened. Moderate mitral annular calcification. [id number] mitral regurgitation. Aortic Valve Trileaflet aortic valve. Thickened aortic valve without stenosis. Mild aortic regurgitation. Tricuspid Valve Structurally normal tricuspid valve. Mild tricuspid regurgitation. Pulmonic Valve Structurally normal pulmonic valve. Trace pulmonic regurgitation. Pericardium No pericardial or pleural effusion. Aorta Normal size aortic root and proximal ascending aorta. CONCLUSIONS Technically difficult study. LVEF 55 to 60%, mild concentric LVH No obvious regional wall motion abnormality Mild RV dilatation. RVSP 36 mmHg Mild to moderate MR. Mild aortic regurgitation Previewed by: Dr Jai Foley (Electronically Signed) Final Date: 22 March 2024 13:22
[2024-03-22] MEDS ORDERED: RIVAROXABAN 20 MG TAB PO SCH (17:30)
[2024-03-22] MEDS: RIVAROXABAN 20 MG TAB PO SCH (17:57)
[2024-03-22] MEDS: MONTELUKAST 10 MG TAB PO SCH (18:05)
[2024-03-22] MEDS: ATORVASTATIN 80 MG TAB PO SCH (18:05)
[2024-03-22] MEDS: IPRATROPIUM-ALBUTEROL 3 ML NEB INHALATION SCH (20:15)
[2024-03-22] MEDS ORDERED: ATORVASTATIN 40 MG TAB PO SCH (21:00)
--- NOTE | 2024-03-23 05:03 | P.CNPUL ---
History of Present Illness Consult date: 03/23/24 Requesting physician: Yolanda Munoz Reason for consult: COPD Chief complaint: Left chest pain History of present illness: Patient is a 78-year-old female with past medical history significant for colon cancer, previous PE/DVT, chronic atrial fibrillation maintained on Xarelto, STEVE without CPAP, and chronic intermittent bronchial asthma. Presented to emergency department with acute left-sided chest pain. Worse when moving her left upper extremity. First noticed when moving and unpacking boxes. Noted to have a heart catheterization April, which showed mild to moderate nonobstru ctive coronary artery disease. Medical management was recommended. Initially presented emergency department back on August 19, and was admitted for cardiac workup. Troponins were negative x 3. EKG showing chronic atrial fibrillation, controlled ventricular response of 85 bpm, without acute ischemic changes. Echocardiogram done this admission estimating a left ventricular ejection fraction of 55 to 60%, mild LVH, mild to moderate regurgitation and mild aortic regurgitation. Patient has remained on Xarelto, she did stop it for 2 days approximately 1 month ago for dental procedure. Otherwise, has not missed any doses. Chest x-ray showed questionable right sided infiltrate or atelectasis. Questionable prominence of thoracic aorta. CT angio of the thoracic/abdomen aorta did not show any acute findings. Mild dilation of the ascending thoracic aorta measuring up to 4.1 cm in diameter. Right middle lobe atelectasis, chronic finding when compared to previous chest CTs dating back to 2020. emphysematous changes. No focal infiltrates, pleural effusions, or pneumothoraces. No suspicious pulmonary nodules or masses. CBC unremarkable for leukocytosis. CMP: Sodium 139, potassium 4.1, chloride 103, serum bicarb 27, BUN 23, creatinine 0.61, glucose 168. Troponin is less than 0.012 x 3. NT proBNP 1180. Previous started on empiric antibiotics in the ED. Currently being evaluated on the observation unit. She is on room air. No acute respiratory distress. Her chronic bronchial asthma appears stable. She does report chronic exertional dyspnea. Uses her as needed Ventolin inhaler at home. She denies any recent URI-like symptoms. Denies any cough, sputum production, chest pain. Admit occasional hemoptysis after being placed on Xarelto, however, nothing active. Denies recent sick contacts. Most recent vitals: Temperature 98.4 F, heart rate 80 bpm, blood pressure 156/67 mmHg, nontachypneic, SpO2 recorded as 92% on room air. Review of Systems Constitutional: Denies chills, Denies fever, Denies lethargy, Denies poor appetite, Denies weight gain, Denies weight loss Ears, nose, mouth and throat: Denies dental pain, Denies headache, Denies nasal congestion, Denies nasal discharge, Denies post-nasal drip, Denies sinus pain, Denies sinus pressure, Denies sore throat Cardiovascular: Reports chest pain, Reports dyspnea on exertion, Denies leg edema, Denies lightheadedness, Denies orthopnea, Denies palpitations, Denies paroxysmal nocturnal dyspnea, Denies syncope Respiratory: Reports as per HPI Gastrointestinal: Denies abdominal pain, Denies change in bowel habits, Denies constipation, Denies diarrhea, Denies nausea, Denies vomiting Genitourinary: Denies dysuria Musculoskeletal: Denies limitation of motion Integumentary: Denies rash Neurological: Denies seizures, Denies syncope Psychiatric: Denies anxiety, Denies depression Past Medical History Past Medical History: Atrial Fibrillation, Asthma, Cancer, Deep Vein Thrombosis (DVT), Eye Disorder, GERD/Reflux, Hypertension, Mitral Valve Prolapse (MVP), Osteoarthritis (OA), Pulmonary Embolus (PE), Sleep Apnea/CPAP/BIPAP, Vascular Disorder Additional Past Medical History / Comment(s): 2011 colon cancer, heart murmur, chronic low back pain, herniated discs, scoliosis, does not use C-PAP, 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 Past Anesthesia/Blood Transfusion Reactions: Motion Sickness, Postoperative Nausea & Vomiting (PONV) Additional Past Anesthesia/Blood Transfusion Reaction / Comment(s): Pt has claustrophobia. Past Psychological History: No Psychological Hx Reported Additional Psychological History / Comment(s): Pt resides alone. She drives. Smoking Status: Former smoker Past Alcohol Use History: None Reported Additional Past Alcohol Use History / Comment(s): STARTED SMOKING AT AGE 15 QUIT AT AGE 41 SMOKED 1 PPD OR LESS. Past Drug Use History: None Reported - Past Family History Sister(s) Family Medical History: Pulmonary Embolus Father Family Medical History: Myocardial Infarction (NE) Additional Family Medical History / Comment(s): Father had his first NE at the age of 61 yrs. Mother Family Medical History: Cancer Additional Family Medical History / Comment(s): LYMPHOMA Medications and Allergies Home Medications Medication Instructions Recorded Confirmed Type Pantoprazole Sodium [Protonix] 40 mg PO DAILY 07/23/13 03/22/24 History Multivitamin/Iron/Folic Acid 1 tab PO DAILY 05/05/14 03/22/24 History [Centrum Complete Multivit Tab] Albuterol Inhaler [Ventolin Hfa 2 puff INHALATION RT-Q4H PRN 08/27/19 03/22/24 History Inhaler] Potassium Chloride [Klor-Con 20] 20 meq PO DAILY 03/07/20 03/22/24 History Ascorbic Acid [Vitamin C] 500 mg PO DAILY 06/05/20 03/22/24 History Aspirin 81 mg PO DAILY 06/23/20 03/22/24 History Metoprolol Tartrate [Lopressor] 50 mg PO BID 06/02/21 03/22/24 History Montelukast [Singulair] 10 mg PO HS 06/02/21 03/22/24 History Rosuvastatin Calcium [Crestor] 40 mg PO DAILY 06/02/21 03/22/24 History Ezetimibe [Zetia] 10 mg PO DAILY 11/07/21 03/22/24 History HYDROcodone/APAP 7.5-325MG [[place] 1 tab PO BID PRN 07/08/22 03/22/24 History 7.5-325] Rivaroxaban [Xarelto] 20 mg PO PC-SUPPER 07/08/22 03/22/24 History Ubidecarenone [Coenzyme Q10] 200 mg PO DAILY 12/26/22 03/22/24 History Cholecalciferol (Vitamin D3) 50 mcg PO DAILY 05/12/23 03/22/24 History [Vitamin D3 (50 Mcg = 2000 Iu)] Ipratropium-Albuterol Nebulize 3 ml INHALATION RT-BID 12/19/23 03/22/24 History [Duoneb 0.5 mg-3 mg/3 ml Soln] Dapagliflozin Propanediol [Farxiga] 10 mg PO DAILY #30 tab 03/23/24 Rx Furosemide [Lasix] 20 mg PO DAILY #90 tab 03/23/24 Rx Losartan [Cozaar] 50 mg PO DAILY #30 tab 03/23/24 Rx Allergies Allergy/AdvReac Type Severity Reaction Status Date / Time amoxicillin trihydrate Allergy Rash/Hives Verified 03/22/24 08:54 [From Augmentin] hydromorphone HCl Allergy Rash/Hives Verified 03/22/24 08:54 [From Dilaudid] Iodinated Contrast Media Allergy Red face Verified 03/22/24 08:54 [Iodinated Contrast Media - and felt IV Dye] like it was on fire. Penicillins Allergy Rash/Hives Verified 03/22/24 08:54 on chest potassium clavulanate Allergy Rash/Hives Verified 03/22/24 08:54 [From Augmentin] Nvjfukc-KQT-MaL Reductase Allergy LEG Verified 03/22/24 08:54 Inhibitor SWELLING [Wukufwn-Srg-Wpi Reductase AND PAIN Inhibitor] tramadol Allergy "VERY RED Verified 03/22/24 08:54 FACE" Physical Exam Vitals: Vital Signs Temp Pulse Pulse Resp BP Pulse Ox 03/23/24 02:00 98.4 F 80 19 156/67 92 L 03/22/24 20:26 90 03/22/24 20:16 85 03/22/24 19:34 97.5 F L 92 17 126/69 95 03/22/24 15:56 88 03/22/24 15:43 84 03/22/24 14:05 97.8 F 87 16 130/79 96 03/22/24 07:00 98.3 F 85 16 145/86 93 L Intake and Output 03/22/24 03/22/24 03/23/24 14:59 22:59 06:59 Intake Total 118 Balance 118 Intake: Oral 118 Other: Voiding Method Toilet Toilet Toilet # Voids 3 1 GENERAL EXAM: Alert, 78-year-old obese female, comfortable in no apparent distress. HEAD: Normocephalic and atraumatic EYES: Normal reaction of pupils, equal size. NOSE: Clear with pink turbinates. THROAT: No erythema or exudates. NECK: No masses, no JVD. CHEST: No chest wall deformity. LUNGS: Equal air entry with no crackles, wheeze, rhonchi or dullness. On room air oxygen. No conversational dyspnea or accessory muscle use.. CVS: S1 and S2 normal with no audible murmur, irregular rhythm. No extra heart sounds ABDOMEN: No hepatosplenomegaly, active bowel sounds, no guarding or rigidity. SPINE: No scoliosis or deformity SKIN: No rashes CENTRAL NERVOUS SYSTEM: No focal deficits, tone is normal in all 4 extremities. EXTREMITIES: There is no peripheral edema, clubbing, or cyanosis. Peripheral pulses are intact. Results - Laboratory Findings CBC and BMP: 03/22/24 04:45 03/22/24 04:45 PT/INR, D-dimer PT 14.1 sec (10.0-12.5) H 03/21/24 19:00 INR 1.3 (<1.2) H 03/21/24 19:00 Abnormal lab findings: Abnormal Labs 03/21/24 03/21/24 03/21/24 19:00 19:00 19:00 MCHC 30.8 L RDW 16.1 H Lymphocytes # PT 14.1 H INR 1.3 H APTT 32.1 H BUN 23 H Glucose AST 44 H 03/22/24 03/22/24 04:45 04:45 MCHC 30.9 L RDW 16.1 H Lymphocytes # 0.4 L PT INR APTT BUN 23 H Glucose 168 H AST - Diagnostic Findings Chest x-ray: image reviewed CT scan - chest: image reviewed Assessment and Plan Assessment: Left arm and chest pain, appears musculoskeletal in nature, began after moving and unpacking some boxes. ACS has been essentially ruled out. Chronic bronchial asthma, appears stable Chronic right middle lobe atelectasis, dating back to at least 2020 Chronic atrial fibrillation, anticoagulated on Xarelto History of previous PE/DVT after right total knee replacement in 2018 History of mild to moderate nonobstructive coronary artery disease Valvular heart disease, most recent echocardiogram estimating a left ventricular ejection fraction of 55 to 60%, mild LVH, mild to moderate mitral regurgitation, as well as, mild aortic regurgitation. History of colon cancer with previous colectomy Morbid obesity, with a BMI of 40.2 kg/m History of obstructive sleep apnea, does not use CPAP at home Plan: Patient's medications, labs, imaging reviewed Currently on room air oxygen Continue as needed DuoNebs No acute focal infiltrates or evidence of pneumonia. Chronic atelectatic changes at the right middle lobe. Can discontinue antibiotics Xarelto has been continued Patient will continue to follow on outpatient basis with Dr. Miguel I have personally seen and examined the patient, performed the documentation and the assessment and plan as written. Number of minutes spent on the visit:20 this is a joint evaluation that was done along with a nurse practitioner. Evaluation was done more than 30 minutes. Patient has atypical nonspecific chest pain. Cardiac enzymes are negative. Blood work is essentially within normal limits. Troponins are negative. Echocardiogram was essentially within normal limits. Patient has mild to moderate MR, mild pulmonary hypertension. Chest x-ray was reviewed. No significant abnormalities. CTA of the thoracic aorta showed no significant right upper lobe pulmonary infiltration. The CTA also showed no evidence of any dissection or any other abnormalities. Patient is being seen by cardiology. Agree on the above-mentioned plan. Time with Patient: Greater than 30
--- NOTE | 2024-03-23 06:03 | P.HPIM ---
History of Present Illness H&P Date: 03/22/24 Chief Complaint: Chest pain HISTORY OF PRESENT ILLNESS This is a 78-year-old female patient of liza, Dr. Miguel and Dr. Saul Bernardo with past medical history of hypertension, hyperlipidemia, persistent atrial fibrillation on Xarelto status post to DC cardioversion that failed,glaucoma, DVT, pulmonary embolism, colon cancer status post partial colectomy, gastroesophageal reflux disease, mild intermittent asthma, mild COPD, patient presented to the emergency department at [facility] yesterday because of increased left-sided chest pain going down to the left shoulder and left arm associated with increased shortness of breath that has not changed from before, patient initially was seen in the emergency department, her chest x-ray did not show evidence of acute abnormalities except for atelectasis, but because of the prominence of the aorta that she underwent CT angiography of the chest abdomen and pelvis that showed mild dilatation of the aorta at 4.1 cm, with septal emphysema as well as chronic diverticulosis without diverticulitis as well as moderate superior mesenteric artery stenosis due to calcified plaque, patient did have a left heart catheterization that was done about a year ago by Dr. Gonzáles that showed normal left main, normal RCA, normal LAD, and normal left circumflex artery with high riding obtuse marginal with ostial stenosis 50 to 60%, at that time it was recommended for the patient to continue medical management, because of the presentation patient was admitted to the hospital for evaluation by cardiology, patient also stated that she has been getting some bloody sputum on and off, she will be seen in consultation by pulmonary medicine as well REVIEW OF SYSTEMS Constitutional: No documented fever, no chills, no night sweats. No weight change. No weakness, fatigue or lethargy. No daytime sleepiness. HEENT: No headache. No blurred vision or double vision, no loss of vision. No loss of Hearing, no ringing in the ears, no dizziness. No nasal drainage or congestion. No epistaxis. No sore throat. Lungs: positive for shortness of breath, occasional cough, minimal sputum production tinged with blood. No wheezing. Reports dyspnea with activity. Cardiovascular: Denies chest pain, no lower extremity edema. No palpitations. No paroxysmal nocturnal dyspnea. No orthopnea. No lightheadedness or dizziness. No syncopal episodes. Abdominal: Reports no abdominal pain. No nausea, vomiting. No diarrhea. No constipation. No bloody or tarry stools. reports loss of appetite. Genitourinary: No dysuria, increased frequency, urgency. No urinary retention. Musculoskeletal: No myalgias. No muscle weakness, positive for gait dysfunction, no frequent falls. positive for back pain. No neck pain. Integumentary: No wounds, no lesions. No rash or pruritus. No unusual bruising. No change in hair or nails. Neurologic: No aphasia. No facial droop. No change in mentation. No head injury. No headache. No paralysis. No paresthesia. Psychiatric: mild depression. No anxiety. No mood swings. Endocrine: No abnormal blood sugars. No weight change. MEDICAL HISTORY Hypertension hypertensive cardiovascular disease Mixed hyperlipidemia Persistent atrial fibrillation Glaucoma DVT/PE Colon cancer status post laparoscopic resection of transverse colon lesion Hiatal hernia Gastroesophageal reflux disease Diverticulosis. 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 Mild hiatal hernia. Obesity with obstructive sleep apnea. Not on CPAP SURGICAL HISTORY EGD Colonoscopy Laparoscopic resection of transverse colon lesion 2011 Adenoidectomy Tonsillectomy Hysterectomy Bladder prolapse repair Bilateral rotator cuff repair Total right knee arthroplasty Left knee arthroscopic Bilateral bunionectomies Bilateral cataract removal and intraocular lens implants SOCIAL HISTORY Patient was a smoker of one pack per day for 25 years and quit in 1992. She denies any marijuana use, alcohol use or illicit drug use. She resides in a senior apartment. FAMILY HISTORY Family history his first myocardial infarction at age 61. Mother from lymphoma. PHYSICAL EXAMINATION General: This is a 78-year-old female, sitting at the edge of bed in no apparent distress. On room air HEENT: Head is atraumatic, normocephalic, pupils were equal round reactive to light and recommendation, extraocular muscle movement were intact, sclera nonicteric, conjunctivae were pale, mucous membranes of the mouth are somewhat dry. Neck: Supple, no JVP, normal carotid upstroke bilaterally, no lymphadenopathy. Chest: Decreased breath sounds at the bases, few rhonchi, no extremity wheezes, no chest wall tenderness, no intercostal retractions. Heart: First heart sound is normal, second heart sounds normal, irregularly irregular, but there is systolic ejection murmur 2/6 located in the left sternal border. Abdomen: Soft, nontender, nondistended, positive bowel sounds. Extremities: There is no edema no calf tenderness DP +2 bilaterally. Neurologic examination: Patient is awake alert and oriented 3, cranial nerves II-12 appear grossly intact, muscle power were 5 out of 5 in upper extremities and 5 out of 5 in bilateral lower extremities, deep tendon reflexes normal bilaterally. ASSESSMENT AND PLAN 1. Chest pain/left arm pain likely noncardiac most likely musculoskeletal pain patient did have a workup including left heart catheterization on April 2023 that showed moderate stenosis of the high riding obtuse marginal branch 50 to 60% stenosis continue current treatment plan with metoprolol 50 mg orally twice every day, continue statin 80 mg once every day, Zetia 10 mg once every day, keep LDL less than 50. Echocardiogram was done showed evidence of normal ejection fraction, and moderate mitral regurgitation 2. Persistent atrial fibrillation. Continue Lopressor 50 mg twice daily and Xarelto 20 mg with supper. 3. Hypertension and hypertensive cardiovascular disease continue losartan milligram orally once every day, metoprolol 50 mg orally twice every day, monitor the patient blood pressure very closely. 4. Mild intermittent asthma. Continue DuoNeb 3 mL nebulization twice every day. 5. Glaucoma. Continue eyedrops. 6. Recurrent depression. Continue Zoloft 100 mg daily. 7. 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 8. Gastroesophageal reflux disease. Continue patient on Protonix 40 mg orally once every day. 9. DVT prophylaxis. Patient is on Xarelto 20 mg orally once every day . 10. Mixed hyperlipidemia. Continue atorvastatin 80 mg once every day, Zetia 10 mg once every day, monitor lipid panel, keep LDL less than 55. 11. Observation. 12. Full code. 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 Past Anesthesia/Blood Transfusion Reactions: Motion Sickness, Postoperative Nausea & Vomiting (PONV) Additional Past Anesthesia/Blood Transfusion Reaction / Comment(s): Pt has claustrophobia. Past Psychological History: No Psychological Hx Reported Additional Psychological History / Comment(s): Pt resides alone. She drives. Smoking Status: Former smoker Past Alcohol Use History: None Reported Additional Past Alcohol Use History / Comment(s): STARTED SMOKING AT AGE 15 QUIT AT AGE 41 SMOKED 1 PPD OR LESS. Past Drug Use History: None Reported - Past Family History Sister(s) Family Medical History: Pulmonary Embolus Father Family Medical History: Myocardial Infarction ([place]) Additional Family Medical History / Comment(s): Father had his first MA at the age of 61 yrs. Mother Family Medical History: Cancer Additional Family Medical History / Comment(s): LYMPHOMA Medications and Allergies Home Medications Medication Instructions Recorded Confirmed Type Pantoprazole Sodium [Protonix] 40 mg PO DAILY 07/23/13 03/22/24 History Multivitamin/Iron/Folic Acid 1 tab PO DAILY 05/05/14 03/22/24 History [Centrum Complete Multivit Tab] Albuterol Inhaler [Ventolin Hfa 2 puff INHALATION RT-Q4H PRN 08/27/19 03/22/24 History Inhaler] Furosemide [Lasix] 40 mg PO DAILY 03/07/20 03/22/24 History Potassium Chloride [Klor-Con 20] 20 meq PO DAILY 03/07/20 03/22/24 History Ascorbic Acid [Vitamin C] 500 mg PO DAILY 06/05/20 03/22/24 History Aspirin 81 mg PO DAILY 06/23/20 03/22/24 History Metoprolol Tartrate [Lopressor] 50 mg PO BID 06/02/21 03/22/24 History Montelukast [Singulair] 10 mg PO HS 06/02/21 03/22/24 History Rosuvastatin Calcium [Crestor] 40 mg PO DAILY 06/02/21 03/22/24 History Ezetimibe [Zetia] 10 mg PO DAILY 11/07/21 03/22/24 History HYDROcodone/APAP 7.5-325MG [[place] 1 tab PO BID PRN 07/08/22 03/22/24 History 7.5-325] Rivaroxaban [Xarelto] 20 mg PO PC-SUPPER 07/08/22 03/22/24 History Ubidecarenone [Coenzyme Q10] 200 mg PO DAILY 12/26/22 03/22/24 History Cholecalciferol (Vitamin D3) 50 mcg PO DAILY 05/12/23 03/22/24 History [Vitamin D3 (50 Mcg = 2000 Iu)] Losartan [Cozaar] 25 mg PO DAILY 05/12/23 03/22/24 History Ipratropium-Albuterol Nebulize 3 ml INHALATION RT-BID 12/19/23 03/22/24 History [Duoneb 0.5 mg-3 mg/3 ml Soln] Allergies Allergy/AdvReac Type Severity Reaction Status Date / Time amoxicillin trihydrate Allergy Rash/Hives Verified 03/22/24 08:54 [From Augmentin] hydromorphone HCl Allergy Rash/Hives Verified 03/22/24 08:54 [From Dilaudid] Iodinated Contrast Media Allergy Red face Verified 03/22/24 08:54 [Iodinated Contrast Media - and felt IV Dye] like it was on fire. Penicillins Allergy Rash/Hives Verified 03/22/24 08:54 on chest potassium clavulanate Allergy Rash/Hives Verified 03/22/24 08:54 [From Augmentin] Nlunciz-SJP-TaG Reductase Allergy LEG Verified 03/22/24 08:54 Inhibitor SWELLING [Byftrvh-Jei-Yrj Reductase AND PAIN Inhibitor] tramadol Allergy "VERY RED Verified 03/22/24 08:54 FACE" Physical Exam Vitals: Vital Signs Temp Pulse Pulse Resp BP BP Pulse Ox 03/22/24 07:00 98.3 F 85 16 145/86 93 L 03/22/24 02:00 98.0 F 88 18 131/85 96 03/22/24 00:15 99 03/22/24 00:07 98 03/21/24 23:06 97.7 F 67 158/87 92 L 03/21/24 22:21 77 18 96 03/21/24 21:07 76 18 142/86 95 03/21/24 20:10 78 18 132/89 94 L 03/21/24 18:38 98.2 F 67 16 131/72 95 Intake and Output 03/21/24 03/22/24 03/22/24 22:59 06:59 14:59 Other: # Voids 1 2 Weight 99.79 kg Results CBC & Chem 7: 03/22/24 04:45 03/22/24 04:45 Labs: Abnormal Lab Results - Last 24 Hours (Table) 03/21/24 03/21/24 03/21/24 Range/Units 19:00 19:00 19:00 MCHC 30.8 L (31.0-37.0) g/dL RDW 16.1 H (11.5-15.5) % Lymphocytes # (1.0-4.8) k/uL PT 14.1 H (10.0-12.5) sec INR 1.3 H (<1.2) APTT 32.1 H (22.0-30.0) sec BUN 23 H (7-17) mg/dL Glucose (74-99) mg/dL AST 44 H (14-36) U/L 03/22/24 03/22/24 Range/Units 04:45 04:45 MCHC 30.9 L (31.0-37.0) g/dL RDW 16.1 H (11.5-15.5) % Lymphocytes # 0.4 L (1.0-4.8) k/uL PT (10.0-12.5) sec INR (<1.2) APTT (22.0-30.0) sec BUN 23 H (7-17) mg/dL Glucose 168 H (74-99) mg/dL AST (14-36) U/L
[2024-03-23 07:42] VITALS: BP 139/83; RESP 16; TEMP 97.5
--- NOTE | 2024-03-23 08:40 | P.PN ---
Subjective Progress Note Date: 03/23/24 Consult date: 03/22/24 Consult reason: chest pain History of present illness: This is a 78-year-old female patient of Dr. Sandra Bernardo with past medical history of persistent atrial fibrillation on Xarelto, hypertension, aortic stenosis and regurgitation, mitral regurgitation, mild CAD. We have been asked to evaluate the patient for chest pain. Patient states that she developed pain and discomfort in the left side of her chest that went under her breast to the left lateral chest wall. She states when she moves her left arm the pain is worse. She states she was moving and she was unpacking boxes and she developed this sharp pain. It was worse with activity and better when she was at rest. She states she had this pain for about 4 hours yesterday. She states now her chest is sore. Regarding atrial fibrillation. She has had cardioversion x 2 in the past with only brief episodes of sinus rhythm. She does have a history of smoking as well as asthma and COPD and follows with Dr. Miguel. She states chronic shortness of breath keeps her from being very active. She utilizes a walker for ambulation. Blood pressure 145/86, heart rate 85, pulse ox 93% on room air. Patient has been started on IV antibiotics for possible pneumonia. -EKG: Atrial fibrillation 71 bpm -Chest x-ray: Right upper lobe consolidation suspicious for pneumonia. -CT a of the thorax and abdominal pelvic aorta, noncontrast CT of the abdomen pelvis: No acute abnormality in the chest, abdomen, pelvis. Nonacute findings. -Laboratory studies: Hemoglobin 11.7. Electrolytes are normal, BUN 23 creatinine 0.61. Troponin negative x 3. proBNP 1180. -Home cardiac medications: Aspirin 81 mg daily, Zetia 10 mg daily, Lasix 40 mg daily, losartan 25 mg daily, Lopressor 50 mg twice daily, Xarelto 20 mg at supper, Crestor 40 mg daily. -Cardiac catheterization performed 05/13/2023 reveals mild to moderate disease involving the ostial portion of the ramus intermedius. Plan is for medical management. -Echocardiogram performed 05/13/2023 revealed mild LV systolic dysfunction with EF of 45%, mild to moderate aortic regurgitation, mild to moderate mitral regurgitation. 03/23/2024 Patient seen and examined. Patient states she feels better but was coughing a bit today. She feels a little heaviness in chest which is much better. Yesterday, we started patient on Farxiga and decrease Lasix to 20 mg daily. Patient complains of lightheadedness sometimes. She lives alone. Blood pressure 156/67, heart rate 80, pulse ox 92% on room air. Patient remains in atrial fibrillation with controlled rate. Echocardiogram reveals EF 55 to 60% mild concentric LVH, difficult study, RVSP 36 mmHg, mild to moderate MR, mild aortic regurgitation. Physical examination: Gen: This is a 78-year-old morbidly obese woman in no acute distress. VS: reviewed HEENT: Head is atraumatic, normocephalic. Pupils equal, round. Sclerae is anicteric. NECK: Supple. No JVD. LUNGS: Clear to auscultation. No wheezes or rhonchi. No intercostal retractions. HEART: Irregular rate and rhythm. No murmur. Mild tenderness with palpation ABDOMEN: Soft No tenderness. EXTREMITIES: No pedal edema. No calf tenderness. NEUROLOGICAL: Patient is awake, alert and oriented x3. Assessment: Atypical chest pain, acute coronary syndrome ruled out Persistent atrial fibrillation on Xarelto Hypertension Aortic stenosis and regurgitation Mitral regurgitation Mild CAD Plan: Continue patient's home cardiac medications with the following changes Decrease Lasix to 20 mg daily Continue addition os Farxiga 10 mg daily No further cardiac workup at this time. Patient will follow up with Dr. Saul Bernardo in 1-2 weeks. Cardiology will sign off this case and follow on an as-needed basis. Please reconsult for any new concerns. Nurse practitioner note has been reviewed, I agree with documented findings and plan of care. Patient was seen and examined. Objective - Vital Signs Vital signs: Vital Signs Temp 98.4 F 03/23/24 02:00 Pulse 80 03/23/24 02:00 Resp 19 03/23/24 02:00 BP 156/67 03/23/24 02:00 Pulse Ox 92 L 03/23/24 02:00 FiO2 Intake & Output 03/22/24 03/23/24 03/23/24 18:59 06:59 18:59 Intake Total 118 Balance 118 Intake: Oral 118 Other: Voiding Method Toilet Toilet # Voids 3 2 - Labs CBC & Chem 7: 03/22/24 04:45 03/22/24 04:45
[2024-03-23] MEDS ORDERED: ASPIRIN 81 MG PO SCH (09:00)
[2024-03-23] MEDS ORDERED: LOSARTAN 50 MG TAB PO SCH (09:00)
[2024-03-23] MEDS ORDERED: FUROSEMIDE 40 MG TAB PO SCH (09:00)
[2024-03-23] MEDS ORDERED: NON FORMULARY DRUG (Ubidecarenone [Coenzyme Q10] 200 MG Capsule) PO SCH (09:00)
[2024-03-23] MEDS: ASCORBIC ACID 500 MG TAB PO SCH (09:12)
[2024-03-23] MEDS: PANTOPRAZOLE 40 MG TABLET PO SCH (09:12)
[2024-03-23] MEDS: EZETIMIBE 10 MG TAB PO SCH (09:13)
[2024-03-23] MEDS: CHOLECALCIFEROL 25 MCG (1000 IU) TABLET PO SCH (09:13)
[2024-03-23] MEDS: FUROSEMIDE 20 MG TAB PO SCH (09:13)
[2024-03-23] MEDS: MULTIVITAMINS, THERA 1 EACH TAB PO SCH (09:14)
[2024-03-23] MEDS: POTASSIUM CHLORIDE ER 20 MEQ TAB.ER PO SCH (09:15)
[2024-03-23 09:17] VITALS: PULSE 100
--- NOTE | 2024-03-26 00:17 | P.DS ---
Providers Date of admission: 03/21/24 21:48 Expected date of discharge: 03/23/24 Attending physician: Sheila Grace Consults: 03/21/24 21:42 Consult Physician Urgent Consulting Provider: [facility] Consult Reason/Comments: acute chest pain, possible acs Do you want consulting provider notified?: Yes 03/22/24 13:10 Consult Physician Routine Consulting Provider: Bill Miguel Consult Reason/Comments: copd, dyspnea. Do you want consulting provider notified?: Yes Primary care physician: Sheila Grace [facility] Course: HISTORY OF PRESENT ILLNESS This is a 78-year-old female patient of liza, Dr. Miguel and Dr. Saul Bernardo with past medical history of hypertension, hyperlipidemia, persistent atrial fibrillation on Xarelto status post to DC cardioversion that failed,glaucoma, DVT, pulmonary embolism, colon cancer status post partial colectomy, gastroesophageal reflux disease, mild intermittent asthma, mild COPD, patient presented to the emergency department at [facility] yesterday because of increased left-sided chest pain going down to the left shoulder and left arm associated with increased shortness of breath that has not changed from before, patient initially was seen in the emergency department, her chest x-ray did not show evidence of acute abnormalities except for atelectasis, but because of the prominence of the aorta that she underwent CT angiography of the chest abdomen and pelvis that showed mild dilatation of the aorta at 4.1 cm, with septal emphysema as well as chronic diverticulosis without diverticulitis as well as moderate superior mesenteric artery stenosis due to calcified plaque, patient did have a left heart catheterization that was done about a year ago by Dr. Gonzáles that showed normal left main, normal RCA, normal LAD, and normal left circumflex artery with high riding obtuse marginal with ostial stenosis 50 to 60%, at that time it was recommended for the patient to continue medical management, because of the presentation patient was admitted to the hospital for evaluation by cardiology, patient also stated that she has been getting some bloody sputum on and off, she will be seen in consultation by pulmonary medicine as well 03/23: Patient is sitting at the edge of the bed, she is doing much better, she denies any chest pain, shortness of breath, she was seen by pulmonary medicine who recommended current treatment plan follow-up with pulmonary medicine as an outpatient, patient also was seen in consultation by cardiology who continues same treatment plan, adjusted her medication a bit, follow-up with the patient as an outpatient. Discharge diagnoses: 1. Chest pain/left arm pain likely noncardiac most likely musculoskeletal 2. Persistent atrial fibrillation. 3. Hypertension and hypertensive cardiovascular disease 4. Mild intermittent asthma. 5. Glaucoma. 6. Recurrent depression. 7. 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 Gastroesophageal reflux disease with mild hiatal hernia 9. Mixed hyperlipidemia. 10. Moderate mitral regurgitation. 11. 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 Diverticulosis without diverticulitis 13. Thoracic aortic aneurysm of 4.1 cm Patient Condition at Discharge: Stable Plan - Discharge Summary New Discharge Prescriptions: No Action Pantoprazole Sodium [Protonix] 40 mg PO DAILY Multivitamin/Iron/Folic Acid [Centrum Complete Multivit Tab] 1 tab PO DAILY Albuterol Inhaler [Ventolin Hfa Inhaler] 2 puff INHALATION RT-Q4H PRN PRN Reason: Shortness Of Breath Potassium Chloride [Klor-Con 20] 20 meq PO DAILY Furosemide [Lasix] 40 mg PO DAILY Ascorbic Acid [Vitamin C] 500 mg PO DAILY Aspirin 81 mg PO DAILY Rosuvastatin Calcium [Crestor] 40 mg PO DAILY Metoprolol Tartrate [Lopressor] 50 mg PO BID Rivaroxaban [Xarelto] 20 mg PO PC-SUPPER Cholecalciferol (Vitamin D3) [Vitamin D3 (50 Mcg = 2000 Iu)] 50 mcg PO DAILY Ipratropium-Albuterol Nebulize [Duoneb 0.5 mg-3 mg/3 ml Soln] 3 ml INHALATION RT-BID Montelukast [Singulair] 10 mg PO HS Ezetimibe [Zetia] 10 mg PO DAILY HYDROcodone/APAP 7.5-325MG [[place] 7.5-325] 1 tab PO BID PRN PRN Reason: Pain Ubidecarenone [Coenzyme Q10] 200 mg PO DAILY Losartan [Cozaar] 25 mg PO DAILY Discharge Medication List Pantoprazole Sodium [Protonix] 40 mg PO DAILY 07/23/13 [History] Multivitamin/Iron/Folic Acid [Centrum Complete Multivit Tab] 1 tab PO DAILY 05/05/14 [History] Albuterol Inhaler [Ventolin Hfa Inhaler] 2 puff INHALATION RT-Q4H PRN 08/27/19 [History] Furosemide [Lasix] 40 mg PO DAILY 03/07/20 [History] Potassium Chloride [Klor-Con 20] 20 meq PO DAILY 03/07/20 [History] Ascorbic Acid [Vitamin C] 500 mg PO DAILY 06/05/20 [History] Aspirin 81 mg PO DAILY 06/23/20 [History] Metoprolol Tartrate [Lopressor] 50 mg PO BID 06/02/21 [History] Montelukast [Singulair] 10 mg PO HS 06/02/21 [History] Rosuvastatin Calcium [Crestor] 40 mg PO DAILY 06/02/21 [History] Ezetimibe [Zetia] 10 mg PO DAILY 11/07/21 [History] HYDROcodone/APAP 7.5-325MG [[place] 7.5-325] 1 tab PO BID PRN 07/08/22 [History] Rivaroxaban [Xarelto] 20 mg PO PC-SUPPER 07/08/22 [History] Ubidecarenone [Coenzyme Q10] 200 mg PO DAILY 12/26/22 [History] Cholecalciferol (Vitamin D3) [Vitamin D3 (50 Mcg = 2000 Iu)] 50 mcg PO DAILY 05/12/23 [History] Losartan [Cozaar] 25 mg PO DAILY 05/12/23 [History] Ipratropium-Albuterol Nebulize [Duoneb 0.5 mg-3 mg/3 ml Soln] 3 ml INHALATION RT-BID 12/19/23 [History] Follow up Appointment(s)/Referral(s): Sheila Grace MD [Primary Care Provider] - 1-2 days
== END 2024-03-23 14:37 | disposition home health service (06) ==
LOC: EC 18:34 → 6NMEDSUR 21:48
PROVIDERS: ADMIT Internal Medicine; ATTEND Internal Medicine
DX: R07.89 Other chest pain (principal); I48.19 Other persistent atrial fibrillation; I25.10 Atherosclerotic heart disease of native coronary artery without angina pectoris; I08.0 Rheumatic disorders of both mitral and aortic valves; K21.9 Gastro-esophageal reflux disease without esophagitis; K44.9 Diaphragmatic hernia without obstruction or gangrene; G47.33 Obstructive sleep apnea (adult) (pediatric); J44.89 Other specified chronic obstructive pulmonary disease; J45.20 Mild intermittent asthma, uncomplicated; J98.11 Atelectasis; E78.2 Mixed hyperlipidemia; I11.9 Hypertensive heart disease without heart failure; H40.9 Unspecified glaucoma; F33.9 Major depressive disorder, recurrent, unspecified; M47.816 Spondylosis without myelopathy or radiculopathy, lumbar region; M15.9 Polyosteoarthritis, unspecified; K55.1 Chronic vascular disorders of intestine; I71.20 Thoracic aortic aneurysm, without rupture, unspecified; E66.01 Morbid (severe) obesity due to excess calories; Z68.41 Body mass index [BMI] 40.0-44.9, adult; Z85.038 Personal history of other malignant neoplasm of large intestine; Z86.16 Personal history of COVID-19; Z86.711 Personal history of pulmonary embolism; Z86.718 Personal history of other venous thrombosis and embolism; Z87.891 Personal history of nicotine dependence; Z90.49 Acquired absence of other specified parts of digestive tract; Z79.899 Other long term (current) drug therapy; Z79.82 Long term (current) use of aspirin; Z79.01 Long term (current) use of anticoagulants; Z88.0 Allergy status to penicillin; Z88.5 Allergy status to narcotic agent; Z82.49 Family history of ischemic heart disease and other diseases of the circulatory system
CPT/HCPCS: 96365; 96366; 96367; 96375; 99285; 36415; 94640 ×3; 93005; 83880; 80053; 80048; 83690; 83735; 84484 ×2; 85025 ×2; 85610; 85730; 71046; 71275; 74174; G0378 ×3; C8929; J1200; J0456; J0696 ×2; J3490; Q9957; Q9967; J2919; 93306

== ENCOUNTER → 2024-07-26 | Outpatient (CLI) | payer MEDICARE, BC ==
--- NOTE | 2024-07-26 14:36 | MM ---
Reason for Exam: Screening (asymptomatic). Last mammogram was performed 1 year(s) and 1 month(s) ago. Patient History: Menarche at age 14. First Full-Term at age 19. Hysterectomy at age 34. Postmenopausal. Colorectal cancer, age 66. Patient used Estrogen for 3 years. Patient used Progesterone for 3 years. 11/27/2009, Benign Core Biopsy on the right side. Risk Values: Jyotsna 5 year model risk: 1.5%. NCI Lifetime model risk: 2.9%. Prior Study Comparison: 01/16/2017 Bilateral Screening Mammogram, [facility]. 04/01/2018 Bilateral Screening Mammogram, [facility]. 04/27/2019 Bilateral Screening Mammogram, [facility]. 05/15/2020 Bilateral Screening Mammogram, [facility]. 06/25/2021 Bilateral Screening Mammogram, [facility]. 06/26/2022 Bilateral MG 3D screening mammo w/cad, [facility]. 07/09/2023 Bilateral MG 3D screening mammo w/cad, [facility]. Tissue Density: There are scattered areas of fibroglandular density. Findings: Analyzed By CAD. Mammotome biopsy clip in the right breast is redemonstrated. There are new small round and linear calcifications bilaterally redemonstrated. Vascular calcifications bilaterally is seen. There is no suspicious new group of microcalcifications or new suspicious mass in either breast. Overall Assessment: Benign, BI-RAD 2 Management: Screening Mammogram of both breasts in 1 year. . Patient should continue monthly self-breast exams. A clinical breast exam by your physician is recommended on an annual basis. This exam should not preclude additional follow-up of suspicious palpable abnormalities. Note on Jyotsna scores and lifetime risk: 1. A Jyotsna score greater than 3% is considered moderate risk. If this is the case, consider specialist referral to assess eligibility for a risk reducing agent. 2. If overall lifetime risk for the development of breast cancer is 20% or higher, the patient may qualify for future screening with alternating mammogram and breast MRI. [facility], , 07/26/2024 2:33 PM. Electronically signed and approved by: Joey Bruno M.D.
== END | disposition home or self-care (01) ==
LOC: RADMAMWWP 13:48
PROVIDERS: ATTEND Internal Medicine
DX: Z12.31 Encounter for screening mammogram for malignant neoplasm of breast (principal); R92.323 Mammographic fibroglandular density, bilateral breasts; R92.1 Mammographic calcification found on diagnostic imaging of breast; Z78.0 Asymptomatic menopausal state
CPT/HCPCS: 77063; 77067

== ENCOUNTER 2024-09-19 08:30 | Emergency (ER) | payer MEDICARE, BC ==
[2024-09-19 08:37] VITALS: RESP 20
[2024-09-19] MEDS: MORPHINE SULFATE 4 MG/ML SYRINGE IM STA (09:12)
--- NOTE | 2024-09-19 09:24 | ED ---
Extremity Problem HPI - General Chief complaint: Extremity Problem,Nontraumatic Stated complaint: L knee pain Time Seen by Provider: 09/19/24 08:37 Source: patient, EMS, RN notes reviewed Mode of arrival: EMS Limitations: no limitations - History of Present Illness Initial comments: This is a 79-year-old female who presents to the emergency department for knee pain. Patient has a history of arthritis and deals with chronic knee pain. States that when she woke up this morning and tried to go to the bathroom she suddenly developed severe pain to the left knee, making it difficult to ambulate. This prompted her to call EMS for evaluation. Denies any known injuries. Believes that the pain in the right knee is essentially unchanged. She does take Harrison at night, but states that this did not help with her pain. She was given Toradol by EMS en route with some improvement. She was able to ambulate to the restroom when she arrived. MD Complaint: extremity pain - Related Data Home Medications Medication Instructions Recorded Confirmed Pantoprazole Sodium [Protonix] 40 mg PO DAILY 07/23/13 03/22/24 Multivitamin/Iron/Folic Acid 1 tab PO DAILY 05/05/14 03/22/24 [Centrum Complete Multivit Tab] Albuterol Inhaler [Ventolin Hfa 2 puff INHALATION RT-Q4H PRN 08/27/19 03/22/24 Inhaler] Potassium Chloride [Klor-Con 20] 20 meq PO DAILY 03/07/20 03/22/24 Ascorbic Acid [Vitamin C] 500 mg PO DAILY 06/05/20 03/22/24 Aspirin 81 mg PO DAILY 06/23/20 03/22/24 Metoprolol Tartrate [Lopressor] 50 mg PO BID 06/02/21 03/22/24 Montelukast [Singulair] 10 mg PO HS 06/02/21 03/22/24 Rosuvastatin Calcium [Crestor] 40 mg PO DAILY 06/02/21 03/22/24 Ezetimibe [Zetia] 10 mg PO DAILY 11/07/21 03/22/24 HYDROcodone/APAP 7.5-325MG [Harrison 1 tab PO BID PRN 07/08/22 03/22/24 7.5-325] Rivaroxaban [Xarelto] 20 mg PO PC-SUPPER 07/08/22 03/22/24 Ubidecarenone [Coenzyme Q10] 200 mg PO DAILY 12/26/22 03/22/24 Cholecalciferol (Vitamin D3) 50 mcg PO DAILY 05/12/23 03/22/24 [Vitamin D3 (50 Mcg = 2000 Iu)] Ipratropium-Albuterol Nebulize 3 ml INHALATION RT-BID 12/19/23 03/22/24 [Duoneb 0.5 mg-3 mg/3 ml Soln] Previous Rx's Medication Instructions Recorded Dapagliflozin Propanediol [Farxiga] 10 mg PO DAILY #30 tab 03/23/24 Furosemide [Lasix] 20 mg PO DAILY #90 tab 03/23/24 Losartan [Cozaar] 50 mg PO DAILY #30 tab 03/23/24 Ketorolac [Toradol] 10 mg PO Q6HR PRN #15 tab 09/19/24 Allergies Allergy/AdvReac Type Severity Reaction Status Date / Time amoxicillin trihydrate Allergy Rash/Hives Verified 09/19/24 08:37 [From Augmentin] hydromorphone HCl Allergy Rash/Hives Verified 09/19/24 08:37 [From Dilaudid] Iodinated Contrast Media Allergy Red face Verified 09/19/24 08:37 [Iodinated Contrast Media - and felt IV Dye] like it was on fire. Penicillins Allergy Rash/Hives Verified 09/19/24 08:37 on chest potassium clavulanate Allergy Rash/Hives Verified 09/19/24 08:37 [From Augmentin] Zaaptas-TEP-RfS Reductase Allergy LEG Verified 09/19/24 08:37 Inhibitor SWELLING [Srzksou-Fqk-Gjz Reductase AND PAIN Inhibitor] tramadol Allergy "VERY RED Verified 09/19/24 08:37 FACE" Review of Systems ROS Statement: Those systems with pertinent positive or pertinent negative responses have been documented in the HPI. ROS Other: All systems not noted in ROS Statement are negative. Past Medical History Past Medical History: Atrial Fibrillation, Asthma, Cancer, Deep Vein Thrombosis (DVT), Eye Disorder, GERD/Reflux, Hypertension, Mitral Valve Prolapse (MVP), Osteoarthritis (OA), Pulmonary Embolus (PE), Sleep Apnea/CPAP/BIPAP, Vascular Disorder Additional Past Medical History / Comment(s): 2011 colon cancer, heart murmur, chronic low back pain, herniated discs, scoliosis, does not use C-PAP, glaucoma with bilateral nerve damage behind eyes, varicose veins, PE 2018 after knee replacement,admitted for covid 01/2020, recent positive cologuard History of Any Multi-Drug Resistant Organisms: None Reported Past Surgical History: Adenoidectomy, Bladder Surgery, Bowel Resection, Hysterectomy, Joint Replacement, Orthopedic Surgery, Tonsillectomy Additional Past Surgical History / Comment(s): Colonoscopies/polypectomies, bladder prolapse repair, bilateral shoulder rotator cuff repair.Total right knee arthroplasty, L knee arthroscopy, bilateral feet bunionectomies, bilateral cataract removals with lens implants. Past Anesthesia/Blood Transfusion Reactions: Motion Sickness, Postoperative Nausea & Vomiting (PONV) Additional Past Anesthesia/Blood Transfusion Reaction / Comment(s): Pt has claustrophobia. Past Psychological History: No Psychological Hx Reported Smoking Status: Former smoker Past Alcohol Use History: None Reported Past Drug Use History: None Reported - Past Family History Sister(s) Family Medical History: Pulmonary Embolus Father Family Medical History: Myocardial Infarction ([place]) Additional Family Medical History / Comment(s): Father had his first [place] at the age of 61 yrs. Mother Family Medical History: Cancer Additional Family Medical History / Comment(s): LYMPHOMA General Exam Limitations: no limitations General appearance: alert, in no apparent distress Head exam: Present: atraumatic, normocephalic, normal inspection Respiratory exam: Present: normal lung sounds bilaterally. Absent: respiratory distress, wheezes, rales, rhonchi, stridor Cardiovascular Exam: Present: regular rate, normal rhythm Extremities exam: Present: other (Mild tenderness over the left patella. Range of motion limited by pain. No swelling or erythema.) Neurological exam: Present: alert, oriented X3, CN II-XII intact Psychiatric exam: Present: normal affect, normal mood Skin exam: Present: warm, dry, intact, normal color. Absent: rash Course Vital Signs 09/19/24 09/19/24 08:33 11:48 Temperature 98 F 98.0 F Pulse Rate 73 76 Respiratory 20 20 Rate Blood Pressure 123/74 113/69 O2 Sat by Pulse 96 97 Oximetry Medical Decision Making - Medical Decision Making This is a 79-year-old female who presents to the emergency department for left knee pain. Was pt. sent in by a medical professional or institution? @ -No Did you speak to anyone other than the patient for history? @ -No Did you review nursing and triage notes? @ -Yes, and I agree, it is accurate with regards to the patient's symptoms. Were old charts reviewed? @ -No Differential Diagnosis? @ -Differential Musculoskeletal Muscular strain, contusion, ligament sprain, fracture, arthritis, septic arthritis, bursitis, cellulitis, muscle spasm, nerve compression, DVT, arterial occlusion, herpes zoster, electrolyte abnormality, tumor.... This is not meant to be in all inclusive list EKG interpreted by me (3pts min.)? @ -Not obtained X-rays interpreted by me (1pt min.)? @ -X-ray of the left knee obtained. My interpretation identifies no acute fractures. CT interpreted by me (1pt min.)? @ -Not obtained U/S interpreted by me (1pt. min.)? @ -Duplex ultrasound of the left lower extremity obtained. My interpretation identifies no evidence of a DVT. What testing was considered but not performed? (CT, X-rays, U/S, labs)? Why? @ -None What meds were considered but not given? Why? @ -None Did you discuss the management of the patient with other professionals? @ -No Did you reconcile home meds? @ -No Was smoking cessation discussed for >3mins.? @ -No Was critical care preformed (if so, how long)? @ -No Were there social determinants of health that impacted care today? How? (Homelessness, low income, unemployed, alcoholism, drug addiction, transportation, low edu. Level, literacy, decrease access to med. care, residential, rehab)? @ -No Was there de-escalation of care discussed even if they declined? (Discuss DNR or withdrawal of care, Hospice)? @ -No What co-morbidities impacted this encounter? (DM, HTN, Smoking, COPD, CAD, Cancer, CVA, Hep., AIDS, mental health diagnosis, sleep apnea, morbid obesity)? @ -Osteoarthritis Was patient admitted / discharged? @ -Discharged. X-ray of the left knee obtained revealing severe osteoarthritis and a joint effusion. Duplex ultrasound obtained as well revealing no evidence of a DVT. Symptoms could be related to a soft tissue problem or pain from the joint effusion, likely caused by the severe arthritis. Pain was controlled in the emergency department. Toradol prescribed for further management. She does have Harrison she can take as needed. She had a right knee replacement with Dr. Otoniel ram previously. Advised she follow back up with him to discuss problems with the left knee and whether she may benefit from another knee replacement or nonsurgical options like injections. Patient discharged home in stable condition. Case discussed with ED attending Dr. Briones. Return precautions reviewed in depth, the patient is instructed to return to the emergency department with any new, worsening, or concerning symptoms. Patient verbalized understanding. Undiagnosed new problem with uncertain prognosis? @ -None Drug Therapy requiring intensive monitoring for toxicity (Heparin, Nitro, Insulin, Cardizem)? @ -None Were any procedures done? @ -None Diagnosis/symptom? @ -Left knee pain, joint effusion Acute, or Chronic, or Acute on Chronic? @ -Acute Uncomplicated (without systemic symptoms) or Complicated (systemic symptoms)? @ -Uncomplicated Side effects of treatment? @ -None Exacerbation, Progression, or Severe Exacerbation] @ -Not applicable Poses a threat to life or bodily function? @ -No - Radiology Data Radiology results: report reviewed, image reviewed Disposition Clinical Impression: Left knee pain, Effusion of knee joint, left Disposition: HOME SELF-CARE Instructions (If sedation given, give patient instructions): Osteoarthritis (ED), Swollen Knee Joint (ED) Additional Instructions: Return to the emergency department with any new, worsening, or concerning symptoms. Take the Toradol with Tylenol as needed for pain relief. If you choose to take the Toradol, do not take any other anti-inflammatories such as ibuprofen, take one or the other. Follow-up with orthopedics for reevaluation of the arthritis to see if there are any other treatment options such as injections they can do to help with your symptoms. Follow-up with your primary care provider as well. Prescriptions: Ketorolac [Toradol] 10 mg PO Q6HR PRN #15 tab PRN Reason: Pain Is patient prescribed a controlled substance at d/c from ED?: No Referrals: Sheila Grace MD [Primary Care Provider] - 1-2 days Jonas Nash MD [STAFF PHYSICIAN] - 1-2 days Time of Disposition: 11:01
--- NOTE | 2024-09-19 09:25 | XR ---
EXAMINATION TYPE: XR knee complete LT DATE OF EXAM: 09/19/2024 9:10 AM COMPARISON: None CLINICAL INDICATION: Female, 79 years old with history of Pain; PHH, pain TECHNIQUE: XR knee complete LT 4 views submitted. FINDINGS: No evidence of any acute osseous pathology. Mild soft tissue swelling. Tricompartmental o steophyte formation involving the femoral condyles, tibial plateau and patella. Moderate to severe jo-ann int space narrowing. There is a moderate joint effusion. IMPRESSION: 1. No acute osseous pathology. 2. Severe tricompartmental osteoarthritic changes. 3. Moderate joint effusion. [facility], , 09/19/2024 9:23 AM
--- NOTE | 2024-09-19 09:54 | US ---
EXAMINATION TYPE: US venous doppler duplex LE LT DATE OF EXAM: 09/19/2024 9:38 AM COMPARISON: 01/11/2020 CLINICAL INDICATION: Female, 79 years old with history of Pain; Unable to bear weight on LLE, HX DVT RLE post right knee repair in 2018; Patient is on thinners TECHNIQUE: The lower extremity deep venous system is examined utilizing real time linear array sonog valeriy with graded compression, color doppler sonography, and spectral doppler. SIDE PERFORMED: Left FINDINGS: VESSELS IMAGED: Common Femoral Vein Deep Femoral Vein Greater Saphenous Vein * Femoral Vein Popliteal Vein Small Saphenous Vein * Proximal Calf Veins (* superficial vessels) Left Leg: Negative for DVT, Color Doppler imaging shows patency of the vessels. Spectral waveforms a re within normal limits. IMPRESSION: No ultrasound evidence for deep venous thrombosis. [facility], , 09/19/2024 9:52 AM
[2024-09-19] MEDS: DEXAMETHASONE SOD PHOSPHATE 10 MG/ML 1 ML VIAL IVP STA (11:12)
[2024-09-19 11:54] VITALS: BP 113/69; PULSE 76; TEMP 98
== END 2024-09-19 11:50 | disposition home or self-care (01) ==
LOC: EC 08:30
DX: M25.562 Pain in left knee (principal); M25.462 Effusion, left knee; Z87.891 Personal history of nicotine dependence; Z88.0 Allergy status to penicillin; Z88.1 Allergy status to other antibiotic agents; Z88.5 Allergy status to narcotic agent; Z91.041 Radiographic dye allergy status; Z88.8 Allergy status to other drugs, medicaments and biological substances
CPT/HCPCS: 73562; 93971; 99284; 96374; 96372; J2270; J1100